=== PATIENT | male | born 1930 | race Caucasian/White ===

== ENCOUNTER 2017-10-06 17:57 | Emergency (ER) | payer MEDICARE, BC ==
[2017-10-06] MEDS ORDERED: SODIUM CHLORIDE 0.9% 1,000 ML IV ONE (18:19)
[2017-10-06] MEDS ORDERED: SODIUM CHLORIDE 0.9% 500 ML IV ONE (18:19)
--- NOTE | 2017-10-06 18:26 | ED ---
General Adult HPI - General Chief complaint: Altered Mental Status Stated complaint: swelling & bruising on left arm/altered Time Seen by Provider: 10/06/17 18:09 Source: patient, family, RN notes reviewed, old records reviewed Mode of arrival: wheelchair Limitations: altered mental status, physical limitation - History of Present Illness Initial comments: 87-year-old male presents for evaluation of altered mental status, confusion, left upper arm swelling and bruising as well as generalized weakness. Patient is alert and oriented the time my evaluation, family states that his confusion has been coming and going over the past 24 hours. Patient is normally ambulates without assistance. He has required assistance with ambulation today. Patient is currently being treated for UTI, he is uncertain what antibiotic he is on. He has had some hematuria over the past several weeks. He states that he has taken 2 doses of this antibiotic, he subsequently lost the bottle and his urologist has refilled this prescription and he is going to pick it up tomorrow. 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 The family has had several falls, he denies any head trauma. Denies neck pain. - Related Data Home Medications Medication Instructions Recorded Confirmed ALPRAZolam [Xanax] 0.25 mg PO TID 11/04/15 10/06/17 Atenolol [Tenormin] 50 mg PO DAILY 11/04/15 10/06/17 Atorvastatin [Lipitor] 20 mg PO HS 11/04/15 10/06/17 Latanoprost Ophth [Xalatan 0.005%] 1 drops BOTH EYES HS 11/04/15 10/06/17 Acetaminophen [Tylenol] 1,000 mg PO Q4-6H PRN 11/30/15 10/06/17 Cholecalciferol [Vitamin D3] 5,000 unit PO DAILY 11/30/15 10/06/17 Conjugated Linoleic Acid 1 tab PO DAILY 11/30/15 10/06/17 L.acidoph,Paracasei, B.lactis 2 cap PO DAILY 11/30/15 10/06/17 [Probiotic] Loratadine [Claritin] 10 mg PO DAILY PRN 11/30/15 10/06/17 Melatonin 10 mg PO HS 11/30/15 10/06/17 Multivitamin [Men's Multi-Vitamin] 1 tab PO DAILY 11/30/15 10/06/17 Whitt-3 Fatty Acids/Fish Oil [Fish 1 cap PO DAILY 11/30/15 10/06/17 Oil 1,000 mg Softgel] Telmisartan [Micardis] 80 mg PO DAILY 11/30/15 10/06/17 Vitamin C 120mg Tab 120 mg PO BID 11/30/15 10/06/17 Vitamin E (Dl,Tocopheryl Acet) 400 unit PO DAILY 11/30/15 10/06/17 [Vitamin E] Budesonide [Pulmicort] 0.5 mg INHALATION BID 10/06/17 10/06/17 Clindamycin [Cleocin] 600 mg PO ONCE 10/06/17 10/06/17 Ibuprofen [Motrin Ib] 600 mg PO Q6H PRN 10/06/17 10/06/17 Ipratropium-Albuterol Nebulize 3 ml INHALATION QID 10/06/17 10/06/17 [Duoneb 0.5 mg-3 mg/3 ml Soln] Prednisone Unknown Dose 1 tab PO DAILY 10/06/17 10/06/17 Warfarin [Coumadin] 3 mg PO DAILY 10/06/17 10/06/17 metFORMIN HCL [Glucophage] 500 mg PO BID 10/06/17 10/06/17 Allergies Allergy/AdvReac Type Severity Reaction Status Date / Time Penicillins AdvReac Unknown Verified 10/06/17 18:42 tamsulosin HCl [From Flomax] AdvReac Unknown Verified 10/06/17 18:42 Review of Systems ROS Statement: Those systems with pertinent positive or pertinent negative responses have been documented in the HPI. ROS Other: All systems not noted in ROS Statement are negative. Past Medical History Past Medical History: Asthma, Diabetes Mellitus, Hearing Disorder / Deafness, Hypertension, Pulmonary Embolus (PE) History of Any Multi-Drug Resistant Organisms: None Reported Past Surgical History: Joint Replacement Additional Past Surgical History / Comment(s): right hip/ left knee, cataract bilateral Past Anesthesia/Blood Transfusion Reactions: No Reported Reaction Past Psychological History: Anxiety Smoking Status: Former smoker Past Alcohol Use History: Daily, Heavy Past Drug Use History: None Reported General Exam Limitations: altered mental status, physical limitation General appearance: alert, in no apparent distress Head exam: Present: atraumatic, normocephalic Eye exam: Present: normal appearance, PERRL, EOMI ENT exam: Present: mucous membranes dry Neck exam: Present: normal inspection, full ROM. Absent: tenderness, meningismus Respiratory exam: Present: normal lung sounds bilaterally. Absent: respiratory distress, wheezes Cardiovascular Exam: Present: regular rate, normal rhythm GI/Abdominal exam: Present: soft. Absent: distended, tenderness Extremities exam: Present: other (Left upper extremity, diffuse ecchymosis in various stages of healing, there is soft tissue swelling from the elbow to the hand. No point tenderness. No pain with range of motion. Pulses intact.) Back exam: Present: normal inspection Neurological exam: Present: alert, oriented X3, CN II-XII intact. Absent: motor sensory deficit Psychiatric exam: Present: normal affect, normal mood Skin exam: Present: warm, dry Course Vital Signs 10/06/17 10/06/17 10/06/17 18:02 19:14 20:19 Temperature 97.9 F Pulse Rate 87 78 74 Respiratory 20 16 17 Rate Blood Pressure 95/51 98/52 94/55 O2 Sat by Pulse 94 L 97 98 Oximetry 10/06/17 21:27 Temperature Pulse Rate 65 Respiratory 16 Rate Blood Pressure 103/53 O2 Sat by Pulse 96 Oximetry EKG Findings - EKG Comments: EKG Findings:: EKG shows normal sinus rhythm, ventricular rate 85, para 166, QRS duration 82 QTC 442, no signs of ischemia Medical Decision Making - Medical Decision Making 87-year-old male presenting with generalized weakness, left arm swelling and bruising, and intermittent confusion. Patient's confusion is completely resolved with time my evaluation. He does have significant bruising and ecchymosis in various stages of healing over the left upper extremity. Pulses are intact, there is no bony tenderness. X-rays obtained, the wrist and elbow these are negative for fracture dislocation. Ultrasound is also obtained, negative for DVT. Given the history of fall CT of the brain is obtained is negative for intracranial hemorrhage or mass effect. CT cervical spine negative for fracture or subluxation. Chest x-ray shows no acute findings. Patient does have mild elevations in white blood cell count 11.2, hemoglobin is 9.5 which is down trending from previous, this may be related to left upper extremity swelling and ecchymosis status post fall. INR therapeutic 2.2. Electrolytes within normal limits. Creatinine is normal. Urinalysis shows large leukocyte esterase with greater than 182 white blood cells, urine culture pending. Patient has received only 2 doses of outpatient antibiotics, he is uncertain what this antibiotic is. No urine culture is available in previous records. I would prefer the patient stay in the hospital given the confusion and significant UTI, patient is alert and oriented 4, he does not want to be admitted. 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 He will return with worsening or changing symptoms. Patient does not live alone. - Lab Data Result diagrams: 10/06/17 18:47 10/06/17 18:47 Lab Results 10/06/17 10/06/17 10/06/17 Range/Units 18:45 18:47 18:47 WBC 11.2 H (3.8-10.6) k/uL RBC 3.01 L (4.30-5.90) m/uL Hgb 9.5 L (13.0-17.5) gm/dL Hct 29.9 L (39.0-53.0) % MCV 99.2 (80.0-100.0) fL MCH 31.4 (25.0-35.0) pg MCHC 31.7 (31.0-37.0) g/dL RDW 12.9 (11.5-15.5) % Plt Count 324 (150-450) k/uL Neutrophils % 80 % Lymphocytes % 8 % Monocytes % 7 % Eosinophils % 2 % Basophils % 0 % Neutrophils # 9.0 H (1.3-7.7) k/uL Lymphocytes # 0.9 L (1.0-4.8) k/uL Monocytes # 0.8 (0-1.0) k/uL Eosinophils # 0.3 (0-0.7) k/uL Basophils # 0.0 (0-0.2) k/uL PT (9.0-12.0) sec INR (<1.2) APTT (22.0-30.0) sec Sodium (137-145) mmol/L Potassium (3.5-5.1) mmol/L Chloride (98-107) mmol/L Carbon Dioxide (22-30) mmol/L Anion Gap mmol/L BUN (9-20) mg/dL Creatinine (0.66-1.25) mg/dL Est GFR (MDRD) Af Amer (>60 ml/min/1.73 sqM) Est GFR (MDRD) Non-Af (>60 ml/min/1.73 sqM) Glucose (74-99) mg/dL POC Glucose (mg/dL) 208 H (75-99) mg/dL POC Glu [employer] ID Dony Mcdonald Plasma Lactic Acid Jay (0.7-2.0) mmol/L Calcium (8.4-10.2) mg/dL Total Bilirubin (0.2-1.3) mg/dL AST (17-59) U/L ALT (21-72) U/L Alkaline Phosphatase (38-126) U/L Total Creatine Kinase 69 (55-170) U/L CK-MB (CK-2) 1.0 (0.0-2.4) ng/mL CK-MB (CK-2) Rel Index 1.4 Troponin I 0.014 (0.000-0.034) ng/mL Total Protein (6.3-8.2) g/dL Albumin (3.5-5.0) g/dL Urine Color Urine Appearance (Clear) Urine pH (5.0-8.0) Ur Specific [place] (1.001-1.035) Urine Protein (Negative) Urine Glucose (UA) (Negative) Urine Ketones (Negative) Urine Blood (Negative) Urine Nitrite (Negative) Urine Bilirubin (Negative) Urine Urobilinogen (<2.0) mg/dL Ur Leukocyte Esterase (Negative) Urine RBC (0-5) /hpf Urine WBC (0-5) /hpf Urine WBC Clumps (None) /hpf Urine Bacteria (None) /hpf Urine Mucus (None) /hpf 10/06/17 10/06/17 10/06/17 Range/Units 18:47 18:47 18:47 WBC (3.8-10.6) k/uL RBC (4.30-5.90) m/uL Hgb (13.0-17.5) gm/dL Hct (39.0-53.0) % MCV (80.0-100.0) fL MCH (25.0-35.0) pg MCHC (31.0-37.0) g/dL RDW (11.5-15.5) % Plt Count (150-450) k/uL Neutrophils % % Lymphocytes % % Monocytes % % Eosinophils % % Basophils % % Neutrophils # (1.3-7.7) k/uL Lymphocytes # (1.0-4.8) k/uL Monocytes # (0-1.0) k/uL Eosinophils # (0-0.7) k/uL Basophils # (0-0.2) k/uL PT 19.8 H (9.0-12.0) sec INR 2.2 H (<1.2) APTT 36.8 H (22.0-30.0) sec Sodium 143 (137-145) mmol/L Potassium 4.3 (3.5-5.1) mmol/L Chloride 112 H (98-107) mmol/L Carbon Dioxide 22 (22-30) mmol/L Anion Gap 9 mmol/L BUN 28 H (9-20) mg/dL Creatinine 0.80 (0.66-1.25) mg/dL Est GFR (MDRD) Af Amer >60 (>60 ml/min/1.73 sqM) Est GFR (MDRD) Non-Af >60 (>60 ml/min/1.73 sqM) Glucose 197 H (74-99) mg/dL POC Glucose (mg/dL) (75-99) mg/dL POC Glu [employer] ID Plasma Lactic Acid Jay 1.6 (0.7-2.0) mmol/L Calcium 8.6 (8.4-10.2) mg/dL Total Bilirubin 0.8 (0.2-1.3) mg/dL AST 48 (17-59) U/L ALT 38 (21-72) U/L Alkaline Phosphatase 68 (38-126) U/L Total Creatine Kinase (55-170) U/L CK-MB (CK-2) (0.0-2.4) ng/mL CK-MB (CK-2) Rel Index Troponin I (0.000-0.034) ng/mL Total Protein 5.0 L (6.3-8.2) g/dL Albumin 2.5 L (3.5-5.0) g/dL Urine Color Urine Appearance (Clear) Urine pH (5.0-8.0) Ur Specific [place] (1.001-1.035) Urine Protein (Negative) Urine Glucose (UA) (Negative) Urine Ketones (Negative) Urine Blood (Negative) Urine Nitrite (Negative) Urine Bilirubin (Negative) Urine Urobilinogen (<2.0) mg/dL Ur Leukocyte Esterase (Negative) Urine RBC (0-5) /hpf Urine WBC (0-5) /hpf Urine WBC Clumps (None) /hpf Urine Bacteria (None) /hpf Urine Mucus (None) /hpf 10/06/17 Range/Units 20:10 WBC (3.8-10.6) k/uL RBC (4.30-5.90) m/uL Hgb (13.0-17.5) gm/dL Hct (39.0-53.0) % MCV (80.0-100.0) fL MCH (25.0-35.0) pg MCHC (31.0-37.0) g/dL RDW (11.5-15.5) % Plt Count (150-450) k/uL Neutrophils % % Lymphocytes % % Monocytes % % Eosinophils % % Basophils % % Neutrophils # (1.3-7.7) k/uL Lymphocytes # (1.0-4.8) k/uL Monocytes # (0-1.0) k/uL Eosinophils # (0-0.7) k/uL Basophils # (0-0.2) k/uL PT (9.0-12.0) sec INR (<1.2) APTT (22.0-30.0) sec Sodium (137-145) mmol/L Potassium (3.5-5.1) mmol/L Chloride (98-107) mmol/L Carbon Dioxide (22-30) mmol/L Anion Gap mmol/L BUN (9-20) mg/dL Creatinine (0.66-1.25) mg/dL Est GFR (MDRD) Af Amer (>60 ml/min/1.73 sqM) Est GFR (MDRD) Non-Af (>60 ml/min/1.73 sqM) Glucose (74-99) mg/dL POC Glucose (mg/dL) (75-99) mg/dL POC Glu [employer] ID Plasma Lactic Acid Jay (0.7-2.0) mmol/L Calcium (8.4-10.2) mg/dL Total Bilirubin (0.2-1.3) mg/dL AST (17-59) U/L ALT (21-72) U/L Alkaline Phosphatase (38-126) U/L Total Creatine Kinase (55-170) U/L CK-MB (CK-2) (0.0-2.4) ng/mL CK-MB (CK-2) Rel Index Troponin I (0.000-0.034) ng/mL Total Protein (6.3-8.2) g/dL Albumin (3.5-5.0) g/dL Urine Color Yellow Urine Appearance Cloudy (Clear) Urine pH 5.5 (5.0-8.0) Ur Specific [place] 1.014 (1.001-1.035) Urine Protein 1+ H (Negative) Urine Glucose (UA) Negative (Negative) Urine Ketones Negative (Negative) Urine Blood Trace H (Negative) Urine Nitrite Negative (Negative) Urine Bilirubin Negative (Negative) Urine Urobilinogen <2.0 (<2.0) mg/dL Ur Leukocyte Esterase Large H (Negative) Urine RBC 6 H (0-5) /hpf Urine WBC >182 H (0-5) /hpf Urine WBC Clumps Many H (None) /hpf Urine Bacteria Rare H (None) /hpf Urine Mucus Rare H (None) /hpf Disposition Clinical Impression: UTI (urinary tract infection), Traumatic ecchymosis of left upper arm Disposition: HOME SELF-CARE Condition: Stable Instructions: Hematoma (ED), Contusion in Adults (ED), Urinary Traction Infection in Older Adults (ED), Urinary Tract Infection in Men (ED) Additional Instructions: Please take antibiotic prescribed by your urologist tomorrow morning. Please return with any worsening or changing symptoms. Referrals: Yue Loya MD [Primary Care Provider] - 1-2 days Time of Disposition: 21:48
[2017-10-06 19:00] LABS: Basophils % (A) 0 %; Eosinophils # (A) 0.3 k/uL (0-0.7); Eosinophils % (A) 2 %; HCT 29.9 % (39.0-53.0); HGB 9.5 gm/dL (13.0-17.5); Lymphocytes # (A) 0.9 k/uL (1.0-4.8); Lymphocytes % (A) 8 %; MCH 31.4 pg (25.0-35.0); MCHC 31.7 g/dL (31.0-37.0); MCV 99.2 fL (80.0-100.0); Mean Platelet Volume 7.9; Monocytes # (A) 0.8 k/uL (0-1.0); Monocytes % (A) 7 %; Neutrophils % (A) 80 %; Platelet Count 324 k/uL (150-450); RBC 3.01 m/uL (4.30-5.90); RDW 12.9 % (11.5-15.5); WBC 11.2 k/uL (3.8-10.6)
[2017-10-06 19:04] LABS: Glucose,Whole Blood 208 mg/dL (75-99)
[2017-10-06 19:15] LABS: ALT 38 U/L (21-72); AST 48 U/L (17-59); Albumin 2.5 g/dL (3.5-5.0); Alkaline Phosphatase 68 U/L (38-126); Anion Gap 9 mmol/L; Blood Urea Nitrogen 28 mg/dL (9-20); Calcium 8.6 mg/dL (8.4-10.2); Carbon Dioxide 22 mmol/L (22-30); Chloride 112 mmol/L (98-107); Glucose 197 mg/dL (74-99); Potassium 4.3 mmol/L (3.5-5.1); Sodium 143 mmol/L (137-145); Total Bilirubin 0.8 mg/dL (0.2-1.3)
[2017-10-06 19:21] LABS: INR 2.2 (<1.2); Partial Thromboplastin Time 36.8 sec (22.0-30.0); Prothrombin Time 19.8 sec (9.0-12.0)
--- NOTE | 2017-10-06 19:43 | CT ---
EXAMINATION TYPE: CT brain fay gustafson DATE OF EXAM: 10/06/2017 COMPARISON: Head CT scan 11/04/2015 HISTORY: Swelling and bruising to left arm. Altered mental status. Neck pain CT DLP: 1331.2 mGycm Automated exposure control for dose reduction was used. TECHNIQUE: CT scan of the head and cervical spine are performed without contrast. FINDINGS: There is some cerebral cortical atrophy. There is mild hypodensity in the periventricular white matter. There is metal artifact from apparent implant at the right mastoid process. There is no midline shift. There is no sign of intracranial hemorrhage. The calvarium is intact. The cervical vertebra have fairly normal alignment. There is a few millimeter anterior subluxation of C4 in relation to C5 and also C6 in relation to C7 and C7 in relation to T1. There is multilevel hyp ertrophic facet arthropathy. I see no compression fracture. There is no evidence of an acute fracture . IMPRESSION: Cerebral atrophy and chronic small vessel ischemia. No acute intracranial abnormality. No change. 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 No fracture seen.
[2017-10-06 19:48] LABS: Troponin I 0.014 ng/mL (0.000-0.034)
--- NOTE | 2017-10-06 20:10 | XR ---
EXAMINATION TYPE: XR wrist complete LT DATE OF EXAM: 10/06/2017 COMPARISON: NONE HISTORY: Pain and swelling TECHNIQUE: 4 views FINDINGS: There is narrowing of the radiocarpal joint space. There is some sclerosis in the lunate. T here is vascular calcification. There is narrowing of the first carpometacarpal joint space with spur ring. IMPRESSION: No fracture. Osteoarthritic changes.
--- NOTE | 2017-10-06 20:11 | XR ---
EXAMINATION TYPE: XR elbow complete LT DATE OF EXAM: 10/06/2017 COMPARISON: NONE HISTORY: Pain and swelling TECHNIQUE: 3 views FINDINGS: I see no fracture nor dislocation. There is minor spurring at the elbow joint. There is no sign of elbow joint effusion. There is vascular calcification. IMPRESSION: No acute abnormality of the left elbow.
--- NOTE | 2017-10-06 20:12 | XR ---
EXAMINATION TYPE: XR chest 2V DATE OF EXAM: 10/06/2017 COMPARISON: 11/30/2015 HISTORY: Chest pain. Altered mental status. TECHNIQUE: Frontal and lateral views of the chest are obtained. FINDINGS: There is mild elevated left diaphragm. There is no heart failure nor confluent pneumonic i nfiltrate. Thoracic aorta is atheromatous. IMPRESSION: Mild chronic elevated left diaphragm. No active cardiopulmonary disease. No change.
[2017-10-06 20:39] LABS: Appearance,Urine Cloudy (Clear); Bacteria,Urine Rare /hpf; Bilirubin,Urine Negative (Negative); Blood,Urine Trace (Negative); Color,Urine Yellow; Glucose,Urine (UA) Negative (Negative); Ketones,Urine Negative (Negative); Leukocyte Esterase,Urine Large (Negative); Mucus,Urine Rare /hpf; PH, Urine 5.5 (5.0-8.0); Protein,Urine 1+ (Negative); RBC,Urine 6 /hpf (0-5); Specific Gravity,Urine 1.014 (1.001-1.035); Urobilinogen,Urine <2.0 mg/dL (<2.0); WBC,Urine >182 /hpf (0-5)
--- NOTE | 2017-10-06 21:02 | US ---
EXAMINATION TYPE: US venous doppler duplex UE LT DATE OF EXAM: 10/06/2017 COMPARISON: NONE CLINICAL HISTORY: Pain. Left arm pain and swelling SIDE PERFORMED: Left Left Arm: Negative for DVT No evidence for DVT left arm. IMPRESSION: No evidence of deep venous thrombosis in the left arm.
[2017-10-06] MEDS ORDERED: LEVOFLOXACIN 500MG-D5W PMX 500 MG in DEXTROSE/WATER 1 100ML.BAG IVPB STA (21:17)
[2017-10-06 21:28] VITALS: RESP 16
[2017-10-06 22:42] VITALS: BP 107/50; PULSE 71; TEMP 98.1
== END 2017-10-06 22:39 | disposition home or self-care (01) ==
LOC: EC 17:57
DX: N39.0 Urinary tract infection, site not specified (principal); S40.022D Contusion of left upper arm, subsequent encounter; D72.829 Elevated white blood cell count, unspecified; R41.82 Altered mental status, unspecified; M79.89 Other specified soft tissue disorders; R53.1 Weakness; R29.6 Repeated falls; Z87.891 Personal history of nicotine dependence; I10 Essential (primary) hypertension; E11.9 Type 2 diabetes mellitus without complications; J45.909 Unspecified asthma, uncomplicated; H91.90 Unspecified hearing loss, unspecified ear; F41.9 Anxiety disorder, unspecified; Z79.01 Long term (current) use of anticoagulants; Z79.51 Long term (current) use of inhaled steroids; Z79.52 Long term (current) use of systemic steroids; Z79.84 Long term (current) use of oral hypoglycemic drugs; Z79.899 Other long term (current) drug therapy; Z88.0 Allergy status to penicillin; Z88.8 Allergy status to other drugs, medicaments and biological substances; Z86.711 Personal history of pulmonary embolism; Z86.718 Personal history of other venous thrombosis and embolism; W19.XXXD Unspecified fall, subsequent encounter
CPT/HCPCS: 36415; 93005; 80053; 82550; 82553; 83605; 84484; 85025; 85610; 85730; 81001; 87086; 87077; 87186; 73080; 73110; 71046; 93971; 72125; 70450; 99285; 96365; 96361 ×2; J1956

== ENCOUNTER 2017-10-08 06:03 | Inpatient (IN) | payer MEDICARE, BC ==
[2017-10-08 07:35] LABS: Basophils # (A) 0.1 k/uL (0-0.2); Basophils % (A) 0 %; Eosinophils # (A) 0.3 k/uL (0-0.7); Eosinophils % (A) 3 %; HGB 8.8 gm/dL (13.0-17.5); Lymphocytes # (A) 1.2 k/uL (1.0-4.8); Lymphocytes % (A) 10 %; MCH 31.3 pg (25.0-35.0); MCHC 31.6 g/dL (31.0-37.0); MCV 98.9 fL (80.0-100.0); Mean Platelet Volume 7.3; Monocytes # (A) 1.1 k/uL (0-1.0); Monocytes % (A) 9 %; Neutrophils # (A) 9.3 k/uL (1.3-7.7); Neutrophils % (A) 77 %; Platelet Count 369 k/uL (150-450); RBC 2.83 m/uL (4.30-5.90); RDW 12.7 % (11.5-15.5); WBC 12.2 k/uL (3.8-10.6)
[2017-10-08] MEDS ORDERED: SODIUM CHLORIDE 0.9% 1,000 ML IV STA (07:40)
[2017-10-08 07:43] LABS: ALT 48 U/L (21-72); AST 56 U/L (17-59); Albumin 2.3 g/dL (3.5-5.0); Alkaline Phosphatase 72 U/L (38-126); Anion Gap 8 mmol/L; Blood Urea Nitrogen 24 mg/dL (9-20); Calcium 8.4 mg/dL (8.4-10.2); Carbon Dioxide 21 mmol/L (22-30); Chloride 111 mmol/L (98-107); Glucose 147 mg/dL (74-99); Magnesium 1.7 mg/dL (1.6-2.3); Potassium 4.1 mmol/L (3.5-5.1); Sodium 140 mmol/L (137-145); Total Protein 4.7 g/dL (6.3-8.2)
--- NOTE | 2017-10-08 07:44 | ED ---
General Adult HPI - General Chief complaint: Fall Stated complaint: Fall-revisit Time Seen by Provider: 10/08/17 07:05 Source: patient, family, RN notes reviewed Mode of arrival: ambulatory Limitations: no limitations - History of Present Illness Initial comments: Patient is a pleasant 87-year-old male presenting to the emergency Department with general weakness. Patient was diagnosed with urinary tract infection however did not get antibiotics filled. Patient was in the urgency Department recently and received a dose of IV antibiotics. Patient did get in touch with his urologist and had a prescription called in for a different antibiotic. Patient was supposed to get this picked up this morning. Patient has generalized weakness and has had falls. No injury. Patient does have ecchymosis of his left arm that he has been seen for and this was attributed to his Coumadin. Patient denies any discomfort of left arm. Patient has been somewhat forgetful and confused. - Related Data Home Medications Medication Instructions Recorded Confirmed ALPRAZolam [Xanax] 0.25 mg PO TID 11/04/15 10/08/17 Atenolol [Tenormin] 50 mg PO DAILY 11/04/15 10/08/17 Atorvastatin [Lipitor] 20 mg PO HS 11/04/15 10/08/17 Latanoprost Ophth [Xalatan 0.005%] 1 drops BOTH EYES HS 11/04/15 10/08/17 Acetaminophen [Tylenol] 1,000 mg PO Q4-6H PRN 11/30/15 10/08/17 Cholecalciferol [Vitamin D3] 5,000 unit PO DAILY 11/30/15 10/08/17 Conjugated Linoleic Acid 1 tab PO DAILY 11/30/15 10/08/17 L.acidoph,Paracasei, B.lactis 2 cap PO DAILY 11/30/15 10/08/17 [Probiotic] Loratadine [Claritin] 10 mg PO DAILY PRN 11/30/15 10/08/17 Melatonin 10 mg PO HS 11/30/15 10/08/17 Multivitamin [Men's Multi-Vitamin] 1 tab PO DAILY 11/30/15 10/08/17 Collins-3 Fatty Acids/Fish Oil [Fish 1 cap PO DAILY 11/30/15 10/08/17 Oil 1,000 mg Softgel] Telmisartan [Micardis] 80 mg PO DAILY 11/30/15 10/08/17 Vitamin C 120mg Tab 120 mg PO BID 11/30/15 10/08/17 Vitamin E (Dl,Tocopheryl Acet) 400 unit PO DAILY 11/30/15 10/08/17 [Vitamin E] Budesonide [Pulmicort] 0.5 mg INHALATION BID 10/06/17 10/08/17 Clindamycin [Cleocin] 600 mg PO ONCE 10/06/17 10/08/17 Ibuprofen [Motrin Ib] 600 mg PO Q6H PRN 10/06/17 10/08/17 Ipratropium-Albuterol Nebulize 3 ml INHALATION QID 10/06/17 10/08/17 [Duoneb 0.5 mg-3 mg/3 ml Soln] Prednisone Unknown Dose 1 tab PO DAILY 10/06/17 10/08/17 Warfarin [Coumadin] 3 mg PO DAILY 10/06/17 10/08/17 metFORMIN HCL [Glucophage] 500 mg PO BID 10/06/17 10/08/17 Allergies Allergy/AdvReac Type Severity Reaction Status Date / Time Penicillins AdvReac Unknown Verified 10/08/17 08:25 tamsulosin HCl [From Flomax] AdvReac Unknown Verified 10/08/17 08:25 Review of Systems ROS Statement: Those systems with pertinent positive or pertinent negative responses have been documented in the HPI. ROS Other: All systems not noted in ROS Statement are negative. Constitutional: Denies: fever Eyes: Denies: eye pain ENT: Denies: ear pain Respiratory: Denies: cough Cardiovascular: Denies: chest pain Endocrine: Denies: fatigue Gastrointestinal: Denies: abdominal pain Genitourinary: Denies: dysuria Musculoskeletal: Denies: back pain Skin: Denies: rash Neurological: Reports: confusion. Denies: headache Past Medical History Past Medical History: Asthma, Diabetes Mellitus, Hearing Disorder / Deafness, Hypertension, Pulmonary Embolus (PE) Additional Past Medical History / Comment(s): jaundice History of Any Multi-Drug Resistant Organisms: None Reported Past Surgical History: Joint Replacement Additional Past Surgical History / Comment(s): right hip/ left knee, cataract bilateral Past Anesthesia/Blood Transfusion Reactions: No Reported Reaction Past Psychological History: Anxiety Smoking Status: Former smoker Past Alcohol Use History: Daily, Heavy Past Drug Use History: None Reported General Exam Limitations: no limitations General appearance: alert Head exam: Present: atraumatic, normocephalic Eye exam: Present: normal appearance, PERRL, EOMI ENT exam: Present: normal oropharynx Neck exam: Present: normal inspection Respiratory exam: Present: normal lung sounds bilaterally Cardiovascular Exam: Present: regular rate, normal rhythm GI/Abdominal exam: Present: soft. Absent: tenderness Rectal exam: Present: normal inspection Extremities exam: Present: other (Left arm ecchymosis) Neurological exam: Present: alert, CN II-XII intact. Absent: motor sensory deficit Expanded Patient oriented to: Present: person, place, time Speech: Present: fluid speech Motor strength exam: RUE: 5, LUE: 5, RLE: 5, LLE: 5 Eye Response: (4) open spontaneously Motor Response: (6) obeys commands Verbal Response: (5) oriented Psychiatric exam: Present: normal affect, normal mood Skin exam: Present: other (Left arm ecchymosis) Course Vital Signs 10/08/17 10/08/17 10/08/17 06:09 07:08 08:01 Temperature 97.5 F L 99.3 F Pulse Rate 91 82 81 Respiratory 20 18 16 Rate Blood Pressure 97/52 106/50 96/52 O2 Sat by Pulse 94 L 94 L 97 Oximetry - Reevaluation(s) Reevaluation #1: 10/08/17 08:53 Patient meet sepsis criteria diagnosed at 8:53 AM. Blood culture and lactic acid have been ordered. IV antibiotics will be ordered. EKG Findings - EKG Comments: EKG Findings:: Normal sinus rhythm 89. KS 174. QRS 82. QT 366. QTc 445. Normal axis. Normal QRS. No acute ST change. Medical Decision Making - Medical Decision Making Patient reevaluated and updated. Case discussed in detail with Dr. Loya, who will admit his patient. - Lab Data Result diagrams: 10/08/17 07:00 10/08/17 07:00 Lab Results 10/08/17 10/08/17 10/08/17 Range/Units 07:00 07:00 07:00 WBC 12.2 H (3.8-10.6) k/uL RBC 2.83 L (4.30-5.90) m/uL Hgb 8.8 L (13.0-17.5) gm/dL Hct 28.0 L (39.0-53.0) % MCV 98.9 (80.0-100.0) fL MCH 31.3 (25.0-35.0) pg MCHC 31.6 (31.0-37.0) g/dL RDW 12.7 (11.5-15.5) % Plt Count 369 (150-450) k/uL Neutrophils % 77 % Lymphocytes % 10 % Monocytes % 9 % Eosinophils % 3 % Basophils % 0 % Neutrophils # 9.3 H (1.3-7.7) k/uL Lymphocytes # 1.2 (1.0-4.8) k/uL Monocytes # 1.1 H (0-1.0) k/uL Eosinophils # 0.3 (0-0.7) k/uL Basophils # 0.1 (0-0.2) k/uL PT (9.0-12.0) sec INR (<1.2) APTT (22.0-30.0) sec Sodium 140 (137-145) mmol/L Potassium 4.1 (3.5-5.1) mmol/L Chloride 111 H (98-107) mmol/L Carbon Dioxide 21 L (22-30) mmol/L Anion Gap 8 mmol/L BUN 24 H (9-20) mg/dL Creatinine 0.78 (0.66-1.25) mg/dL Est GFR (MDRD) Af Amer >60 (>60 ml/min/1.73 sqM) Est GFR (MDRD) Non-Af >60 (>60 ml/min/1.73 sqM) Glucose 147 H (74-99) mg/dL Plasma Lactic Acid Jay (0.7-2.0) mmol/L Calcium 8.4 (8.4-10.2) mg/dL Magnesium 1.7 (1.6-2.3) mg/dL Total Bilirubin 1.0 (0.2-1.3) mg/dL AST 56 (17-59) U/L ALT 48 (21-72) U/L Alkaline Phosphatase 72 (38-126) U/L Total Creatine Kinase 63 (55-170) U/L CK-MB (CK-2) 1.2 (0.0-2.4) ng/mL CK-MB (CK-2) Rel Index 1.9 Troponin I 0.013 (0.000-0.034) ng/mL Total Protein 4.7 L (6.3-8.2) g/dL Albumin 2.3 L (3.5-5.0) g/dL Urine Color Urine Appearance (Clear) Urine pH (5.0-8.0) Ur Specific [place] (1.001-1.035) Urine Protein (Negative) Urine Glucose (UA) (Negative) Urine Ketones (Negative) Urine Blood (Negative) Urine Nitrite (Negative) Urine Bilirubin (Negative) Urine Urobilinogen (<2.0) mg/dL Ur Leukocyte Esterase (Negative) Urine RBC (0-5) /hpf Urine WBC (0-5) /hpf Ur Squamous Epith Cells (0-4) /hpf Urine Mucus (None) /hpf Stool Occult Blood (Negative) 10/08/17 10/08/17 10/08/17 Range/Units 07:00 07:30 07:59 WBC (3.8-10.6) k/uL RBC (4.30-5.90) m/uL Hgb (13.0-17.5) gm/dL Hct (39.0-53.0) % MCV (80.0-100.0) fL MCH (25.0-35.0) pg MCHC (31.0-37.0) g/dL RDW (11.5-15.5) % Plt Count (150-450) k/uL Neutrophils % % Lymphocytes % % Monocytes % % Eosinophils % % Basophils % % Neutrophils # (1.3-7.7) k/uL Lymphocytes # (1.0-4.8) k/uL Monocytes # (0-1.0) k/uL Eosinophils # (0-0.7) k/uL Basophils # (0-0.2) k/uL PT 24.3 H (9.0-12.0) sec INR 2.7 H (<1.2) APTT 39.3 H (22.0-30.0) sec Sodium (137-145) mmol/L Potassium (3.5-5.1) mmol/L Chloride (98-107) mmol/L Carbon Dioxide (22-30) mmol/L Anion Gap mmol/L BUN (9-20) mg/dL Creatinine (0.66-1.25) mg/dL Est GFR (MDRD) Af Amer (>60 ml/min/1.73 sqM) Est GFR (MDRD) Non-Af (>60 ml/min/1.73 sqM) Glucose (74-99) mg/dL Plasma Lactic Acid Jay 0.8 (0.7-2.0) mmol/L Calcium (8.4-10.2) mg/dL Magnesium (1.6-2.3) mg/dL Total Bilirubin (0.2-1.3) mg/dL AST (17-59) U/L ALT (21-72) U/L Alkaline Phosphatase (38-126) U/L Total Creatine Kinase (55-170) U/L CK-MB (CK-2) (0.0-2.4) ng/mL CK-MB (CK-2) Rel Index Troponin I (0.000-0.034) ng/mL Total Protein (6.3-8.2) g/dL Albumin (3.5-5.0) g/dL Urine Color Yellow Urine Appearance Clear (Clear) Urine pH 5.0 (5.0-8.0) Ur Specific [place] 1.013 (1.001-1.035) Urine Protein Trace H (Negative) Urine Glucose (UA) Negative (Negative) Urine Ketones Negative (Negative) Urine Blood Negative (Negative) Urine Nitrite Negative (Negative) Urine Bilirubin Negative (Negative) Urine Urobilinogen <2.0 (<2.0) mg/dL Ur Leukocyte Esterase Moderate H (Negative) Urine RBC 2 (0-5) /hpf Urine WBC 57 H (0-5) /hpf Ur Squamous Epith Cells 1 (0-4) /hpf Urine Mucus Rare H (None) /hpf Stool Occult Blood (Negative) 10/08/17 Range/Units 08:05 WBC (3.8-10.6) k/uL RBC (4.30-5.90) m/uL Hgb (13.0-17.5) gm/dL Hct (39.0-53.0) % MCV (80.0-100.0) fL MCH (25.0-35.0) pg MCHC (31.0-37.0) g/dL RDW (11.5-15.5) % Plt Count (150-450) k/uL Neutrophils % % Lymphocytes % % Monocytes % % Eosinophils % % Basophils % % Neutrophils # (1.3-7.7) k/uL Lymphocytes # (1.0-4.8) k/uL Monocytes # (0-1.0) k/uL Eosinophils # (0-0.7) k/uL Basophils # (0-0.2) k/uL PT (9.0-12.0) sec INR (<1.2) APTT (22.0-30.0) sec Sodium (137-145) mmol/L Potassium (3.5-5.1) mmol/L Chloride (98-107) mmol/L Carbon Dioxide (22-30) mmol/L Anion Gap mmol/L BUN (9-20) mg/dL Creatinine (0.66-1.25) mg/dL Est GFR (MDRD) Af Amer (>60 ml/min/1.73 sqM) Est GFR (MDRD) Non-Af (>60 ml/min/1.73 sqM) Glucose (74-99) mg/dL Plasma Lactic Acid Jay (0.7-2.0) mmol/L Calcium (8.4-10.2) mg/dL Magnesium (1.6-2.3) mg/dL Total Bilirubin (0.2-1.3) mg/dL AST (17-59) U/L ALT (21-72) U/L Alkaline Phosphatase (38-126) U/L Total Creatine Kinase (55-170) U/L CK-MB (CK-2) (0.0-2.4) ng/mL CK-MB (CK-2) Rel Index Troponin I (0.000-0.034) ng/mL Total Protein (6.3-8.2) g/dL Albumin (3.5-5.0) g/dL Urine Color Urine Appearance (Clear) Urine pH (5.0-8.0) Ur Specific [place] (1.001-1.035) Urine Protein (Negative) Urine Glucose (UA) (Negative) Urine Ketones (Negative) Urine Blood (Negative) Urine Nitrite (Negative) Urine Bilirubin (Negative) Urine Urobilinogen (<2.0) mg/dL Ur Leukocyte Esterase (Negative) Urine RBC (0-5) /hpf Urine WBC (0-5) /hpf Ur Squamous Epith Cells (0-4) /hpf Urine Mucus (None) /hpf Stool Occult Blood Negative (Negative) - Radiology Data Radiology results: image reviewed (Chest x-ray shows mild cardiomegaly. No change from previous.) Critical Care Time Critical Care Time: Yes Total Critical Care Time: 33 Disposition Clinical Impression: Urinary tract infection, Sepsis Disposition: ADMITTED IP TO THIS HOSP Referrals: Yue Loya MD [Primary Care Provider] - 1-2 days Decision Time: 08:54
[2017-10-08 07:45] LABS: INR 2.7 (<1.2); Partial Thromboplastin Time 39.3 sec (22.0-30.0); Prothrombin Time 24.3 sec (9.0-12.0)
[2017-10-08 08:16] LABS: Appearance,Urine Clear (Clear); Bilirubin,Urine Negative (Negative); Blood,Urine Negative (Negative); Color,Urine Yellow; Glucose,Urine (UA) Negative (Negative); Ketones,Urine Negative (Negative); Leukocyte Esterase,Urine Moderate (Negative); Mucus,Urine Rare /hpf; Nitrite,Urine Negative (Negative); Protein,Urine Trace (Negative); RBC,Urine 2 /hpf (0-5); Specific Gravity,Urine 1.013 (1.001-1.035); Squamous Epithelial Cell,Urine 1 /hpf (0-4); Urobilinogen,Urine <2.0 mg/dL (<2.0); WBC,Urine 57 /hpf (0-5)
[2017-10-08 08:18] LABS: Creatine Kinase MB 1.2 ng/mL (0.0-2.4); Troponin I 0.013 ng/mL (0.000-0.034)
--- NOTE | 2017-10-08 08:19 | XR ---
EXAMINATION TYPE: XR chest 2V DATE OF EXAM: 10/08/2017 COMPARISON: Chest x-ray October 06, 2017 HISTORY: Weakness with left arm bruising. TECHNIQUE: Frontal and lateral views of the chest are obtained. FINDINGS: The osseous structures remain demineralized. Underlying scoliosis is present. There is mil d cardiomegaly with atherosclerotic thoracic aorta. There is elevated left hemidiaphragm redemonstrat ed. There is no new suspicious focal airspace opacity, pleural effusion, or pneumothorax seen bilater ally. IMPRESSION: Mild cardiomegaly and elevated left hemidiaphragm without acute pulmonary process. No si gnificant change from most recent chest x-ray.
[2017-10-08] MEDS ORDERED: NALOXONE 0.4 MG/ML 1 ML VIAL IV PRN (08:54)
[2017-10-08] MEDS ORDERED: ACETAMINOPHEN TAB 325 MG TAB PO PRN (08:54)
[2017-10-08] MEDS ORDERED: cefTRIAXone IN SWFI 1,000 MG/10 ML SYRINGE IVP STA (08:56)
[2017-10-08] MEDS: SODIUM CHLORIDE 0.9% 1,000 ML IV SCH ×2 (10:16→19:44)
[2017-10-08] MEDS ORDERED: LORATADINE 10 MG TAB PO PRN (10:38)
[2017-10-08] MEDS: IPRATROPIUM-ALBUTEROL 3 ML NEB INHALATION SCH ×5 (11:15→20:00)
[2017-10-08 12:07] LABS: Glucose,Whole Blood 266 mg/dL (75-99)
[2017-10-08] MEDS: INSULIN ASPART 100 UNIT/ML 1 ML 10 ML VIAL SQ SCH ×3 (12:15→21:37)
--- NOTE | 2017-10-08 12:20 | P.HPIM ---
History of Present Illness H&P Date: 10/08/17 Chief Complaint: Generalized weakness This is a 87-year-old male with a known past medical history of PE, DVT, hypertension, hyperlipidemia, anxiety and diabetes mellitus type 2. Patient is slightly confused and hard of hearing. Patient presents to the emergency room with complaints of generalized weakness per ER report. Patient's is a poor historian most information became from the emergency room chart. Apparently patient was diagnosed with a UTI outpatient and did not get antibiotics filled. Patient presented with weakness and evidence of a UTI. Started on IV Rocephin. The patient reports that he has not been following. He has ecchymosis of the left wrist and hand and likely this is related to his Coumadin. Patient reports that his INR was elevated. On admission INR is 2.7. He denies any injury to that left arm. He is able to answer some questions. The been at times he appears confused. He is also very hard of hearing. Patient denies any chest pain or shortness of breath. Denies any fever or chills or sweats. Denies any nausea vomiting. Denies any bowel movement changes. Denies any burning with urination. Does admit to having some hematuria that appears to be improving. She reports that his urine is almost clear. He's also been hypotensive with blood pressure 97/48. Hemoglobin is 8.8. Stool for occult blood is negative. INR 2.7 white count 12.2. He is sedated admitted to the hospital for UTI with sepsis and started on IV Rocephin. Urine culture and blood culture of been ordered. Blood pressure pills are on hold. He is being given IV fluids. Started on antibiotics. Review of Systems Please refer to HPI otherwise unremarkable Past Medical History Past Medical History: Asthma, Diabetes Mellitus, Eye Disorder, Hearing Disorder / Deafness, Hypertension, Memory Impairment, Osteoarthritis (OA), Prostate Disorder, Pulmonary Embolus (PE) Additional Past Medical History / Comment(s): Severe environmental allergies, respiratory failure/intubated, AGUA CALIENTE bilaterally, BPH, bilateral glaucoma. History of Any Multi-Drug Resistant Organisms: None Reported Past Surgical History: Joint Replacement, Tonsillectomy Additional Past Surgical History / Comment(s): L total hip arthroplasty, L total knee arthroplasty, laser surgery bilateral eyes cataracts with lens implants, colonoscopy with benign polypectomy, cyst removed from back, vasectomy. Past Anesthesia/Blood Transfusion Reactions: No Reported Reaction Smoking Status: Former smoker - Past Family History Father Family Medical History: No Reported History Mother Additional Family Medical History / Comment(s): Pt states his mother had mental health issues and trigeminal nerve problem and had chronic pain from this. Medications and Allergies Home Medications Medication Instructions Recorded Confirmed Type ALPRAZolam [Xanax] 0.25 mg PO TID 11/04/15 10/08/17 History Atenolol [Tenormin] 50 mg PO DAILY 11/04/15 10/08/17 History Atorvastatin [Lipitor] 20 mg PO HS 11/04/15 10/08/17 History Latanoprost Ophth [Xalatan 0.005%] 1 drops BOTH EYES HS 11/04/15 10/08/17 History Acetaminophen [Tylenol] 1,000 mg PO Q4-6H PRN 11/30/15 10/08/17 History Cholecalciferol [Vitamin D3] 5,000 unit PO DAILY 11/30/15 10/08/17 History Conjugated Linoleic Acid 1 tab PO DAILY 11/30/15 10/08/17 History L.acidoph,Paracasei, B.lactis 2 cap PO DAILY 11/30/15 10/08/17 History [Probiotic] Loratadine [Claritin] 10 mg PO DAILY PRN 11/30/15 10/08/17 History Melatonin 10 mg PO HS 11/30/15 10/08/17 History Multivitamin [Men's Multi-Vitamin] 1 tab PO DAILY 11/30/15 10/08/17 History Hope-3 Fatty Acids/Fish Oil [Fish 1 cap PO DAILY 11/30/15 10/08/17 History Oil 1,000 mg Softgel] Telmisartan [Micardis] 80 mg PO DAILY 11/30/15 10/08/17 History Vitamin E (Dl,Tocopheryl Acet) 400 unit PO DAILY 11/30/15 10/08/17 History [Vitamin E] Clindamycin [Cleocin] 600 mg PO ONCE 10/06/17 10/08/17 History Ipratropium-Albuterol Nebulize 3 ml INHALATION QID 10/06/17 10/08/17 History [Duoneb 0.5 mg-3 mg/3 ml Soln] Warfarin [Coumadin] 3 mg PO DAILY 10/06/17 10/08/17 History metFORMIN HCL [Glucophage] 500 mg PO BID 10/06/17 10/08/17 History Ascorbic Acid [Vitamin C] 1,500 mg PO DAILY 10/08/17 10/08/17 History Calcium Carbonate/Vitamin D3 1 tab PO DAILY 10/08/17 10/08/17 History [Calcium 600-Vit D3 400 Caplet] Ipratropium/Albuterol Sulfate 2 puff INHALATION RT-Q4H 10/08/17 10/08/17 History [Combivent Respimat Inhaler] Allergies Allergy/AdvReac Type Severity Reaction Status Date / Time Penicillins AdvReac Unknown Verified 10/08/17 08:25 tamsulosin HCl [From Flomax] AdvReac Unknown Verified 10/08/17 08:25 Physical Exam Vitals: Vital Signs Temp Pulse Pulse Resp BP BP Pulse Ox 10/08/17 11:15 80 10/08/17 10:56 96.9 F L 78 16 97/48 100 10/08/17 10:07 83 18 100/57 95 10/08/17 09:05 98.6 F 74 18 97/48 96 10/08/17 08:01 99.3 F 81 16 96/52 97 10/08/17 07:08 82 18 106/50 94 L 10/08/17 06:09 97.5 F L 91 20 97/52 94 L Intake and Output 10/07/17 10/08/17 10/08/17 22:59 06:59 14:59 Other: Voiding Method Urinal Incontinent Weight 63.957 kg Head normocephalic Neck supple Lungs clear to auscultation bilaterally no wheezing or crackles Heart regular rate and rhythm S1-S2, no rub or gallop Abdomen is soft nontender nondistended positive bowel sounds no hepatosplenomegaly Extremities no edema lower extremities. Left wrist bruising in the left hand and wrist down into the left arm. No tenderness with palpation. Full range of motion. No swelling Neuro awake and alert. Confused. But able to answer some questions appropriately Results CBC & Chem 7: 10/08/17 07:00 10/08/17 07:00 Labs: Abnormal Lab Results - Last 24 Hours (Table) 10/08/17 10/08/17 10/08/17 Range/Units 07:00 07:00 07:00 WBC 12.2 H (3.8-10.6) k/uL RBC 2.83 L (4.30-5.90) m/uL Hgb 8.8 L (13.0-17.5) gm/dL Hct 28.0 L (39.0-53.0) % Neutrophils # 9.3 H (1.3-7.7) k/uL Monocytes # 1.1 H (0-1.0) k/uL PT 24.3 H (9.0-12.0) sec INR 2.7 H (<1.2) APTT 39.3 H (22.0-30.0) sec Chloride 111 H (98-107) mmol/L Carbon Dioxide 21 L (22-30) mmol/L BUN 24 H (9-20) mg/dL Glucose 147 H (74-99) mg/dL Total Protein 4.7 L (6.3-8.2) g/dL Albumin 2.3 L (3.5-5.0) g/dL Urine Protein (Negative) Ur Leukocyte Esterase (Negative) Urine WBC (0-5) /hpf Urine Mucus (None) /hpf 10/08/17 Range/Units 07:30 WBC (3.8-10.6) k/uL RBC (4.30-5.90) m/uL Hgb (13.0-17.5) gm/dL Hct (39.0-53.0) % Neutrophils # (1.3-7.7) k/uL Monocytes # (0-1.0) k/uL PT (9.0-12.0) sec INR (<1.2) APTT (22.0-30.0) sec Chloride (98-107) mmol/L Carbon Dioxide (22-30) mmol/L BUN (9-20) mg/dL Glucose (74-99) mg/dL Total Protein (6.3-8.2) g/dL Albumin (3.5-5.0) g/dL Urine Protein Trace H (Negative) Ur Leukocyte Esterase Moderate H (Negative) Urine WBC 57 H (0-5) /hpf Urine Mucus Rare H (None) /hpf Thrombosis Risk Factor Assmnt - Choose All That Apply Any of the Below Risk Factors Present?: Yes Each Factor Represents 1 point: Sepsis (< 1month) Other Risk Factors: Yes Each Risk Factor Represents 3 Points: Age 75 years or older Other congenital or acquired thrombophilia - If yes, enter type in comment: No Thrombosis Risk Factor Assessment Total Risk Factor Score: 4 Thrombosis Risk Factor Assessment Level: Moderate Risk Assessment and Plan Assessment: 1. UTI with sepsis: Patient has elevated white count and is hypotensive. He' ll be given IV fluids IV antibiotics in the form of Rocephin. Check urine culture. Check blood culture 2. Anemia: No evidence of active bleeding. Stool for occult blood is negative. Hemoglobin 8.8. Check iron studies. Also could be related to the significant ecchymosis along patient's left wrist and hand. Patient has been on Coumadin. 3. 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 Hypotension: Give IV fluids normal saline at 100cc/hour. Hold Micardis and atenolol 5. Diabetes mellitus type 2: Resume metformin. Add sliding scale coverage. 6. Hyperlipidemia: Continue statin 7. Generalized anxiety disorder: Continue Xanax 8. Asthma: Stable now evidence of exacerbation GI prophylaxis Protonix Time with Patient: Greater than 30 (Greater than 50% of the total time spent in counseling and coordination of care.I performed an examination of the patient and discussed their management with the physician Quilting Machine Helper. I have reviewed the Physician Quilting Machine Helper's notes and agree with the documented findings and plan of care)
[2017-10-08 14:48] VITALS: BMI 25.7
[2017-10-08] MEDS: WARFARIN 3 MG TAB PO SCH (17:20)
[2017-10-08] MEDS: metFORMIN 500 MG TAB PO SCH (17:20)
[2017-10-08 17:26] LABS: Glucose,Whole Blood 178 mg/dL (75-99)
[2017-10-08 18:02] LABS: Iron Saturation 4.9 (15.00-50.00)
[2017-10-08] MEDS: cefTRIAXone IN SWFI 1,000 MG/10 ML SYRINGE IVP SCH (21:11)
[2017-10-08] MEDS: ATORVASTATIN 20 MG TAB PO SCH (21:16)
[2017-10-08] MEDS: MELATONIN 5 MG TABLET PO SCH (21:16)
[2017-10-08] MEDS: LATANOPROST 0.005% OPHTH DROPS 2.5 ML BTL BOTH EYES SCH (21:16)
[2017-10-08 21:27] LABS: Glucose,Whole Blood 185 mg/dL (75-99)
[2017-10-09] MEDS: SODIUM CHLORIDE 0.9% 1,000 ML IV SCH ×2 (05:47→13:53)
[2017-10-09 07:40] LABS: Glucose,Whole Blood 129 mg/dL (75-99)
[2017-10-09] MEDS: cefTRIAXone IN SWFI 1,000 MG/10 ML SYRINGE IVP SCH ×2 (07:48→21:44)
[2017-10-09] MEDS: MULTIVITAMINS, THERA 1 EACH TAB PO SCH (07:48)
[2017-10-09] MEDS: metFORMIN 500 MG TAB PO SCH ×2 (07:48→17:29)
[2017-10-09] MEDS: ASCORBIC ACID 500 MG TAB PO SCH (07:48)
[2017-10-09] MEDS: VITAMIN E (DL,TOCOPHERYL ACET) 400 UNIT CAP PO SCH (07:48)
[2017-10-09] MEDS: PANTOPRAZOLE 40 MG TABLET PO SCH (07:48)
[2017-10-09] MEDS: CALCIUM CARB-VIT D 500MG-200UN 1 EACH TAB PO SCH (07:48)
[2017-10-09] MEDS: INSULIN ASPART 100 UNIT/ML 1 ML 10 ML VIAL SQ SCH ×4 (07:49→21:03)
[2017-10-09] MEDS: LACTOBACILLUS ACIDOPH & BULGAR 1 EACH PACKET PO SCH (07:49)
[2017-10-09] MEDS: CHOLECALCIFEROL 1,000 UNIT TAB PO SCH (07:49)
[2017-10-09 08:10] LABS: Basophils % (A) 0 %; Eosinophils # (A) 0.5 k/uL (0-0.7); Eosinophils % (A) 4 %; HCT 28.2 % (39.0-53.0); HGB 8.8 gm/dL (13.0-17.5); Hypochromasia Slight; Lymphocytes # (A) 1.3 k/uL (1.0-4.8); Lymphocytes % (A) 10 %; MCH 30.9 pg (25.0-35.0); MCHC 31.3 g/dL (31.0-37.0); MCV 98.7 fL (80.0-100.0); Mean Platelet Volume 8.1; Monocytes # (A) 1.1 k/uL (0-1.0); Monocytes % (A) 9 %; Neutrophils # (A) 9.3 k/uL (1.3-7.7); Neutrophils % (A) 75 %; Platelet Count 375 k/uL (150-450); RBC 2.86 m/uL (4.30-5.90); RDW 12.8 % (11.5-15.5); WBC 12.4 k/uL (3.8-10.6)
[2017-10-09 08:11] LABS: INR 2.4 (<1.2); Prothrombin Time 21.5 sec (9.0-12.0)
[2017-10-09 08:34] LABS: ALT 67 U/L (21-72); AST 81 U/L (17-59); Albumin 2.2 g/dL (3.5-5.0); Alkaline Phosphatase 93 U/L (38-126); Anion Gap 7 mmol/L; Blood Urea Nitrogen 17 mg/dL (9-20); Calcium 8.2 mg/dL (8.4-10.2); Carbon Dioxide 24 mmol/L (22-30); Chloride 113 mmol/L (98-107); Glucose 144 mg/dL (74-99); Potassium 3.6 mmol/L (3.5-5.1); Sodium 144 mmol/L (137-145); Total Bilirubin 0.8 mg/dL (0.2-1.3); Total Protein 4.7 g/dL (6.3-8.2)
[2017-10-09] MEDS: IPRATROPIUM-ALBUTEROL 3 ML NEB INHALATION SCH ×4 (08:35→20:31)
[2017-10-09] MEDS ORDERED: NON-FORMULARY DRUG (Omega-3 Fatty Acids/Fish Oil [Fish Oil 1,000 Mg Softgel] 1 CAP) PO SCH (09:00)
[2017-10-09] MEDS ORDERED: ATENOLOL 50 MG TAB PO SCH (09:00)
[2017-10-09] MEDS ORDERED: LORazepam 2 MG/ML INJ IV PRN ×2 (09:31)
[2017-10-09] MEDS ORDERED: THIAMINE 100 MG/ML 2 ML VIAL IM STA (09:31)
[2017-10-09] MEDS: LORazepam 2 MG/ML INJ IV PRN ×2 (10:11→21:15)
[2017-10-09] MEDS: FOLIC ACID 1 MG TAB PO SCH (10:12)
[2017-10-09 12:04] LABS: Glucose,Whole Blood 126 mg/dL (75-99)
[2017-10-09] MEDS ORDERED: SODIUM FERRIC GLUCONAT-SUCROSE 125 MG in SODIUM CHLORIDE 0.9% 100 ML IVPB ONE (13:11)
--- NOTE | 2017-10-09 13:16 | P.PN ---
Subjective Progress Note Date: 10/09/17 This is a 87-year-old male with a known past medical history of PE, DVT, hypertension, hyperlipidemia, anxiety and diabetes mellitus type 2. Patient is slightly confused and hard of hearing. Patient presents to the emergency room with complaints of generalized weakness per ER report. Patient's is a poor historian most information became from the emergency room chart. Apparently patient was diagnosed with a UTI outpatient and did not get antibiotics filled. Patient presented with weakness and evidence of a UTI. Started on IV Rocephin. The patient reports that he has not been following. He has ecchymosis of the left wrist and hand and likely this is related to his Coumadin. Patient reports that his INR was elevated. On admission INR is 2.7. He denies any injury to that left arm. He is able to answer some questions. The been at times he appears confused. He is also very hard of hearing. Patient denies any chest pain or shortness of breath. Denies any fever or chills or sweats. Denies any nausea vomiting. Denies any bowel movement changes. Denies any burning with urination. Does admit to having some hematuria that appears to be improving. She reports that his urine is almost clear. He's also been hypotensive with blood pressure 97/48. Hemoglobin is 8.8. Stool for occult blood is negative. INR 2.7 white count 12.2. He is sedated admitted to the hospital for UTI with sepsis and started on IV Rocephin. Urine culture and blood culture of been ordered. Blood pressure pills are on hold. He is being given IV fluids. Started on antibiotics. 10/09/2017 patient lying in bed comfortably. Nursing notified me that they patient does have a history of alcohol use. Patient does admit to drinking about 2-3 vodka and lind per day. Per nursing daughter had reported patient drinking about a pint a day. Patient will be started on the CIWA protocol. Thiamine and multivitamin and folic acid added. No evidence of any withdrawal symptoms at this time. Patient also reports that his urine is clearing. Denies any burning with urination. He is remained afebrile. White count still elevated at 12.4. Hemoglobin is at 8.8. Reporting normal stools. Iron is low at 10. Patient will be given a dose of IV iron. Patient's left hand and wrist ecchymosis is now moving down into the forearm. Also increase in swelling. Patient denies any pain. Patient is also had increase in his confusion during afternoon rounds. A computed tomography scan of the brain will be completed. Also could be related to his history of alcohol abuse. Objective - Vital Signs Vital signs: Vital Signs Temp 98.8 F 10/09/17 07:00 Pulse 88 10/09/17 08:49 Resp 20 10/09/17 07:00 BP 123/59 10/09/17 07:00 Pulse Ox 98 10/09/17 07:00 Intake & Output 10/08/17 10/09/17 10/09/17 18:59 06:59 18:59 Intake Total 500 240 Output Total 200 Balance -200 500 240 Weight 63.957 kg 63.957 kg Intake: Oral 500 240 Output: Urine 200 Other: Voiding Method Urinal Urinal Urinal Incontinent Incontinent Incontinent # Voids 3 3 2 - Exam Head normocephalic Neck supple Lungs clear to auscultation bilaterally no wheezing or crackles Heart regular rate and rhythm S1-S2, no rub or gallop Abdomen is soft nontender nondistended positive bowel sounds no hepatosplenomegaly Extremities no edema of the lower extremities. Left arm increase in swelling. Pitting edema. Ecchymosis is now trending down into the arm. Still has bruising along the hand and wrist. No pain with palpation Neuro alert and orientated to 3. However, still having some confusion. - Labs CBC & Chem 7: 10/09/17 07:50 10/09/17 07:50 Labs: Abnormal Lab Results - Last 24 Hours (Table) 10/08/17 10/08/17 10/08/17 Range/Units 07:01 12:06 17:16 WBC (3.8-10.6) k/uL RBC (4.30-5.90) m/uL Hgb (13.0-17.5) gm/dL Hct (39.0-53.0) % Neutrophils # (1.3-7.7) k/uL Monocytes # (0-1.0) k/uL PT (9.0-12.0) sec INR (<1.2) Chloride (98-107) mmol/L Glucose (74-99) mg/dL POC Glucose (mg/dL) 266 H 178 H (75-99) mg/dL Calcium (8.4-10.2) mg/dL Iron 10 L (65-175) ug/dL TIBC 204 L (228-460) ug/dL Iron Saturation 4.90 L (15.00-50.00) Ferritin 574.4 H (22.0-322.0) ng/mL AST (17-59) U/L Total Protein (6.3-8.2) g/dL Albumin (3.5-5.0) g/dL 10/08/17 10/09/17 10/09/17 Range/Units 21:22 07:07 07:50 WBC 12.4 H (3.8-10.6) k/uL RBC 2.86 L (4.30-5.90) m/uL Hgb 8.8 L (13.0-17.5) gm/dL Hct 28.2 L (39.0-53.0) % Neutrophils # 9.3 H (1.3-7.7) k/uL Monocytes # 1.1 H (0-1.0) k/uL PT (9.0-12.0) sec INR (<1.2) Chloride (98-107) mmol/L Glucose (74-99) mg/dL POC Glucose (mg/dL) 185 H 129 H (75-99) mg/dL Calcium (8.4-10.2) mg/dL Iron (65-175) ug/dL TIBC (228-460) ug/dL Iron Saturation (15.00-50.00) Ferritin (22.0-322.0) ng/mL AST (17-59) U/L Total Protein (6.3-8.2) g/dL Albumin (3.5-5.0) g/dL 10/09/17 10/09/17 Range/Units 07:50 07:50 WBC (3.8-10.6) k/uL RBC (4.30-5.90) m/uL Hgb (13.0-17.5) gm/dL Hct (39.0-53.0) % Neutrophils # (1.3-7.7) k/uL Monocytes # (0-1.0) k/uL PT 21.5 H (9.0-12.0) sec INR 2.4 H (<1.2) Chloride 113 H (98-107) mmol/L Glucose 144 H (74-99) mg/dL POC Glucose (mg/dL) (75-99) mg/dL Calcium 8.2 L (8.4-10.2) mg/dL Iron (65-175) ug/dL TIBC (228-460) ug/dL Iron Saturation (15.00-50.00) Ferritin (22.0-322.0) ng/mL AST 81 H (17-59) U/L Total Protein 4.7 L (6.3-8.2) g/dL Albumin 2.2 L (3.5-5.0) g/dL Microbiology - Last 24 Hours (Table) 10/08/17 07:59 Urine Culture - Preliminary Urine,Voided Assessment and Plan Assessment: 1. UTI with sepsis present on admission: Patient has elevated white count and is hypotensive. He'll be given IV fluids IV antibiotics in the form of Rocephin. Check urine culture. Check blood culture 2. Anemia: Likely related to iron deficiency anemia and ecchymosis in the left arm. Keep arm elevated. We will give a dose of IV iron. No evidence of active GI bleeding. Stool for occult blood is negative. Hemoglobin 8.8. 3. 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 Monitoring PT/INR. INR today is 2. 4. Hypotension: Improved with IV fluids. Micardis and atenolol have been on hold. Blood pressures are currently stable. May need to restart BP meds tomorrow 5. Diabetes mellitus type 2: Resume metformin. Add sliding scale coverage. 6. Hyperlipidemia: Continue statin 7. Generalized anxiety disorder: Continue Xanax 8. Asthma: Stable now evidence of exacerbation 9. Alcohol abuse: Start patient on the CIAK protocol with thiamine, multivitamin and folic acid. Ativan as needed 10. Altered mental status changes possibly due to metabolic encephalopathy related to his UTI. However, patient did have an elevated INR in the outpatient setting. Therefore a computed tomography scan of the brain will be completed to rule out a bleed. Also may be related to his alcohol abuse. As stated above. She's been placed on the CIAK protocol GI prophylaxis Protonix and DVT prophylaxis Coumadin I performed an examination of the patient and discussed their management with the physician Fine Unhairer. I have reviewed the Physician Fine Unhairer's notes and agree with the documented findings and plan of care
--- NOTE | 2017-10-09 13:52 | CT ---
EXAMINATION TYPE: CT brain wo con DATE OF EXAM: 10/09/2017 HISTORY: Worsening confusion CT DLP: 1081.1 mGycm. Automated Exposure Control for Dose Reduction was Utilized. TECHNIQUE: CT scan of the head is performed without contrast. COMPARISON: CT scan of brain October 06, 2017. FINDINGS: There is no acute intracranial hemorrhage or midline shift identified. There is diffuse v entricular and sulcal prominence consistent with diffuse age-related cerebral atrophy. There is low- attenuation in the periventricular white matter consistent with chronic small vessel ischemic change. Bilateral basal ganglia calcifications are redemonstrated. Basilar consolidation distal internal car otid and vertebral arteries are again seen. The globes are intact and the visualized sinuses are nargis r. There is partial visualization of streak artifact from surgical change near right posterior infe rior mastoids redemonstrated. IMPRESSION: No acute intracranial hemorrhage or midline shift. There is mild to moderate diffuse ag e-related cerebral atrophy and moderate to severe chronic small vessel ischemic change redemonstrated . No significant change from prior CT.
[2017-10-09 17:25] LABS: Glucose,Whole Blood 130 mg/dL (75-99)
[2017-10-09] MEDS: WARFARIN 3 MG TAB PO SCH (17:29)
[2017-10-09] MEDS: THIAMINE 100 MG TAB PO SCH (17:29)
[2017-10-09 21:03] LABS: Glucose,Whole Blood 122 mg/dL (75-99)
[2017-10-09] MEDS: MELATONIN 5 MG TABLET PO SCH (21:43)
[2017-10-09] MEDS: ATORVASTATIN 20 MG TAB PO SCH (21:43)
[2017-10-09] MEDS: LATANOPROST 0.005% OPHTH DROPS 2.5 ML BTL BOTH EYES SCH (21:44)
[2017-10-09] MEDS ORDERED: METOPROLOL TARTRATE 25 MG TAB PO STA (22:06)
[2017-10-10] MEDS: LORazepam 2 MG/ML INJ IV PRN ×3 (01:19→06:17)
[2017-10-10] MEDS: SODIUM CHLORIDE 0.9% 1,000 ML IV SCH ×2 (06:17→12:46)
[2017-10-10 07:17] LABS: Glucose,Whole Blood 118 mg/dL (75-99)
[2017-10-10 07:33] LABS: Basophils # (A) 0.1 k/uL (0-0.2); Basophils % (A) 0 %; Eosinophils # (A) 0.4 k/uL (0-0.7); Eosinophils % (A) 3 %; HCT 28.7 % (39.0-53.0); HGB 8.7 gm/dL (13.0-17.5); Hypochromasia Slight; Lymphocytes # (A) 1.4 k/uL (1.0-4.8); Lymphocytes % (A) 10 %; MCH 30.8 pg (25.0-35.0); MCHC 30.4 g/dL (31.0-37.0); MCV 101.3 fL (80.0-100.0); Mean Platelet Volume 6.9; Monocytes # (A) 1.2 k/uL (0-1.0); Monocytes % (A) 9 %; Neutrophils # (A) 10.9 k/uL (1.3-7.7); Neutrophils % (A) 77 %; Platelet Count 448 k/uL (150-450); RBC 2.83 m/uL (4.30-5.90); RDW 12.7 % (11.5-15.5); WBC 14.2 k/uL (3.8-10.6)
[2017-10-10 07:35] LABS: INR 2.4 (<1.2); Prothrombin Time 21.2 sec (9.0-12.0)
[2017-10-10] MEDS: IPRATROPIUM-ALBUTEROL 3 ML NEB INHALATION SCH ×4 (07:45→19:16)
[2017-10-10 07:47] LABS: ALT 68 U/L (21-72); AST 66 U/L (17-59); Albumin 2.1 g/dL (3.5-5.0); Alkaline Phosphatase 89 U/L (38-126); Anion Gap 8 mmol/L; Blood Urea Nitrogen 16 mg/dL (9-20); Calcium 8.4 mg/dL (8.4-10.2); Carbon Dioxide 22 mmol/L (22-30); Chloride 113 mmol/L (98-107); Glucose 114 mg/dL (74-99); Sodium 143 mmol/L (137-145); Total Bilirubin 0.7 mg/dL (0.2-1.3); Total Protein 4.5 g/dL (6.3-8.2)
[2017-10-10] MEDS: INSULIN ASPART 100 UNIT/ML 1 ML 10 ML VIAL SQ SCH ×4 (08:28→22:13)
[2017-10-10] MEDS: ASCORBIC ACID 500 MG TAB PO SCH (11:39)
[2017-10-10] MEDS: LACTOBACILLUS ACIDOPH & BULGAR 1 EACH PACKET PO SCH (11:39)
[2017-10-10] MEDS: CALCIUM CARB-VIT D 500MG-200UN 1 EACH TAB PO SCH (11:39)
[2017-10-10] MEDS: metFORMIN 500 MG TAB PO SCH ×2 (11:39→18:20)
[2017-10-10] MEDS: CHOLECALCIFEROL 1,000 UNIT TAB PO SCH (11:39)
[2017-10-10] MEDS: PANTOPRAZOLE 40 MG TABLET PO SCH (11:39)
[2017-10-10] MEDS: VITAMIN E (DL,TOCOPHERYL ACET) 400 UNIT CAP PO SCH (11:40)
[2017-10-10] MEDS: cefTRIAXone IN SWFI 1,000 MG/10 ML SYRINGE IVP SCH ×2 (12:00→22:13)
[2017-10-10 12:42] LABS: Glucose,Whole Blood 115 mg/dL (75-99)
[2017-10-10] MEDS: MULTIVITAMINS, THERA 1 EACH TAB PO SCH (12:46)
[2017-10-10] MEDS: THIAMINE 100 MG TAB PO SCH ×2 (12:46→18:20)
[2017-10-10] MEDS: FOLIC ACID 1 MG TAB PO SCH (12:46)
--- NOTE | 2017-10-10 13:56 | P.PN ---
Subjective Patient is resting comfortably in bed. No events overnight. Objective - Vital Signs Vital signs: Vital Signs Temp 97.7 F 10/10/17 06:52 Pulse 96 10/10/17 07:55 Resp 24 10/10/17 06:52 BP 132/68 10/10/17 06:52 Pulse Ox 97 10/10/17 07:45 Intake & Output 10/09/17 10/10/17 10/10/17 18:59 06:59 18:59 Intake Total 360 Balance 360 Intake: Oral 360 Other: Voiding Method Urinal Urinal Incontinent Incontinent Incontinent # Voids 1 2 # Bowel Movements 0 - Exam General: The patient is awake and alert, in no distress Eye: there is normal conjunctiva bilaterally. Neck: The neck is supple, there is no JVD. Cardiovascular: Normal S1-S2, no S3-S4, no murmurs. Respiratory: Lungs clear to auscultation bilaterally Gastrointestinal: Abdomen is soft, nontender Musculoskeletal: There is no pedal edema. Neurological:. Speech is normal. Skin: Skin is warm and dry - Labs CBC & Chem 7: 10/10/17 07:05 10/10/17 07:05 Labs: Abnormal Lab Results - Last 24 Hours (Table) 10/09/17 10/09/17 10/10/17 Range/Units 17:22 21:02 07:05 WBC 14.2 H (3.8-10.6) k/uL RBC 2.83 L (4.30-5.90) m/uL Hgb 8.7 L (13.0-17.5) gm/dL Hct 28.7 L (39.0-53.0) % MCV 101.3 H (80.0-100.0) fL MCHC 30.4 L (31.0-37.0) g/dL Neutrophils # 10.9 H (1.3-7.7) k/uL Monocytes # 1.2 H (0-1.0) k/uL PT (9.0-12.0) sec INR (<1.2) Chloride (98-107) mmol/L Glucose (74-99) mg/dL POC Glucose (mg/dL) 130 H 122 H (75-99) mg/dL AST (17-59) U/L Total Protein (6.3-8.2) g/dL Albumin (3.5-5.0) g/dL 10/10/17 10/10/17 10/10/17 Range/Units 07:05 07:05 07:09 WBC (3.8-10.6) k/uL RBC (4.30-5.90) m/uL Hgb (13.0-17.5) gm/dL Hct (39.0-53.0) % MCV (80.0-100.0) fL MCHC (31.0-37.0) g/dL Neutrophils # (1.3-7.7) k/uL Monocytes # (0-1.0) k/uL PT 21.2 H (9.0-12.0) sec INR 2.4 H (<1.2) Chloride 113 H (98-107) mmol/L Glucose 114 H (74-99) mg/dL POC Glucose (mg/dL) 118 H (75-99) mg/dL AST 66 H (17-59) U/L Total Protein 4.5 L (6.3-8.2) g/dL Albumin 2.1 L (3.5-5.0) g/dL 10/10/17 Range/Units 12:37 WBC (3.8-10.6) k/uL RBC (4.30-5.90) m/uL Hgb (13.0-17.5) gm/dL Hct (39.0-53.0) % MCV (80.0-100.0) fL MCHC (31.0-37.0) g/dL Neutrophils # (1.3-7.7) k/uL Monocytes # (0-1.0) k/uL PT (9.0-12.0) sec INR (<1.2) Chloride (98-107) mmol/L Glucose (74-99) mg/dL POC Glucose (mg/dL) 115 H (75-99) mg/dL AST (17-59) U/L Total Protein (6.3-8.2) g/dL Albumin (3.5-5.0) g/dL Microbiology - Last 24 Hours (Table) 10/08/17 07:59 Blood Culture - Preliminary Blood No Growth after 48 hours 10/08/17 07:59 Urine Culture - Final Urine,Voided Assessment and Plan Assessment: 1. UTI with sepsis present on admission: Improved with IV fluid and antibiotic. Urine and blood culture negative to date. Would finish 5 days course of antibiotic. 2. Anemia: Likely related to iron deficiency anemia and ecchymosis in the left arm. Given 1 dose of IV iron. No evidence of active GI bleeding. Stool for occult blood is negative. 3. 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 Monitoring PT/INR. 4. Hypotension: Improved with IV fluids. Home blood pressure medication on hold. Blood pressure within acceptable ranges this time. We will continue to monitor. 5. Diabetes mellitus type 2: Resume metformin. Add sliding scale coverage. 6. Hyperlipidemia: Continue statin 7. Generalized anxiety disorder: Continue Xanax 8. Asthma: Stable now evidence of exacerbation 9. Alcohol abuse: Start patient on the CIWA protocol with thiamine, multivitamin and folic acid. Ativan as needed 10. Altered mental status changes possibly due to metabolic encephalopathy related to his UTI. Also may be related to his alcohol abuse. Computed tomography scan of the brain showed no acute finding
[2017-10-10 17:14] LABS: Glucose,Whole Blood 114 mg/dL (75-99)
[2017-10-10] MEDS: WARFARIN 3 MG TAB PO SCH (18:20)
[2017-10-10 20:48] LABS: Glucose,Whole Blood 114 mg/dL (75-99)
[2017-10-10] MEDS: MELATONIN 5 MG TABLET PO SCH (22:13)
[2017-10-10] MEDS: ATORVASTATIN 20 MG TAB PO SCH (22:13)
[2017-10-10] MEDS: LATANOPROST 0.005% OPHTH DROPS 2.5 ML BTL BOTH EYES SCH (22:13)
[2017-10-11] MEDS: SODIUM CHLORIDE 0.9% 1,000 ML IV SCH ×3 (00:53→21:39)
[2017-10-11] MEDS: LORazepam 2 MG/ML INJ IV PRN ×2 (03:10→17:27)
[2017-10-11] MEDS: INSULIN ASPART 100 UNIT/ML 1 ML 10 ML VIAL SQ SCH ×4 (07:32→21:55)
[2017-10-11 07:34] LABS: Glucose,Whole Blood 126 mg/dL (75-99)
[2017-10-11 08:07] LABS: Basophils % (A) 0 %; Eosinophils # (A) 0.2 k/uL (0-0.7); Eosinophils % (A) 2 %; HCT 32.1 % (39.0-53.0); HGB 9.8 gm/dL (13.0-17.5); Hypochromasia Slight; Lymphocytes # (A) 1.3 k/uL (1.0-4.8); Lymphocytes % (A) 9 %; MCH 30.9 pg (25.0-35.0); MCHC 30.5 g/dL (31.0-37.0); MCV 101.3 fL (80.0-100.0); Mean Platelet Volume 6.7; Monocytes # (A) 0.9 k/uL (0-1.0); Monocytes % (A) 6 %; Neutrophils # (A) 11.9 k/uL (1.3-7.7); Neutrophils % (A) 81 %; Platelet Count 500 k/uL (150-450); RBC 3.17 m/uL (4.30-5.90); RDW 12.6 % (11.5-15.5); WBC 14.6 k/uL (3.8-10.6)
[2017-10-11 08:10] LABS: INR 3.5 (<1.2); Prothrombin Time 31.3 sec (9.0-12.0)
[2017-10-11] MEDS: ASCORBIC ACID 500 MG TAB PO SCH (08:16)
[2017-10-11] MEDS: metFORMIN 500 MG TAB PO SCH ×2 (08:16→18:03)
[2017-10-11] MEDS: PANTOPRAZOLE 40 MG TABLET PO SCH (08:16)
[2017-10-11] MEDS: LACTOBACILLUS ACIDOPH & BULGAR 1 EACH PACKET PO SCH (08:16)
[2017-10-11] MEDS: CHOLECALCIFEROL 1,000 UNIT TAB PO SCH (08:16)
[2017-10-11] MEDS: CALCIUM CARB-VIT D 500MG-200UN 1 EACH TAB PO SCH (08:16)
[2017-10-11] MEDS: VITAMIN E (DL,TOCOPHERYL ACET) 400 UNIT CAP PO SCH (08:16)
[2017-10-11 08:30] LABS: ALT 75 U/L (21-72); AST 89 U/L (17-59); Albumin 2.2 g/dL (3.5-5.0); Alkaline Phosphatase 96 U/L (38-126); Anion Gap 9 mmol/L; Blood Urea Nitrogen 16 mg/dL (9-20); Calcium 8.7 mg/dL (8.4-10.2); Carbon Dioxide 21 mmol/L (22-30); Chloride 113 mmol/L (98-107); Glucose 125 mg/dL (74-99); Potassium 3.7 mmol/L (3.5-5.1); Sodium 143 mmol/L (137-145); Total Bilirubin 0.8 mg/dL (0.2-1.3); Total Protein 4.7 g/dL (6.3-8.2)
[2017-10-11] MEDS: IPRATROPIUM-ALBUTEROL 3 ML NEB INHALATION SCH ×4 (09:11→20:36)
[2017-10-11] MEDS: cefTRIAXone IN SWFI 1,000 MG/10 ML SYRINGE IVP SCH ×2 (10:03→21:39)
[2017-10-11 12:12] LABS: Glucose,Whole Blood 118 mg/dL (75-99)
[2017-10-11] MEDS: MULTIVITAMINS, THERA 1 EACH TAB PO SCH (12:30)
[2017-10-11] MEDS: THIAMINE 100 MG TAB PO SCH ×2 (12:30→17:24)
[2017-10-11] MEDS: FOLIC ACID 1 MG TAB PO SCH (12:30)
--- NOTE | 2017-10-11 13:57 | P.PN ---
Subjective Patient is more awake today. He appears confused. He is having poor by mouth intake. Objective - Vital Signs Vital signs: Vital Signs Temp 99.4 F 10/11/17 06:52 Pulse 82 10/11/17 12:22 Resp 20 10/11/17 06:52 BP 150/70 10/11/17 06:52 Pulse Ox 95 10/11/17 09:16 Intake & Output 10/10/17 10/11/17 10/11/17 18:59 06:59 18:59 Other: Voiding Method Incontinent Incontinent # Voids 1 5 2 # Bowel Movements 1 - Exam General: The patient is awake and alert, in no distress Eye: there is normal conjunctiva bilaterally. Neck: The neck is supple, there is no JVD. Cardiovascular: Normal S1-S2, no S3-S4, no murmurs. Respiratory: Lungs clear to auscultation bilaterally Gastrointestinal: Abdomen is soft, nontender Musculoskeletal: There is no pedal edema. Neurological:. Speech is normal. Skin: Skin is warm and dry - Labs CBC & Chem 7: 10/11/17 07:53 10/11/17 07:53 Labs: Abnormal Lab Results - Last 24 Hours (Table) 10/10/17 10/10/17 10/11/17 Range/Units 17:11 20:47 07:32 WBC (3.8-10.6) k/uL RBC (4.30-5.90) m/uL Hgb (13.0-17.5) gm/dL Hct (39.0-53.0) % MCV (80.0-100.0) fL MCHC (31.0-37.0) g/dL Plt Count (150-450) k/uL Neutrophils # (1.3-7.7) k/uL PT (9.0-12.0) sec INR (<1.2) Chloride (98-107) mmol/L Carbon Dioxide (22-30) mmol/L Creatinine (0.66-1.25) mg/dL Glucose (74-99) mg/dL POC Glucose (mg/dL) 114 H 114 H 126 H (75-99) mg/dL AST (17-59) U/L ALT (21-72) U/L Total Protein (6.3-8.2) g/dL Albumin (3.5-5.0) g/dL 10/11/17 10/11/17 10/11/17 Range/Units 07:53 07:53 07:53 WBC 14.6 H (3.8-10.6) k/uL RBC 3.17 L (4.30-5.90) m/uL Hgb 9.8 L (13.0-17.5) gm/dL Hct 32.1 L (39.0-53.0) % MCV 101.3 H (80.0-100.0) fL MCHC 30.5 L (31.0-37.0) g/dL Plt Count 500 H (150-450) k/uL Neutrophils # 11.9 H (1.3-7.7) k/uL PT 31.3 H (9.0-12.0) sec INR 3.5 H (<1.2) Chloride 113 H (98-107) mmol/L Carbon Dioxide 21 L (22-30) mmol/L Creatinine 0.60 L (0.66-1.25) mg/dL Glucose 125 H (74-99) mg/dL POC Glucose (mg/dL) (75-99) mg/dL AST 89 H (17-59) U/L ALT 75 H (21-72) U/L Total Protein 4.7 L (6.3-8.2) g/dL Albumin 2.2 L (3.5-5.0) g/dL 10/11/17 Range/Units 12:04 WBC (3.8-10.6) k/uL RBC (4.30-5.90) m/uL Hgb (13.0-17.5) gm/dL Hct (39.0-53.0) % MCV (80.0-100.0) fL MCHC (31.0-37.0) g/dL Plt Count (150-450) k/uL Neutrophils # (1.3-7.7) k/uL PT (9.0-12.0) sec INR (<1.2) Chloride (98-107) mmol/L Carbon Dioxide (22-30) mmol/L Creatinine (0.66-1.25) mg/dL Glucose (74-99) mg/dL POC Glucose (mg/dL) 118 H (75-99) mg/dL AST (17-59) U/L ALT (21-72) U/L Total Protein (6.3-8.2) g/dL Albumin (3.5-5.0) g/dL Microbiology - Last 24 Hours (Table) 10/08/17 07:59 Blood Culture - Preliminary Blood No Growth after 72 hours Assessment and Plan Assessment: 1. UTI with sepsis present on admission: Improved with IV fluid and antibiotic. Urine and blood culture negative to date. Would finish 5 days course of antibiotic. 2. Anemia: Likely related to iron deficiency anemia and ecchymosis in the left arm. Given 1 dose of IV iron. No evidence of active GI bleeding. Stool for occult blood is negative. 3. 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 Monitoring PT/INR. 4. Hypotension: Improved with IV fluids. Home blood pressure medication on hold. Blood pressure within acceptable ranges this time. We will continue to monitor. 5. Diabetes mellitus type 2: Resume metformin. Add sliding scale coverage. 6. Hyperlipidemia: Continue statin 7. Generalized anxiety disorder: Continue Xanax 8. Asthma: Stable now evidence of exacerbation 9. Alcohol abuse: Start patient on the CIWA protocol with thiamine, multivitamin and folic acid. Ativan as needed 10. Altered mental status changes possibly due to metabolic encephalopathy related to his UTI. Also may be related to his alcohol abuse. Computed tomography scan of the brain showed no acute finding. Baseline mental status and known to me.
[2017-10-11] MEDS: WARFARIN 3 MG TAB PO SCH (17:24)
[2017-10-11 17:47] LABS: Glucose,Whole Blood 116 mg/dL (75-99)
[2017-10-11 17:47] LABS: Glucose,Whole Blood 344 mg/dL (75-99)
[2017-10-11 21:19] LABS: Glucose,Whole Blood 170 mg/dL (75-99)
[2017-10-11] MEDS: ATORVASTATIN 20 MG TAB PO SCH (21:40)
[2017-10-11] MEDS: LATANOPROST 0.005% OPHTH DROPS 2.5 ML BTL BOTH EYES SCH (21:41)
[2017-10-11] MEDS: MELATONIN 5 MG TABLET PO SCH (21:41)
[2017-10-12] MEDS: LORazepam 2 MG/ML INJ IV PRN (00:54)
[2017-10-12] MEDS: SODIUM CHLORIDE 0.9% 1,000 ML IV SCH (05:19)
[2017-10-12] MEDS: INSULIN ASPART 100 UNIT/ML 1 ML 10 ML VIAL SQ SCH ×4 (07:20→22:30)
[2017-10-12 07:55] LABS: Glucose,Whole Blood 111 mg/dL (75-99)
[2017-10-12] MEDS: PANTOPRAZOLE 40 MG TABLET PO SCH (08:28)
[2017-10-12] MEDS: metFORMIN 500 MG TAB PO SCH ×2 (08:28→17:40)
[2017-10-12] MEDS: ASCORBIC ACID 500 MG TAB PO SCH (08:29)
[2017-10-12] MEDS: CALCIUM CARB-VIT D 500MG-200UN 1 EACH TAB PO SCH (08:29)
[2017-10-12] MEDS: CHOLECALCIFEROL 1,000 UNIT TAB PO SCH (08:29)
[2017-10-12] MEDS: VITAMIN E (DL,TOCOPHERYL ACET) 400 UNIT CAP PO SCH (08:30)
[2017-10-12] MEDS: LACTOBACILLUS ACIDOPH & BULGAR 1 EACH PACKET PO SCH (08:30)
[2017-10-12] MEDS: IPRATROPIUM-ALBUTEROL 3 ML NEB INHALATION SCH ×4 (08:37→19:35)
[2017-10-12] MEDS: cefTRIAXone IN SWFI 1,000 MG/10 ML SYRINGE IVP SCH ×2 (08:45→22:34)
[2017-10-12 09:03] LABS: INR 4.5 (<1.2); Prothrombin Time 40.6 sec (9.0-12.0)
[2017-10-12 09:26] LABS: Basophils % (A) 0 %; Eosinophils # (A) 0.2 k/uL (0-0.7); Eosinophils % (A) 1 %; HCT 30.2 % (39.0-53.0); HGB 9.9 gm/dL (13.0-17.5); Hypochromasia Slight; Lymphocytes # (A) 1.4 k/uL (1.0-4.8); Lymphocytes % (A) 11 %; MCH 32.2 pg (25.0-35.0); MCHC 32.9 g/dL (31.0-37.0); MCV 98.1 fL (80.0-100.0); Mean Platelet Volume 7.5; Monocytes # (A) 0.8 k/uL (0-1.0); Monocytes % (A) 6 %; Neutrophils # (A) 10.2 k/uL (1.3-7.7); Neutrophils % (A) 80 %; Platelet Count 481 k/uL (150-450); RBC 3.07 m/uL (4.30-5.90); RDW 12.8 % (11.5-15.5); WBC 12.8 k/uL (3.8-10.6)
[2017-10-12 09:30] LABS: ALT 79 U/L (21-72); AST 92 U/L (17-59); Albumin 2.2 g/dL (3.5-5.0); Alkaline Phosphatase 95 U/L (38-126); Anion Gap 9 mmol/L; Blood Urea Nitrogen 16 mg/dL (9-20); Calcium 8.5 mg/dL (8.4-10.2); Carbon Dioxide 25 mmol/L (22-30); Chloride 114 mmol/L (98-107); Glucose 128 mg/dL (74-99); Potassium 3.3 mmol/L (3.5-5.1); Sodium 148 mmol/L (137-145); Total Bilirubin 0.7 mg/dL (0.2-1.3); Total Protein 4.8 g/dL (6.3-8.2)
[2017-10-12] MEDS ORDERED: POTASSIUM CHLORIDE ER 20 MEQ TAB.ER PO STA (10:21)
--- NOTE | 2017-10-12 10:32 | P.PN ---
Subjective Progress Note Date: 10/12/17 This is a 87-year-old male with a known past medical history of PE, DVT, hypertension, hyperlipidemia, anxiety and diabetes mellitus type 2. Patient is slightly confused and hard of hearing. Patient presents to the emergency room with complaints of generalized weakness per ER report. Patient's is a poor historian most information became from the emergency room chart. Apparently patient was diagnosed with a UTI outpatient and did not get antibiotics filled. Patient presented with weakness and evidence of a UTI. Started on IV Rocephin. The patient reports that he has not been following. He has ecchymosis of the left wrist and hand and likely this is related to his Coumadin. Patient reports that his INR was elevated. On admission INR is 2.7. He denies any injury to that left arm. He is able to answer some questions. The been at times he appears confused. He is also very hard of hearing. Patient denies any chest pain or shortness of breath. Denies any fever or chills or sweats. Denies any nausea vomiting. Denies any bowel movement changes. Denies any burning with urination. Does admit to having some hematuria that appears to be improving. She reports that his urine is almost clear. He's also been hypotensive with blood pressure 97/48. Hemoglobin is 8.8. Stool for occult blood is negative. INR 2.7 white count 12.2. He is sedated admitted to the hospital for UTI with sepsis and started on IV Rocephin. Urine culture and blood culture of been ordered. Blood pressure pills are on hold. He is being given IV fluids. Started on antibiotics. 10/09/2017 patient lying in bed comfortably. Nursing notified me that they patient does have a history of alcohol use. Patient does admit to drinking about 2-3 vodka and lind per day. Per nursing daughter had reported patient drinking about a pint a day. Patient will be started on the CIWA protocol. Thiamine and multivitamin and folic acid added. No evidence of any withdrawal symptoms at this time. Patient also reports that his urine is clearing. Denies any burning with urination. He is remained afebrile. White count still elevated at 12.4. Hemoglobin is at 8.8. Reporting normal stools. Iron is low at 10. Patient will be given a dose of IV iron. Patient's left hand and wrist ecchymosis is now moving down into the forearm. Also increase in swelling. Patient denies any pain. Patient is also had increase in his confusion during afternoon rounds. A computed tomography scan of the brain will be completed. Also could be related to his history of alcohol abuse. 10/12/2017 patient is still very confused. Lying in bed comfortably. Per nursing patient is not eating or drinking very well. Speech therapy has been consulted for swallow evaluation. Also chest x-ray ordered to rule out any aspiration. Patient potassium is 3.3. Sodium level is 148. Normal saline discontinued. Patient will be started on D5 at 50. INR elevated at 4.5 no signs of bleeding. Hold Coumadin. Apparently patient had an episode of atrial fibrillation on October 09. Cardiology consulted. Patient did require Lopressor at that time. Continue with telemetry monitoring. Objective - Vital Signs Vital signs: Vital Signs Temp 97.5 F L 10/12/17 06:29 Pulse 88 10/12/17 08:48 Resp 26 H 10/12/17 06:29 BP 134/71 10/12/17 06:29 Pulse Ox 96 10/12/17 08:37 Intake & Output 10/11/17 10/12/17 10/12/17 18:59 06:59 18:59 Intake Total 100 Balance 100 Intake: Oral 100 Other: Voiding Method Incontinent Incontinent # Voids 3 5 # Bowel Movements 0 - Exam Head normocephalic Neck supple Lungs diminished bilaterally Heart regular rate and rhythm S1-S2, no rub or gallop Abdomen is soft nontender nondistended positive bowel sounds no hepatosplenomegaly Extremities no edema of the lower extremities. Left arm increase in swelling. Pitting edema. Ecchymosis is now trending down into the arm. Still has bruising along the hand and wrist. No pain with palpation Neuro confused. Alert and orientated 1 - Labs CBC & Chem 7: 10/12/17 08:40 10/12/17 08:40 Labs: Abnormal Lab Results - Last 24 Hours (Table) 10/11/17 10/11/17 10/11/17 Range/Units 12:04 17:37 17:38 WBC (3.8-10.6) k/uL RBC (4.30-5.90) m/uL Hgb (13.0-17.5) gm/dL Hct (39.0-53.0) % Plt Count (150-450) k/uL Neutrophils # (1.3-7.7) k/uL PT (9.0-12.0) sec INR (<1.2) Sodium (137-145) mmol/L Potassium (3.5-5.1) mmol/L Chloride (98-107) mmol/L Glucose (74-99) mg/dL POC Glucose (mg/dL) 118 H 344 H 116 H (75-99) mg/dL AST (17-59) U/L ALT (21-72) U/L Total Protein (6.3-8.2) g/dL Albumin (3.5-5.0) g/dL 10/11/17 10/12/17 10/12/17 Range/Units 20:55 07:10 08:40 WBC 12.8 H (3.8-10.6) k/uL RBC 3.07 L (4.30-5.90) m/uL Hgb 9.9 L (13.0-17.5) gm/dL Hct 30.2 L (39.0-53.0) % Plt Count 481 H (150-450) k/uL Neutrophils # 10.2 H (1.3-7.7) k/uL PT (9.0-12.0) sec INR (<1.2) Sodium (137-145) mmol/L Potassium (3.5-5.1) mmol/L Chloride (98-107) mmol/L Glucose (74-99) mg/dL POC Glucose (mg/dL) 170 H 111 H (75-99) mg/dL AST (17-59) U/L ALT (21-72) U/L Total Protein (6.3-8.2) g/dL Albumin (3.5-5.0) g/dL 10/12/17 10/12/17 Range/Units 08:40 08:40 WBC (3.8-10.6) k/uL RBC (4.30-5.90) m/uL Hgb (13.0-17.5) gm/dL Hct (39.0-53.0) % Plt Count (150-450) k/uL Neutrophils # (1.3-7.7) k/uL PT 40.6 H (9.0-12.0) sec INR 4.5 H (<1.2) Sodium 148 H (137-145) mmol/L Potassium 3.3 L (3.5-5.1) mmol/L Chloride 114 H (98-107) mmol/L Glucose 128 H (74-99) mg/dL POC Glucose (mg/dL) (75-99) mg/dL AST 92 H (17-59) U/L ALT 79 H (21-72) U/L Total Protein 4.8 L (6.3-8.2) g/dL Albumin 2.2 L (3.5-5.0) g/dL Microbiology - Last 24 Hours (Table) 10/08/17 07:59 Blood Culture - Preliminary Blood No Growth after 96 hours Assessment and Plan Assessment: 1. UTI with sepsis present on admission: Continue Rocephin. Urine and blood culture negative. 2. Anemia: Likely related to iron deficiency anemia and ecchymosis in the left arm. Keep arm elevated. Patient received 1 dose of IV iron. Start ferrous sulfate 3 and 25 mg twice a day. No evidence of active GI bleeding. Stool for occult blood is negative. 3. 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 Monitoring PT/INR. INR elevated at 4.5. Hold Coumadin. Repeat PT/INR in a.m. 4. Hypotension: Improved with IV fluids. Micardis and atenolol have been on hold since admission. 5. Diabetes mellitus type 2: Resume metformin. Add sliding scale coverage. 6. Hyperlipidemia: Continue statin 7. Generalized anxiety disorder: Continue Xanax 8. Asthma: Stable now evidence of exacerbation 9. Alcohol abuse: Start patient on the CIWA protocol with thiamine, multivitamin and folic acid. Ativan as needed 10. Altered mental status changes possibly due to metabolic encephalopathy related to his UTI. Computed tomography scan of the brain showed no acute changes 11. Episode of paroxysmal atrial fibrillation: Cardiology consulted. Patient had been off of his atenolol due to hypotension on admission. Atenolol 50 mg daily will be restarted today. He did require Lopressor on Thursday 12. Hyponatremia: Sodium of 148. Discontinue normal saline. place patient on D5 at 50 13. Hypokalemia patient receiving potassium supplement. Check magnesium level Consult social work for possible ECF placement at time of discharge GI prophylaxis Protonix and DVT prophylaxis Coumadin I performed an examination of the patient and discussed their management with the physician Work And Family Life Consultant. I have reviewed the Physician Work And Family Life Consultant's notes and agree with the documented findings and plan of care
[2017-10-12] MEDS ORDERED: Potassium Replacement Protocol 1 EACH MISC MISCELLANE PRN (10:51)
[2017-10-12] MEDS: DEXTROSE 5% IN WATER 1,000 ML IV SCH (10:58)
[2017-10-12] MEDS: ATENOLOL 50 MG TAB PO SCH (11:00)
[2017-10-12] MEDS: MULTIVITAMINS, THERA 1 EACH TAB PO SCH (11:03)
[2017-10-12] MEDS: POTASSIUM CHLORIDE 10 MEQ in SODIUM CHLORIDE 0.9% 100 ML IVPB SCH ×2 (11:03→12:54)
[2017-10-12] MEDS: FOLIC ACID 1 MG TAB PO SCH (11:03)
[2017-10-12] MEDS: THIAMINE 100 MG TAB PO SCH (11:37)
[2017-10-12 12:36] LABS: Glucose,Whole Blood 126 mg/dL (75-99)
[2017-10-12] MEDS ORDERED: SODIUM CHLORIDE 0.9% 1,000 ML with MVI, ADULT NO.4 WITH VIT K 10 ML, THIAMINE 100 MG, F... IV ONE ×4 (14:00)
[2017-10-12] MEDS ORDERED: DEXTROSE 5% IN WATER 1,000 ML with MVI, ADULT NO.4 WITH VIT K 10 ML, THIAMINE 100 MG, F... IV ONE ×4 (14:01)
--- NOTE | 2017-10-12 15:46 | P.CRDCN ---
History of Present Illness Consult date: 10/12/17 Consult reason: atrial fibrillation History of present illness: Mr. Robb is a pleasant 87-year-old male past medical history significant for diabetes mellitus, hypertension, dyslipidemia, peripheral vascular disease, known mild non-obstructive coronary artery disease, mild- moderate carotid artery disease, chronic alcohol abuse and former tobacco use. He follows with Dr. Stewart in the office. We have been asked to see him in consultation for what is believed to be new onset atrial fibrillation. He is seen and examined and appears very confused and not answering questions appropriately. Information is obtained from the chart. He apparently presented to the hospital with c/o generalized weakness. He was diagnosed with a urinary tract infection prior to arrival but never got the antibiotics filled. He is currently receiving IV antibiotics and being treated for sepsis. Apparently over the weekend he had an episode of post perceived to be atrial fibrillation. Upon further evaluation this seems to be a multifocal atrial tachycardia. There are P waves of different morphology preceding each QRS complex. Prior to admission he was taking atorvastatin 20 mg, Coumadin 5 mg, Micardis 80 mg, atenolol 50 mg daily. Atenolol Micardis a been on hold since admission secondary to episodes of hypotension. He apparently failed a swallow evaluation earlier this morning has been placed on nothing by mouth status. EKG reveals sinus mechanism with no acute ST or T-wave abnormalities. There are evidence of premature atrial contractions. Chest x-ray is negative for an acute cardiopulmonary process but reveals evidence of cardiomegaly. Laboratory data reviewed, WBC 12.8, hemoglobin 9.9, platelets 481, INR 4.5, potassium 3.3, magnesium 1.9, creatinine 0.67, troponin negative 1. Most recent echocardiogram performed October 2015 revealed preserved left ventricular systolic function with ejection fraction 55%, mild MR, mild TR and mild AR. Most recent carotid duplex performed October 2016 revealed moderate disease and bilateral ICAs bilaterally antegrade flow. Cardiac catheterization performed 2002 revealed mild to moderate triple-vessel disease with no critical stenosis. He's been on maximum medical therapy since. Review of Systems ROS unobtainable: due to mental status Past Medical History Past Medical History: Asthma, Diabetes Mellitus, Eye Disorder, Hearing Disorder / Deafness, Hypertension, Memory Impairment, Osteoarthritis (OA), Prostate Disorder, Pulmonary Embolus (PE) Additional Past Medical History / Comment(s): Severe environmental allergies, respiratory failure/intubated, [place] bilaterally, BPH, bilateral glaucoma. History of Any Multi-Drug Resistant Organisms: None Reported Past Surgical History: Joint Replacement, Tonsillectomy Additional Past Surgical History / Comment(s): L total hip arthroplasty, L total knee arthroplasty, laser surgery bilateral eyes cataracts with lens implants, colonoscopy with benign polypectomy, cyst removed from back, vasectomy. Past Anesthesia/Blood Transfusion Reactions: No Reported Reaction Smoking Status: Former smoker - Past Family History Father Family Medical History: No Reported History Mother Additional Family Medical History / Comment(s): Pt states his mother had mental health issues and trigeminal nerve problem and had chronic pain from this. Medications and Allergies Home Medications Medication Instructions Recorded Confirmed Type ALPRAZolam [Xanax] 0.25 mg PO TID 11/04/15 10/08/17 History Atenolol [Tenormin] 50 mg PO DAILY 11/04/15 10/08/17 History Atorvastatin [Lipitor] 20 mg PO HS 11/04/15 10/08/17 History Latanoprost Ophth [Xalatan 0.005%] 1 drops BOTH EYES HS 11/04/15 10/08/17 History Acetaminophen [Tylenol] 1,000 mg PO Q4-6H PRN 11/30/15 10/08/17 History Cholecalciferol [Vitamin D3] 5,000 unit PO DAILY 11/30/15 10/08/17 History Conjugated Linoleic Acid 1 tab PO DAILY 11/30/15 10/08/17 History L.acidoph,Paracasei, B.lactis 2 cap PO DAILY 11/30/15 10/08/17 History [Probiotic] Loratadine [Claritin] 10 mg PO DAILY PRN 11/30/15 10/08/17 History Melatonin 10 mg PO HS 11/30/15 10/08/17 History Multivitamin [Men's Multi-Vitamin] 1 tab PO DAILY 11/30/15 10/08/17 History [place]-3 Fatty Acids/Fish Oil [Fish 1 cap PO DAILY 11/30/15 10/08/17 History Oil 1,000 mg Softgel] Telmisartan [Micardis] 80 mg PO DAILY 11/30/15 10/08/17 History Vitamin E (Dl,Tocopheryl Acet) 400 unit PO DAILY 11/30/15 10/08/17 History [Vitamin E] Clindamycin [Cleocin] 600 mg PO ONCE 10/06/17 10/08/17 History Ipratropium-Albuterol Nebulize 3 ml INHALATION QID 10/06/17 10/08/17 History [Duoneb 0.5 mg-3 mg/3 ml Soln] Warfarin [Coumadin] 3 mg PO DAILY 10/06/17 10/08/17 History metFORMIN HCL [Glucophage] 500 mg PO BID 10/06/17 10/08/17 History Ascorbic Acid [Vitamin C] 1,500 mg PO DAILY 10/08/17 10/08/17 History Calcium Carbonate/Vitamin D3 1 tab PO DAILY 10/08/17 10/08/17 History [Calcium 600-Vit D3 400 Caplet] Ipratropium/Albuterol Sulfate 2 puff INHALATION RT-Q4H 10/08/17 10/08/17 History [Combivent Respimat Inhaler] Allergies Allergy/AdvReac Type Severity Reaction Status Date / Time Penicillins AdvReac Unknown Verified 10/08/17 08:25 tamsulosin HCl [From Flomax] AdvReac Unknown Verified 10/08/17 08:25 Physical Exam Vitals: Vital Signs Temp Pulse Pulse Resp BP Pulse Ox 10/12/17 11:56 88 10/12/17 11:44 88 10/12/17 08:48 88 10/12/17 08:37 86 96 10/12/17 06:29 97.5 F L 112 H 26 H 134/71 95 10/11/17 23:00 96.9 F L 91 20 117/61 94 L 10/11/17 20:50 86 10/11/17 20:36 84 10/11/17 17:03 88 10/11/17 16:55 87 10/11/17 15:00 97.3 F L 89 18 108/77 91 L Intake and Output 10/11/17 10/12/17 10/12/17 22:59 06:59 14:59 Intake Total 100 200 Balance 100 200 Intake: Intake, IV Titration 200 Amount Potassium Chloride 10 meq 200 In Sodium Chloride 0.9% 100 ml @ 100 mls/hr IVPB Q1H [facility] Rx#:[id number] Oral 100 Other: Voiding Method Incontinent Incontinent # Voids 3 5 2 Blood pressure 134/71 heart rate 80s afebrile 18 and oxygen saturation on room air GENERAL: This is a 87-year-old male in no apparent distress at the time of my examination. HEENT: Head is atraumatic, normocephalic. Pupils are equal, round. Sclerae anicteric. Conjunctivae are clear. Mucous membranes of the mouth are moist. Neck is supple. There is no jugular venous distention. No carotid bruit is heard. LUNGS: Clear to auscultation no wheezes, rales or rhonchi. No chest wall tenderness is noted on palpation or with deep breathing. Diminished. HEART: Irregular rate and rhythm without murmurs, rubs or gallops. S1 and S2 heard. ABDOMEN: Soft, nontender. Bowel sounds are heard. No organomegaly noted. EXTREMITIES: No evidence of peripheral edema and no calf tenderness noted. VASCULAR: Radial and dorsalis pedis pulses palpated, no evidence of clubbing. NEUROLOGIC: Patient awake, nonverbal and disoriented. Results 10/12/17 08:40 10/12/17 08:40 Cardiac Enzymes 10/12/17 Range/Units 08:40 AST 92 H (17-59) U/L Coagulation 10/12/17 Range/Units 08:40 PT 40.6 H (9.0-12.0) sec CBC 10/12/17 Range/Units 08:40 WBC 12.8 H (3.8-10.6) k/uL RBC 3.07 L (4.30-5.90) m/uL Hgb 9.9 L (13.0-17.5) gm/dL Hct 30.2 L (39.0-53.0) % Plt Count 481 H (150-450) k/uL Comprehensive Metabolic Panel 10/12/17 Range/Units 08:40 Sodium 148 H (137-145) mmol/L Potassium 3.3 L (3.5-5.1) mmol/L Chloride 114 H (98-107) mmol/L Carbon Dioxide 25 (22-30) mmol/L BUN 16 (9-20) mg/dL Creatinine 0.67 (0.66-1.25) mg/dL Glucose 128 H (74-99) mg/dL Calcium 8.5 (8.4-10.2) mg/dL AST 92 H (17-59) U/L ALT 79 H (21-72) U/L Alkaline Phosphatase 95 (38-126) U/L Total Protein 4.8 L (6.3-8.2) g/dL Albumin 2.2 L (3.5-5.0) g/dL Current Medications Generic Name Dose Route Start Last Admin Trade Name Freq PRN Reason Stop Dose Admin Acetaminophen 650 mg 10/08/17 08:54 Tylenol Tab PO Q6HR PRN Mild Pain or Fever > 100.5 Albuterol/Ipratropium 3 ml 10/08/17 12:00 10/12/17 11:43 Duoneb 0.5 Mg-3 Mg/3 Ml Soln INHALATION 3 ml RT-QID PERI Administration Alprazolam 0.25 mg 10/08/17 16:00 Xanax PO TID PRN Anxiety Ascorbic Acid 1,500 mg 10/09/17 09:00 10/12/17 08:29 Vitamin C PO Not Given DAILY [facility] Atenolol 50 mg 10/12/17 10:30 10/12/17 11:00 Tenormin PO Not Given DAILY [facility] Atorvastatin Calcium 20 mg 10/08/17 21:00 10/11/17 21:40 Lipitor PO Not Given [facility] Calcium Carbonate 1 each 10/09/17 09:00 10/12/17 08:29 Oscal 500+D PO Not Given DAILY [facility] Ceftriaxone Sodium 1,000 mg 10/08/17 21:00 10/12/17 08:45 Rocephin IVP 1,000 mg Q12HR PERI Administration Cholecalciferol 5,000 unit 10/09/17 09:00 10/12/17 08:29 Vitamin D3 PO Not Given DAILY [facility] Ferrous Sulfate 325 mg 10/12/17 21:00 Feosol PO BID [facility] Folic Acid 1 mg 10/09/17 12:00 10/12/17 11:03 Folic Acid PO Not Given DAILY@1200 PERI Dextrose/Water 1,000 mls @ 50 mls/hr 10/12/17 10:30 10/12/17 10:58 Dextrose 5%-Water Iv Soln IV 50 mls/hr .Q20H PERI Administration Parenteral Vitamin Supplement 1,011.2 mls @ 100 mls/hr 10/12/17 14:01 10 ml/ Thiamine HCl 100 mg/ IV 10/13/17 00:01 Folic Acid 1 mg/ Dextrose/ .Q10H7M ONE Water Insulin Aspart 0 unit 10/08/17 12:30 10/12/17 12:53 Novolog SQ Not Given ACHS [facility] Protocol Lactobacillus Acidoph/Bulgar[place] 1 each 10/09/17 09:00 10/12/17 08:30 Lactinex PO Not Given DAILY PERI Latanoprost 1 drops 10/08/17 21:00 10/11/17 21:41 Xalatan 0.005% BOTH EYES 1 drops HS PERI Administration Loratadine 10 mg 10/08/17 10:38 Claritin PO DAILY PRN Allergy Symptoms Lorazepam 1 mg 10/09/17 09:31 10/12/17 00:54 Ativan IV 1 mg Q2HR PRN Administration CIWA 8 or 9 Lorazepam 1 mg 10/09/17 09:31 Ativan IV Q1HR PRN CIWA 10 to 15 Melatonin 10 mg 10/08/17 21:00 10/11/17 21:41 Melatonin PO Not Given HS PERI Metformin HCl 500 mg 10/08/17 17:30 10/12/17 08:28 Glucophage PO Not Given AC-BID [facility] Miscellaneous Information 1 each 10/12/17 10:51 Potassium Per Protocol MISCELLANE DAILY PRN Per Protocol Protocol Naloxone HCl 0.2 mg 10/08/17 08:54 Narcan IV Q2M PRN Opioid Reversal Pantoprazole Sodium 40 mg 10/13/17 09:00 Protonix IVP DAILY [facility] Vitamin E 400 unit 10/09/17 09:00 10/12/17 08:30 Vitamin E PO Not Given DAILY [facility] Intake and Output 10/11/17 10/12/17 10/12/17 22:59 06:59 14:59 Intake Total 100 200 Balance 100 200 Intake: Intake, IV Titration 200 Amount Potassium Chloride 10 meq 200 In Sodium Chloride 0.9% 100 ml @ 100 mls/hr IVPB Q1H [facility] Rx#:[id number] Oral 100 Other: Voiding Method Incontinent Incontinent # Voids 3 5 2 10/12/17 08:40 10/12/17 08:40 Assessment and Plan Assessment: ASSESSMENT 1. Multifocal atrial tachycardia 2. Chronic stable coronary artery disease with no critical stenosis 3. Dyslipidemia 4. Peripheral vascular disease 5. Hypertension 6. Diabetes mellitus 7. Chronic alcohol abuse 8. UTI with sepsis 9. Anemia 10. History of DDD and PE currently on Coumadin 11. Supratherapeutic INR 12. Hypokalemia, being replaced 13. Hyponatremia PLAN Continue with current medical management of urinary tract infection with sepsis. As soon as is possible the patient should be placed back on his atenolol and Micardis. Continue with ongoing telemetry monitoring. If he should require beta-blocking agent 1 should be given IV until he is tolerating orally. Coumadin management dosing per primary care team. No further cardiac workup at this time. Thank you kindly for this consultation. Nurse Practitioner note has been reviewed, I agree with a documented findings and plan of care. Patient was seen and examined.
[2017-10-12 17:18] LABS: Glucose,Whole Blood 143 mg/dL (75-99)
--- NOTE | 2017-10-12 20:08 | P.CNNES ---
History of Present Illness Consult date: 10/12/17 History of Present Illness: The patient is an 87-year-old man who presented to the hospital with sepsis. He was diagnosed with UTI and apparently did not get his antibiotic filled. He later started on his antibiotic and came to the emergency room department and received a dose of IV antibiotic. He was admitted to the hospital with urinary tract infection and sepsis neurology is requested to see the patient regarding confusion. The patient has multiple medical problems including PE DVT hypertension diabetes. He was slightly confused on admission but this has been progressively worse according to the record. The patient is hard of hearing but he is able to respond to questions and denies any recent falls or confusion. He does consume alcohol daily. The patient denies any headache or weakness. He has a history of DVT and is on Coumadin. Admitted with supratherapeutic ProTime he had a CT of the brain in the emergency room which did not show any acute hemorrhage or stroke. He has mild to moderate age- related atrophy. Review of Systems ROS unobtainable: due to mental status Past Medical History Past Medical History: Asthma, Diabetes Mellitus, Eye Disorder, Hearing Disorder / Deafness, Hypertension, Memory Impairment, Osteoarthritis (OA), Prostate Disorder, Pulmonary Embolus (PE) Additional Past Medical History / Comment(s): Severe environmental allergies, respiratory failure/intubated, [place] bilaterally, BPH, bilateral glaucoma. History of Any Multi-Drug Resistant Organisms: None Reported Past Surgical History: Joint Replacement, Tonsillectomy Additional Past Surgical History / Comment(s): L total hip arthroplasty, L total knee arthroplasty, laser surgery bilateral eyes cataracts with lens implants, colonoscopy with benign polypectomy, cyst removed from back, vasectomy. Past Anesthesia/Blood Transfusion Reactions: No Reported Reaction Smoking Status: Former smoker - Past Family History Father Family Medical History: No Reported History Mother Additional Family Medical History / Comment(s): Pt states his mother had mental health issues and trigeminal nerve problem and had chronic pain from this. Medications and Allergies Home Medications Medication Instructions Recorded Confirmed Type ALPRAZolam [Xanax] 0.25 mg PO TID 11/04/15 10/08/17 History Atenolol [Tenormin] 50 mg PO DAILY 11/04/15 10/08/17 History Atorvastatin [Lipitor] 20 mg PO HS 11/04/15 10/08/17 History Latanoprost Ophth [Xalatan 0.005%] 1 drops BOTH EYES HS 11/04/15 10/08/17 History Acetaminophen [Tylenol] 1,000 mg PO Q4-6H PRN 11/30/15 10/08/17 History Cholecalciferol [Vitamin D3] 5,000 unit PO DAILY 11/30/15 10/08/17 History Conjugated Linoleic Acid 1 tab PO DAILY 11/30/15 10/08/17 History L.acidoph,Paracasei, B.lactis 2 cap PO DAILY 11/30/15 10/08/17 History [Probiotic] Loratadine [Claritin] 10 mg PO DAILY PRN 11/30/15 10/08/17 History Melatonin 10 mg PO HS 11/30/15 10/08/17 History Multivitamin [Men's Multi-Vitamin] 1 tab PO DAILY 11/30/15 10/08/17 History [place]-3 Fatty Acids/Fish Oil [Fish 1 cap PO DAILY 11/30/15 10/08/17 History Oil 1,000 mg Softgel] Telmisartan [Micardis] 80 mg PO DAILY 11/30/15 10/08/17 History Vitamin E (Dl,Tocopheryl Acet) 400 unit PO DAILY 11/30/15 10/08/17 History [Vitamin E] Clindamycin [Cleocin] 600 mg PO ONCE 10/06/17 10/08/17 History Ipratropium-Albuterol Nebulize 3 ml INHALATION QID 10/06/17 10/08/17 History [Duoneb 0.5 mg-3 mg/3 ml Soln] Warfarin [Coumadin] 3 mg PO DAILY 10/06/17 10/08/17 History metFORMIN HCL [Glucophage] 500 mg PO BID 10/06/17 10/08/17 History Ascorbic Acid [Vitamin C] 1,500 mg PO DAILY 10/08/17 10/08/17 History Calcium Carbonate/Vitamin D3 1 tab PO DAILY 10/08/17 10/08/17 History [Calcium 600-Vit D3 400 Caplet] Ipratropium/Albuterol Sulfate 2 puff INHALATION RT-Q4H 10/08/17 10/08/17 History [Combivent Respimat Inhaler] Allergies Allergy/AdvReac Type Severity Reaction Status Date / Time Penicillins AdvReac Unknown Verified 10/08/17 08:25 tamsulosin HCl [From Flomax] AdvReac Unknown Verified 10/08/17 08:25 Physical Examination - Vital Signs Vital Signs: Vital Signs Temp Pulse Pulse Resp BP Pulse Ox 10/12/17 19:43 93 10/12/17 19:36 92 10/12/17 16:36 90 10/12/17 16:26 88 10/12/17 15:00 96.8 F L 83 20 135/69 97 10/12/17 11:56 88 10/12/17 11:44 88 10/12/17 08:48 88 10/12/17 08:37 86 96 10/12/17 06:29 97.5 F L 112 H 26 H 134/71 95 10/11/17 23:00 96.9 F L 91 20 117/61 94 L 10/11/17 20:50 86 10/11/17 20:36 84 Intake and Output 10/12/17 10/12/17 10/12/17 06:59 14:59 22:59 Intake Total 200 Output Total 200 Balance 200 -200 Intake: Intake, IV Titration 200 Amount Potassium Chloride 10 meq 200 In Sodium Chloride 0.9% 100 ml @ 100 mls/hr IVPB Q1H COUNTS INCLUDE 234 BEDS AT [facility] Rx#:[id number] Output: Urine 200 Other: Voiding Method Incontinent Incontinent Incontinent # Voids 5 1 1 # Bowel Movements 0 0 Weight 63.957 kg 63.957 kg Patient Weight 10/13/17 06:59 Weight 63.957 kg - Constitutional General appearance: average body habitus - EENT EENT: PERRL, vision intact - Respiratory Respiratory: lungs clear - Cardiovascular Cardiovascular: regular rate, normal S1, normal S2 - Gastrointestinal Gastrointestinal: tender - Integumentary Integumentary: rash, erythema - Neurologic Mental status he was awake he was alert he was oriented to person date was October 1999 he was able to do simple addition and subtraction he was able to spell world he was disoriented to situation did not know the date he knew it was October he knew it was the hospital but could not name the hospital Cranial nerve examination: EOMI, VFF, V1/V2/V3 grossly intact, face symmetric, tongue midline Speech examination: other (Hypophonia) Detailed motor examination: grossly full strength in all extremities Detailed sensory examination: intact, light touch Reflex and gait examination: intact Reflexes: 2+: knee - Psychiatric Psychiatric: cooperative Results - Laboratory Findings CBC and BMP: 10/12/17 08:40 10/12/17 08:40 Abnormal Lab Findings: Abnormal Labs 10/08/17 10/08/17 10/08/17 07:00 07:00 07:00 WBC 12.2 H RBC 2.83 L Hgb 8.8 L Hct 28.0 L MCV MCHC Plt Count Neutrophils # 9.3 H Monocytes # 1.1 H PT 24.3 H INR 2.7 H APTT 39.3 H Sodium Potassium Chloride 111 H Carbon Dioxide 21 L BUN 24 H Creatinine Glucose 147 H POC Glucose (mg/dL) Calcium Iron TIBC Iron Saturation Ferritin AST ALT Total Protein 4.7 L Albumin 2.3 L Urine Protein Ur Leukocyte Esterase Urine WBC Urine Mucus 10/08/17 10/08/17 10/08/17 07:01 07:30 12:06 WBC RBC Hgb Hct MCV MCHC Plt Count Neutrophils # Monocytes # PT INR APTT Sodium Potassium Chloride Carbon Dioxide BUN Creatinine Glucose POC Glucose (mg/dL) 266 H Calcium Iron 10 L TIBC 204 L Iron Saturation 4.90 L Ferritin 574.4 H AST ALT Total Protein Albumin Urine Protein Trace H Ur Leukocyte Esterase Moderate H Urine WBC 57 H Urine Mucus Rare H 10/08/17 10/08/17 10/09/17 17:16 21:22 07:07 WBC RBC Hgb Hct MCV MCHC Plt Count Neutrophils # Monocytes # PT INR APTT Sodium Potassium Chloride Carbon Dioxide BUN Creatinine Glucose POC Glucose (mg/dL) 178 H 185 H 129 H Calcium Iron TIBC Iron Saturation Ferritin AST ALT Total Protein Albumin Urine Protein Ur Leukocyte Esterase Urine WBC Urine Mucus 10/09/17 10/09/17 10/09/17 07:50 07:50 07:50 WBC 12.4 H RBC 2.86 L Hgb 8.8 L Hct 28.2 L MCV MCHC Plt Count Neutrophils # 9.3 H Monocytes # 1.1 H PT 21.5 H INR 2.4 H APTT Sodium Potassium Chloride 113 H Carbon Dioxide BUN Creatinine Glucose 144 H POC Glucose (mg/dL) Calcium 8.2 L Iron TIBC Iron Saturation Ferritin AST 81 H ALT Total Protein 4.7 L Albumin 2.2 L Urine Protein Ur Leukocyte Esterase Urine WBC Urine Mucus 10/09/17 10/09/17 10/09/17 11:43 17:22 21:02 WBC RBC Hgb Hct MCV MCHC Plt Count Neutrophils # Monocytes # PT INR APTT Sodium Potassium Chloride Carbon Dioxide BUN Creatinine Glucose POC Glucose (mg/dL) 126 H 130 H 122 H Calcium Iron TIBC Iron Saturation Ferritin AST ALT Total Protein Albumin Urine Protein Ur Leukocyte Esterase Urine WBC Urine Mucus 10/10/17 10/10/17 10/10/17 07:05 07:05 07:05 WBC 14.2 H RBC 2.83 L Hgb 8.7 L Hct 28.7 L MCV 101.3 H MCHC 30.4 L Plt Count Neutrophils # 10.9 H Monocytes # 1.2 H PT 21.2 H INR 2.4 H APTT Sodium Potassium Chloride 113 H Carbon Dioxide BUN Creatinine Glucose 114 H POC Glucose (mg/dL) Calcium Iron TIBC Iron Saturation Ferritin AST 66 H ALT Total Protein 4.5 L Albumin 2.1 L Urine Protein Ur Leukocyte Esterase Urine WBC Urine Mucus 10/10/17 10/10/17 10/10/17 07:09 12:37 17:11 WBC RBC Hgb Hct MCV MCHC Plt Count Neutrophils # Monocytes # PT INR APTT Sodium Potassium Chloride Carbon Dioxide BUN Creatinine Glucose POC Glucose (mg/dL) 118 H 115 H 114 H Calcium Iron TIBC Iron Saturation Ferritin AST ALT Total Protein Albumin Urine Protein Ur Leukocyte Esterase Urine WBC Urine Mucus 10/10/17 10/11/17 10/11/17 20:47 07:32 07:53 WBC 14.6 H RBC 3.17 L Hgb 9.8 L Hct 32.1 L MCV 101.3 H MCHC 30.5 L Plt Count 500 H Neutrophils # 11.9 H Monocytes # PT INR APTT Sodium Potassium Chloride Carbon Dioxide BUN Creatinine Glucose POC Glucose (mg/dL) 114 H 126 H Calcium Iron TIBC Iron Saturation Ferritin AST ALT Total Protein Albumin Urine Protein Ur Leukocyte Esterase Urine WBC Urine Mucus 10/11/17 10/11/17 10/11/17 07:53 07:53 12:04 WBC RBC Hgb Hct MCV MCHC Plt Count Neutrophils # Monocytes # PT 31.3 H INR 3.5 H APTT Sodium Potassium Chloride 113 H Carbon Dioxide 21 L BUN Creatinine 0.60 L Glucose 125 H POC Glucose (mg/dL) 118 H Calcium Iron TIBC Iron Saturation Ferritin AST 89 H ALT 75 H Total Protein 4.7 L Albumin 2.2 L Urine Protein Ur Leukocyte Esterase Urine WBC Urine Mucus 10/11/17 10/11/17 10/11/17 17:37 17:38 20:55 WBC RBC Hgb Hct MCV MCHC Plt Count Neutrophils # Monocytes # PT INR APTT Sodium Potassium Chloride Carbon Dioxide BUN Creatinine Glucose POC Glucose (mg/dL) 344 H 116 H 170 H Calcium Iron TIBC Iron Saturation Ferritin AST ALT Total Protein Albumin Urine Protein Ur Leukocyte Esterase Urine WBC Urine Mucus 10/12/17 10/12/17 10/12/17 07:10 08:40 08:40 WBC 12.8 H RBC 3.07 L Hgb 9.9 L Hct 30.2 L MCV MCHC Plt Count 481 H Neutrophils # 10.2 H Monocytes # PT 40.6 H INR 4.5 H APTT Sodium Potassium Chloride Carbon Dioxide BUN Creatinine Glucose POC Glucose (mg/dL) 111 H Calcium Iron TIBC Iron Saturation Ferritin AST ALT Total Protein Albumin Urine Protein Ur Leukocyte Esterase Urine WBC Urine Mucus 10/12/17 10/12/17 10/12/17 08:40 12:08 17:10 WBC RBC Hgb Hct MCV MCHC Plt Count Neutrophils # Monocytes # PT INR APTT Sodium 148 H Potassium 3.3 L Chloride 114 H Carbon Dioxide BUN Creatinine Glucose 128 H POC Glucose (mg/dL) 126 H 143 H Calcium Iron TIBC Iron Saturation Ferritin AST 92 H ALT 79 H Total Protein 4.8 L Albumin 2.2 L Urine Protein Ur Leukocyte Esterase Urine WBC Urine Mucus Assessment and Plan (1) Sepsis Current Visit: Yes Status: Acute SNOMED Code(s): 43090063 (2) UTI (urinary tract infection) Current Visit: Yes Status: Acute SNOMED Code(s): 47102517 (3) Acute exacerbation of chronic obstructive pulmonary disease (COPD) Current Visit: No Status: Acute SNOMED Code(s): 668764005 (4) Metabolic encephalopathy Current Visit: Yes Status: Acute SNOMED Code(s): 16434333 Plan: The patient is a 87-year-old man admitted with sepsis and having some intermittent confusion. The patient was apparently more confused earlier in the day. His encephalopathy is likely secondary to sepsis. He is also having some dysphagia and atrial tachycardia. He had a CAT scan of the brain on October 09 which showed no acute hemorrhage or stroke. There was moderate age-related atrophy and small vessel ischemic changes. Would continue close neuro checks and speech therapy to reassess
--- NOTE | 2017-10-12 20:23 | XR ---
EXAMINATION TYPE: XR chest 2V DATE OF EXAM: 10/12/2017 COMPARISON: 10/08/2017 INDICATION: Cough short of breath TECHNIQUE: Frontal and lateral views of the chest are obtained. FINDINGS: The heart size is normal. The pulmonary vasculature is upper limits normal. Small left pleural effusion is present.. IMPRESSION: 1. Small left pleural effusion slightly increased from prior exam.
[2017-10-12 21:41] LABS: Glucose,Whole Blood 143 mg/dL (75-99)
[2017-10-12] MEDS: ATORVASTATIN 20 MG TAB PO SCH (22:29)
[2017-10-12] MEDS: FERROUS SULFATE 325 MG TAB PO SCH (22:29)
[2017-10-12] MEDS: MELATONIN 5 MG TABLET PO SCH (22:29)
[2017-10-12] MEDS: LATANOPROST 0.005% OPHTH DROPS 2.5 ML BTL BOTH EYES SCH (22:34)
[2017-10-13] MEDS: DEXTROSE 5% IN WATER 1,000 ML IV SCH ×2 (06:20→20:25)
[2017-10-13 07:27] LABS: Glucose,Whole Blood 149 mg/dL (75-99)
[2017-10-13] MEDS: metFORMIN 500 MG TAB PO SCH ×2 (07:36→18:04)
[2017-10-13 08:05] LABS: Basophils # (A) 0.1 k/uL (0-0.2); Basophils % (A) 0 %; Eosinophils # (A) 0.4 k/uL (0-0.7); Eosinophils % (A) 3 %; HCT 28.2 % (39.0-53.0); HGB 8.9 gm/dL (13.0-17.5); Hypochromasia Slight; Lymphocytes # (A) 1.3 k/uL (1.0-4.8); Lymphocytes % (A) 10 %; MCH 30.9 pg (25.0-35.0); MCHC 31.6 g/dL (31.0-37.0); MCV 97.8 fL (80.0-100.0); Mean Platelet Volume 7.3; Monocytes # (A) 0.8 k/uL (0-1.0); Monocytes % (A) 6 %; Neutrophils # (A) 10.2 k/uL (1.3-7.7); Neutrophils % (A) 80 %; Platelet Count 474 k/uL (150-450); RBC 2.88 m/uL (4.30-5.90); RDW 12.8 % (11.5-15.5); WBC 12.9 k/uL (3.8-10.6)
[2017-10-13 08:07] LABS: INR 1.9 (<1.2); Prothrombin Time 17.7 sec (9.0-12.0)
[2017-10-13] MEDS: IPRATROPIUM-ALBUTEROL 3 ML NEB INHALATION SCH ×4 (08:09→19:08)
[2017-10-13 08:29] LABS: ALT 79 U/L (21-72); AST 90 U/L (17-59); Alkaline Phosphatase 87 U/L (38-126); Anion Gap 8 mmol/L; Blood Urea Nitrogen 13 mg/dL (9-20); Calcium 8.1 mg/dL (8.4-10.2); Carbon Dioxide 26 mmol/L (22-30); Chloride 109 mmol/L (98-107); Glucose 152 mg/dL (74-99); Potassium 3.4 mmol/L (3.5-5.1); Sodium 143 mmol/L (137-145); Total Bilirubin 0.6 mg/dL (0.2-1.3); Total Protein 4.5 g/dL (6.3-8.2)
[2017-10-13] MEDS: INSULIN ASPART 100 UNIT/ML 1 ML 10 ML VIAL SQ SCH ×4 (08:43→22:32)
[2017-10-13] MEDS: cefTRIAXone IN SWFI 1,000 MG/10 ML SYRINGE IVP SCH ×2 (08:44→20:24)
[2017-10-13] MEDS ORDERED: POTASSIUM CHLORIDE 20 MEQ in WATER FOR INJECTION 1 100ML.BAG IVPB STA (10:06)
[2017-10-13] MEDS: ATENOLOL 50 MG TAB PO SCH ×2 (10:49→12:08)
[2017-10-13] MEDS: ASCORBIC ACID 500 MG TAB PO SCH (10:49)
[2017-10-13] MEDS: CHOLECALCIFEROL 1,000 UNIT TAB PO SCH (10:49)
[2017-10-13] MEDS: FERROUS SULFATE 325 MG TAB PO SCH ×2 (10:49→20:24)
[2017-10-13] MEDS: CALCIUM CARB-VIT D 500MG-200UN 1 EACH TAB PO SCH (10:49)
[2017-10-13] MEDS: LACTOBACILLUS ACIDOPH & BULGAR 1 EACH PACKET PO SCH (10:50)
[2017-10-13] MEDS: VITAMIN E (DL,TOCOPHERYL ACET) 400 UNIT CAP PO SCH (10:50)
[2017-10-13] MEDS: PANTOPRAZOLE 40 MG/10 ML VIAL IVP SCH (11:04)
[2017-10-13] MEDS: FOLIC ACID 1 MG TAB PO SCH (12:07)
[2017-10-13 12:30] LABS: Glucose,Whole Blood 135 mg/dL (75-99)
--- NOTE | 2017-10-13 13:25 | FL ---
Modified barium swallow HISTORY: Abnormal bedside swallowing exam 1 minute 52 seconds fluoroscopy time, no images obtained. Patient was given various liquids mixed with barium. Evaluation performed in lateral projection under real-time fluoroscopy. There is delay in initiation of the swallowing mechanism. Some decrease in excursion of the epiglotti s was noted. Transient laryngeal penetration identified, there is no kirsty aspiration. No obstruction to flow. See dictated report speech pathology for full evaluation.
--- NOTE | 2017-10-13 13:49 | P.PN ---
Subjective Progress Note Date: 10/13/17 This is a 87-year-old male with a known past medical history of PE, DVT, hypertension, hyperlipidemia, anxiety and diabetes mellitus type 2. Patient is slightly confused and hard of hearing. Patient presents to the emergency room with complaints of generalized weakness per ER report. Patient's is a poor historian most information became from the emergency room chart. Apparently patient was diagnosed with a UTI outpatient and did not get antibiotics filled. Patient presented with weakness and evidence of a UTI. Started on IV Rocephin. The patient reports that he has not been following. He has ecchymosis of the left wrist and hand and likely this is related to his Coumadin. Patient reports that his INR was elevated. On admission INR is 2.7. He denies any injury to that left arm. He is able to answer some questions. The been at times he appears confused. He is also very hard of hearing. Patient denies any chest pain or shortness of breath. Denies any fever or chills or sweats. Denies any nausea vomiting. Denies any bowel movement changes. Denies any burning with urination. Does admit to having some hematuria that appears to be improving. She reports that his urine is almost clear. He's also been hypotensive with blood pressure 97/48. Hemoglobin is 8.8. Stool for occult blood is negative. INR 2.7 white count 12.2. He is sedated admitted to the hospital for UTI with sepsis and started on IV Rocephin. Urine culture and blood culture of been ordered. Blood pressure pills are on hold. He is being given IV fluids. Started on antibiotics. 10/09/2017 patient lying in bed comfortably. Nursing notified me that they patient does have a history of alcohol use. Patient does admit to drinking about 2-3 vodka and lind per day. Per nursing daughter had reported patient drinking about a pint a day. Patient will be started on the CIWA protocol. Thiamine and multivitamin and folic acid added. No evidence of any withdrawal symptoms at this time. Patient also reports that his urine is clearing. Denies any burning with urination. He is remained afebrile. White count still elevated at 12.4. Hemoglobin is at 8.8. Reporting normal stools. Iron is low at 10. Patient will be given a dose of IV iron. Patient's left hand and wrist ecchymosis is now moving down into the forearm. Also increase in swelling. Patient denies any pain. Patient is also had increase in his confusion during afternoon rounds. A computed tomography scan of the brain will be completed. Also could be related to his history of alcohol abuse. 10/12/2017 patient is still very confused. Lying in bed comfortably. Per nursing patient is not eating or drinking very well. Speech therapy has been consulted for swallow evaluation. Also chest x-ray ordered to rule out any aspiration. Patient potassium is 3.3. Sodium level is 148. Normal saline discontinued. Patient will be started on D5 at 50. INR elevated at 4.5 no signs of bleeding. Hold Coumadin. Apparently patient had an episode of atrial fibrillation on October 09. Cardiology consulted. Patient did require Lopressor at that time. Continue with telemetry monitoring. 10/13/2017 patient is still confused but able to answer questions and follow some simple commands better than yesterday. Patient's in by neurology. Vernalis his confusion was related to his UTI and metabolic encephalopathy. Patient underwent a modified barium swallow. No evidence of aspiration but speech therapy recommending a pured diet due to his delay in swallow. Objective - Vital Signs Vital signs: Vital Signs Temp 97.6 F 10/13/17 06:08 Pulse 96 10/13/17 08:25 Resp 17 10/13/17 06:08 BP 135/74 10/13/17 06:08 Pulse Ox 97 10/13/17 08:13 Intake & Output 10/12/17 10/13/17 10/13/17 18:59 06:59 18:59 Intake Total 200 100 Output Total 200 Balance 0 100 Weight 63.957 kg Intake: Intake, IV Titration 200 100 Amount Potassium Chloride 10 meq 200 In Sodium Chloride 0.9% 100 ml @ 100 mls/hr IVPB Q1H [facility] Rx#:[id number] Potassium Chloride 20 meq 100 In Water For Injection 1 100ml.bag @ 50 mls/hr IVPB ONCE STA Rx#: [id number] Output: Urine 200 Other: Voiding Method Incontinent Incontinent # Voids 1 2 2 # Bowel Movements 0 1 - Exam Head normocephalic Neck supple Lungs diminished bilaterally Heart regular rate and rhythm S1-S2, no rub or gallop Abdomen is soft nontender nondistended positive bowel sounds no hepatosplenomegaly Extremities no edema of the lower extremities. Left arm increase in swelling. Pitting edema. Ecchymosis is now trending down into the arm. Still has bruising along the hand and wrist. No pain with palpation Neuro confused. Alert and orientated 1 - Labs CBC & Chem 7: 10/13/17 07:14 10/13/17 07:14 Labs: Abnormal Lab Results - Last 24 Hours (Table) 10/12/17 10/12/17 10/13/17 Range/Units 17:10 21:00 06:53 WBC (3.8-10.6) k/uL RBC (4.30-5.90) m/uL Hgb (13.0-17.5) gm/dL Hct (39.0-53.0) % Plt Count (150-450) k/uL Neutrophils # (1.3-7.7) k/uL PT (9.0-12.0) sec INR (<1.2) Potassium (3.5-5.1) mmol/L Chloride (98-107) mmol/L Creatinine (0.66-1.25) mg/dL Glucose (74-99) mg/dL POC Glucose (mg/dL) 143 H 143 H 149 H (75-99) mg/dL Calcium (8.4-10.2) mg/dL AST (17-59) U/L ALT (21-72) U/L Total Protein (6.3-8.2) g/dL Albumin (3.5-5.0) g/dL 10/13/17 10/13/17 10/13/17 Range/Units 07:14 07:14 07:14 WBC 12.9 H (3.8-10.6) k/uL RBC 2.88 L (4.30-5.90) m/uL Hgb 8.9 L (13.0-17.5) gm/dL Hct 28.2 L (39.0-53.0) % Plt Count 474 H (150-450) k/uL Neutrophils # 10.2 H (1.3-7.7) k/uL PT 17.7 H (9.0-12.0) sec INR 1.9 H (<1.2) Potassium 3.4 L (3.5-5.1) mmol/L Chloride 109 H (98-107) mmol/L Creatinine 0.56 L (0.66-1.25) mg/dL Glucose 152 H (74-99) mg/dL POC Glucose (mg/dL) (75-99) mg/dL Calcium 8.1 L (8.4-10.2) mg/dL AST 90 H (17-59) U/L ALT 79 H (21-72) U/L Total Protein 4.5 L (6.3-8.2) g/dL Albumin 2.0 L (3.5-5.0) g/dL 10/13/17 Range/Units 12:06 WBC (3.8-10.6) k/uL RBC (4.30-5.90) m/uL Hgb (13.0-17.5) gm/dL Hct (39.0-53.0) % Plt Count (150-450) k/uL Neutrophils # (1.3-7.7) k/uL PT (9.0-12.0) sec INR (<1.2) Potassium (3.5-5.1) mmol/L Chloride (98-107) mmol/L Creatinine (0.66-1.25) mg/dL Glucose (74-99) mg/dL POC Glucose (mg/dL) 135 H (75-99) mg/dL Calcium (8.4-10.2) mg/dL AST (17-59) U/L ALT (21-72) U/L Total Protein (6.3-8.2) g/dL Albumin (3.5-5.0) g/dL Microbiology - Last 24 Hours (Table) 10/08/17 07:59 Blood Culture - Preliminary Blood No Growth after 120 hours Assessment and Plan Assessment: 1. UTI with sepsis present on admission: Continue Rocephin. Urine and blood culture negative. 2. Anemia: Likely related to iron deficiency anemia and ecchymosis in the left arm. Keep arm elevated. Patient received 1 dose of IV iron. Start ferrous sulfate 325 mg twice a day. No evidence of active GI bleeding. Stool for occult blood is negative. 3. 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 Monitoring PT/INR. INR is down to 1.9. Give Coumadin 2.5 mg tonight 4. Hypotension: Improved with IV fluids. Micardis and atenolol have been on hold since admission. 5. Diabetes mellitus type 2: Resume metformin. Add sliding scale coverage. 6. Hyperlipidemia: Continue statin 7. Generalized anxiety disorder: Continue Xanax 8. Asthma: Stable now evidence of exacerbation 9. Alcohol abuse: Start patient on the CIWA protocol with thiamine, multivitamin and folic acid. Ativan as needed 10. Altered mental status changes possibly due to metabolic encephalopathy related to his UTI. Computed tomography scan of the brain showed no acute changes 11. Multifocal atrial tachycardia: Seen by cardiology. Atrial fibrillation ruled out. We'll resume patient's atenolol 12. Hyponatremia: Resolved with the D5 W 13. Hypokalemia patient receiving potassium supplement. Magnesium 1.9 14. Dysphagia: Seen by speech therapy modified barium swallow ulcer no evidence of aspiration did show some delay in his swallow. The recommending a pured diet. Consult social work for possible ECF placement at time of discharge GI prophylaxis Protonix and DVT prophylaxis Coumadin I performed an examination of the patient and discussed their management with the physician Elementary Substitute Teacher. I have reviewed the Physician Elementary Substitute Teacher's notes and agree with the documented findings and plan of care
[2017-10-13 17:36] LABS: Glucose,Whole Blood 165 mg/dL (75-99)
[2017-10-13] MEDS ORDERED: WARFARIN 2.5 MG TAB PO ONE (18:00)
[2017-10-13] MEDS: ATORVASTATIN 20 MG TAB PO SCH (20:24)
[2017-10-13] MEDS: MELATONIN 5 MG TABLET PO SCH (20:25)
[2017-10-13] MEDS: LATANOPROST 0.005% OPHTH DROPS 2.5 ML BTL BOTH EYES SCH (20:25)
[2017-10-13 20:39] LABS: Glucose,Whole Blood 148 mg/dL (75-99)
[2017-10-14] MEDS: IPRATROPIUM-ALBUTEROL 3 ML NEB INHALATION SCH ×4 (07:02→20:02)
[2017-10-14 07:11] LABS: Glucose,Whole Blood 136 mg/dL (75-99)
[2017-10-14 09:42] LABS: INR 2.5 (<1.2); Prothrombin Time 22.6 sec (9.0-12.0)
[2017-10-14] MEDS: PANTOPRAZOLE 40 MG/10 ML VIAL IVP SCH (09:55)
[2017-10-14] MEDS: FERROUS SULFATE 325 MG TAB PO SCH ×2 (09:55→21:55)
[2017-10-14] MEDS: CHOLECALCIFEROL 1,000 UNIT TAB PO SCH (09:55)
[2017-10-14] MEDS: cefTRIAXone IN SWFI 1,000 MG/10 ML SYRINGE IVP SCH ×2 (09:55→21:54)
[2017-10-14] MEDS: ASCORBIC ACID 500 MG TAB PO SCH (09:55)
[2017-10-14] MEDS: VITAMIN E (DL,TOCOPHERYL ACET) 400 UNIT CAP PO SCH (09:55)
[2017-10-14] MEDS: CALCIUM CARB-VIT D 500MG-200UN 1 EACH TAB PO SCH (09:56)
[2017-10-14] MEDS: ATENOLOL 50 MG TAB PO SCH (09:56)
[2017-10-14] MEDS: FOLIC ACID 1 MG TAB PO SCH (09:56)
[2017-10-14] MEDS: MULTIVITAMINS, THERA 1 EACH TAB PO SCH (09:56)
[2017-10-14] MEDS: THIAMINE 100 MG TAB PO SCH (09:56)
[2017-10-14] MEDS: LACTOBACILLUS ACIDOPH & BULGAR 1 EACH PACKET PO SCH (09:56)
[2017-10-14] MEDS: metFORMIN 500 MG TAB PO SCH ×2 (09:56→18:02)
[2017-10-14 10:03] LABS: Basophils # (A) 0.1 k/uL (0-0.2); Basophils % (A) 1 %; Eosinophils # (A) 0.6 k/uL (0-0.7); Eosinophils % (A) 5 %; HCT 27.8 % (39.0-53.0); HGB 9.2 gm/dL (13.0-17.5); Hypochromasia Slight; Lymphocytes # (A) 1.6 k/uL (1.0-4.8); Lymphocytes % (A) 13 %; MCH 31.5 pg (25.0-35.0); MCHC 33.1 g/dL (31.0-37.0); MCV 95.3 fL (80.0-100.0); Mean Platelet Volume 7.2; Monocytes # (A) 0.7 k/uL (0-1.0); Monocytes % (A) 5 %; Neutrophils # (A) 9.5 k/uL (1.3-7.7); Neutrophils % (A) 75 %; Platelet Count 533 k/uL (150-450); RBC 2.92 m/uL (4.30-5.90); RDW 12.6 % (11.5-15.5); WBC 12.7 k/uL (3.8-10.6)
[2017-10-14 10:13] LABS: ALT 75 U/L (21-72); AST 71 U/L (17-59); Alkaline Phosphatase 92 U/L (38-126); Anion Gap 8 mmol/L; Blood Urea Nitrogen 17 mg/dL (9-20); Calcium 8.1 mg/dL (8.4-10.2); Carbon Dioxide 25 mmol/L (22-30); Chloride 107 mmol/L (98-107); Glucose 167 mg/dL (74-99); Potassium 3.6 mmol/L (3.5-5.1); Sodium 140 mmol/L (137-145); Total Bilirubin 0.6 mg/dL (0.2-1.3); Total Protein 4.4 g/dL (6.3-8.2)
[2017-10-14] MEDS: INSULIN ASPART 100 UNIT/ML 1 ML 10 ML VIAL SQ SCH ×4 (10:40→22:00)
[2017-10-14 11:42] LABS: Glucose,Whole Blood 191 mg/dL (75-99)
[2017-10-14 17:10] LABS: Glucose,Whole Blood 134 mg/dL (75-99)
--- NOTE | 2017-10-14 18:08 | P.PN ---
Subjective Progress Note Date: 10/14/17 This is a 87-year-old male with a known past medical history of PE, DVT, hypertension, hyperlipidemia, anxiety and diabetes mellitus type 2. Patient is slightly confused and hard of hearing. Patient presents to the emergency room with complaints of generalized weakness per ER report. Patient's is a poor historian most information became from the emergency room chart. Apparently patient was diagnosed with a UTI outpatient and did not get antibiotics filled. Patient presented with weakness and evidence of a UTI. Started on IV Rocephin. The patient reports that he has not been following. He has ecchymosis of the left wrist and hand and likely this is related to his Coumadin. Patient reports that his INR was elevated. On admission INR is 2.7. He denies any injury to that left arm. He is able to answer some questions. The been at times he appears confused. He is also very hard of hearing. Patient denies any chest pain or shortness of breath. Denies any fever or chills or sweats. Denies any nausea vomiting. Denies any bowel movement changes. Denies any burning with urination. Does admit to having some hematuria that appears to be improving. She reports that his urine is almost clear. He's also been hypotensive with blood pressure 97/48. Hemoglobin is 8.8. Stool for occult blood is negative. INR 2.7 white count 12.2. He is sedated admitted to the hospital for UTI with sepsis and started on IV Rocephin. Urine culture and blood culture of been ordered. Blood pressure pills are on hold. He is being given IV fluids. Started on antibiotics. On 10/14/2017 patient is still confused. Per nursing patient is not eating or drinking very well. Speech therapy has been consulted for swallow evaluation. Also chest x-ray ordered to rule out any aspiration. Patient potassium is 3.6. Sodium level is 140. Normal saline discontinued. Patient will be started on D5 at 50. INR elevated at 2.5 no signs of bleeding. continue to hold Coumadin. Apparently patient had an episode of atrial fibrillation on October 09. Cardiology consulted. Patient did require Lopressor at that time. Continue with telemetry monitoring. Objective - Vital Signs Vital signs: Vital Signs Temp 97.7 F 10/14/17 15:00 Pulse 96 10/14/17 15:26 Resp 18 10/14/17 15:56 BP 116/60 10/14/17 15:00 Pulse Ox 100 10/14/17 15:00 Intake & Output 10/13/17 10/14/17 10/14/17 18:59 06:59 18:59 Intake Total 100 780 Output Total 200 275 Balance -100 505 Weight 63.957 kg 63.957 kg Intake: Intake, IV Titration 100 Amount Potassium Chloride 20 meq 100 In Water For Injection 1 100ml.bag @ 50 mls/hr IVPB ONCE STA Rx#: [id number] Oral 780 Output: Urine 200 275 Other: Voiding Method Incontinent Toilet Toilet Urinal Urinal # Voids 1 3 3 # Bowel Movements 0 - Exam Head normocephalic and atraumatic Neck supple no JVD Lungs diminished bilaterally Heart regular rate and rhythm S1-S2, no rub or gallop Abdomen is soft nontender nondistended positive bowel sounds no hepatosplenomegaly Extremities no edema of the lower extremities. Left arm increase in swelling. Pitting edema. Ecchymosis is now trending down into the arm. Still has bruising along the hand and wrist. No pain with palpation Neuro confused. Alert and orientated 1 - Labs CBC & Chem 7: 10/14/17 08:47 10/14/17 08:47 Labs: Abnormal Lab Results - Last 24 Hours (Table) 10/13/17 10/14/17 10/14/17 Range/Units 20:37 07:01 08:47 WBC 12.7 H (3.8-10.6) k/uL RBC 2.92 L (4.30-5.90) m/uL Hgb 9.2 L (13.0-17.5) gm/dL Hct 27.8 L (39.0-53.0) % Plt Count 533 H (150-450) k/uL Neutrophils # 9.5 H (1.3-7.7) k/uL PT (9.0-12.0) sec INR (<1.2) Creatinine (0.66-1.25) mg/dL Glucose (74-99) mg/dL POC Glucose (mg/dL) 148 H 136 H (75-99) mg/dL Calcium (8.4-10.2) mg/dL AST (17-59) U/L ALT (21-72) U/L Total Protein (6.3-8.2) g/dL Albumin (3.5-5.0) g/dL 10/14/17 10/14/17 10/14/17 Range/Units 08:47 08:47 11:39 WBC (3.8-10.6) k/uL RBC (4.30-5.90) m/uL Hgb (13.0-17.5) gm/dL Hct (39.0-53.0) % Plt Count (150-450) k/uL Neutrophils # (1.3-7.7) k/uL PT 22.6 H (9.0-12.0) sec INR 2.5 H (<1.2) Creatinine 0.65 L (0.66-1.25) mg/dL Glucose 167 H (74-99) mg/dL POC Glucose (mg/dL) 191 H (75-99) mg/dL Calcium 8.1 L (8.4-10.2) mg/dL AST 71 H (17-59) U/L ALT 75 H (21-72) U/L Total Protein 4.4 L (6.3-8.2) g/dL Albumin 2.0 L (3.5-5.0) g/dL 10/14/17 Range/Units 17:08 WBC (3.8-10.6) k/uL RBC (4.30-5.90) m/uL Hgb (13.0-17.5) gm/dL Hct (39.0-53.0) % Plt Count (150-450) k/uL Neutrophils # (1.3-7.7) k/uL PT (9.0-12.0) sec INR (<1.2) Creatinine (0.66-1.25) mg/dL Glucose (74-99) mg/dL POC Glucose (mg/dL) 134 H (75-99) mg/dL Calcium (8.4-10.2) mg/dL AST (17-59) U/L ALT (21-72) U/L Total Protein (6.3-8.2) g/dL Albumin (3.5-5.0) g/dL Microbiology - Last 24 Hours (Table) 10/08/17 07:59 Blood Culture - Final Blood No Growth after 144 hours Assessment and Plan Plan: 1. UTI with sepsis present on admission: Continue Rocephin. Urine and blood culture negative. 2. Anemia: Likely related to iron deficiency anemia and ecchymosis in the left arm. Keep arm elevated. Patient received 1 dose of IV iron. Start ferrous sulfate 3 and 25 mg twice a day. No evidence of active GI bleeding. Stool for occult blood is negative. 3. 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 Monitoring PT/INR. INR elevated at 4.5. Hold Coumadin. Repeat PT/INR in a.m. 4. Hypotension: Improved with IV fluids. Micardis and atenolol have been on hold since admission. 5. Diabetes mellitus type 2: Resume metformin. Add sliding scale coverage. 6. Hyperlipidemia: Hold lipitor due to elevated liver enzymes 7. Generalized anxiety disorder: Continue Xanax 8. Asthma: Stable now evidence of exacerbation 9. Alcohol abuse: Start patient on the CIWA protocol with thiamine, multivitamin and folic acid. Ativan as needed 10. Altered mental status changes possibly due to metabolic encephalopathy related to his UTI. Computed tomography scan of the brain showed no acute changes 11. Episode of paroxysmal atrial fibrillation: Cardiology consulted. Patient had been off of his atenolol due to hypotension on admission. Atenolol 50 mg daily will be restarted today. He did require Lopressor on Thursday 12. Hyponatremia: Sodium of 148. Discontinue normal saline. place patient on D5 at 50 13. Hypokalemia patient receiving potassium supplement. Check magnesium level Consult social work for possible ECF placement at time of discharge GI prophylaxis Protonix and DVT prophylaxis Coumadin
[2017-10-14] MEDS: MELATONIN 5 MG TABLET PO SCH (21:55)
[2017-10-14] MEDS: LATANOPROST 0.005% OPHTH DROPS 2.5 ML BTL BOTH EYES SCH (21:55)
[2017-10-14 22:00] LABS: Glucose,Whole Blood 143 mg/dL (75-99)
[2017-10-14] MEDS: DEXTROSE 5% IN WATER 1,000 ML IV SCH (22:01)
--- NOTE | 2017-10-14 22:07 | P.PN ---
Subjective Progress Note Date: 10/14/17 The patient is an 87-year-old man admitted to the hospital with sepsis. Neurology is requested see the patient regarding confusion. The patient appears much more attentive today. He states he is feeling better and his breathing has become better. He has CT of the brain has shown some small vessel disease and atrophy. He does have some baseline memory impairment. He states he has been eating okay without difficulty swallowing. modified barium swallow showed no evidence of aspiration Objective - Vital Signs Vital signs: Vital Signs Temp 97.7 F 10/14/17 15:00 Pulse 72 10/14/17 20:17 Resp 18 10/14/17 15:56 BP 116/60 10/14/17 15:00 Pulse Ox 100 10/14/17 15:00 Intake & Output 10/14/17 10/14/17 10/15/17 06:59 18:59 06:59 Intake Total 780 Output Total 275 Balance 505 Weight 63.957 kg Intake: Oral 780 Output: Urine 275 Other: Voiding Method Toilet Toilet Urinal Urinal # Voids 3 3 - Constitutional General appearance: Present: average body habitus - EENT Eyes: Present: EOMI ENT: Present: hard of hearing - Respiratory Respiratory: bilateral: CTA - Cardiovascular Rhythm: regular - Neurologic Neurologic Comment(s): Neurologic exam mental status: He was awake he was alert he was oriented to person place and spine didn't appropriately to simple questions area there was no a aphasia or dysarthria. Neurologic: Present: CNII-XII intact - Musculoskeletal Musculoskeletal: Present: strength equal bilaterally - Labs CBC & Chem 7: 10/14/17 08:47 10/14/17 08:47 Labs: Abnormal Lab Results - Last 24 Hours (Table) 10/14/17 10/14/17 10/14/17 Range/Units 07:01 08:47 08:47 WBC 12.7 H (3.8-10.6) k/uL RBC 2.92 L (4.30-5.90) m/uL Hgb 9.2 L (13.0-17.5) gm/dL Hct 27.8 L (39.0-53.0) % Plt Count 533 H (150-450) k/uL Neutrophils # 9.5 H (1.3-7.7) k/uL PT 22.6 H (9.0-12.0) sec INR 2.5 H (<1.2) Creatinine (0.66-1.25) mg/dL Glucose (74-99) mg/dL POC Glucose (mg/dL) 136 H (75-99) mg/dL Calcium (8.4-10.2) mg/dL AST (17-59) U/L ALT (21-72) U/L Total Protein (6.3-8.2) g/dL Albumin (3.5-5.0) g/dL 10/14/17 10/14/17 10/14/17 Range/Units 08:47 11:39 17:08 WBC (3.8-10.6) k/uL RBC (4.30-5.90) m/uL Hgb (13.0-17.5) gm/dL Hct (39.0-53.0) % Plt Count (150-450) k/uL Neutrophils # (1.3-7.7) k/uL PT (9.0-12.0) sec INR (<1.2) Creatinine 0.65 L (0.66-1.25) mg/dL Glucose 167 H (74-99) mg/dL POC Glucose (mg/dL) 191 H 134 H (75-99) mg/dL Calcium 8.1 L (8.4-10.2) mg/dL AST 71 H (17-59) U/L ALT 75 H (21-72) U/L Total Protein 4.4 L (6.3-8.2) g/dL Albumin 2.0 L (3.5-5.0) g/dL 10/14/17 Range/Units 21:39 WBC (3.8-10.6) k/uL RBC (4.30-5.90) m/uL Hgb (13.0-17.5) gm/dL Hct (39.0-53.0) % Plt Count (150-450) k/uL Neutrophils # (1.3-7.7) k/uL PT (9.0-12.0) sec INR (<1.2) Creatinine (0.66-1.25) mg/dL Glucose (74-99) mg/dL POC Glucose (mg/dL) 143 H (75-99) mg/dL Calcium (8.4-10.2) mg/dL AST (17-59) U/L ALT (21-72) U/L Total Protein (6.3-8.2) g/dL Albumin (3.5-5.0) g/dL Microbiology - Last 24 Hours (Table) 10/08/17 07:59 Blood Culture - Final Blood No Growth after 144 hours Assessment and Plan (1) Sepsis Current Visit: Yes Status: Acute SNOMED Code(s): 39455296 (2) UTI (urinary tract infection) Current Visit: Yes Status: Acute SNOMED Code(s): 92678847 (3) Acute exacerbation of chronic obstructive pulmonary disease (COPD) Current Visit: No Status: Acute SNOMED Code(s): 475002925 (4) Metabolic encephalopathy Current Visit: Yes Status: Acute SNOMED Code(s): 11447217 Plan: Patient appears to be doing slightly better. He has not had as much respiratory distress. He is still slightly confused which appears to be chronic. He has no evidence of delirium. Plan : recommend PT/rehab
[2017-10-15] MEDS: ALPRAZolam 0.25 MG TAB PO PRN (00:06)
[2017-10-15 07:31] LABS: Glucose,Whole Blood 121 mg/dL (75-99)
[2017-10-15] MEDS: INSULIN ASPART 100 UNIT/ML 1 ML 10 ML VIAL SQ SCH ×4 (07:37→21:23)
[2017-10-15] MEDS: IPRATROPIUM-ALBUTEROL 3 ML NEB INHALATION SCH ×4 (08:01→20:09)
[2017-10-15] MEDS: cefTRIAXone IN SWFI 1,000 MG/10 ML SYRINGE IVP SCH ×2 (08:33→21:24)
[2017-10-15] MEDS: metFORMIN 500 MG TAB PO SCH ×2 (08:34→16:34)
[2017-10-15] MEDS: ATENOLOL 50 MG TAB PO SCH (08:35)
[2017-10-15] MEDS: CHOLECALCIFEROL 1,000 UNIT TAB PO SCH (08:37)
[2017-10-15] MEDS: CALCIUM CARB-VIT D 500MG-200UN 1 EACH TAB PO SCH (08:37)
[2017-10-15] MEDS: VITAMIN E (DL,TOCOPHERYL ACET) 400 UNIT CAP PO SCH (08:38)
[2017-10-15] MEDS: FERROUS SULFATE 325 MG TAB PO SCH ×2 (08:39→21:24)
[2017-10-15] MEDS: MULTIVITAMINS, THERA 1 EACH TAB PO SCH (08:40)
[2017-10-15] MEDS: ASCORBIC ACID 500 MG TAB PO SCH (08:40)
[2017-10-15] MEDS: FOLIC ACID 1 MG TAB PO SCH (08:40)
[2017-10-15] MEDS: THIAMINE 100 MG TAB PO SCH (08:40)
[2017-10-15] MEDS: LACTOBACILLUS ACIDOPH & BULGAR 1 EACH PACKET PO SCH (08:42)
[2017-10-15] MEDS: PANTOPRAZOLE SODIUM 40 MG GRANULE PKT PO SCH (09:17)
[2017-10-15 09:48] LABS: Basophils # (A) 0.1 k/uL (0-0.2); Basophils % (A) 1 %; Eosinophils # (A) 0.6 k/uL (0-0.7); Eosinophils % (A) 5 %; HCT 31.3 % (39.0-53.0); HGB 9.9 gm/dL (13.0-17.5); Hypochromasia Slight; Lymphocytes # (A) 1.6 k/uL (1.0-4.8); Lymphocytes % (A) 12 %; MCH 30.7 pg (25.0-35.0); MCHC 31.6 g/dL (31.0-37.0); Mean Platelet Volume 6.9; Monocytes # (A) 0.7 k/uL (0-1.0); Monocytes % (A) 5 %; Neutrophils # (A) 10.2 k/uL (1.3-7.7); Neutrophils % (A) 76 %; Platelet Count 592 k/uL (150-450); RBC 3.23 m/uL (4.30-5.90); RDW 12.6 % (11.5-15.5); WBC 13.5 k/uL (3.8-10.6)
[2017-10-15 09:49] LABS: INR 2.5 (<1.2); Prothrombin Time 22.3 sec (9.0-12.0)
[2017-10-15 10:06] LABS: ALT 85 U/L (21-72); AST 73 U/L (17-59); Albumin 2.3 g/dL (3.5-5.0); Alkaline Phosphatase 106 U/L (38-126); Anion Gap 11 mmol/L; Blood Urea Nitrogen 15 mg/dL (9-20); Calcium 8.6 mg/dL (8.4-10.2); Carbon Dioxide 24 mmol/L (22-30); Chloride 105 mmol/L (98-107); Glucose 142 mg/dL (74-99); Potassium 3.6 mmol/L (3.5-5.1); Sodium 140 mmol/L (137-145); Total Bilirubin 0.8 mg/dL (0.2-1.3)
[2017-10-15 12:43] LABS: Glucose,Whole Blood 116 mg/dL (75-99)
--- NOTE | 2017-10-15 14:59 | P.PN ---
Subjective Progress Note Date: 10/15/17 This is a 87-year-old male with a known past medical history of PE, DVT, hypertension, hyperlipidemia, anxiety and diabetes mellitus type 2. Patient is slightly confused and hard of hearing. Patient presents to the emergency room with complaints of generalized weakness per ER report. Patient's is a poor historian most information became from the emergency room chart. Apparently patient was diagnosed with a UTI outpatient and did not get antibiotics filled. Patient presented with weakness and evidence of a UTI. Started on IV Rocephin. The patient reports that he has not been following. He has ecchymosis of the left wrist and hand and likely this is related to his Coumadin. Patient reports that his INR was elevated. On admission INR is 2.7. He denies any injury to that left arm. He is able to answer some questions. The been at times he appears confused. He is also very hard of hearing. Patient denies any chest pain or shortness of breath. Denies any fever or chills or sweats. Denies any nausea vomiting. Denies any bowel movement changes. Denies any burning with urination. Does admit to having some hematuria that appears to be improving. She reports that his urine is almost clear. He's also been hypotensive with blood pressure 97/48. Hemoglobin is 8.8. Stool for occult blood is negative. INR 2.7 white count 12.2. He is sedated admitted to the hospital for UTI with sepsis and started on IV Rocephin. Urine culture and blood culture of been ordered. Blood pressure pills are on hold. He is being given IV fluids. Started on antibiotics. 10/09/2017 patient lying in bed comfortably. Nursing notified me that they patient does have a history of alcohol use. Patient does admit to drinking about 2-3 vodka and lind per day. Per nursing daughter had reported patient drinking about a pint a day. Patient will be started on the CIWA protocol. Thiamine and multivitamin and folic acid added. No evidence of any withdrawal symptoms at this time. Patient also reports that his urine is clearing. Denies any burning with urination. He is remained afebrile. White count still elevated at 12.4. Hemoglobin is at 8.8. Reporting normal stools. Iron is low at 10. Patient will be given a dose of IV iron. Patient's left hand and wrist ecchymosis is now moving down into the forearm. Also increase in swelling. Patient denies any pain. Patient is also had increase in his confusion during afternoon rounds. A computed tomography scan of the brain will be completed. Also could be related to his history of alcohol abuse. 10/12/2017 patient is still very confused. Lying in bed comfortably. Per nursing patient is not eating or drinking very well. Speech therapy has been consulted for swallow evaluation. Also chest x-ray ordered to rule out any aspiration. Patient potassium is 3.3. Sodium level is 148. Normal saline discontinued. Patient will be started on D5 at 50. INR elevated at 4.5 no signs of bleeding. Hold Coumadin. Apparently patient had an episode of atrial fibrillation on October 09. Cardiology consulted. Patient did require Lopressor at that time. Continue with telemetry monitoring. 10/13/2017 patient is still confused but able to answer questions and follow some simple commands better than yesterday. Patient's in by neurology. [place] his confusion was related to his UTI and metabolic encephalopathy. Patient underwent a modified barium swallow. No evidence of aspiration but speech therapy recommending a pured diet due to his delay in swallow. 10/15/2017 patient lying in bed comfortably. He is less confused today alert and orientated 3. Appetite is showing improvement no difficulty in swallowing. Speech therapy is advancing to a regular diet. No diarrhea reported. Did go up to 13.5 Objective - Vital Signs Vital signs: Vital Signs Temp 99.1 F 10/15/17 07:00 Pulse 64 10/15/17 12:17 Resp 16 10/15/17 12:17 BP 120/68 10/15/17 07:00 Pulse Ox 96 10/15/17 12:14 Intake & Output 10/14/17 10/15/17 10/15/17 18:59 06:59 18:59 Intake Total 780 120 240 Output Total 275 100 Balance 505 120 140 Weight 63.957 kg 63.957 kg Intake: Oral 780 120 240 Output: Urine 275 100 Other: Voiding Method Toilet Toilet Toilet Urinal Urinal Urinal # Voids 3 2 6 # Bowel Movements 1 - Exam Head normocephalic Neck supple Lungs diminished bilaterally Heart regular rate and rhythm S1-S2, no rub or gallop Abdomen is soft nontender nondistended positive bowel sounds no hepatosplenomegaly Extremities no edema of the lower extremities. Left arm increase in swelling. Pitting edema. Ecchymosis is now trending down into the arm. Still has bruising along the hand and wrist. No pain with palpation Neuro confused. Alert and orientated 3 - Labs CBC & Chem 7: 18 09:30 10/15/17 09:30 Labs: Abnormal Lab Results - Last 24 Hours (Table) 10/14/17 10/14/17 10/15/17 Range/Units 17:08 21:39 07:28 WBC (3.8-10.6) k/uL RBC (4.30-5.90) m/uL Hgb (13.0-17.5) gm/dL Hct (39.0-53.0) % Plt Count (150-450) k/uL Neutrophils # (1.3-7.7) k/uL PT (9.0-12.0) sec INR (<1.2) Glucose (74-99) mg/dL POC Glucose (mg/dL) 134 H 143 H 121 H (75-99) mg/dL AST (17-59) U/L ALT (21-72) U/L Total Protein (6.3-8.2) g/dL Albumin (3.5-5.0) g/dL 10/15/17 10/15/17 10/15/17 Range/Units 09:30 09:30 09:30 WBC 13.5 H (3.8-10.6) k/uL RBC 3.23 L (4.30-5.90) m/uL Hgb 9.9 L (13.0-17.5) gm/dL Hct 31.3 L (39.0-53.0) % Plt Count 592 H (150-450) k/uL Neutrophils # 10.2 H (1.3-7.7) k/uL PT 22.3 H (9.0-12.0) sec INR 2.5 H (<1.2) Glucose 142 H (74-99) mg/dL POC Glucose (mg/dL) (75-99) mg/dL AST 73 H (17-59) U/L ALT 85 H (21-72) U/L Total Protein 5.0 L (6.3-8.2) g/dL Albumin 2.3 L (3.5-5.0) g/dL 10/15/17 Range/Units 12:31 WBC (3.8-10.6) k/uL RBC (4.30-5.90) m/uL Hgb (13.0-17.5) gm/dL Hct (39.0-53.0) % Plt Count (150-450) k/uL Neutrophils # (1.3-7.7) k/uL PT (9.0-12.0) sec INR (<1.2) Glucose (74-99) mg/dL POC Glucose (mg/dL) 116 H (75-99) mg/dL AST (17-59) U/L ALT (21-72) U/L Total Protein (6.3-8.2) g/dL Albumin (3.5-5.0) g/dL Microbiology - Last 24 Hours (Table) 10/08/17 07:59 Blood Culture - Final Blood No Growth after 144 hours Assessment and Plan Assessment: 1. UTI with sepsis present on admission: Continue Rocephin. Urine and blood culture negative. 2. Anemia: Likely related to iron deficiency anemia and ecchymosis in the left arm. Keep arm elevated. Patient received 1 dose of IV iron. Start ferrous sulfate 325 mg twice a day. No evidence of active GI bleeding. Stool for occult blood is negative. 3. 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 Monitoring PT/INR. INR 2.5. Give Coumadin 1 mg tonight 4. Hypotension: Due to sepsis and septic shock. Improved with IV fluids. Micardis and atenolol have been on hold since admission. 5. Diabetes mellitus type 2: Resume metformin. Add sliding scale coverage. 6. Hyperlipidemia: Continue statin 7. Generalized anxiety disorder: Continue Xanax 8. Asthma: Stable now evidence of exacerbation 9. Alcohol abuse: Start patient on the CIWA protocol with thiamine, multivitamin and folic acid. Ativan as needed 10. Altered mental status changes possibly due to metabolic encephalopathy related to his UTI. Computed tomography scan of the brain showed no acute changes 11. Multifocal atrial tachycardia: Seen by cardiology. Atrial fibrillation ruled out. We'll resume patient's atenolol 12. Hyponatremia: Resolved with the D5 W 13. Hypokalemia patient receiving potassium supplement. Magnesium 1.9 14. Dysphagia: Seen by speech therapy modified barium swallow ulcer no evidence of aspiration did show some delay in his swallow. Patient is showing improvement. Reevaluated by speech therapy they've advanced him to a regular diabetic diet 15. Leukocytosis: No new evidence of infection. Repeat labs in a.m. Anticipate discharge to ECF tomorrow GI prophylaxis Protonix and DVT prophylaxis Coumadin I performed an examination of the patient and discussed their management with the physician Radiology Special Procedure Tech. I have reviewed the Physician Radiology Special Procedure Tech's notes and agree with the documented findings and plan of care
[2017-10-15] MEDS: DEXTROSE 5% IN WATER 1,000 ML IV SCH (16:34)
[2017-10-15 17:23] LABS: Glucose,Whole Blood 143 mg/dL (75-99)
[2017-10-15] MEDS ORDERED: WARFARIN 1 MG TAB PO ONE (18:00)
[2017-10-15] MEDS: LATANOPROST 0.005% OPHTH DROPS 2.5 ML BTL BOTH EYES SCH (21:24)
[2017-10-15] MEDS: MELATONIN 5 MG TABLET PO SCH (21:24)
[2017-10-15 21:25] LABS: Glucose,Whole Blood 141 mg/dL (75-99)
[2017-10-16] MEDS: ALPRAZolam 0.25 MG TAB PO PRN ×2 (00:45→02:23)
[2017-10-16 07:19] LABS: Glucose,Whole Blood 109 mg/dL (75-99)
[2017-10-16] MEDS: INSULIN ASPART 100 UNIT/ML 1 ML 10 ML VIAL SQ SCH ×4 (08:05→21:51)
[2017-10-16 08:30] LABS: Basophils # (A) 0.1 k/uL (0-0.2); Basophils % (A) 1 %; Eosinophils # (A) 0.6 k/uL (0-0.7); Eosinophils % (A) 5 %; HCT 30.5 % (39.0-53.0); HGB 9.7 gm/dL (13.0-17.5); Hypochromasia Slight; Lymphocytes # (A) 1.9 k/uL (1.0-4.8); Lymphocytes % (A) 15 %; MCH 30.7 pg (25.0-35.0); MCHC 31.9 g/dL (31.0-37.0); MCV 96.3 fL (80.0-100.0); Mean Platelet Volume 7.9; Monocytes # (A) 0.8 k/uL (0-1.0); Monocytes % (A) 7 %; Neutrophils # (A) 8.7 k/uL (1.3-7.7); Neutrophils % (A) 70 %; Platelet Count 541 k/uL (150-450); RBC 3.17 m/uL (4.30-5.90); RDW 12.7 % (11.5-15.5); WBC 12.3 k/uL (3.8-10.6)
[2017-10-16 09:12] LABS: ALT 71 U/L (21-72); AST 53 U/L (17-59); Albumin 2.2 g/dL (3.5-5.0); Alkaline Phosphatase 100 U/L (38-126); Anion Gap 8 mmol/L; Blood Urea Nitrogen 14 mg/dL (9-20); Calcium 8.6 mg/dL (8.4-10.2); Carbon Dioxide 29 mmol/L (22-30); Chloride 106 mmol/L (98-107); Glucose 115 mg/dL (74-99); Potassium 3.4 mmol/L (3.5-5.1); Sodium 143 mmol/L (137-145); Total Bilirubin 0.6 mg/dL (0.2-1.3); Total Protein 4.9 g/dL (6.3-8.2)
[2017-10-16] MEDS: IPRATROPIUM-ALBUTEROL 3 ML NEB INHALATION SCH ×5 (09:37→21:21)
[2017-10-16] MEDS: metFORMIN 500 MG TAB PO SCH ×2 (09:48→18:22)
[2017-10-16] MEDS: PANTOPRAZOLE SODIUM 40 MG GRANULE PKT PO SCH (09:49)
[2017-10-16] MEDS: ATENOLOL 50 MG TAB PO SCH (09:49)
[2017-10-16] MEDS: LACTOBACILLUS ACIDOPH & BULGAR 1 EACH PACKET PO SCH (09:49)
[2017-10-16] MEDS: ASCORBIC ACID 500 MG TAB PO SCH (09:49)
[2017-10-16] MEDS: CHOLECALCIFEROL 1,000 UNIT TAB PO SCH (09:50)
[2017-10-16] MEDS: cefTRIAXone IN SWFI 1,000 MG/10 ML SYRINGE IVP SCH ×2 (09:50→21:53)
[2017-10-16] MEDS: VITAMIN E (DL,TOCOPHERYL ACET) 400 UNIT CAP PO SCH (09:50)
[2017-10-16] MEDS: FERROUS SULFATE 325 MG TAB PO SCH ×2 (09:50→21:53)
[2017-10-16] MEDS: CALCIUM CARB-VIT D 500MG-200UN 1 EACH TAB PO SCH (09:50)
[2017-10-16 10:16] LABS: INR 2.1 (<1.2); Prothrombin Time 19.1 sec (9.0-12.0)
[2017-10-16 12:02] LABS: Glucose,Whole Blood 160 mg/dL (75-99)
[2017-10-16] MEDS: THIAMINE 100 MG TAB PO SCH (13:06)
[2017-10-16] MEDS: MULTIVITAMINS, THERA 1 EACH TAB PO SCH (13:06)
[2017-10-16] MEDS: FOLIC ACID 1 MG TAB PO SCH (13:07)
[2017-10-16] MEDS ORDERED: POTASSIUM CHLORIDE ER 20 MEQ TAB.ER PO STA (13:33)
--- NOTE | 2017-10-16 13:37 | P.PN ---
Subjective Progress Note Date: 10/16/17 This is a 87-year-old male with a known past medical history of PE, DVT, hypertension, hyperlipidemia, anxiety and diabetes mellitus type 2. Patient is slightly confused and hard of hearing. Patient presents to the emergency room with complaints of generalized weakness per ER report. Patient's is a poor historian most information became from the emergency room chart. Apparently patient was diagnosed with a UTI outpatient and did not get antibiotics filled. Patient presented with weakness and evidence of a UTI. Started on IV Rocephin. The patient reports that he has not been following. He has ecchymosis of the left wrist and hand and likely this is related to his Coumadin. Patient reports that his INR was elevated. On admission INR is 2.7. He denies any injury to that left arm. He is able to answer some questions. The been at times he appears confused. He is also very hard of hearing. Patient denies any chest pain or shortness of breath. Denies any fever or chills or sweats. Denies any nausea vomiting. Denies any bowel movement changes. Denies any burning with urination. Does admit to having some hematuria that appears to be improving. She reports that his urine is almost clear. He's also been hypotensive with blood pressure 97/48. Hemoglobin is 8.8. Stool for occult blood is negative. INR 2.7 white count 12.2. He is sedated admitted to the hospital for UTI with sepsis and started on IV Rocephin. Urine culture and blood culture of been ordered. Blood pressure pills are on hold. He is being given IV fluids. Started on antibiotics. 10/09/2017 patient lying in bed comfortably. Nursing notified me that they patient does have a history of alcohol use. Patient does admit to drinking about 2-3 vodka and lind per day. Per nursing daughter had reported patient drinking about a pint a day. Patient will be started on the CIWA protocol. Thiamine and multivitamin and folic acid added. No evidence of any withdrawal symptoms at this time. Patient also reports that his urine is clearing. Denies any burning with urination. He is remained afebrile. White count still elevated at 12.4. Hemoglobin is at 8.8. Reporting normal stools. Iron is low at 10. Patient will be given a dose of IV iron. Patient's left hand and wrist ecchymosis is now moving down into the forearm. Also increase in swelling. Patient denies any pain. Patient is also had increase in his confusion during afternoon rounds. A computed tomography scan of the brain will be completed. Also could be related to his history of alcohol abuse. 10/12/2017 patient is still very confused. Lying in bed comfortably. Per nursing patient is not eating or drinking very well. Speech therapy has been consulted for swallow evaluation. Also chest x-ray ordered to rule out any aspiration. Patient potassium is 3.3. Sodium level is 148. Normal saline discontinued. Patient will be started on D5 at 50. INR elevated at 4.5 no signs of bleeding. Hold Coumadin. Apparently patient had an episode of atrial fibrillation on October 09. Cardiology consulted. Patient did require Lopressor at that time. Continue with telemetry monitoring. 10/13/2017 patient is still confused but able to answer questions and follow some simple commands better than yesterday. Patient's in by neurology. [place] his confusion was related to his UTI and metabolic encephalopathy. Patient underwent a modified barium swallow. No evidence of aspiration but speech therapy recommending a pured diet due to his delay in swallow. 10/15/2017 patient lying in bed comfortably. He is less confused today alert and orientated 3. Appetite is showing improvement no difficulty in swallowing. Speech therapy is advancing to a regular diet. No diarrhea reported. Did go up to 13.5 10/16/2017 patient sitting at bedside chair. He is alert and orientated to 3. Still having some confusion. But showing improvement. However, white count is remaining elevated at 12.3. And having low-grade temps. Consult infectious disease. Check blood culture urine culture and chest x-ray. Patient has been on Rocephin since admission Objective - Vital Signs Vital signs: Vital Signs Temp 99.5 F 10/16/17 07:00 Pulse 60 10/16/17 11:33 Resp 16 10/16/17 07:00 BP 138/64 10/16/17 07:00 Pulse Ox 94 L 10/16/17 07:00 Intake & Output 10/15/17 10/16/17 10/16/17 18:59 06:59 18:59 Intake Total 240 930 Output Total 100 600 Balance 140 330 Weight 63.957 kg Intake: Intake, IV Titration 750 Amount Dextrose 5% in Water 1, 750 000 ml @ 50 mls/hr IV . Q20H [facility] Rx#:[id number] Oral 240 180 Output: Urine 100 600 Other: Voiding Method Toilet Urinal Urinal Diaper # Voids 6 1 1 # Bowel Movements 1 1 - Exam Head normocephalic Neck supple Lungs diminished bilaterally Heart regular rate and rhythm S1-S2, no rub or gallop Abdomen is soft nontender nondistended positive bowel sounds no hepatosplenomegaly Extremities no edema of the lower extremities. Left arm improving ecchymosis Neuro confused. Alert and orientated 3 - Labs CBC & Chem 7: 10/16/17 08:14 10/16/17 08:14 Labs: Abnormal Lab Results - Last 24 Hours (Table) 10/15/17 10/15/17 10/16/17 Range/Units 17:18 21:15 07:02 WBC (3.8-10.6) k/uL RBC (4.30-5.90) m/uL Hgb (13.0-17.5) gm/dL Hct (39.0-53.0) % Plt Count (150-450) k/uL Neutrophils # (1.3-7.7) k/uL PT (9.0-12.0) sec INR (<1.2) Potassium (3.5-5.1) mmol/L Creatinine (0.66-1.25) mg/dL Glucose (74-99) mg/dL POC Glucose (mg/dL) 143 H 141 H 109 H (75-99) mg/dL Total Protein (6.3-8.2) g/dL Albumin (3.5-5.0) g/dL 10/16/17 10/16/17 10/16/17 Range/Units 08:14 08:14 08:14 WBC 12.3 H (3.8-10.6) k/uL RBC 3.17 L (4.30-5.90) m/uL Hgb 9.7 L (13.0-17.5) gm/dL Hct 30.5 L (39.0-53.0) % Plt Count 541 H (150-450) k/uL Neutrophils # 8.7 H (1.3-7.7) k/uL PT 19.1 H (9.0-12.0) sec INR 2.1 H (<1.2) Potassium 3.4 L (3.5-5.1) mmol/L Creatinine 0.64 L (0.66-1.25) mg/dL Glucose 115 H (74-99) mg/dL POC Glucose (mg/dL) (75-99) mg/dL Total Protein 4.9 L (6.3-8.2) g/dL Albumin 2.2 L (3.5-5.0) g/dL 10/16/17 Range/Units 11:54 WBC (3.8-10.6) k/uL RBC (4.30-5.90) m/uL Hgb (13.0-17.5) gm/dL Hct (39.0-53.0) % Plt Count (150-450) k/uL Neutrophils # (1.3-7.7) k/uL PT (9.0-12.0) sec INR (<1.2) Potassium (3.5-5.1) mmol/L Creatinine (0.66-1.25) mg/dL Glucose (74-99) mg/dL POC Glucose (mg/dL) 160 H (75-99) mg/dL Total Protein (6.3-8.2) g/dL Albumin (3.5-5.0) g/dL Assessment and Plan Assessment: 1. UTI with sepsis present on admission: Continue Rocephin. Urine and blood culture negative. 2. Anemia: Likely related to iron deficiency anemia and ecchymosis in the left arm. Keep arm elevated. Patient received 1 dose of IV iron. Start ferrous sulfate 325 mg twice a day. No evidence of active GI bleeding. Stool for occult blood is negative. 3. 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 Monitoring PT/INR. INR 2.1. Will start patient on Coumadin 2 mg daily. Continue to monitor daily PT/INR 4. Hypotension: Due to sepsis and septic shock. Improved with IV fluids. Micardis and atenolol have been on hold since admission. 5. Diabetes mellitus type 2: Resume metformin. Add sliding scale coverage. 6. Hyperlipidemia: Continue statin 7. Generalized anxiety disorder: Continue Xanax 8. Mild intermittent Asthma: Stable now evidence of exacerbation 9. Alcohol abuse: Start patient on the CIWA protocol with thiamine, multivitamin and folic acid. Ativan as needed 10. Altered mental status changes possibly due to metabolic encephalopathy related to his UTI. Computed tomography scan of the brain showed no acute changes 11. Multifocal atrial tachycardia: Seen by cardiology. Atrial fibrillation ruled out. We'll resume patient's atenolol 12. Hyponatremia: Resolved with the D5 W 13. Hypokalemia patient receiving potassium supplement. Magnesium 1.9 14. Dysphagia: Seen by speech therapy modified barium swallow ulcer no evidence of aspiration did show some delay in his swallow. Patient is showing improvement. Reevaluated by speech therapy they've advanced him to a regular diabetic diet 15. Leukocytosis: With low-grade fever. Patient's white count have not improved with the IV Rocephin. We'll reculture patient checking urine culture blood culture check a chest x-ray. No evidence of diarrhea. Consult infectious disease for further recommendations 16. Hypokalemia patient received potassium supplement Patient is not ready for discharge yet. Anticipate discharge possibly Thursday to ECF GI prophylaxis Protonix and DVT prophylaxis Coumadin I performed an examination of the patient and discussed their management with the physician Aquatic Life Laborer. I have reviewed the Physician Aquatic Life Laborer's notes and agree with the documented findings and plan of care
--- NOTE | 2017-10-16 15:08 | XR ---
EXAMINATION TYPE: XR chest 2V DATE OF EXAM: 10/16/2017 COMPARISON: 10/12/2017 HISTORY: Leukocytosis and low-grade fever TECHNIQUE: Frontal and lateral views of the chest are obtained. FINDINGS: There is no new focal consolidation or pneumothorax. Small left pleural effusion and assoc iated left basilar atelectasis are redemonstrated. Cardiac silhouette is partially obscured but stabl e. There is generalized osseous demineralization, exaggerated thoracic kyphosis, moderate degenerativ e changes of the thoracic spine, and moderate degenerative changes of the glenohumeral joints as well as the right acromio clavicular joint. Chronic mild wedge compression deformity seen of the inferior thoracic vertebral body. Increased anterior posterior diameter chest on the lateral image relates un derlying COPD. Right apical granuloma and right lateral granuloma are unchanged from the prior. IMPRESSION: 1. No new focal consolidation to suggest pneumonia. 2. Persistent small left pleural effusion and left basilar subsegmental atelectasis. 3. Radiographic sequela of COPD.
[2017-10-16] MEDS: DEXTROSE 5% IN WATER 1,000 ML IV SCH (15:46)
[2017-10-16 17:18] LABS: Glucose,Whole Blood 125 mg/dL (75-99)
[2017-10-16 17:21] LABS: Appearance,Urine Clear (Clear); Bilirubin,Urine Negative (Negative); Blood,Urine Small (Negative); Color,Urine Yellow; Glucose,Urine (UA) Negative (Negative); Ketones,Urine Negative (Negative); Leukocyte Esterase,Urine Small (Negative); Mucus,Urine Rare /hpf; Nitrite,Urine Negative (Negative); Protein,Urine Negative (Negative); RBC,Urine 14 /hpf (0-5); Specific Gravity,Urine 1.012 (1.001-1.035); Urobilinogen,Urine <2.0 mg/dL (<2.0); WBC,Urine 37 /hpf (0-5)
[2017-10-16] MEDS: WARFARIN 2 MG TAB PO SCH (18:22)
[2017-10-16 21:44] LABS: Glucose,Whole Blood 142 mg/dL (75-99)
[2017-10-16] MEDS: LATANOPROST 0.005% OPHTH DROPS 2.5 ML BTL BOTH EYES SCH (21:53)
[2017-10-16] MEDS: MELATONIN 5 MG TABLET PO SCH (21:53)
--- NOTE | 2017-10-16 23:45 | P.CONS ---
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 His son-in-law is present in relates that there are some difficulties in the home situation in that the patient's daughter who does live with the patient does have difficulty with alcohol use. And there is concern about his returning to the home environment until he is more functional. The patient himself is comfortable at this time. Is feeling better. He is denying interim other new acute troubles. He is eating well. He is denying headache or visual change. Denies abdominal pain. Did have hematuria. No flank pain. At admission he had confusion and was not feeling well at all. Review of Systems Pleasant 87-year-old male who is in no distress at this time. HEENT:Denies headache or acute visual change. Denies sinus or mouth discomforts. Denies neck stiffness or pain. Denies significant oral cavity pain. Denies difficulty on swallowing. Lungs: Denies significant shortness of breath, cough, sputum production, or hemoptysis. Cardiovascular: Denies significant shortness of breath, chest pain, chest wall pain, orthopnea, dyspnea on exertion, syncope Gastrointestinal:Denies nausea, vomiting, diarrhea, constipation, hematemesis, melena, hematochezia. No no significant change of bowel habit noticed. Musculoskeletal: denies significant myalgias or arthralgias. No new joint swelling. Denies new back pain. Skin: Denies new rash or lesions. No new ulcers or wounds are related.. Neuro: Patient has no complaints but has generalized weakness. This is been progressive over the last several months. Psychiatric:Denies anxiety or depression. Endocrine: Does have fatigue, family present liters been some weight loss. Past Medical History Past Medical History: Asthma, Diabetes Mellitus, Eye Disorder, Hearing Disorder / Deafness, Hypertension, Memory Impairment, Osteoarthritis (OA), Prostate Disorder, Pulmonary Embolus (PE) Additional Past Medical History / Comment(s): Severe environmental allergies, respiratory failure/intubated, [place] bilaterally, BPH, bilateral glaucoma. History of Any Multi-Drug Resistant Organisms: None Reported Past Surgical History: Joint Replacement, Tonsillectomy Additional Past Surgical History / Comment(s): L total hip arthroplasty, L total knee arthroplasty, laser surgery bilateral eyes cataracts with lens implants, colonoscopy with benign polypectomy, cyst removed from back, vasectomy. Past Anesthesia/Blood Transfusion Reactions: No Reported Reaction Smoking Status: Former smoker - Past Family History Father Family Medical History: No Reported History Mother Additional Family Medical History / Comment(s): Pt states his mother had mental health issues and trigeminal nerve problem and had chronic pain from this. Medications and Allergies Home Medications and Allergies Comment(s): Current Medications Acetaminophen (Tylenol Tab) 650 mg PO Q6HR PRN PRN Reason: Mild Pain or Fever > 100.5 Albuterol/Ipratropium (Duoneb 0.5 Mg-3 Mg/3 Ml Soln) 3 ml INHALATION RT-QID [facility] Last Admin: 10/16/17 21:21 Dose: 3 ml Alprazolam (Xanax) 0.25 mg PO TID PRN PRN Reason: Anxiety Last Admin: 10/16/17 02:23 Dose: 0.25 mg Ascorbic Acid (Vitamin C) 1,500 mg PO DAILY [facility] Last Admin: 10/16/17 09:49 Dose: 1,500 mg Atenolol (Tenormin) 50 mg PO DAILY [facility] Last Admin: 10/16/17 09:49 Dose: 50 mg Calcium Carbonate (Oscal 500+D) 1 each PO DAILY [facility] Last Admin: 10/16/17 09:50 Dose: 1 each Ceftriaxone Sodium (Rocephin) 1,000 mg IVP Q12HR [facility] Last Admin: 10/16/17 21:53 Dose: 1,000 mg Cholecalciferol (Vitamin D3) 5,000 unit PO DAILY [facility] Last Admin: 10/16/17 09:50 Dose: 5,000 unit Ferrous Sulfate (Feosol) 325 mg PO BID [facility] Last Admin: 10/16/17 21:53 Dose: 325 mg Folic Acid (Folic Acid) 1 mg PO DAILY@1200 [facility] Last Admin: 10/16/17 13:07 Dose: 1 mg Dextrose/Water (Dextrose 5%-Water Iv Soln) 1,000 mls @ 50 mls/hr IV .Q20H [facility] Last Admin: 10/16/17 15:46 Dose: 50 mls/hr Insulin Aspart (Novolog) 0 unit SQ ACHS PERI PRN Reason: Protocol Last Admin: 10/16/17 21:51 Dose: 1 unit Lactobacillus Acidoph/Bulgaricus (Lactinex) 1 each PO DAILY [facility] Last Admin: 10/16/17 09:49 Dose: 1 each Latanoprost (Xalatan 0.005%) 1 drops BOTH EYES [facility] Last Admin: 10/16/17 21:53 Dose: 1 drops Loratadine (Claritin) 10 mg PO DAILY PRN PRN Reason: Allergy Symptoms Lorazepam (Ativan) 1 mg IV Q2HR PRN PRN Reason: CIWA 8 or 9 Last Admin: 10/12/17 00:54 Dose: 1 mg Lorazepam (Ativan) 1 mg IV Q1HR PRN PRN Reason: CIWA 10 to 15 Last Admin: 10/13/17 02:25 Dose: 1 mg Melatonin (Melatonin) 10 mg PO [facility] Last Admin: 10/16/17 21:53 Dose: 10 mg Metformin HCl (Glucophage) 500 mg PO AC-BID [facility] Last Admin: 10/16/17 18:22 Dose: 500 mg Miscellaneous Information (Potassium Per Protocol) 1 each MISCELLANE DAILY PRN ; Protocol PRN Reason: Per Protocol Multivitamins (Theragran) 1 each PO DAILY@1200 [facility] Last Admin: 10/16/17 13:06 Dose: 1 each Naloxone HCl (Narcan) 0.2 mg IV Q2M PRN PRN Reason: Opioid Reversal Pantoprazole Sodium (Protonix) 40 mg PO AC-BRKFST [facility] Last Admin: 10/16/17 09:49 Dose: 40 mg Thiamine HCl (Vitamin B-1) 100 mg PO DAILY@1200 [facility] Last Admin: 10/16/17 13:06 Dose: 100 mg Vitamin E (Vitamin E) 400 unit PO DAILY [facility] Last Admin: 10/16/17 09:50 Dose: 400 unit Warfarin Sodium (Coumadin) 2 mg PO DAILY@1800 [facility] Last Admin: 10/16/17 18:22 Dose: 2 mg Home Medications Medication Instructions Recorded Confirmed Type ALPRAZolam [Xanax] 0.25 mg PO TID 11/04/15 10/08/17 History Atenolol [Tenormin] 50 mg PO DAILY 11/04/15 10/08/17 History Atorvastatin [Lipitor] 20 mg PO 11/04/15 10/08/17 History Latanoprost Ophth [Xalatan 0.005%] 1 drops BOTH EYES 11/04/15 10/08/17 History Acetaminophen [Tylenol] 1,000 mg PO Q4-6H PRN 11/30/15 10/08/17 History Cholecalciferol [Vitamin D3] 5,000 unit PO DAILY 11/30/15 10/08/17 History Conjugated Linoleic Acid 1 tab PO DAILY 11/30/15 10/08/17 History L.acidoph,Paracasei, B.lactis 2 cap PO DAILY 11/30/15 10/08/17 History [Probiotic] Loratadine [Claritin] 10 mg PO DAILY PRN 11/30/15 10/08/17 History Melatonin 10 mg PO HS 11/30/15 10/08/17 History Multivitamin [Men's Multi-Vitamin] 1 tab PO DAILY 11/30/15 10/08/17 History Mccammon-3 Fatty Acids/Fish Oil [Fish 1 cap PO DAILY 11/30/15 10/08/17 History Oil 1,000 mg Softgel] Telmisartan [Micardis] 80 mg PO DAILY 11/30/15 10/08/17 History Vitamin E (Dl,Tocopheryl Acet) 400 unit PO DAILY 11/30/15 10/08/17 History [Vitamin E] Clindamycin [Cleocin] 600 mg PO ONCE 10/06/17 10/08/17 History Ipratropium-Albuterol Nebulize 3 ml INHALATION QID 10/06/17 10/08/17 History [Duoneb 0.5 mg-3 mg/3 ml Soln] Warfarin [Coumadin] 3 mg PO DAILY 10/06/17 10/08/17 History metFORMIN HCL [Glucophage] 500 mg PO BID 10/06/17 10/08/17 History Ascorbic Acid [Vitamin C] 1,500 mg PO DAILY 10/08/17 10/08/17 History Calcium Carbonate/Vitamin D3 1 tab PO DAILY 10/08/17 10/08/17 History [Calcium 600-Vit D3 400 Caplet] Ipratropium/Albuterol Sulfate 2 puff INHALATION RT-Q4H 10/08/17 10/08/17 History [Combivent Respimat Inhaler] Allergies Allergy/AdvReac Type Severity Reaction Status Date / Time Penicillins AdvReac Unknown Verified 10/08/17 08:25 tamsulosin HCl [From Flomax] AdvReac Unknown Verified 10/08/17 08:25 Physical Exam Vitals: Vital Signs Temp Pulse Pulse Resp BP Pulse Ox 10/16/17 21:34 64 10/16/17 21:24 60 10/16/17 15:00 98.7 F 71 16 108/51 96 10/16/17 11:33 60 10/16/17 11:23 60 10/16/17 09:47 63 10/16/17 09:37 62 10/16/17 07:00 99.5 F 77 16 138/64 94 L Intake and Output 10/16/17 10/16/17 10/17/17 14:59 22:59 06:59 Output Total 100 Balance -100 Output: Urine 100 Other: # Voids 1 # Bowel Movements 1 Weight 63.957 kg Patient Weight 10/17/17 06:59 Weight 63.957 kg Pleasant 87-year-old male who is cooperative and pleasant HEENT: Anicteric conjunctiva are pink and moist nasal mucosa grossly intact without significant lesions, there is no thrush. Neck: The neck is supple without significant lymphadenopathy or thyromegaly. Lungs: Good bilateral air entry without significant crackles or wheezing. There is no significant bronchial sounds. There is no egophony or dullness. Heart: Regular rate and rhythm with an audible S1-S2, no S3 no S4. There is no significant murmur click or rub, PMI was nondisplaced. Abdomen: Positive bowel sounds soft and nontender without palpable masses or organomegaly. There was no guarding or rebound. Extremities: The upper extremities have excellent pulses they are symmetric, no significant petechiae or telangiectasia. No splinter hemorrhages were noted. The lower extremities are free from significant edema. The peripheral pulses were 2+ and symmetric. Neuro: Awake alert oriented to person . There are no acute new gross focal sensory motor deficits. Results CBC & Chem 7: 10/16/17 08:14 10/16/17 08:14 Labs: Abnormal Lab Results - Last 24 Hours (Table) 10/16/17 10/16/17 10/16/17 Range/Units 07:02 08:14 08:14 WBC 12.3 H (3.8-10.6) k/uL RBC 3.17 L (4.30-5.90) m/uL Hgb 9.7 L (13.0-17.5) gm/dL Hct 30.5 L (39.0-53.0) % Plt Count 541 H (150-450) k/uL Neutrophils # 8.7 H (1.3-7.7) k/uL PT (9.0-12.0) sec INR (<1.2) Potassium 3.4 L (3.5-5.1) mmol/L Creatinine 0.64 L (0.66-1.25) mg/dL Glucose 115 H (74-99) mg/dL POC Glucose (mg/dL) 109 H (75-99) mg/dL Total Protein 4.9 L (6.3-8.2) g/dL Albumin 2.2 L (3.5-5.0) g/dL Urine Blood (Negative) Ur Leukocyte Esterase (Negative) Urine RBC (0-5) /hpf Urine WBC (0-5) /hpf Urine Mucus (None) /hpf 10/16/17 10/16/17 10/16/17 Range/Units 08:14 11:54 16:58 WBC (3.8-10.6) k/uL RBC (4.30-5.90) m/uL Hgb (13.0-17.5) gm/dL Hct (39.0-53.0) % Plt Count (150-450) k/uL Neutrophils # (1.3-7.7) k/uL PT 19.1 H (9.0-12.0) sec INR 2.1 H (<1.2) Potassium (3.5-5.1) mmol/L Creatinine (0.66-1.25) mg/dL Glucose (74-99) mg/dL POC Glucose (mg/dL) 160 H (75-99) mg/dL Total Protein (6.3-8.2) g/dL Albumin (3.5-5.0) g/dL Urine Blood Small H (Negative) Ur Leukocyte Esterase Small H (Negative) Urine RBC 14 H (0-5) /hpf Urine WBC 37 H (0-5) /hpf Urine Mucus Rare H (None) /hpf 10/16/17 10/16/17 Range/Units 17:05 21:04 WBC (3.8-10.6) k/uL RBC (4.30-5.90) m/uL Hgb (13.0-17.5) gm/dL Hct (39.0-53.0) % Plt Count (150-450) k/uL Neutrophils # (1.3-7.7) k/uL PT (9.0-12.0) sec INR (<1.2) Potassium (3.5-5.1) mmol/L Creatinine (0.66-1.25) mg/dL Glucose (74-99) mg/dL POC Glucose (mg/dL) 125 H 142 H (75-99) mg/dL Total Protein (6.3-8.2) g/dL Albumin (3.5-5.0) g/dL Urine Blood (Negative) Ur Leukocyte Esterase (Negative) Urine RBC (0-5) /hpf Urine WBC (0-5) /hpf Urine Mucus (None) /hpf Laboratory Results WBC 12.3 k/uL (3.8-10.6) H 10/16/17 08:14 RBC 3.17 m/uL (4.30-5.90) L 10/16/17 08:14 Hgb 9.7 gm/dL (13.0-17.5) L 10/16/17 08:14 Hct 30.5 % (39.0-53.0) L 10/16/17 08:14 MCV 96.3 fL (80.0-100.0) 10/16/17 08:14 MCH 30.7 pg (25.0-35.0) 10/16/17 08:14 MCHC 31.9 g/dL (31.0-37.0) 10/16/17 08:14 RDW 12.7 % (11.5-15.5) 10/16/17 08:14 Plt Count 541 k/uL (150-450) H 10/16/17 08:14 Neutrophils % 70 % 10/16/17 08:14 Lymphocytes % 15 % 10/16/17 08:14 Monocytes % 7 % 10/16/17 08:14 Eosinophils % 5 % 10/16/17 08:14 Basophils % 1 % 10/16/17 08:14 Neutrophils # 8.7 k/uL (1.3-7.7) H 10/16/17 08:14 Lymphocytes # 1.9 k/uL (1.0-4.8) 10/16/17 08:14 Monocytes # 0.8 k/uL (0-1.0) 10/16/17 08:14 Eosinophils # 0.6 k/uL (0-0.7) 10/16/17 08:14 Basophils # 0.1 k/uL (0-0.2) 10/16/17 08:14 Hypochromasia Slight 10/16/17 08:14 PT 19.1 sec (9.0-12.0) H 10/16/17 08:14 INR 2.1 (<1.2) H 10/16/17 08:14 APTT 39.3 sec (22.0-30.0) H 10/08/17 07:00 Sodium 143 mmol/L (137-145) 10/16/17 08:14 Potassium 3.4 mmol/L (3.5-5.1) L 10/16/17 08:14 Chloride 106 mmol/L (98-107) 10/16/17 08:14 Carbon Dioxide 29 mmol/L (22-30) 10/16/17 08:14 Anion Gap 8 mmol/L 10/16/17 08:14 BUN 14 mg/dL (9-20) 10/16/17 08:14 Creatinine 0.64 mg/dL (0.66-1.25) L 10/16/17 08:14 Est GFR (MDRD) Af Amer >60 (>60 ml/min/1.73 sqM) 10/13/17 07:14 Est GFR (MDRD) Non-Af >60 (>60 ml/min/1.73 sqM) 10/13/17 07:14 Est GFR (CKD-EPI)AfAm >90 (>60 ml/min/1.73 sqM) 10/16/17 08:14 Est GFR (CKD-EPI)NonAf 88 (>60 ml/min/1.73 sqM) 10/16/17 08:14 Glucose 115 mg/dL (74-99) H 10/16/17 08:14 POC Glucose (mg/dL) 142 mg/dL (75-99) H 10/16/17 21:04 POC Glu Basket Machine Operator ID Christine Guerrero 10/16/17 21:[address] Glu mg/dL 126 10/08/17 07:00 Hemoglobin A1c 6.0 % (4.0-6.0) 10/08/17 07:00 Plasma Lactic Acid Jay 0.8 mmol/L (0.7-2.0) 10/08/17 07:59 Calcium 8.6 mg/dL (8.4-10.2) 10/16/17 08:14 Magnesium 1.9 mg/dL (1.6-2.3) 10/12/17 08:40 Iron 10 ug/dL (65-175) L 10/08/17 07:01 TIBC 204 ug/dL (228-460) L 10/08/17 07:01 Iron Saturation 4.90 (15.00-50.00) L 10/08/17 07:01 Ferritin 574.4 ng/mL (22.0-322.0) H 10/08/17 07:01 Total Bilirubin 0.6 mg/dL (0.2-1.3) 10/16/17 08:14 AST 53 U/L (17-59) 10/16/17 08:14 ALT 71 U/L (21-72) 10/16/17 08:14 Alkaline Phosphatase 100 U/L (38-126) 10/16/17 08:14 Ammonia 22 umol/L (<30) 10/14/17 09:35 Total Creatine Kinase 63 U/L (55-170) 10/08/17 07:00 CK-MB (CK-2) 1.2 ng/mL (0.0-2.4) 10/08/17 07:00 CK-MB (CK-2) Rel Index 1.9 10/08/17 07:00 Troponin I 0.013 ng/mL (0.000-0.034) 10/08/17 07:00 Total Protein 4.9 g/dL (6.3-8.2) L 10/16/17 08:14 Albumin 2.2 g/dL (3.5-5.0) L 10/16/17 08:14 TSH 1.540 mIU/L (0.465-4.680) 10/12/17 08:40 Urine Color Yellow 10/16/17 16:58 Urine Appearance Clear (Clear) 10/16/17 16:58 Urine pH 6.0 (5.0-8.0) 10/16/17 16:58 Ur Specific [place] 1.012 (1.001-1.035) 10/16/17 16:58 Urine Protein Negative (Negative) 10/16/17 16:58 Urine Glucose (UA) Negative (Negative) 10/16/17 16:58 Urine Ketones Negative (Negative) 10/16/17 16:58 Urine Blood Small (Negative) H 10/16/17 16:58 Urine Nitrite Negative (Negative) 10/16/17 16:58 Urine Bilirubin Negative (Negative) 10/16/17 16:58 Urine Urobilinogen <2.0 mg/dL (<2.0) 10/16/17 16:58 Ur Leukocyte Esterase Small (Negative) H 10/16/17 16:58 Urine RBC 14 /hpf (0-5) H 10/16/17 16:58 Urine WBC 37 /hpf (0-5) H 10/16/17 16:58 Ur Squamous Epith Cells 1 /hpf (0-4) 10/08/17 07:30 Urine Mucus Rare /hpf (None) H 10/16/17 16:58 Stool Occult Blood Negative (Negative) 10/08/17 08:05 Microbiology 10/08/17 07:59 Blood Blood Culture - Final No Growth after 144 hours 10/08/17 07:59 Urine,Voided Urine Culture - Final US - abdomen: pending Assessment and Plan (1) Metabolic encephalopathy Current Visit: Yes Status: Acute Code(s): G93.41 - METABOLIC ENCEPHALOPATHY SNOMED Code(s): 95278940 (2) Sepsis Current Visit: Yes Status: Acute Code(s): A41.9 - SEPSIS, UNSPECIFIED ORGANISM SNOMED Code(s): 33893989 (3) UTI (urinary tract infection) Narrative/Plan: 87-year-old male presents to Hospital with altered mental status and concerns to underlying sepsis. Workup did reveal evidence of urinary tract infection. Despite antibiotic therapy is still having some leukocytosis. Although it is related to his mentation is improving he is still not yet at baseline. Family members that are present are concerned and very hopeful that he'll go to rehab to complete his course of antibiotic therapy and receive physical therapy to regain his strength so he can be mostly independent in the home setting. At this time antibiotic therapy based on prior culture seems to be adequate however ultrasound of kidneys or bladder have been requested to ensure that there is no obstructive uropathy either from the prostate or from hydronephrosis. This will further help direct next course of therapy. Current Visit: Yes Status: Acute Code(s): N39.0 - URINARY TRACT INFECTION, SITE NOT SPECIFIED SNOMED Code(s): 55155230
[2017-10-17] MEDS: ALPRAZolam 0.25 MG TAB PO PRN ×2 (01:52→20:18)
[2017-10-17 07:12] LABS: Glucose,Whole Blood 116 mg/dL (75-99)
[2017-10-17] MEDS: INSULIN ASPART 100 UNIT/ML 1 ML 10 ML VIAL SQ SCH ×4 (07:39→22:16)
[2017-10-17 08:10] LABS: Basophils # (A) 0.1 k/uL (0-0.2); Basophils % (A) 1 %; Eosinophils # (A) 0.6 k/uL (0-0.7); Eosinophils % (A) 5 %; HCT 29.3 % (39.0-53.0); HGB 9.4 gm/dL (13.0-17.5); Hypochromasia Slight; Lymphocytes % (A) 17 %; MCH 31.2 pg (25.0-35.0); MCHC 32.1 g/dL (31.0-37.0); MCV 97.2 fL (80.0-100.0); Monocytes # (A) 1.1 k/uL (0-1.0); Monocytes % (A) 9 %; Neutrophils # (A) 7.7 k/uL (1.3-7.7); Neutrophils % (A) 65 %; Platelet Count 531 k/uL (150-450); RBC 3.02 m/uL (4.30-5.90); RDW 12.7 % (11.5-15.5); WBC 11.9 k/uL (3.8-10.6)
[2017-10-17 08:15] LABS: INR 2.2 (<1.2)
[2017-10-17 08:30] LABS: ALT 67 U/L (21-72); AST 50 U/L (17-59); Albumin 2.2 g/dL (3.5-5.0); Alkaline Phosphatase 91 U/L (38-126); Anion Gap 8 mmol/L; Blood Urea Nitrogen 13 mg/dL (9-20); Calcium 8.6 mg/dL (8.4-10.2); Carbon Dioxide 25 mmol/L (22-30); Chloride 108 mmol/L (98-107); Glucose 106 mg/dL (74-99); Potassium 3.7 mmol/L (3.5-5.1); Sodium 141 mmol/L (137-145); Total Bilirubin 0.5 mg/dL (0.2-1.3); Total Protein 4.9 g/dL (6.3-8.2)
[2017-10-17] MEDS: IPRATROPIUM-ALBUTEROL 3 ML NEB INHALATION SCH ×4 (08:30→21:55)
--- NOTE | 2017-10-17 08:30 | US ---
EXAMINATION TYPE: US abd limited kidneys/bladder DATE OF EXAM: 10/16/2017 COMPARISON: NONE CLINICAL HISTORY: hydronephrosis. Patient states no pain. Difficult exam due to overlying bowel gas EXAM MEASUREMENTS: Liver Length: 14.1 cm Gallbladder Wall: 0.2 cm CBD: 0.3 cm Right Kidney: 10.6 x 4.1 x 4.6 cm Left Kidney: 10.7 x 4.9 x 4.7 cm Pancreas: Obscured by bowel gas Liver: Increased attenuation . Gallbladder: wnl CBD: wnl as visualized, distal portion obscured by bowel gas Right Kidney: No hydronephrosis. Cystic area visualized mid pole measuring 1.3 x 1.3 x 1.4 cm Left Kidney: No hydronephrosis or masses seen. Limited visualization due to overlying bowel gas Bladder: Possible bladder diverticulum visualized measuring 2.1 x 1.5 x 0.8 cm to the left of the bl adder Bilateral Jets Seen Yes Pancreas is suboptimally evaluated on images saved due to shadowing from overlying bowel gas per tech nologist. Visualized liver is heterogeneously hyperechoic without intrahepatic ductal dilatation. Jeanie luation for focal masses is suboptimal due to the heterogeneity. There are simple appearing 1.[address] mid to lower pole level right kidney marked by technologist. Bladder has lobulated contour. No jennifer picious intraluminal mass is present. IMPRESSION: No hydronephrosis is evident bilaterally.
[2017-10-17] MEDS: LACTOBACILLUS ACIDOPH & BULGAR 1 EACH PACKET PO SCH (09:14)
[2017-10-17] MEDS: metFORMIN 500 MG TAB PO SCH ×2 (09:14→17:57)
[2017-10-17] MEDS: FERROUS SULFATE 325 MG TAB PO SCH ×2 (09:14→20:15)
[2017-10-17] MEDS: ASCORBIC ACID 500 MG TAB PO SCH (09:15)
[2017-10-17] MEDS: VITAMIN E (DL,TOCOPHERYL ACET) 400 UNIT CAP PO SCH (09:15)
[2017-10-17] MEDS: ATENOLOL 50 MG TAB PO SCH (09:15)
[2017-10-17] MEDS: cefTRIAXone IN SWFI 1,000 MG/10 ML SYRINGE IVP SCH ×2 (09:40→20:18)
[2017-10-17] MEDS: CHOLECALCIFEROL 1,000 UNIT TAB PO SCH (09:40)
[2017-10-17] MEDS: CALCIUM CARB-VIT D 500MG-200UN 1 EACH TAB PO SCH (09:41)
[2017-10-17] MEDS: PANTOPRAZOLE SODIUM 40 MG GRANULE PKT PO SCH (09:41)
[2017-10-17] MEDS: DEXTROSE 5% IN WATER 1,000 ML IV SCH (10:33)
[2017-10-17 11:34] LABS: Glucose,Whole Blood 137 mg/dL (75-99)
[2017-10-17] MEDS: FOLIC ACID 1 MG TAB PO SCH (12:51)
[2017-10-17] MEDS: THIAMINE 100 MG TAB PO SCH (12:52)
[2017-10-17] MEDS: MULTIVITAMINS, THERA 1 EACH TAB PO SCH (12:52)
--- NOTE | 2017-10-17 14:21 | P.PN ---
Subjective Progress Note Date: 10/17/17 This is a 87-year-old male with a known past medical history of PE, DVT, hypertension, hyperlipidemia, anxiety and diabetes mellitus type 2. Patient is slightly confused and hard of hearing. Patient presents to the emergency room with complaints of generalized weakness per ER report. Patient's is a poor historian most information became from the emergency room chart. Apparently patient was diagnosed with a UTI outpatient and did not get antibiotics filled. Patient presented with weakness and evidence of a UTI. Started on IV Rocephin. The patient reports that he has not been following. He has ecchymosis of the left wrist and hand and likely this is related to his Coumadin. Patient reports that his INR was elevated. On admission INR is 2.7. He denies any injury to that left arm. He is able to answer some questions. The been at times he appears confused. He is also very hard of hearing. Patient denies any chest pain or shortness of breath. Denies any fever or chills or sweats. Denies any nausea vomiting. Denies any bowel movement changes. Denies any burning with urination. Does admit to having some hematuria that appears to be improving. She reports that his urine is almost clear. He's also been hypotensive with blood pressure 97/48. Hemoglobin is 8.8. Stool for occult blood is negative. INR 2.7 white count 12.2. He is sedated admitted to the hospital for UTI with sepsis and started on IV Rocephin. Urine culture and blood culture of been ordered. Blood pressure pills are on hold. He is being given IV fluids. Started on antibiotics. On 10/14/2017 patient is still confused. Per nursing patient is not eating or drinking very well. Speech therapy has been consulted for swallow evaluation. Also chest x-ray ordered to rule out any aspiration. Patient potassium is 3.6. Sodium level is 140. Normal saline discontinued. Patient will be started on D5 at 50. INR elevated at 2.5 no signs of bleeding. continue to hold Coumadin. Apparently patient had an episode of atrial fibrillation on October 09. Cardiology consulted. Patient did require Lopressor at that time. Continue with telemetry monitoring. 10/15/2017 patient lying in bed comfortably. He is less confused today alert and orientated 3. Appetite is showing improvement no difficulty in swallowing. Speech therapy is advancing to a regular diet. No diarrhea reported. Did go up to 13.5 10/16/2017 patient sitting at bedside chair. He is alert and orientated to 3. Still having some confusion. But showing improvement. However, white count is remaining elevated at 12.3. And having low-grade temps. Consult infectious disease. Check blood culture urine culture and chest x-ray. Patient has been on Rocephin since admission. On 10/17/2017 patient is alert and oriented 3 he is feeling better he denies any pain or discomfort white blood count is down to 11.9 Objective - Vital Signs Vital signs: Vital Signs Temp 98.2 F 10/17/17 07:00 Pulse 64 10/17/17 12:09 Resp 20 10/17/17 07:00 BP 122/64 10/17/17 07:00 Pulse Ox 92 L 10/17/17 07:00 Intake & Output 10/16/17 10/17/17 10/17/17 18:59 06:59 18:59 Intake Total 900 Output Total 100 150 Balance -100 900 -150 Weight 63.957 kg Intake: Oral 900 Output: Urine 100 150 Other: # Voids 1 5 # Bowel Movements 1 2 - Exam Head normocephalic and atraumatic Neck supple no JVD Lungs diminished bilaterally Heart regular rate and rhythm S1-S2, no rub or gallop Abdomen is soft nontender nondistended positive bowel sounds no hepatosplenomegaly Extremities no edema of the lower extremities. Left arm increase in swelling. Pitting edema. Ecchymosis is now trending down into the arm. Still has bruising along the hand and wrist. No pain with palpation Neuro confused. Alert and orientated 1 - Labs CBC & Chem 7: 10/17/17 07:50 10/17/17 07:50 Labs: Abnormal Lab Results - Last 24 Hours (Table) 10/16/17 10/16/17 10/16/17 Range/Units 16:58 17:05 21:04 WBC (3.8-10.6) k/uL RBC (4.30-5.90) m/uL Hgb (13.0-17.5) gm/dL Hct (39.0-53.0) % Plt Count (150-450) k/uL Monocytes # (0-1.0) k/uL PT (9.0-12.0) sec INR (<1.2) Chloride (98-107) mmol/L Creatinine (0.66-1.25) mg/dL Glucose (74-99) mg/dL POC Glucose (mg/dL) 125 H 142 H (75-99) mg/dL Total Protein (6.3-8.2) g/dL Albumin (3.5-5.0) g/dL Urine Blood Small H (Negative) Ur Leukocyte Esterase Small H (Negative) Urine RBC 14 H (0-5) /hpf Urine WBC 37 H (0-5) /hpf Urine Mucus Rare H (None) /hpf 10/17/17 10/17/17 10/17/17 Range/Units 07:07 07:50 07:50 WBC 11.9 H (3.8-10.6) k/uL RBC 3.02 L (4.30-5.90) m/uL Hgb 9.4 L (13.0-17.5) gm/dL Hct 29.3 L (39.0-53.0) % Plt Count 531 H (150-450) k/uL Monocytes # 1.1 H (0-1.0) k/uL PT 20.0 H (9.0-12.0) sec INR 2.2 H (<1.2) Chloride (98-107) mmol/L Creatinine (0.66-1.25) mg/dL Glucose (74-99) mg/dL POC Glucose (mg/dL) 116 H (75-99) mg/dL Total Protein (6.3-8.2) g/dL Albumin (3.5-5.0) g/dL Urine Blood (Negative) Ur Leukocyte Esterase (Negative) Urine RBC (0-5) /hpf Urine WBC (0-5) /hpf Urine Mucus (None) /hpf 10/17/17 10/17/17 Range/Units 07:50 11:32 WBC (3.8-10.6) k/uL RBC (4.30-5.90) m/uL Hgb (13.0-17.5) gm/dL Hct (39.0-53.0) % Plt Count (150-450) k/uL Monocytes # (0-1.0) k/uL PT (9.0-12.0) sec INR (<1.2) Chloride 108 H (98-107) mmol/L Creatinine 0.60 L (0.66-1.25) mg/dL Glucose 106 H (74-99) mg/dL POC Glucose (mg/dL) 137 H (75-99) mg/dL Total Protein 4.9 L (6.3-8.2) g/dL Albumin 2.2 L (3.5-5.0) g/dL Urine Blood (Negative) Ur Leukocyte Esterase (Negative) Urine RBC (0-5) /hpf Urine WBC (0-5) /hpf Urine Mucus (None) /hpf Microbiology - Last 24 Hours (Table) 10/16/17 16:58 Urine Culture - Preliminary Urine,Voided Assessment and Plan Plan: 1. UTI with sepsis present on admission: Continue Rocephin. Urine and blood culture negative. 2. Anemia: Likely related to iron deficiency anemia and ecchymosis in the left arm. Keep arm elevated. Patient received 1 dose of IV iron. Start ferrous sulfate 325 mg twice a day. No evidence of active GI bleeding. Stool for occult blood is negative. 3. 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 Monitoring PT/INR. INR 2.1. Will start patient on Coumadin 2 mg daily. Continue to monitor daily PT/INR 4. Hypotension: Due to sepsis and septic shock. Improved with IV fluids. Micardis and atenolol have been on hold since admission. 5. Diabetes mellitus type 2: Resume metformin. Add sliding scale coverage. 6. Hyperlipidemia: Continue statin 7. Generalized anxiety disorder: Continue Xanax 8. Mild intermittent Asthma: Stable now evidence of exacerbation 9. Alcohol abuse: Start patient on the CIWA protocol with thiamine, multivitamin and folic acid. Ativan as needed 10. Altered mental status changes possibly due to metabolic encephalopathy related to his UTI. Computed tomography scan of the brain showed no acute changes 11. Multifocal atrial tachycardia: Seen by cardiology. Atrial fibrillation ruled out. We'll resume patient's atenolol 12. Hyponatremia: Resolved with the D5 W 13. Hypokalemia patient receiving potassium supplement. Magnesium 1.9 14. Dysphagia: Seen by speech therapy modified barium swallow ulcer no evidence of aspiration did show some delay in his swallow. Patient is showing improvement. Reevaluated by speech therapy they've advanced him to a regular diabetic diet 15. Leukocytosis: With low-grade fever. Patient's white count have not improved with the IV Rocephin. We'll reculture patient checking urine culture blood culture check a chest x-ray. No evidence of diarrhea. Consult infectious disease for further recommendations 16. Hypokalemia patient received potassium supplement Patient is not ready for discharge yet. Anticipate discharge possibly Thursday to [facility] GI prophylaxis Protonix and DVT prophylaxis Coumadin
[2017-10-17 17:31] LABS: Glucose,Whole Blood 123 mg/dL (75-99)
[2017-10-17] MEDS: WARFARIN 2 MG TAB PO SCH (17:56)
[2017-10-17] MEDS: MELATONIN 5 MG TABLET PO SCH (20:15)
[2017-10-17] MEDS: LATANOPROST 0.005% OPHTH DROPS 2.5 ML BTL BOTH EYES SCH (20:15)
[2017-10-17 21:54] LABS: Glucose,Whole Blood 140 mg/dL (75-99)
--- NOTE | 2017-10-17 22:41 | P.PN ---
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 His son-in-law is present in relates that there are some difficulties in the home situation in that the patient's daughter who does live with the patient does have difficulty with alcohol use. And there is concern about his returning to the home environment until he is more functional. The patient himself is comfortable at this time. Is feeling better. He is denying interim other new acute troubles. He is eating well. He is denying headache or visual change. Denies abdominal pain. Did have hematuria. No flank pain. At admission he had confusion and was not feeling well at all. On 10/17/2017 the patient is comfortable voices no new complaints. His pain is better controlled. A warm towels were placed around his neck and he finds it very comfortable. He is denying fevers or chills looks forward to going home soon Objective - Vital Signs Vital signs: Vital Signs Temp 98.6 F 10/17/17 15:00 Pulse 68 10/17/17 22:05 Resp 20 10/17/17 15:00 BP 116/58 10/17/17 15:00 Pulse Ox 94 L 10/17/17 21:55 Intake & Output 10/17/17 10/17/17 10/18/17 06:59 18:59 07:59 Intake Total 900 Output Total 150 Balance 900 -150 Intake: Oral 900 Output: Urine 150 Other: Voiding Method Urinal Diaper # Voids 5 3 # Bowel Movements 2 - Exam Pleasant 87-year-old male who is cooperative and pleasant HEENT: Anicteric conjunctiva are pink and moist nasal mucosa grossly intact without significant lesions, there is no thrush. Neck: The neck is supple without significant lymphadenopathy or thyromegaly. Lungs: Good bilateral air entry without significant crackles or wheezing. There is no significant bronchial sounds. There is no egophony or dullness. Heart: Regular rate and rhythm with an audible S1-S2, no S3 no S4. There is no significant murmur click or rub, PMI was nondisplaced. Abdomen: Positive bowel sounds soft and nontender without palpable masses or organomegaly. There was no guarding or rebound. Extremities: The upper extremities have excellent pulses they are symmetric, no significant petechiae or telangiectasia. No splinter hemorrhages were noted. The lower extremities are free from significant edema. The peripheral pulses were 2+ and symmetric. Neuro: Awake alert oriented to person . There are no acute new gross focal sensory motor deficits. - Labs CBC & Chem 7: 10/17/17 07:50 10/17/17 07:50 Labs: Abnormal Lab Results - Last 24 Hours (Table) 10/17/17 10/17/17 10/17/17 Range/Units 07:07 07:50 07:50 WBC 11.9 H (3.8-10.6) k/uL RBC 3.02 L (4.30-5.90) m/uL Hgb 9.4 L (13.0-17.5) gm/dL Hct 29.3 L (39.0-53.0) % Plt Count 531 H (150-450) k/uL Monocytes # 1.1 H (0-1.0) k/uL PT 20.0 H (9.0-12.0) sec INR 2.2 H (<1.2) Chloride (98-107) mmol/L Creatinine (0.66-1.25) mg/dL Glucose (74-99) mg/dL POC Glucose (mg/dL) 116 H (75-99) mg/dL Total Protein (6.3-8.2) g/dL Albumin (3.5-5.0) g/dL 10/17/17 10/17/17 10/17/17 Range/Units 07:50 11:32 17:29 WBC (3.8-10.6) k/uL RBC (4.30-5.90) m/uL Hgb (13.0-17.5) gm/dL Hct (39.0-53.0) % Plt Count (150-450) k/uL Monocytes # (0-1.0) k/uL PT (9.0-12.0) sec INR (<1.2) Chloride 108 H (98-107) mmol/L Creatinine 0.60 L (0.66-1.25) mg/dL Glucose 106 H (74-99) mg/dL POC Glucose (mg/dL) 137 H 123 H (75-99) mg/dL Total Protein 4.9 L (6.3-8.2) g/dL Albumin 2.2 L (3.5-5.0) g/dL 10/17/17 Range/Units 21:53 WBC (3.8-10.6) k/uL RBC (4.30-5.90) m/uL Hgb (13.0-17.5) gm/dL Hct (39.0-53.0) % Plt Count (150-450) k/uL Monocytes # (0-1.0) k/uL PT (9.0-12.0) sec INR (<1.2) Chloride (98-107) mmol/L Creatinine (0.66-1.25) mg/dL Glucose (74-99) mg/dL POC Glucose (mg/dL) 140 H (75-99) mg/dL Total Protein (6.3-8.2) g/dL Albumin (3.5-5.0) g/dL Microbiology - Last 24 Hours (Table) 10/16/17 16:58 Urine Culture - Final Urine,Voided 10/16/17 14:48 Blood Culture - Preliminary Blood No Growth after 24 hours Laboratory Results WBC 11.9 k/uL (3.8-10.6) H 10/17/17 07:50 RBC 3.02 m/uL (4.30-5.90) L 10/17/17 07:50 Hgb 9.4 gm/dL (13.0-17.5) L 10/17/17 07:50 Hct 29.3 % (39.0-53.0) L 10/17/17 07:50 MCV 97.2 fL (80.0-100.0) 10/17/17 07:50 MCH 31.2 pg (25.0-35.0) 10/17/17 07:50 MCHC 32.1 g/dL (31.0-37.0) 10/17/17 07:50 RDW 12.7 % (11.5-15.5) 10/17/17 07:50 Plt Count 531 k/uL (150-450) H 10/17/17 07:50 Neutrophils % 65 % 10/17/17 07:50 Lymphocytes % 17 % 10/17/17 07:50 Monocytes % 9 % 10/17/17 07:50 Eosinophils % 5 % 10/17/17 07:50 Basophils % 1 % 10/17/17 07:50 Neutrophils # 7.7 k/uL (1.3-7.7) 10/17/17 07:50 Lymphocytes # 2.0 k/uL (1.0-4.8) 10/17/17 07:50 Monocytes # 1.1 k/uL (0-1.0) H 10/17/17 07:50 Eosinophils # 0.6 k/uL (0-0.7) 10/17/17 07:50 Basophils # 0.1 k/uL (0-0.2) 10/17/17 07:50 Hypochromasia Slight 10/17/17 07:50 PT 20.0 sec (9.0-12.0) H 10/17/17 07:50 INR 2.2 (<1.2) H 10/17/17 07:50 APTT 39.3 sec (22.0-30.0) H 10/08/17 07:00 Sodium 141 mmol/L (137-145) 10/17/17 07:50 Potassium 3.7 mmol/L (3.5-5.1) 10/17/17 07:50 Chloride 108 mmol/L (98-107) H 10/17/17 07:50 Carbon Dioxide 25 mmol/L (22-30) 10/17/17 07:50 Anion Gap 8 mmol/L 10/17/17 07:50 BUN 13 mg/dL (9-20) 10/17/17 07:50 Creatinine 0.60 mg/dL (0.66-1.25) L 10/17/17 07:50 Est GFR (MDRD) Af Amer >60 (>60 ml/min/1.73 sqM) 10/13/17 07:14 Est GFR (MDRD) Non-Af >60 (>60 ml/min/1.73 sqM) 10/13/17 07:14 Est GFR (CKD-EPI)AfAm >90 (>60 ml/min/1.73 sqM) 10/17/17 07:50 Est GFR (CKD-EPI)NonAf >90 (>60 ml/min/1.73 sqM) 10/17/17 07:50 Glucose 106 mg/dL (74-99) H 10/17/17 07:50 POC Glucose (mg/dL) 140 mg/dL (75-99) H 10/17/17 21:53 POC Glu Siebel Consultant ID Nicolle Jaimes 10/17/17 21:[address] Glu mg/dL 126 10/08/17 07:00 Hemoglobin A1c 6.0 % (4.0-6.0) 10/08/17 07:00 Plasma Lactic Acid Jay 0.8 mmol/L (0.7-2.0) 10/08/17 07:59 Calcium 8.6 mg/dL (8.4-10.2) 10/17/17 07:50 Magnesium 1.9 mg/dL (1.6-2.3) 10/12/17 08:40 Iron 10 ug/dL (65-175) L 10/08/17 07:01 TIBC 204 ug/dL (228-460) L 10/08/17 07:01 Iron Saturation 4.90 (15.00-50.00) L 10/08/17 07:01 Ferritin 574.4 ng/mL (22.0-322.0) H 10/08/17 07:01 Total Bilirubin 0.5 mg/dL (0.2-1.3) 10/17/17 07:50 AST 50 U/L (17-59) 10/17/17 07:50 ALT 67 U/L (21-72) 10/17/17 07:50 Alkaline Phosphatase 91 U/L (38-126) 10/17/17 07:50 Ammonia 22 umol/L (<30) 10/14/17 09:35 Total Creatine Kinase 63 U/L (55-170) 10/08/17 07:00 CK-MB (CK-2) 1.2 ng/mL (0.0-2.4) 10/08/17 07:00 CK-MB (CK-2) Rel Index 1.9 10/08/17 07:00 Troponin I 0.013 ng/mL (0.000-0.034) 10/08/17 07:00 Total Protein 4.9 g/dL (6.3-8.2) L 10/17/17 07:50 Albumin 2.2 g/dL (3.5-5.0) L 10/17/17 07:50 TSH 1.540 mIU/L (0.465-4.680) 10/12/17 08:40 Urine Color Yellow 10/16/17 16:58 Urine Appearance Clear (Clear) 10/16/17 16:58 Urine pH 6.0 (5.0-8.0) 10/16/17 16:58 Ur Specific [place] 1.012 (1.001-1.035) 10/16/17 16:58 Urine Protein Negative (Negative) 10/16/17 16:58 Urine Glucose (UA) Negative (Negative) 10/16/17 16:58 Urine Ketones Negative (Negative) 10/16/17 16:58 Urine Blood Small (Negative) H 10/16/17 16:58 Urine Nitrite Negative (Negative) 10/16/17 16:58 Urine Bilirubin Negative (Negative) 10/16/17 16:58 Urine Urobilinogen <2.0 mg/dL (<2.0) 10/16/17 16:58 Ur Leukocyte Esterase Small (Negative) H 10/16/17 16:58 Urine RBC 14 /hpf (0-5) H 10/16/17 16:58 Urine WBC 37 /hpf (0-5) H 10/16/17 16:58 Ur Squamous Epith Cells 1 /hpf (0-4) 10/08/17 07:30 Urine Mucus Rare /hpf (None) H 10/16/17 16:58 Stool Occult Blood Negative (Negative) 10/08/17 08:05 Microbiology 10/16/17 16:58 Urine,Voided Urine Culture - Final 10/16/17 14:48 Blood Blood Culture - Preliminary No Growth after 24 hours 10/08/17 07:59 Blood Blood Culture - Final No Growth after 144 hours 10/08/17 07:59 Urine,Voided Urine Culture - Final - Imaging and Cardiology US - abdomen: report reviewed (No evidence of hydronephrosis or obstructive uropathy) Assessment and Plan (1) Metabolic encephalopathy Current Visit: Yes Status: Acute Code(s): G93.41 - METABOLIC ENCEPHALOPATHY SNOMED Code(s): 95677026 (2) Sepsis Current Visit: Yes Status: Acute Code(s): A41.9 - SEPSIS, UNSPECIFIED ORGANISM SNOMED Code(s): 38124172 (3) UTI (urinary tract infection) Narrative/Plan: 87-year-old male presents to Hospital with altered mental status and concerns to underlying sepsis. Workup did reveal evidence of urinary tract infection. Despite antibiotic therapy is still having some leukocytosis. Although it is related to his mentation is improving he is still not yet at baseline. Family members that are present are concerned and very hopeful that he'll go to rehab to complete his course of antibiotic therapy and receive physical therapy to regain his strength so he can be mostly independent in the home setting. At this time antibiotic therapy based on prior culture seems to be adequate however ultrasound of kidneys or bladder have been requested to ensure that there is no obstructive uropathy either from the prostate or from hydronephrosis. This will further help direct next course of therapy. 10/17/2017 reveals the patient to be somewhat improved. He is feeling stronger , eating well and having no new complaints. Responding well to antibiotic therapy. He does have evidence of a ultrasound that revealed no specific obstruction to his urinary system. Fortunately he is improving but is not clear if he is doing well enough to return to his independent living situation. Hopefully her primary care physician can help direct best course of action based on the home situation. Current Visit: Yes Status: Acute Code(s): N39.0 - URINARY TRACT INFECTION, SITE NOT SPECIFIED SNOMED Code(s): 18055434
[2017-10-18] MEDS: DEXTROSE 5% IN WATER 1,000 ML IV SCH (05:42)
[2017-10-18 08:06] LABS: Glucose,Whole Blood 133 mg/dL (75-99)
[2017-10-18] MEDS: LACTOBACILLUS ACIDOPH & BULGAR 1 EACH PACKET PO SCH (08:21)
[2017-10-18] MEDS: cefTRIAXone IN SWFI 1,000 MG/10 ML SYRINGE IVP SCH ×2 (08:21→21:00)
[2017-10-18] MEDS: PANTOPRAZOLE SODIUM 40 MG GRANULE PKT PO SCH (08:22)
[2017-10-18] MEDS: ASCORBIC ACID 500 MG TAB PO SCH (08:22)
[2017-10-18] MEDS: CHOLECALCIFEROL 1,000 UNIT TAB PO SCH (08:22)
[2017-10-18] MEDS: metFORMIN 500 MG TAB PO SCH ×2 (08:22→18:24)
[2017-10-18] MEDS: ATENOLOL 50 MG TAB PO SCH (08:22)
[2017-10-18] MEDS: INSULIN ASPART 100 UNIT/ML 1 ML 10 ML VIAL SQ SCH ×4 (08:22→20:56)
[2017-10-18] MEDS: FERROUS SULFATE 325 MG TAB PO SCH ×2 (08:23→20:59)
[2017-10-18] MEDS: VITAMIN E (DL,TOCOPHERYL ACET) 400 UNIT CAP PO SCH (08:23)
[2017-10-18] MEDS: CALCIUM CARB-VIT D 500MG-200UN 1 EACH TAB PO SCH (08:23)
[2017-10-18] MEDS: IPRATROPIUM-ALBUTEROL 3 ML NEB INHALATION SCH ×4 (08:42→20:07)
[2017-10-18 10:08] LABS: Basophils # (A) 0.1 k/uL (0-0.2); Basophils % (A) 1 %; Eosinophils # (A) 0.6 k/uL (0-0.7); Eosinophils % (A) 5 %; HCT 28.4 % (39.0-53.0); HGB 8.8 gm/dL (13.0-17.5); Hypochromasia Moderate; Lymphocytes % (A) 18 %; MCH 29.9 pg (25.0-35.0); MCHC 31.1 g/dL (31.0-37.0); MCV 96.2 fL (80.0-100.0); Mean Platelet Volume 7.3; Monocytes % (A) 9 %; Neutrophils # (A) 7.3 k/uL (1.3-7.7); Neutrophils % (A) 65 %; Platelet Count 532 k/uL (150-450); RBC 2.95 m/uL (4.30-5.90); RDW 12.9 % (11.5-15.5); WBC 11.2 k/uL (3.8-10.6)
[2017-10-18 10:10] LABS: INR 1.9 (<1.2); Prothrombin Time 17.3 sec (9.0-12.0)
[2017-10-18 10:23] LABS: ALT 66 U/L (21-72); AST 47 U/L (17-59); Albumin 2.2 g/dL (3.5-5.0); Alkaline Phosphatase 85 U/L (38-126); Anion Gap 8 mmol/L; Blood Urea Nitrogen 11 mg/dL (9-20); Calcium 8.7 mg/dL (8.4-10.2); Carbon Dioxide 27 mmol/L (22-30); Chloride 106 mmol/L (98-107); Glucose 102 mg/dL (74-99); Potassium 3.9 mmol/L (3.5-5.1); Sodium 141 mmol/L (137-145); Total Bilirubin 0.3 mg/dL (0.2-1.3); Total Protein 4.9 g/dL (6.3-8.2)
[2017-10-18 11:28] LABS: Glucose,Whole Blood 98 mg/dL (75-99)
[2017-10-18 11:32] LABS: Folate, Serum 18.2 ng/mL
[2017-10-18 13:54] LABS: Iron Saturation 8.6 (15.00-50.00)
[2017-10-18] MEDS: FOLIC ACID 1 MG TAB PO SCH (14:08)
[2017-10-18] MEDS: THIAMINE 100 MG TAB PO SCH (14:08)
[2017-10-18] MEDS: MULTIVITAMINS, THERA 1 EACH TAB PO SCH (14:08)
--- NOTE | 2017-10-18 15:29 | P.PN ---
Subjective Progress Note Date: 10/18/17 This is a 87-year-old male with a known past medical history of PE, DVT, hypertension, hyperlipidemia, anxiety and diabetes mellitus type 2. Patient is slightly confused and hard of hearing. Patient presents to the emergency room with complaints of generalized weakness per ER report. Patient's is a poor historian most information became from the emergency room chart. Apparently patient was diagnosed with a UTI outpatient and did not get antibiotics filled. Patient presented with weakness and evidence of a UTI. Started on IV Rocephin. The patient reports that he has not been following. He has ecchymosis of the left wrist and hand and likely this is related to his Coumadin. Patient reports that his INR was elevated. On admission INR is 2.7. He denies any injury to that left arm. He is able to answer some questions. The been at times he appears confused. He is also very hard of hearing. Patient denies any chest pain or shortness of breath. Denies any fever or chills or sweats. Denies any nausea vomiting. Denies any bowel movement changes. Denies any burning with urination. Does admit to having some hematuria that appears to be improving. She reports that his urine is almost clear. He's also been hypotensive with blood pressure 97/48. Hemoglobin is 8.8. Stool for occult blood is negative. INR 2.7 white count 12.2. He is sedated admitted to the hospital for UTI with sepsis and started on IV Rocephin. Urine culture and blood culture of been ordered. Blood pressure pills are on hold. He is being given IV fluids. Started on antibiotics. On 10/14/2017 patient is still confused. Per nursing patient is not eating or drinking very well. Speech therapy has been consulted for swallow evaluation. Also chest x-ray ordered to rule out any aspiration. Patient potassium is 3.6. Sodium level is 140. Normal saline discontinued. Patient will be started on D5 at 50. INR elevated at 2.5 no signs of bleeding. continue to hold Coumadin. Apparently patient had an episode of atrial fibrillation on October 09. Cardiology consulted. Patient did require Lopressor at that time. Continue with telemetry monitoring. 10/15/2017 patient lying in bed comfortably. He is less confused today alert and orientated 3. Appetite is showing improvement no difficulty in swallowing. Speech therapy is advancing to a regular diet. No diarrhea reported. Did go up to 13.5 10/16/2017 patient sitting at bedside chair. He is alert and orientated to 3. Still having some confusion. But showing improvement. However, white count is remaining elevated at 12.3. And having low-grade temps. Consult infectious disease. Check blood culture urine culture and chest x-ray. Patient has been on Rocephin since admission. On 10/17/2017 patient is alert and oriented 3 he is feeling better he denies any pain or discomfort white blood count is down to 11.9 On 10/18/2017 patient is more alert and oriented today he is feeling better he is denying any pain he has generalized weakness otherwise no significant complaints, white blood count is down to 11.2 hemoglobin is down to 8.8 Objective - Vital Signs Vital signs: Vital Signs Temp 98.9 F 10/18/17 15:00 Pulse 76 10/18/17 15:00 Resp 16 10/18/17 15:00 BP 110/62 10/18/17 15:00 Pulse Ox 94 L 10/18/17 15:00 Intake & Output 10/17/17 10/18/17 10/18/17 17:59 06:59 18:59 Intake Total Output Total Balance Intake: Oral Output: Urine Other: Voiding Method # Voids # Bowel Movements - Exam Head normocephalic and atraumatic Neck supple no JVD Lungs diminished bilaterally Heart regular rate and rhythm S1-S2, no rub or gallop Abdomen is soft nontender nondistended positive bowel sounds no hepatosplenomegaly Extremities no edema of the lower extremities. Left arm increase in swelling. Pitting edema. Ecchymosis is now trending down into the arm. Still has bruising along the hand and wrist. No pain with palpation Neuro confused. Alert and orientated 1 - Labs CBC & Chem 7: 10/18/17 09:25 10/18/17 09:25 Labs: Abnormal Lab Results - Last 24 Hours (Table) 10/17/17 10/17/17 10/17/17 Range/Units 07:50 17:29 21:53 WBC (3.8-10.6) k/uL RBC (4.30-5.90) m/uL Hgb (13.0-17.5) gm/dL Hct (39.0-53.0) % Plt Count (150-450) k/uL PT (9.0-12.0) sec INR (<1.2) Creatinine (0.66-1.25) mg/dL Glucose (74-99) mg/dL POC Glucose (mg/dL) 123 H 140 H (75-99) mg/dL Total Protein (6.3-8.2) g/dL Albumin (3.5-5.0) g/dL Vitamin B12 945.0 H (200.0-944.0) pg/mL 10/18/17 10/18/17 10/18/17 Range/Units 08:03 09:25 09:25 WBC 11.2 H (3.8-10.6) k/uL RBC 2.95 L (4.30-5.90) m/uL Hgb 8.8 L (13.0-17.5) gm/dL Hct 28.4 L (39.0-53.0) % Plt Count 532 H (150-450) k/uL PT 17.3 H (9.0-12.0) sec INR 1.9 H (<1.2) Creatinine (0.66-1.25) mg/dL Glucose (74-99) mg/dL POC Glucose (mg/dL) 133 H (75-99) mg/dL Total Protein (6.3-8.2) g/dL Albumin (3.5-5.0) g/dL Vitamin B12 (200.0-944.0) pg/mL 10/18/17 Range/Units 09:25 WBC (3.8-10.6) k/uL RBC (4.30-5.90) m/uL Hgb (13.0-17.5) gm/dL Hct (39.0-53.0) % Plt Count (150-450) k/uL PT (9.0-12.0) sec INR (<1.2) Creatinine 0.61 L (0.66-1.25) mg/dL Glucose 102 H (74-99) mg/dL POC Glucose (mg/dL) (75-99) mg/dL Total Protein 4.9 L (6.3-8.2) g/dL Albumin 2.2 L (3.5-5.0) g/dL Vitamin B12 (200.0-944.0) pg/mL Microbiology - Last 24 Hours (Table) 10/16/17 16:58 Urine Culture - Final Urine,Voided 10/16/17 14:48 Blood Culture - Preliminary Blood No Growth after 24 hours Assessment and Plan Plan: 1. UTI with sepsis present on admission: Continue Rocephin. Urine and blood culture negative. 2. Anemia: Likely related to iron deficiency anemia and ecchymosis in the left arm. Keep arm elevated. Patient received 1 dose of IV iron. Start ferrous sulfate 325 mg twice a day. No evidence of active GI bleeding. Stool for occult blood is negative. 3. 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 Monitoring PT/INR. INR 2.1. Will start patient on Coumadin 2 mg daily. Continue to monitor daily PT/INR 4. Hypotension: Due to sepsis and septic shock. Improved with IV fluids. Micardis and atenolol have been on hold since admission. 5. Diabetes mellitus type 2: Resume metformin. Add sliding scale coverage. 6. Hyperlipidemia: Continue statin 7. Generalized anxiety disorder: Continue Xanax 8. Mild intermittent Asthma: Stable now evidence of exacerbation 9. Alcohol abuse: Start patient on the CIWA protocol with thiamine, multivitamin and folic acid. Ativan as needed 10. Altered mental status changes possibly due to metabolic encephalopathy related to his UTI. Computed tomography scan of the brain showed no acute changes 11. Multifocal atrial tachycardia: Seen by cardiology. Atrial fibrillation ruled out. We'll resume patient's atenolol 12. Hyponatremia: Resolved with the D5 W 13. Hypokalemia patient receiving potassium supplement. Magnesium 1.9 14. Dysphagia: Seen by speech therapy modified barium swallow ulcer no evidence of aspiration did show some delay in his swallow. Patient is showing improvement. Reevaluated by speech therapy they've advanced him to a regular diabetic diet 15. Leukocytosis: With low-grade fever. Patient's white count have not improved with the IV Rocephin. We'll reculture patient checking urine culture blood culture check a chest x-ray. No evidence of diarrhea. Consult infectious disease for further recommendations 16. Hypokalemia patient received potassium supplement Patient is not ready for discharge yet. Anticipate discharge possibly Thursday to [facility] GI prophylaxis Protonix and DVT prophylaxis Coumadin
[2017-10-18 17:33] LABS: Glucose,Whole Blood 164 mg/dL (75-99)
[2017-10-18] MEDS ORDERED: WARFARIN 2.5 MG TAB PO SCH (18:00)
[2017-10-18 20:45] LABS: Glucose,Whole Blood 126 mg/dL (75-99)
[2017-10-18] MEDS: MELATONIN 5 MG TABLET PO SCH (20:59)
[2017-10-18] MEDS: ALPRAZolam 0.25 MG TAB PO PRN (20:59)
[2017-10-18] MEDS: LATANOPROST 0.005% OPHTH DROPS 2.5 ML BTL BOTH EYES SCH (21:00)
[2017-10-19] MEDS: DEXTROSE 5% IN WATER 1,000 ML IV SCH (06:04)
--- NOTE | 2017-10-19 06:58 | P.CONS ---
History of Present Illness - Chief Complaint Medical debility - History of Present Illness I had the op to see patient for inpatient rehab consultation with regard to medical debility. He was admitted to [facility] October 08 with generalized weakness and found to have UTI with sepsis. Seen in consultation by Dr. Ellis factor fibrillation, Dr. Marybel Oakes for encephalopathy and Dr. Barboza for infectious disease. PT reports minimal assistance for transfers and gait 75 feet with roller walker, fatigues. OT reports supervision for upper dressing and moderate assistance for lower dressing and bathing. Mental moderate assistance for functional mobility. Speech therapy prescribed. Abdominal ultrasound negative for hydronephrosis bilateral. Chest x-ray followed for small left effusions and atelectasis as well as noted COPD. Head CT demonstrated mild to moderate age related change and atrophy. Previous functional history as elicited from patient: 87-year-old right-handed white male who is lives in a first-floor of a 2 floor home, with daughter. Daughter does cooking and laundry. Patient describes independent and can drive, standing shower, gait without device but does have walker. He is Dr. andrei blackman. Review of Systems Review of systems: ENT: Denies sneezes or discharge. Definite hard of hearing. Eyes: Denies discharge or photophobia. Cardiac: Denies chest pain or palpitation. Pulmonary: Denies cough or shortness of breath. Gastrointestinal: Denies nausea, emesis, constipation, diarrhea. Genitourinary: Denies discharge or frequency. Musculoskeletal: Denies muscle or bone aches. Neurologic: Perhaps mild generalized weakness. Endocrine: Denies shakes or sweats. Oncology: Denies cancers. Dermatologic: Denies rash, itching, pruritus. ALLERGY/immunology: Denies sneezes, rashes. Past Medical History Past Medical History: Asthma, Diabetes Mellitus, Eye Disorder, Hearing Disorder / Deafness, Hypertension, Memory Impairment, Osteoarthritis (OA), Prostate Disorder, Pulmonary Embolus (PE) Additional Past Medical History / Comment(s): Severe environmental allergies, respiratory failure/intubated, [place] bilaterally, BPH, bilateral glaucoma. History of Any Multi-Drug Resistant Organisms: None Reported Past Surgical History: Joint Replacement, Tonsillectomy Additional Past Surgical History / Comment(s): L total hip arthroplasty, L total knee arthroplasty, laser surgery bilateral eyes cataracts with lens implants, colonoscopy with benign polypectomy, cyst removed from back, vasectomy. Past Anesthesia/Blood Transfusion Reactions: No Reported Reaction Smoking Status: Former smoker - Past Family History Father Family Medical History: No Reported History Mother Additional Family Medical History / Comment(s): Pt states his mother had mental health issues and trigeminal nerve problem and had chronic pain from this. Medications and Allergies Home Medications Medication Instructions Recorded Confirmed Type ALPRAZolam [Xanax] 0.25 mg PO TID 11/04/15 10/08/17 History Atenolol [Tenormin] 50 mg PO DAILY 11/04/15 10/08/17 History Atorvastatin [Lipitor] 20 mg PO HS 11/04/15 10/08/17 History Latanoprost Ophth [Xalatan 0.005%] 1 drops BOTH EYES HS 11/04/15 10/08/17 History Acetaminophen [Tylenol] 1,000 mg PO Q4-6H PRN 11/30/15 10/08/17 History Cholecalciferol [Vitamin D3] 5,000 unit PO DAILY 11/30/15 10/08/17 History Conjugated Linoleic Acid 1 tab PO DAILY 11/30/15 10/08/17 History L.acidoph,Paracasei, B.lactis 2 cap PO DAILY 11/30/15 10/08/17 History [Probiotic] Loratadine [Claritin] 10 mg PO DAILY PRN 11/30/15 10/08/17 History Melatonin 10 mg PO HS 11/30/15 10/08/17 History Multivitamin [Men's Multi-Vitamin] 1 tab PO DAILY 11/30/15 10/08/17 History [place]-3 Fatty Acids/Fish Oil [Fish 1 cap PO DAILY 11/30/15 10/08/17 History Oil 1,000 mg Softgel] Telmisartan [Micardis] 80 mg PO DAILY 11/30/15 10/08/17 History Vitamin E (Dl,Tocopheryl Acet) 400 unit PO DAILY 11/30/15 10/08/17 History [Vitamin E] Clindamycin [Cleocin] 600 mg PO ONCE 10/06/17 10/08/17 History Ipratropium-Albuterol Nebulize 3 ml INHALATION QID 10/06/17 10/08/17 History [Duoneb 0.5 mg-3 mg/3 ml Soln] Warfarin [Coumadin] 3 mg PO DAILY 10/06/17 10/08/17 History metFORMIN HCL [Glucophage] 500 mg PO BID 10/06/17 10/08/17 History Ascorbic Acid [Vitamin C] 1,500 mg PO DAILY 10/08/17 10/08/17 History Calcium Carbonate/Vitamin D3 1 tab PO DAILY 10/08/17 10/08/17 History [Calcium 600-Vit D3 400 Caplet] Ipratropium/Albuterol Sulfate 2 puff INHALATION RT-Q4H 10/08/17 10/08/17 History [Combivent Respimat Inhaler] Allergies Allergy/AdvReac Type Severity Reaction Status Date / Time Penicillins AdvReac Unknown Verified 10/08/17 08:25 tamsulosin HCl [From Flomax] AdvReac Unknown Verified 10/08/17 08:25 Physical Exam Vitals: Vital Signs Temp Pulse Pulse Pulse Resp BP BP 10/19/17 06:41 98.5 F 68 12 129/64 10/18/17 23:00 99.4 F 77 12 104/62 10/18/17 20:27 65 10/18/17 20:08 65 10/18/17 16:25 68 10/18/17 16:13 68 10/18/17 16:00 76 71 16 10/18/17 15:00 98.9 F 76 16 110/62 10/18/17 12:45 64 10/18/17 12:36 64 10/18/17 08:55 68 10/18/17 08:43 68 10/18/17 07:00 97.8 F 74 22 127/61 Pulse Ox 10/19/17 06:41 92 L 10/18/17 23:00 92 L 10/18/17 20:27 10/18/17 20:08 98 10/18/17 16:25 10/18/17 16:13 10/18/17 16:00 10/18/17 15:00 94 L 10/18/17 12:45 10/18/17 12:36 10/18/17 08:55 10/18/17 08:43 10/18/17 07:00 92 L Intake and Output 10/18/17 10/18/17 10/19/17 14:59 22:59 06:59 Output Total 400 200 Balance -400 -200 Output: Urine 400 200 Other: Voiding Method Urinal Urinal Urinal Diaper Diaper Diaper Incontinent Incontinent Incontinent # Voids 4 Skin: Atrophic, intact. General: Medium build and comfortable appearance. Head: Normocephalic, atraumatic. Eyes: Symmetric. Pupils equal round. Ears: Symmetric. Hearing within normal limits. Mouth: Clear. Neck: Supple. Carotid without bruit. Cardiac: Regular rate and rhythm. Lungs: Clear anteriorly and posteriorly. Abdomen: Soft active nontender. Extremities: Normal tone. Neurological: Mental status: Alert, cooperative, pleasant. Cranial nerves: Symmetric facial tone and trapezius. Motor: Can elevate all limbs off of bed all the legs appear to be at best antigravity. Sensation: Intact throughout. DTRs: Symmetric and equal throughout. Mobility: Sits with minimal to moderate assistance. Results CBC & Chem 7: 10/18/17 09:25 10/18/17 09:25 Labs: Abnormal Lab Results - Last 24 Hours (Table) 10/17/17 10/17/17 10/18/17 Range/Units 07:50 07:50 08:03 WBC (3.8-10.6) k/uL RBC (4.30-5.90) m/uL Hgb (13.0-17.5) gm/dL Hct (39.0-53.0) % Plt Count (150-450) k/uL PT (9.0-12.0) sec INR (<1.2) Creatinine (0.66-1.25) mg/dL Glucose (74-99) mg/dL POC Glucose (mg/dL) 133 H (75-99) mg/dL Iron 16 L (65-175) ug/dL TIBC 186 L (228-460) ug/dL Iron Saturation 8.60 L (15.00-50.00) Total Protein (6.3-8.2) g/dL Albumin (3.5-5.0) g/dL Vitamin B12 945.0 H (200.0-944.0) pg/mL 10/18/17 10/18/17 10/18/17 Range/Units 09:25 09:25 09:25 WBC 11.2 H (3.8-10.6) k/uL RBC 2.95 L (4.30-5.90) m/uL Hgb 8.8 L (13.0-17.5) gm/dL Hct 28.4 L (39.0-53.0) % Plt Count 532 H (150-450) k/uL PT 17.3 H (9.0-12.0) sec INR 1.9 H (<1.2) Creatinine 0.61 L (0.66-1.25) mg/dL Glucose 102 H (74-99) mg/dL POC Glucose (mg/dL) (75-99) mg/dL Iron (65-175) ug/dL TIBC (228-460) ug/dL Iron Saturation (15.00-50.00) Total Protein 4.9 L (6.3-8.2) g/dL Albumin 2.2 L (3.5-5.0) g/dL Vitamin B12 (200.0-944.0) pg/mL 10/18/17 10/18/17 Range/Units 17:26 20:43 WBC (3.8-10.6) k/uL RBC (4.30-5.90) m/uL Hgb (13.0-17.5) gm/dL Hct (39.0-53.0) % Plt Count (150-450) k/uL PT (9.0-12.0) sec INR (<1.2) Creatinine (0.66-1.25) mg/dL Glucose (74-99) mg/dL POC Glucose (mg/dL) 164 H 126 H (75-99) mg/dL Iron (65-175) ug/dL TIBC (228-460) ug/dL Iron Saturation (15.00-50.00) Total Protein (6.3-8.2) g/dL Albumin (3.5-5.0) g/dL Vitamin B12 (200.0-944.0) pg/mL Microbiology - Last 24 Hours (Table) 10/16/17 14:48 Blood Culture - Preliminary Blood No Growth after [address] scan - chest: report reviewed (Small left atelectasis and effusion as well as COPD change.) CT Scan - head: report reviewed (Mild to moderate age related change and atrophy.) Assessment and Plan (1) Metabolic encephalopathy Current Visit: Yes Status: Acute Code(s): G93.41 - METABOLIC ENCEPHALOPATHY SNOMED Code(s): 59547730 Plan: Impression: 1. Medical debility. 2. UTI with sepsis. 3. Metabolic encephalopathy. 4. Diabetes. 5. Asthma. 6. Cardiac hearing. 7. Memory impairment. 8. Jackie arthritis. 9. History of PE. Comments and plan: At this time PT and OT are ongoing and safety concerns noted. Speech therapy added as well and anticipate communication/cognition changes due to encephalopathy. We'll follow closely with yourself for possible need and benefit of inpatient rehab.
[2017-10-19] MEDS: IPRATROPIUM-ALBUTEROL 3 ML NEB INHALATION SCH ×2 (07:45→11:29)
[2017-10-19 07:57] LABS: Glucose,Whole Blood 107 mg/dL (75-99)
[2017-10-19] MEDS: INSULIN ASPART 100 UNIT/ML 1 ML 10 ML VIAL SQ SCH ×2 (07:59→12:23)
[2017-10-19] MEDS: CHOLECALCIFEROL 1,000 UNIT TAB PO SCH (08:05)
[2017-10-19] MEDS: CALCIUM CARB-VIT D 500MG-200UN 1 EACH TAB PO SCH (08:05)
[2017-10-19] MEDS: ASCORBIC ACID 500 MG TAB PO SCH (08:06)
[2017-10-19] MEDS: VITAMIN E (DL,TOCOPHERYL ACET) 400 UNIT CAP PO SCH (08:06)
[2017-10-19] MEDS: LACTOBACILLUS ACIDOPH & BULGAR 1 EACH PACKET PO SCH (08:06)
[2017-10-19] MEDS: metFORMIN 500 MG TAB PO SCH (08:06)
[2017-10-19] MEDS: FERROUS SULFATE 325 MG TAB PO SCH (08:06)
[2017-10-19] MEDS: cefTRIAXone IN SWFI 1,000 MG/10 ML SYRINGE IVP SCH (08:06)
[2017-10-19] MEDS: ATENOLOL 50 MG TAB PO SCH (08:06)
[2017-10-19] MEDS: ALPRAZolam 0.25 MG TAB PO PRN (08:06)
[2017-10-19] MEDS: PANTOPRAZOLE SODIUM 40 MG GRANULE PKT PO SCH (08:38)
[2017-10-19 09:47] LABS: ALT 62 U/L (21-72); AST 50 U/L (17-59); Albumin 2.2 g/dL (3.5-5.0); Alkaline Phosphatase 83 U/L (38-126); Anion Gap 11 mmol/L; Blood Urea Nitrogen 11 mg/dL (9-20); Calcium 8.7 mg/dL (8.4-10.2); Carbon Dioxide 25 mmol/L (22-30); Chloride 105 mmol/L (98-107); Glucose 112 mg/dL (74-99); Potassium 3.9 mmol/L (3.5-5.1); Sodium 141 mmol/L (137-145); Total Bilirubin 0.4 mg/dL (0.2-1.3); Total Protein 5.1 g/dL (6.3-8.2)
[2017-10-19 09:48] LABS: Prothrombin Time 18.4 sec (9.0-12.0)
[2017-10-19 10:25] LABS: Basophils # (A) 0.1 k/uL (0-0.2); Basophils % (A) 1 %; Eosinophils # (A) 0.7 k/uL (0-0.7); Eosinophils % (A) 7 %; HCT 29.5 % (39.0-53.0); HGB 9.5 gm/dL (13.0-17.5); Hypochromasia Moderate; Lymphocytes # (A) 1.8 k/uL (1.0-4.8); Lymphocytes % (A) 17 %; MCH 31.1 pg (25.0-35.0); MCHC 32.2 g/dL (31.0-37.0); MCV 96.7 fL (80.0-100.0); Mean Platelet Volume 6.9; Monocytes # (A) 1.1 k/uL (0-1.0); Monocytes % (A) 10 %; Neutrophils # (A) 6.5 k/uL (1.3-7.7); Neutrophils % (A) 61 %; Platelet Count 540 k/uL (150-450); RBC 3.05 m/uL (4.30-5.90); RDW 12.8 % (11.5-15.5); WBC 10.7 k/uL (3.8-10.6)
[2017-10-19 11:50] LABS: Glucose,Whole Blood 101 mg/dL (75-99)
[2017-10-19] MEDS: FOLIC ACID 1 MG TAB PO SCH (12:39)
[2017-10-19] MEDS: MULTIVITAMINS, THERA 1 EACH TAB PO SCH (12:39)
[2017-10-19] MEDS: THIAMINE 100 MG TAB PO SCH (12:39)
[2017-10-19 14:48] VITALS: BP 112/55; PULSE 73; RESP 18; TEMP 99.5
--- NOTE | 2017-10-19 15:28 | P.DS ---
Providers Date of admission: 10/08/17 08:55 Expected date of discharge: 10/19/17 Attending physician: Yue Loya Consults: 10/09/17 22:05 Consult Physician Routine Consulting Provider: Luana Ellis Consult Reason/Comments: new onset a-fib Do you want consulting provider notified?: Yes, Notify in am 10/12/17 13:54 Consult Physician Routine Consulting Provider: Kena Mantilla Consult Reason/Comments: worsening confusion Do you want consulting provider notified?: Yes 10/16/17 13:01 Consult Physician Routine Consulting Provider: Mickey Barboza Consult Reason/Comments: fever, leukocytosis Do you want consulting provider notified?: Yes 10/17/17 14:23 Consult Physician Routine Consulting Provider: Angel Christiansen Consult Reason/Comments: rehab admission Do you want consulting provider notified?: Yes Primary care physician: [facility] Course: Discharge diagnosis 1. UTI with sepsis present on admission: Continue Rocephin. Urine and blood culture negative. Patient seen by infectious disease. The recommending 7 more days of Ceftin. 2. Anemia: Likely related to iron deficiency anemia and ecchymosis in the left arm. Keep arm elevated. Patient received 1 dose of IV iron. Start ferrous sulfate 325 mg twice a day. No evidence of active GI bleeding. Stool for occult blood is negative. Hemoglobin at discharge is 9.5 3. 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 Continue Coumadin 2.5 mg daily. INR at discharge is 2.0 4. Hypotension: Due to sepsis and septic shock. Improved with IV fluids. Micardis decreased to 40 mg daily and atenolol resumed 5. Diabetes mellitus type 2: Resume metformin. Add sliding scale coverage. 6. Hyperlipidemia: Continue statin 7. Generalized anxiety disorder: Continue Xanax 8. Mild intermittent Asthma: Stable now evidence of exacerbation 9. Alcohol abuse: Start patient on the CIWA protocol with thiamine, multivitamin and folic acid. Ativan as needed 10. Altered mental status changes possibly due to metabolic encephalopathy related to his UTI. Computed tomography scan of the brain showed no acute changes 11. Multifocal atrial tachycardia: Seen by cardiology. Atrial fibrillation ruled out. We'll resume patient's atenolol 12. Hyponatremia: Resolved with the D5 W 13. Hypokalemia patient receiving potassium supplement. Resolved 14. Dysphagia: Seen by speech therapy modified barium swallow ulcer no evidence of aspiration did show some delay in his swallow. Patient is showing improvement. Reevaluated by speech therapy they've advanced him to a regular diabetic diet Hospital course This is a 87-year-old male with a known past medical history of PE, DVT, hypertension, hyperlipidemia, anxiety and diabetes mellitus type 2. Patient is slightly confused and hard of hearing. Patient presents to the emergency room with complaints of generalized weakness per ER report. Patient's is a poor historian most information became from the emergency room chart. Apparently patient was diagnosed with a UTI outpatient and did not get antibiotics filled. Patient presented with weakness and evidence of a UTI. Started on IV Rocephin. The patient reports that he has not been following. He has ecchymosis of the left wrist and hand and likely this is related to his Coumadin. Patient reports that his INR was elevated. On admission INR is 2.7. He denies any injury to that left arm. He is able to answer some questions. The been at times he appears confused. He is also very hard of hearing. Patient denies any chest pain or shortness of breath. Denies any fever or chills or sweats. Denies any nausea vomiting. Denies any bowel movement changes. Denies any burning with urination. Does admit to having some hematuria that appears to be improving. She reports that his urine is almost clear. He's also been hypotensive with blood pressure 97/48. Hemoglobin is 8.8. Stool for occult blood is negative. INR 2.7 white count 12.2. He is sedated admitted to the hospital for UTI with sepsis and started on IV Rocephin. Urine culture and blood culture of been ordered. Blood pressure pills are on hold. He is being given IV fluids. Started on antibiotics. Patient was treated with IV antibiotics in the form of Rocephin. Culture was negative. Patient also was treated with the CIWA protocol with Ativan and thiamine and folic acid and multivitamin. Patient continue to have a low-grade temp confusion and an elevated white count. Patient was seen by both neurology and infectious disease. He had a computed tomography scan of the brain that was negative. His likely his mental status changes related to his UTI is also may have some and chronic underlying confusion. Neurology is clear for discharge. Patient is very close to his baseline. Patient seen by infectious diseases due to no improvement in the white count and low-grade temps. This felt likely this is still related to his UTI. Blood cultures are negative chest x-ray showed no acute changes. Patient also had a bladder ultrasound showed no evidence of hydronephrosis. Patient has been cleared for discharge by infectious disease. The recommending Ceftin for one more week. Patient also seen by cardiology due to his episode of tachycardia in which they felt that it was a multifocal atrial tachycardia and not atrial fibrillation. This improved with resuming his atenolol. Patient will be discharged to [facility] for further rehabilitation. Patient is medically stable for discharge. Dr. Tobin to follow at [facility] Check CBC and INR on Thursday I performed an examination of the patient and discussed their management with the physician Telemetry Technician. I have reviewed the Physician Telemetry Technician's notes and agree with the documented findings and plan of care Patient Condition at Discharge: Stable Plan - Discharge Summary Discharge Rx Participant: Yes New Discharge Prescriptions: New Cefuroxime Axetil [Ceftin] 500 mg PO BID #14 tab Ferrous Sulfate [Iron (65 MG Elemental)] 325 mg PO BID tab Folic Acid 1 mg PO DAILY@1200 tab Thiamine [Vitamin B-1] 100 mg PO DAILY@1200 tab Warfarin [Coumadin] 2.5 mg PO DAILY@1800 tab Telmisartan [Micardis] 40 mg PO DAILY #30 tab Continue Latanoprost Ophth [Xalatan 0.005%] 1 drops BOTH EYES HS Atorvastatin [Lipitor] 20 mg PO HS Atenolol [Tenormin] 50 mg PO DAILY Vitamin E (Dl,Tocopheryl Acet) [Vitamin E] 400 unit PO DAILY L.acidoph,Paracasei, B.lactis [Probiotic] 2 cap PO DAILY Melatonin 10 mg PO HS Loratadine [Claritin] 10 mg PO DAILY PRN PRN Reason: Allergy Symptoms Acetaminophen [Tylenol] 1,000 mg PO Q4-6H PRN PRN Reason: Pain Multivitamin [Men's Multi-Vitamin] 1 tab PO DAILY [place]ttrick-3 Fatty Acids/Fish Oil [Fish Oil 1,000 mg Softgel] 1 cap PO DAILY Cholecalciferol [Vitamin D3] 5,000 unit PO DAILY Conjugated Linoleic Acid 1 tab PO DAILY metFORMIN HCL [Glucophage] 500 mg PO BID Ipratropium-Albuterol Nebulize [Duoneb 0.5 mg-3 mg/3 ml Soln] 3 ml INHALATION QID Ipratropium/Albuterol Sulfate [Combivent Respimat Inhaler] 2 puff INHALATION RT-Q4H Calcium Carbonate/Vitamin D3 [Calcium 600-Vit D3 400 Caplet] 1 tab PO DAILY Ascorbic Acid [Vitamin C] 1,500 mg PO DAILY Changed ALPRAZolam [Xanax] 0.25 mg PO TID PRN #40 tab PRN Reason: Anxiety Discontinued Telmisartan [Micardis] 80 mg PO DAILY Warfarin [Coumadin] 3 mg PO DAILY Clindamycin [Cleocin] 600 mg PO ONCE Discharge Medication List Atenolol [Tenormin] 50 mg PO DAILY 11/04/15 [History] Atorvastatin [Lipitor] 20 mg PO HS 11/04/15 [History] Latanoprost Ophth [Xalatan 0.005%] 1 drops BOTH EYES HS 11/04/15 [History] Acetaminophen [Tylenol] 1,000 mg PO Q4-6H PRN 11/30/15 [History] Cholecalciferol [Vitamin D3] 5,000 unit PO DAILY 11/30/15 [History] Conjugated Linoleic Acid 1 tab PO DAILY 11/30/15 [History] L.acidoph,Paracasei, B.lactis [Probiotic] 2 cap PO DAILY 11/30/15 [History] Loratadine [Claritin] 10 mg PO DAILY PRN 11/30/15 [History] Melatonin 10 mg PO HS 11/30/15 [History] Multivitamin [Men's Multi-Vitamin] 1 tab PO DAILY 11/30/15 [History] Ettrick-3 Fatty Acids/Fish Oil [Fish Oil 1,000 mg Softgel] 1 cap PO DAILY [History] Vitamin E (Dl,Tocopheryl Acet) [Vitamin E] 400 unit PO DAILY 11/30/15 [History] Ipratropium-Albuterol Nebulize [Duoneb 0.5 mg-3 mg/3 ml Soln] 3 ml INHALATION QID 10/06/17 [History] metFORMIN HCL [Glucophage] 500 mg PO BID 10/06/17 [History] Ascorbic Acid [Vitamin C] 1,500 mg PO DAILY 10/08/17 [History] Calcium Carbonate/Vitamin D3 [Calcium 600-Vit D3 400 Caplet] 1 tab PO DAILY 08/27 [History] Ipratropium/Albuterol Sulfate [Combivent Respimat Inhaler] 2 puff INHALATION RT- Q4H 10/08/17 [History] ALPRAZolam [Xanax] 0.25 mg PO TID PRN #40 tab 10/19/17 [Rx] Cefuroxime Axetil [Ceftin] 500 mg PO BID #14 tab 10/19/17 [Rx] Ferrous Sulfate [Iron (65 MG Elemental)] 325 mg PO BID tab 10/19/17 [Rx] Folic Acid 1 mg PO DAILY@1200 tab 10/19/17 [Rx] Telmisartan [Micardis] 40 mg PO DAILY #30 tab 10/19/17 [Rx] Thiamine [Vitamin B-1] 100 mg PO DAILY@1200 tab 10/19/17 [Rx] Warfarin [Coumadin] 2.5 mg PO DAILY@1800 tab 10/19/17 [Rx] Follow up Appointment(s)/Referral(s): Rosa Stewart MD [STAFF PHYSICIAN] - 2 Weeks Yue Loya MD [Primary Care Provider] - 1 Week Patient Instructions/Handouts: Urinary Tract Infection in Men (DC), Type 2 Diabetes in Adults (DC) Activity/Diet/Wound Care/Special Instructions: Diet: Diabetic, cardiac Activity: as tolerated Glucerna shakes 1 can TID with meals Discharge to [facility] Tobin to follow at [facility] Discharge Disposition: TRANSFER TO SNF/ECF
--- NOTE | 2017-10-19 20:26 | P.PN ---
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 His son-in-law is present in relates that there are some difficulties in the home situation in that the patient's daughter who does live with the patient does have difficulty with alcohol use. And there is concern about his returning to the home environment until he is more functional. The patient himself is comfortable at this time. Is feeling better. He is denying interim other new acute troubles. He is eating well. He is denying headache or visual change. Denies abdominal pain. Did have hematuria. No flank pain. At admission he had confusion and was not feeling well at all. On 10/17/2017 the patient is comfortable voices no new complaints. His pain is better controlled. A warm towels were placed around his neck and he finds it very comfortable. He is denying fevers or chills looks forward to going home soon 10/19/2017 reveals the patient to be relatively comfortable. Pain control is adequate. Denies fevers or chills. Is comfortable. No new musculoskeletal complaints. Eating and drinking well. Plans are being made for his transfer to extended care today. It was thought he did not have enough stamina for inpatient rehab Objective - Vital Signs Vital signs: Vital Signs Temp 99.5 F 10/19/17 14:47 Pulse 73 10/19/17 14:47 Resp 18 10/19/17 15:41 BP 112/55 10/19/17 14:47 Pulse Ox 94 L 10/19/17 14:47 Intake & Output 10/19/17 10/19/17 10/20/17 06:59 18:59 06:59 Output Total 600 450 Balance -600 -450 Output: Urine 600 450 Other: Voiding Method Urinal Urinal Diaper Incontinent # Voids 1 # Bowel Movements 1 - Exam Pleasant 87-year-old male who is cooperative and pleasant HEENT: Anicteric conjunctiva are pink and moist nasal mucosa grossly intact without significant lesions, there is no thrush. Neck: The neck is supple without significant lymphadenopathy or thyromegaly. Lungs: Good bilateral air entry without significant crackles or wheezing. There is no significant bronchial sounds. There is no egophony or dullness. Heart: Regular rate and rhythm with an audible S1-S2, no S3 no S4. There is no significant murmur click or rub, PMI was nondisplaced. Abdomen: Positive bowel sounds soft and nontender without palpable masses or organomegaly. There was no guarding or rebound. Extremities: The upper extremities have excellent pulses they are symmetric, no significant petechiae or telangiectasia. No splinter hemorrhages were noted. The lower extremities are free from significant edema. The peripheral pulses were 2+ and symmetric. Neuro: Awake alert oriented to person . There are no acute new gross focal sensory motor deficits. - Labs CBC & Chem 7: 10/19/17 09:11 10/19/17 09:11 Labs: Abnormal Lab Results - Last 24 Hours (Table) 10/17/17 10/18/17 10/19/17 Range/Units 07:50 20:43 07:16 WBC (3.8-10.6) k/uL RBC (4.30-5.90) m/uL Hgb (13.0-17.5) gm/dL Hct (39.0-53.0) % Plt Count (150-450) k/uL Monocytes # (0-1.0) k/uL PT (9.0-12.0) sec INR (<1.2) Glucose (74-99) mg/dL POC Glucose (mg/dL) 126 H 107 H (75-99) mg/dL Iron 16 L (65-175) ug/dL TIBC 186 L (228-460) ug/dL Iron Saturation 8.60 L (15.00-50.00) Total Protein (6.3-8.2) g/dL Albumin (3.5-5.0) g/dL 10/19/17 10/19/17 10/19/17 Range/Units 09:11 09:11 09:11 WBC 10.7 H (3.8-10.6) k/uL RBC 3.05 L (4.30-5.90) m/uL Hgb 9.5 L (13.0-17.5) gm/dL Hct 29.5 L (39.0-53.0) % Plt Count 540 H (150-450) k/uL Monocytes # 1.1 H (0-1.0) k/uL PT 18.4 H (9.0-12.0) sec INR 2.0 H (<1.2) Glucose 112 H (74-99) mg/dL POC Glucose (mg/dL) (75-99) mg/dL Iron (65-175) ug/dL TIBC (228-460) ug/dL Iron Saturation (15.00-50.00) Total Protein 5.1 L (6.3-8.2) g/dL Albumin 2.2 L (3.5-5.0) g/dL 10/19/17 Range/Units 11:44 WBC (3.8-10.6) k/uL RBC (4.30-5.90) m/uL Hgb (13.0-17.5) gm/dL Hct (39.0-53.0) % Plt Count (150-450) k/uL Monocytes # (0-1.0) k/uL PT (9.0-12.0) sec INR (<1.2) Glucose (74-99) mg/dL POC Glucose (mg/dL) 101 H (75-99) mg/dL Iron (65-175) ug/dL TIBC (228-460) ug/dL Iron Saturation (15.00-50.00) Total Protein (6.3-8.2) g/dL Albumin (3.5-5.0) g/dL Microbiology - Last 24 Hours (Table) 10/16/17 14:48 Blood Culture - Preliminary Blood No Growth after 72 hours Laboratory Results WBC 10.7 k/uL (3.8-10.6) H 10/19/17 09:11 RBC 3.05 m/uL (4.30-5.90) L 10/19/17 09:11 Hgb 9.5 gm/dL (13.0-17.5) L 10/19/17 09:11 Hct 29.5 % (39.0-53.0) L 10/19/17 09:11 MCV 96.7 fL (80.0-100.0) 10/19/17 09:11 MCH 31.1 pg (25.0-35.0) 10/19/17 09:11 MCHC 32.2 g/dL (31.0-37.0) 10/19/17 09:11 RDW 12.8 % (11.5-15.5) 10/19/17 09:11 Plt Count 540 k/uL (150-450) H 10/19/17 09:11 Neutrophils % 61 % 10/19/17 09:11 Lymphocytes % 17 % 10/19/17 09:11 Monocytes % 10 % 10/19/17 09:11 Eosinophils % 7 % 10/19/17 09:11 Basophils % 1 % 10/19/17 09:11 Neutrophils # 6.5 k/uL (1.3-7.7) 10/19/17 09:11 Lymphocytes # 1.8 k/uL (1.0-4.8) 10/19/17 09:11 Monocytes # 1.1 k/uL (0-1.0) H 10/19/17 09:11 Eosinophils # 0.7 k/uL (0-0.7) 10/19/17 09:11 Basophils # 0.1 k/uL (0-0.2) 10/19/17 09:11 Hypochromasia Moderate 10/19/17 09:11 PT 18.4 sec (9.0-12.0) H 10/19/17 09:11 INR 2.0 (<1.2) H 10/19/17 09:11 APTT 39.3 sec (22.0-30.0) H 10/08/17 07:00 Sodium 141 mmol/L (137-145) 10/19/17 09:11 Potassium 3.9 mmol/L (3.5-5.1) 10/19/17 09:11 Chloride 105 mmol/L (98-107) 10/19/17 09:11 Carbon Dioxide 25 mmol/L (22-30) 10/19/17 09:11 Anion Gap 11 mmol/L 10/19/17 09:11 BUN 11 mg/dL (9-20) 10/19/17 09:11 Creatinine 0.72 mg/dL (0.66-1.25) 10/19/17 09:11 Est GFR (MDRD) Af Amer >60 (>60 ml/min/1.73 sqM) 10/13/17 07:14 Est GFR (MDRD) Non-Af >60 (>60 ml/min/1.73 sqM) 10/13/17 07:14 Est GFR (CKD-EPI)AfAm >90 (>60 ml/min/1.73 sqM) 10/19/17 09:11 Est GFR (CKD-EPI)NonAf 84 (>60 ml/min/1.73 sqM) 10/19/17 09:11 Glucose 112 mg/dL (74-99) H 10/19/17 09:11 POC Glucose (mg/dL) 101 mg/dL (75-99) H 10/19/17 11:44 POC Glu Juice Mixer Jenny Mei 10/19/17 11:[address] Glu mg/dL 126 10/08/17 07:00 Hemoglobin A1c 6.0 % (4.0-6.0) 10/08/17 07:00 Plasma Lactic Acid Jay 0.8 mmol/L (0.7-2.0) 10/08/17 07:59 Calcium 8.7 mg/dL (8.4-10.2) 10/19/17 09:11 Magnesium 1.9 mg/dL (1.6-2.3) 10/12/17 08:40 Iron 16 ug/dL (65-175) L 10/17/17 07:50 TIBC 186 ug/dL (228-460) L 10/17/17 07:50 Iron Saturation 8.60 (15.00-50.00) L 10/17/17 07:50 Ferritin 574.4 ng/mL (22.0-322.0) H 10/08/17 07:01 Total Bilirubin 0.4 mg/dL (0.2-1.3) 10/19/17 09:11 AST 50 U/L (17-59) 10/19/17 09:11 ALT 62 U/L (21-72) 10/19/17 09:11 Alkaline Phosphatase 83 U/L (38-126) 10/19/17 09:11 Ammonia 22 umol/L (<30) 10/14/17 09:35 Total Creatine Kinase 63 U/L (55-170) 10/08/17 07:00 CK-MB (CK-2) 1.2 ng/mL (0.0-2.4) 10/08/17 07:00 CK-MB (CK-2) Rel Index 1.9 10/08/17 07:00 Troponin I 0.013 ng/mL (0.000-0.034) 10/08/17 07:00 Total Protein 5.1 g/dL (6.3-8.2) L 10/19/17 09:11 Albumin 2.2 g/dL (3.5-5.0) L 10/19/17 09:11 Vitamin B12 945.0 pg/mL (200.0-944.0) H 10/17/17 07:50 Folate 18.2 ng/mL 10/17/17 07:50 TSH 1.540 mIU/L (0.465-4.680) 10/12/17 08:40 Urine Color Yellow 10/16/17 16:58 Urine Appearance Clear (Clear) 10/16/17 16:58 Urine pH 6.0 (5.0-8.0) 10/16/17 16:58 Ur Specific [place] 1.012 (1.001-1.035) 10/16/17 16:58 Urine Protein Negative (Negative) 10/16/17 16:58 Urine Glucose (UA) Negative (Negative) 10/16/17 16:58 Urine Ketones Negative (Negative) 10/16/17 16:58 Urine Blood Small (Negative) H 10/16/17 16:58 Urine Nitrite Negative (Negative) 10/16/17 16:58 Urine Bilirubin Negative (Negative) 10/16/17 16:58 Urine Urobilinogen <2.0 mg/dL (<2.0) 10/16/17 16:58 Ur Leukocyte Esterase Small (Negative) H 10/16/17 16:58 Urine RBC 14 /hpf (0-5) H 10/16/17 16:58 Urine WBC 37 /hpf (0-5) H 10/16/17 16:58 Ur Squamous Epith Cells 1 /hpf (0-4) 10/08/17 07:30 Urine Mucus Rare /hpf (None) H 10/16/17 16:58 Stool Occult Blood Negative (Negative) 10/08/17 08:05 Microbiology 10/16/17 14:48 Blood Blood Culture - Preliminary No Growth after 72 hours 10/16/17 16:58 Urine,Voided Urine Culture - Final 10/08/17 07:59 Blood Blood Culture - Final No Growth after 144 hours 10/08/17 07:59 Urine,Voided Urine Culture - Final Assessment and Plan (1) Metabolic encephalopathy Status: Acute Code(s): G93.41 - METABOLIC ENCEPHALOPATHY SNOMED Code(s): 17756375 (2) Sepsis Status: Acute Code(s): A41.9 - SEPSIS, UNSPECIFIED ORGANISM SNOMED Code(s): 38898399 (3) UTI (urinary tract infection) Narrative/Plan: 87-year-old male presents to Hospital with altered mental status and concerns to underlying sepsis. Workup did reveal evidence of urinary tract infection. Despite antibiotic therapy is still having some leukocytosis. Although it is related to his mentation is improving he is still not yet at baseline. Family members that are present are concerned and very hopeful that he'll go to rehab to complete his course of antibiotic therapy and receive physical therapy to regain his strength so he can be mostly independent in the home setting. At this time antibiotic therapy based on prior culture seems to be adequate however ultrasound of kidneys or bladder have been requested to ensure that there is no obstructive uropathy either from the prostate or from hydronephrosis. This will further help direct next course of therapy. 10/17/2017 reveals the patient to be somewhat improved. He is feeling stronger , eating well and having no new complaints. Responding well to antibiotic therapy. He does have evidence of a ultrasound that revealed no specific obstruction to his urinary system. Fortunately he is improving but is not clear if he is doing well enough to return to his independent living situation. Hopefully her primary care physician can help direct best course of action based on the home situation. 10/19/2017 the patient has had some improvement. Still having difficulties with his daily activities and strength and walking. He'll be going to rehab at [facility] to complete his course of therapy. For antibiotic therapy cefuroxime 500 mg orally every 12 hours for 7 days is given for his urinary tract infection with sepsis. Fortunately he is improving and hopefully with rehab will be able to get back to the home environment. Status: Acute Code(s): N39.0 - URINARY TRACT INFECTION, SITE NOT SPECIFIED SNOMED Code(s): 31934067
== END 2017-10-19 16:09 | DRG 871 ==
LOC: EC 06:03 → 4MS4W 08:55
PROVIDERS: ADMIT Internal Medicine; ATTEND Internal Medicine
DX: A41.9 Sepsis, unspecified organism (principal); R65.21 Severe sepsis with septic shock; G93.41 Metabolic encephalopathy; E87.0 Hyperosmolality and hypernatremia; I48.0 Paroxysmal atrial fibrillation; I47.1 Supraventricular tachycardia; E11.51 Type 2 diabetes mellitus with diabetic peripheral angiopathy without gangrene; R13.10 Dysphagia, unspecified; J44.0 Chronic obstructive pulmonary disease with (acute) lower respiratory infection; J44.1 Chronic obstructive pulmonary disease with (acute) exacerbation; N39.0 Urinary tract infection, site not specified; J98.11 Atelectasis; R31.9 Hematuria, unspecified; I11.9 Hypertensive heart disease without heart failure; E78.5 Hyperlipidemia, unspecified; F41.1 Generalized anxiety disorder; H91.90 Unspecified hearing loss, unspecified ear; J45.20 Mild intermittent asthma, uncomplicated; M19.91 Primary osteoarthritis, unspecified site; N40.0 Benign prostatic hyperplasia without lower urinary tract symptoms; D50.9 Iron deficiency anemia, unspecified; I25.10 Atherosclerotic heart disease of native coronary artery without angina pectoris; F10.10 Alcohol abuse, uncomplicated; E87.6 Hypokalemia; I49.1 Atrial premature depolarization; R79.1 Abnormal coagulation profile; F41.9 Anxiety disorder, unspecified; T45.515A Adverse effect of anticoagulants, initial encounter; R32 Unspecified urinary incontinence; H40.9 Unspecified glaucoma; Z79.2 Long term (current) use of antibiotics; Z79.01 Long term (current) use of anticoagulants; Z79.84 Long term (current) use of oral hypoglycemic drugs; Z79.899 Other long term (current) drug therapy; Z87.891 Personal history of nicotine dependence; Z86.718 Personal history of other venous thrombosis and embolism; Z86.711 Personal history of pulmonary embolism; Z96.642 Presence of left artificial hip joint; Z96.652 Presence of left artificial knee joint; Z98.42 Cataract extraction status, left eye; Z98.41 Cataract extraction status, right eye; Z96.1 Presence of intraocular lens; Z88.0 Allergy status to penicillin; Z88.8 Allergy status to other drugs, medicaments and biological substances
CPT/HCPCS: 36415; 70450; 71046; 72125; 74230; 76705; 76770; 80053; 81001; 82140; 82272; 82550; 82553; 82607; 82728; 82746; 83036; 83540; 83550; 83605; 83735; 84443; 84484; 85025; 85610; 85730; 87040; 87077; 87086; 87186; 93005; 94640; 94760; 96361; 96365; 96374; 99285

== ENCOUNTER 2018-08-26 15:57 | Emergency (ER) | payer MEDICARE, BC, OTHER ==
[2018-08-26 16:24] LABS: Basophils # (A) 0.1 k/uL (0-0.2); Basophils % (A) 1 %; Eosinophils # (A) 0.6 k/uL (0-0.7); Eosinophils % (A) 6 %; HCT 39.6 % (39.0-53.0); HGB 12.9 gm/dL (13.0-17.5); Lymphocytes # (A) 2.1 k/uL (1.0-4.8); Lymphocytes % (A) 21 %; MCH 33.1 pg (25.0-35.0); MCHC 32.5 g/dL (31.0-37.0); MCV 101.8 fL (80.0-100.0); Macrocytosis Slight; Monocytes # (A) 0.8 k/uL (0-1.0); Monocytes % (A) 8 %; Neutrophils # (A) 6.2 k/uL (1.3-7.7); Neutrophils % (A) 62 %; Platelet Count 174 k/uL (150-450); RBC 3.89 m/uL (4.30-5.90); RDW 12.9 % (11.5-15.5); WBC 10.1 k/uL (3.8-10.6)
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
[2018-08-26 16:32] LABS: Glucose,Whole Blood 104 mg/dL (75-99)
[2018-08-26 16:34] LABS: ALT 28 U/L (21-72); AST 43 U/L (17-59); Albumin 3.9 g/dL (3.5-5.0); Alcohol <10 mg/dL; Alkaline Phosphatase 64 U/L (38-126); Amylase 40 U/L (30-110); Anion Gap 7 mmol/L; Blood Urea Nitrogen 22 mg/dL (9-20); Calcium 9.9 mg/dL (8.4-10.2); Carbon Dioxide 23 mmol/L (22-30); Chloride 111 mmol/L (98-107); Glucose 110 mg/dL (74-99); Lipase 52 U/L (23-300); Potassium 4.3 mmol/L (3.5-5.1); Sodium 141 mmol/L (137-145); Total Bilirubin 0.9 mg/dL (0.2-1.3); Total Protein 6.6 g/dL (6.3-8.2)
[2018-08-26 16:43] VITALS: BP 160/76; PULSE 76; RESP 16; TEMP 97.3
[2018-08-26 16:44] LABS: INR 1.8 (<1.2); Partial Thromboplastin Time 25.9 sec (22.0-30.0); Prothrombin Time 17.8 sec (9.0-12.0)
[2018-08-26 16:51] LABS: Creatine Kinase MB 5.3 ng/mL (0.0-2.4); Troponin I 0.015 ng/mL (0.000-0.034)
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
[2018-08-26 17:29] LABS: Appearance,Urine Cloudy (Clear); Bacteria,Urine Moderate /hpf; Bilirubin,Urine Negative (Negative); Blood,Urine Negative (Negative); Color,Urine Yellow; Glucose,Urine (UA) Negative (Negative); Hyaline Casts,Urine 1 /lpf (0-2); Ketones,Urine Negative (Negative); Leukocyte Esterase,Urine Large (Negative); Mucus,Urine Rare /hpf; Nitrite,Urine Positive (Negative); PH, Urine 5.5 (5.0-8.0); Protein,Urine Negative (Negative); RBC,Urine 4 /hpf (0-5); Specific Gravity,Urine 1.018 (1.001-1.035); Urobilinogen,Urine <2.0 mg/dL (<2.0); WBC,Urine 133 /hpf (0-5)
[2018-08-27 05:56] LABS: Hemoglobin A1C 5.9 % (4.0-6.0)
[2018-08-27 14:50] LABS: Amphetamine Screen,Urine Not Detected (NotDetected); Barbiturate Screen,Urine Not Detected (NotDetected); Benzodiazepines Screen,Urine Detected (NotDetected); Cocaine Screen,Urine Not Detected (NotDetected); Methadone Screen, Urine Not Detected (NotDetected); Opiate Screen,Urine Not Detected (NotDetected); Oxycodone Screen, Urine Not Detected (NotDetected); Phencyclidine Screen,Urine Not Detected (NotDetected); Tricyclic Antidepressant,Urine Not Detected (NotDetected); Urn Cannabinoid Scrn Not Detected (NotDetected)
== END 2018-08-26 18:34 | disposition home or self-care (01) ==
LOC: EC 15:57 → SUPCPDRO 15:57 → EC 18:34
DX: S20.211A Contusion of right front wall of thorax, initial encounter (principal); S30.1XXA Contusion of abdominal wall, initial encounter; N39.0 Urinary tract infection, site not specified; J45.909 Unspecified asthma, uncomplicated; N40.0 Benign prostatic hyperplasia without lower urinary tract symptoms; M19.90 Unspecified osteoarthritis, unspecified site; Z79.01 Long term (current) use of anticoagulants; Z79.51 Long term (current) use of inhaled steroids; Z79.899 Other long term (current) drug therapy; Z88.0 Allergy status to penicillin; Z88.8 Allergy status to other drugs, medicaments and biological substances; Z96.642 Presence of left artificial hip joint; Z96.652 Presence of left artificial knee joint; Z87.891 Personal history of nicotine dependence; Z86.711 Personal history of pulmonary embolism; V43.52XA Car driver injured in collision with other type car in traffic accident, initial encounter; W22.11XA Striking against or struck by driver side automobile airbag, initial encounter; Y92.410 Unspecified street and highway as the place of occurrence of the external cause
CPT/HCPCS: 36415; 93005; 86900; 86901; 80053; 82150; 82550; 82553; 83605; 83690; 84484; 85025; 85610; 85730; 86850; 81001; 83036; 72170; 71045; 72125; 70450; 71260; 74177; 99285; G0480; Q9967; 80306; 80320

== ENCOUNTER → 2018-10-07 | Outpatient (CLI) | payer MEDICARE, BC ==
--- NOTE | 2018-10-07 15:26 | US ---
EXAMINATION TYPE: US kidneys/renal and bladder DATE OF EXAM: 10/07/2018 COMPARISON: CT from August 26, 2018 CLINICAL HISTORY: Z87.440 Personal history of urinary (tract) infect. EXAM MEASUREMENTS: Right Kidney: 10.0 x 3.7 x 4.3 cm Left Kidney: 10.6 x 4.2 x 4.2 cm Right Kidney: cyst measuring 1.2 x 1.0 x 0.9 Left Kidney: No hydronephrosis or masses seen Bladder: not fully distended, somewhat limited visualization There is no evidence for hydronephrosis at this point in time. No nephrolithiasis is seen. Technolog ist marked small simple appearing roughly 1.0 cm cyst in right kidney. The urinary bladder is not gr eatly distended. Bilateral ureteral jets are not seen. IMPRESSION: No hydronephrosis identified bilaterally.
== END ==
LOC: RADUSWWP 12:42
PROVIDERS: ATTEND Internal Medicine
DX: N39.0 Urinary tract infection, site not specified (principal)
CPT/HCPCS: 76770

== ENCOUNTER 2019-04-27 13:59 | Observation (INO) | payer MEDICARE, BC ==
[2019-04-27 15:39] LABS: Basophils # (A) 0.1 k/uL (0-0.2); Basophils % (A) 1 %; Eosinophils # (A) 0.6 k/uL (0-0.7); Eosinophils % (A) 10 %; HCT 41.1 % (39.0-53.0); HGB 13.8 gm/dL (13.0-17.5); Lymphocytes # (A) 1.7 k/uL (1.0-4.8); Lymphocytes % (A) 26 %; MCH 33.2 pg (25.0-35.0); MCHC 33.6 g/dL (31.0-37.0); MCV 98.8 fL (80.0-100.0); Mean Platelet Volume 6.7; Monocytes # (A) 0.7 k/uL (0-1.0); Monocytes % (A) 10 %; Neutrophils # (A) 3.4 k/uL (1.3-7.7); Neutrophils % (A) 51 %; Platelet Count 222 k/uL (150-450); RBC 4.16 m/uL (4.30-5.90); RDW 12.5 % (11.5-15.5); WBC 6.7 k/uL (3.8-10.6)
[2019-04-27 15:40] LABS: African American GFR (CKD) >90 (>60 ml/min/1.73 sqM); Anion Gap 8 mmol/L; Blood Urea Nitrogen 19 mg/dL (9-20); Calcium 9.8 mg/dL (8.4-10.2); Carbon Dioxide 26 mmol/L (22-30); Chloride 109 mmol/L (98-107); Glucose 116 mg/dL (74-99); Magnesium 1.7 mg/dL (1.6-2.3); Potassium 3.9 mmol/L (3.5-5.1); Sodium 143 mmol/L (137-145)
[2019-04-27] MEDS ORDERED: SODIUM CHLORIDE 0.9% 1,000 ML IV STA (15:48)
--- NOTE | 2019-04-27 16:12 | ED ---
General Adult HPI - General Chief complaint: Urogenital Stated complaint: Poss UTI, Confusion Time Seen by Provider: 04/27/19 14:58 Source: patient, family Mode of arrival: wheelchair Limitations: no limitations - History of Present Illness Initial comments: Dictation was produced using [employer] dictation software. please excuse any gram matical, word or spelling errors. Chief Complaint: 88-year-old male with past mental history asthma, diabetes, prostate disease presents with hematuria concern for UTI and altered mental s tatus. History of Present Illness: An 88-year-old male he was dropped off to the emergency department by his daughter. Patient self catheterizes. According to nurse who received report from daughter he has been having bleeding from the penis. Daughter also told the nurse that patient is kind of delusional. Patient feels weak. Denies any urinary symptoms. She is a poor historian. Daughter did mention that patient usually becomes mildly delusional when he has urinary tract infection. The ROS documented in this emergency department record has been reviewed and confirmed by me. Those systems with pertinent positive or negative responses have been documented in the HPI. All other systems are other negative and/or noncontributory. PHYSICAL EXAM: General Impression: Alert and oriented x4/4, not in acute distress HEENT: Normocephalic atraumatic, extra-ocular movements intact, pupils equal and reactive to light bilaterally, dry mucous membranes Cardiovascular: Heart regular rate and rhythm, S1&S2 audible, no murmurs, rubs or gallops Chest: Lungs clear to auscultation bilaterally, no rhonchi, no wheeze, no rales Abdomen: Bowel sounds present, abdomen soft, non-tender, non-distended, no organomegaly Musculoskeletal: Pulses present and equal in all extremities, no peripheral ed rob Motor: no focal deficits noted Neurological: CN II-XII grossly intact, no focal motor or sensory deficits noted Skin: Intact with no visualized rashes Psych: Normal affect and mood ED course: 88-year-old male presents with concern for urinary infection, hematuria and altered mental status per daughter. Patient is alert and oriented 4 out of 4. He does not appear to be delusional at this time. She has no specific complaints except for generalized weakness. Patient does appear dehydrated on physical examination. Blood pressure is 90/60 hours vital signs within acceptable limits.Patient is a poor historian. More history was obtained from patient. He states that he isn't having some episodes of syncope that has been occurring often over the last 6 months. Given these EKG changes and history of syncope concerned that patient should be evaluated by cardiology. This patient is Dr. Arevalo is willing to accept patients care. Cardiology consult. Patient's potassium and magnesium were slightly low in the normal range. Patient was given by mouth potassium. Magnesium for optimization. EKG interpretation: Ventricular rate 61, normal sinus rhythm, OR interval 16, QRS 140, QTc 465. No OR prolongation, no QTC prolongation, no ST or T-wave changes noted. QRS is widened compared to EKG 08/26/2018. - Related Data Home Medications Medication Instructions Recorded Confirmed Atorvastatin [Lipitor] 20 mg PO HS 11/04/15 08/26/18 Latanoprost Ophth [Xalatan 0.005%] 1 drops BOTH EYES HS 11/04/15 08/26/18 Acetaminophen [Tylenol] 1,000 mg PO Q6H PRN 11/30/15 08/26/18 Cholecalciferol [Vitamin D3 (25 5,000 unit PO DAILY 11/30/15 08/26/18 Mcg = 1000 Iu)] Conjugated Linoleic Acid 1 tab PO DAILY 11/30/15 08/26/18 L.acidoph,Paracasei, B.lactis 2 cap PO DAILY 11/30/15 08/26/18 [Probiotic] Loratadine [Claritin] 10 mg PO DAILY 11/30/15 08/26/18 Melatonin 10 mg PO HS 11/30/15 08/26/18 Multivitamin [Men's Multi-Vitamin] 1 tab PO DAILY 11/30/15 08/26/18 [place]-3 Fatty Acids/Fish Oil [Fish 1 cap PO DAILY 11/30/15 08/26/18 Oil 1,000 mg Softgel] Vitamin E (Dl,Tocopheryl Acet) 400 unit PO DAILY 11/30/15 08/26/18 [Vitamin E] Ipratropium-Albuterol Nebulize 3 ml INHALATION RT-QID 10/06/17 08/26/18 [Duoneb 0.5 mg-3 mg/3 ml Soln] Ascorbic Acid [Vitamin C] 1,500 mg PO DAILY 10/08/17 08/26/18 Calcium Carbonate/Vitamin D3 1 tab PO DAILY 10/08/17 08/26/18 [Calcium 600-Vit D3 400 Caplet] Ipratropium/Albuterol Sulfate 1 puff INHALATION RT-QID 10/08/17 08/26/18 [Combivent Respimat Inhaler] ALPRAZolam [Xanax] 0.25 mg PO QAM 08/26/18 08/26/18 ALPRAZolam [Xanax] 0.5 mg PO HS 08/26/18 08/26/18 Budesonide [Pulmicort] 0.5 mg INHALATION RT-BID 08/26/18 08/26/18 Ferrous Sulfate [Iron (65 MG 325 mg PO DAILY 08/26/18 08/26/18 Elemental)] Finasteride [Proscar] 5 mg PO DAILY 08/26/18 08/26/18 Folic Acid 1 mg PO DAILY 08/26/18 08/26/18 Gabapentin [Neurontin] 100 mg PO HS 08/26/18 08/26/18 Thiamine [Vitamin B-1] 100 mg PO DAILY 08/26/18 08/26/18 Warfarin [Coumadin] 2.5 mg PO SUMOTUTHFRSA 08/26/18 08/26/18 Warfarin [Coumadin] 5 mg PO WE 08/26/18 08/26/18 Previous Rx's Medication Instructions Recorded Sulfamethox-Tmp 800-160Mg [Bactrim 1 each PO Q12HR #14 tab 08/26/18 DS 800-160 mg] Allergies Allergy/AdvReac Type Severity Reaction Status Date / Time Penicillins AdvReac Unknown Verified 04/27/19 14:22 tamsulosin HCl [From Flomax] AdvReac Unknown Verified 04/27/19 14:22 Review of Systems ROS Statement: Those systems with pertinent positive or pertinent negative responses have been documented in the HPI. ROS Other: All systems not noted in ROS Statement are negative. Past Medical History Past Medical History: Asthma, Diabetes Mellitus, Eye Disorder, Hearing Disorder / Deafness, Hypertension, Memory Impairment, Osteoarthritis (OA), Prostate Disorder, Pulmonary Embolus (PE) Additional Past Medical History / Comment(s): Severe environmental allergies, respiratory failure/intubated, [place] bilaterally, BPH, bilateral glaucoma. History of Any Multi-Drug Resistant Organisms: None Reported Past Surgical History: Joint Replacement, Tonsillectomy Additional Past Surgical History / Comment(s): L total hip arthroplasty, L total knee arthroplasty, laser surgery bilateral eyes cataracts with lens implants, colonoscopy with benign polypectomy, cyst removed from back, vasectomy. Past Anesthesia/Blood Transfusion Reactions: No Reported Reaction Past Psychological History: Anxiety Smoking Status: Current every day smoker Past Alcohol Use History: Daily, Heavy Past Drug Use History: None Reported - Past Family History Father Family Medical History: No Reported History Mother Additional Family Medical History / Comment(s): Pt states his mother had mental health issues and trigeminal nerve problem and had chronic pain from this. General Exam Limitations: no limitations Course Vital Signs 04/27/19 14:23 Temperature 97.9 F Pulse Rate 64 Respiratory 18 Rate Blood Pressure 98/68 O2 Sat by Pulse 93 L Oximetry Medical Decision Making - Lab Data Result diagrams: 04/27/19 15:18 04/27/19 15:18 Lab Results 04/27/19 04/27/19 04/27/19 Range/Units 14:53 15:18 15:18 WBC 6.7 (3.8-10.6) k/uL RBC 4.16 L (4.30-5.90) m/uL Hgb 13.8 (13.0-17.5) gm/dL Hct 41.1 (39.0-53.0) % MCV 98.8 (80.0-100.0) fL MCH 33.2 (25.0-35.0) pg MCHC 33.6 (31.0-37.0) g/dL RDW 12.5 (11.5-15.5) % Plt Count 222 (150-450) k/uL Neutrophils % 51 % Lymphocytes % 26 % Monocytes % 10 % Eosinophils % 10 % Basophils % 1 % Neutrophils # 3.4 (1.3-7.7) k/uL Lymphocytes # 1.7 (1.0-4.8) k/uL Monocytes # 0.7 (0-1.0) k/uL Eosinophils # 0.6 (0-0.7) k/uL Basophils # 0.1 (0-0.2) k/uL Sodium 143 (137-145) mmol/L Potassium 3.9 (3.5-5.1) mmol/L Chloride 109 H (98-107) mmol/L Carbon Dioxide 26 (22-30) mmol/L Anion Gap 8 mmol/L BUN 19 (9-20) mg/dL Creatinine 0.78 (0.66-1.25) mg/dL Est GFR (CKD-EPI)AfAm >90 (>60 ml/min/1.73 sqM) Est GFR (CKD-EPI)NonAf 81 (>60 ml/min/1.73 sqM) Glucose 116 H (74-99) mg/dL Calcium 9.8 (8.4-10.2) mg/dL Magnesium 1.7 (1.6-2.3) mg/dL Urine Color Yellow Urine Appearance Clear (Clear) Urine pH 5.0 (5.0-8.0) Ur Specific [place] 1.014 (1.001-1.035) Urine Protein Negative (Negative) Urine Glucose (UA) Negative (Negative) Urine Ketones Negative (Negative) Urine Blood Negative (Negative) Urine Nitrite Negative (Negative) Urine Bilirubin Negative (Negative) Urine Urobilinogen <2.0 (<2.0) mg/dL Ur Leukocyte Esterase Negative (Negative) Disposition Clinical Impression: Weakness Disposition: ADMITTED IP TO THIS [facility] Condition: Fair Referrals: Yue Loya MD [Primary Care Provider] - 1-2 days Decision Time: 17:11
[2019-04-27] MEDS ORDERED: ALBUTEROL NEBULIZED 2.5 MG/3 ML INHALATION STA (16:55)
[2019-04-27] MEDS ORDERED: POTASSIUM CHLORIDE ER 20 MEQ TAB.ER PO STA (16:58)
[2019-04-27] MEDS ORDERED: MAGNESIUM OXIDE 400 MG TAB PO STA (16:58)
[2019-04-27 17:03] LABS: Appearance,Urine Clear (Clear); Bilirubin,Urine Negative (Negative); Blood,Urine Negative (Negative); Color,Urine Yellow; Glucose,Urine (UA) Negative (Negative); Ketones,Urine Negative (Negative); Leukocyte Esterase,Urine Negative (Negative); Nitrite,Urine Negative (Negative); Protein,Urine Negative (Negative); Specific Gravity,Urine 1.014 (1.001-1.035); Urobilinogen,Urine <2.0 mg/dL (<2.0)
[2019-04-27] MEDS ORDERED: NALOXONE 0.4 MG/ML 1 ML VIAL IV PRN (17:12)
[2019-04-27] MEDS: SODIUM CHLORIDE 0.9% 1,000 ML IV SCH (18:12)
[2019-04-27 19:58] LABS: INR 1.1 (<1.2); Partial Thromboplastin Time 25.2 sec (22.0-30.0); Prothrombin Time 11.1 sec (9.0-12.0)
[2019-04-27 20:08] LABS: Glucose,Whole Blood 106 mg/dL (75-99)
[2019-04-27] MEDS ORDERED: ACETAMINOPHEN TAB 500 MG TAB PO PRN (21:29)
[2019-04-27] MEDS ORDERED: IBUPROFEN 600 MG TAB PO PRN (21:29)
[2019-04-27] MEDS: MELATONIN 5 MG TABLET PO SCH (21:45)
[2019-04-27] MEDS: APIXABAN 2.5 MG TABLET PO SCH (21:45)
[2019-04-27] MEDS: ALPRAZolam 0.25 MG TAB PO SCH (21:45)
[2019-04-27] MEDS: FINASTERIDE 5 MG TAB PO SCH (21:45)
[2019-04-27] MEDS: LATANOPROST 0.005% OPHTH DROPS 2.5 ML BTL BOTH EYES SCH (21:48)
[2019-04-28] MEDS: BUDESONIDE 0.5 MG/2 ML NEBU INHALATION SCH ×2 (05:13→19:57)
[2019-04-28 06:39] LABS: Glucose,Whole Blood 116 mg/dL (75-99)
[2019-04-28] MEDS: INSULIN ASPART (NovoLOG) 100 UNIT/ML VIAL SQ SCH ×4 (06:43→19:58)
[2019-04-28] MEDS ORDERED: IPRATROPIUM-ALBUTEROL 3 ML NEB INHALATION SCH (08:00)
[2019-04-28 09:47] LABS: Basophils # (A) 0.1 k/uL (0-0.2); Basophils % (A) 1 %; Eosinophils # (A) 0.6 k/uL (0-0.7); Eosinophils % (A) 7 %; HCT 41.1 % (39.0-53.0); HGB 13.3 gm/dL (13.0-17.5); Lymphocytes # (A) 2.3 k/uL (1.0-4.8); Lymphocytes % (A) 27 %; MCH 32.5 pg (25.0-35.0); MCHC 32.4 g/dL (31.0-37.0); MCV 100.1 fL (80.0-100.0); Monocytes # (A) 0.8 k/uL (0-1.0); Monocytes % (A) 9 %; Neutrophils # (A) 4.6 k/uL (1.3-7.7); Neutrophils % (A) 54 %; Platelet Count 201 k/uL (150-450); RBC 4.11 m/uL (4.30-5.90); RDW 13.3 % (11.5-15.5); WBC 8.5 k/uL (3.8-10.6)
[2019-04-28 09:58] LABS: ALT 14 U/L (21-72); AST 25 U/L (17-59); African American GFR (CKD) >90 (>60 ml/min/1.73 sqM); Albumin 3.5 g/dL (3.5-5.0); Alkaline Phosphatase 57 U/L (38-126); Anion Gap 8 mmol/L; Blood Urea Nitrogen 16 mg/dL (9-20); Calcium 9.6 mg/dL (8.4-10.2); Carbon Dioxide 22 mmol/L (22-30); Chloride 113 mmol/L (98-107); Glucose 101 mg/dL (74-99); Potassium 4.1 mmol/L (3.5-5.1); Sodium 143 mmol/L (137-145); Total Bilirubin 0.7 mg/dL (0.2-1.3); Total Protein 6.3 g/dL (6.3-8.2)
[2019-04-28] MEDS: ATENOLOL 50 MG TAB PO SCH (10:37)
[2019-04-28] MEDS: APIXABAN 2.5 MG TABLET PO SCH ×2 (10:37→20:00)
[2019-04-28] MEDS: ASCORBIC ACID 500 MG TAB PO SCH (10:37)
[2019-04-28] MEDS: ALPRAZolam 0.25 MG TAB PO SCH ×3 (10:37→20:01)
[2019-04-28] MEDS: FINASTERIDE 5 MG TAB PO SCH (10:38)
[2019-04-28] MEDS: LORATADINE 10 MG TAB PO SCH (10:38)
[2019-04-28] MEDS: CALCIUM CARB-VIT D 500MG-200UN 1 EACH TAB PO SCH (10:38)
[2019-04-28] MEDS: CHOLECALCIFEROL 1,000 UNIT TAB PO SCH (10:38)
[2019-04-28] MEDS: MULTIVITAMINS, THERA 1 EACH TAB PO SCH (10:39)
[2019-04-28] MEDS: LOSARTAN 50 MG TAB PO SCH (10:39)
[2019-04-28] MEDS: SILODOSIN 8 MG PO SCH (10:40)
--- NOTE | 2019-04-28 10:56 | P.CRDCN ---
History of Present Illness Consult date: 04/28/19 Requesting physician: Yue Loya Reason for Consult (text): Syncope, weakness, EKG changes Chief complaint: Mental status changes, possible UTI History of present illness: Is is an 88-year-old gentleman who states he used to see Dr. Stewart in the office in the past but was told he did not have any cardiac issues, so he no longer follows with him he sees only doctor as sharp. He has a known history of diabetes, hypertension, hyperlipidemia, peripheral vascular disease, mild nono bstructive coronary artery disease, moderate carotid artery disease, chronic alcohol use and former tobacco use. Patient also had a history of paroxysmal atrial fibrillation. On this occasion, the patient was dropped off to the emergency room by her daughter, he was noted to have some mental status changes, and she was suspicious that he may have a UTI because when he gets UTIs he seems to have these mental status changes. Patient states he does get recurrent UTIs and also has had recurrent syncopal episodes which were attributed to UTIs in the past. His EKG on presentation here showed a normal sinus rhythm with a new left bundle branch block pattern which the patient had not had in the past. Blood pressure on admission here 98/60, heart rate in the 60s, temperature 90.7 0.90 was 93% on room air. Orthostatics were performed at 4 AM this morning 163/80 lying 143/80 sitting and 140/70 standing, heart rate in the 70s, 94% on room air. White blood cell count 8.5, hemoglobin 13.3, platelet count 201. Sodium 143, potassium 4.1, BUN 16 and creatinine 0.6. Magnesium 1.7, troponin negative. UA is negative, patient states he has been on antibiotics as an outpatient for recurrent UTIs. Past Medical History Past Medical History: Asthma, Diabetes Mellitus, Eye Disorder, Hearing Disorder / Deafness, Hypertension, Memory Impairment, Osteoarthritis (OA), Prostate Disorder, Pulmonary Embolus (PE) Additional Past Medical History / Comment(s): Severe environmental allergies, respiratory failure/intubated, [place] bilaterally, BPH, bilateral glaucoma. History of Any Multi-Drug Resistant Organisms: None Reported Past Surgical History: Joint Replacement, Tonsillectomy Additional Past Surgical History / Comment(s): L total hip arthroplasty, L total knee arthroplasty, laser surgery bilateral eyes cataracts with lens implants, colonoscopy with benign polypectomy, cyst removed from back, vasectomy. Past Anesthesia/Blood Transfusion Reactions: No Reported Reaction Past Psychological History: Anxiety Additional Psychological History / Comment(s): Pt's daughter resides with him. He was driving up until recently. Daughter drives. He has recently been weak and falling so is now using a walker. He manages his own medication. Smoking Status: Former smoker Past Alcohol Use History: Daily, Heavy Additional Past Alcohol Use History / Comment(s): Pt started smoking in 1950 and quit in 1980. Drinks pint or more of vodka daily Past Drug Use History: None Reported - Past Family History Father Family Medical History: No Reported History Mother Additional Family Medical History / Comment(s): Pt states his mother had mental health issues and trigeminal nerve problem and had chronic pain from this. Medications and Allergies Home Medications Medication Instructions Recorded Confirmed Type Atorvastatin [Lipitor] 20 mg PO HS 11/04/15 04/27/19 History Latanoprost Ophth [Xalatan 0.005%] 1 drops BOTH EYES HS 11/04/15 04/27/19 His tory Acetaminophen [Tylenol] 1,000 mg PO Q6H PRN 11/30/15 04/27/19 History Cholecalciferol [Vitamin D3 (25 1,000 unit PO DAILY 11/30/15 04/27/19 History Mcg = 1000 Iu)] L.acidoph,Paracasei, B.lactis 1 cap PO DAILY 11/30/15 04/27/19 History [Probiotic] Loratadine [Claritin] 10 mg PO DAILY 11/30/15 04/27/19 History Melatonin 10 mg PO HS 11/30/15 04/27/19 History Multivitamin [Men's Multi-Vitamin] 1 tab PO DAILY 11/30/15 04/27/19 History Vitamin E (Dl,Tocopheryl Acet) 400 unit PO DAILY 11/30/15 04/27/19 History [Vitamin E] Ipratropium-Albuterol Nebulize 3 ml INHALATION RT-TID 10/06/17 04/27/19 History [Duoneb 0.5 mg-3 mg/3 ml Soln] Ascorbic Acid [Vitamin C] 500 mg PO DAILY 10/08/17 04/27/19 History Calcium Carbonate/Vitamin D3 1 tab PO DAILY 10/08/17 04/27/19 History [Calcium 600-Vit D3 400 Caplet] ALPRAZolam [Xanax] 0.25 mg PO TID 08/26/18 04/27/19 History Budesonide [Pulmicort] 0.5 mg INHALATION RT-BID 08/26/18 04/27/19 History Finasteride [Proscar] 5 mg PO DAILY 08/26/18 04/27/19 History Apixaban [Eliquis] 2.5 mg PO BID 04/27/19 04/27/19 History Atenolol [Tenormin] 50 mg PO DAILY 04/27/19 04/27/19 History Ibuprofen [Motrin] 600 mg PO Q8HR PRN 04/27/19 04/27/19 History Silodosin [Rapaflo] 8 mg PO DAILY 04/27/19 04/27/19 History Telmisartan [Micardis] 80 mg PO DAILY 04/27/19 04/27/19 History Allergies Allergy/AdvReac Type Severity Reaction Status Date / Time Penicillins AdvReac Unknown Verified 04/27/19 17:17 tamsulosin HCl [From Flomax] AdvReac Unknown Verified 04/27/19 17:17 Physical Exam Vitals: Vital Signs Temp Pulse Pulse Resp BP BP BP 04/28/19 05:36 72 04/28/19 05:13 76 04/28/19 04:00 98.7 F 76 18 141/80 143/82 04/28/19 00:00 97.4 F L 70 18 116/62 04/27/19 20:25 97.7 F 69 18 155/78 04/27/19 20:00 69 18 04/27/19 19:03 98.7 F 70 18 132/69 04/27/19 17:42 72 04/27/19 17:33 76 04/27/19 17:11 73 22 123/80 04/27/19 14:23 97.9 F 64 18 98/68 BP BP Pulse Ox 04/28/19 05:36 04/28/19 05:13 04/28/19 04:00 140/73 163/80 94 L 04/28/19 00:00 96 04/27/19 20:25 04/27/19 20:00 04/27/19 19:03 95 04/27/19 17:42 09/18/19 17:33 04/27/19 17:11 95 04/27/19 14:23 93 L Intake and Output 04/27/19 04/28/19 04/28/19 22:59 06:59 14:59 Intake Total 100 120 Output Total 550 Balance 100 -550 120 Intake: Oral 100 120 Output: Urine 550 Other: Voiding Method Urinal Urinal Self-Catheterization Indwelling Catheter # Voids 1 # Bowel Movements 1 Weight 60 kg GENERAL: This is a 88-year-old male in no apparent distress at the time of my examination. HEENT: Head is atraumatic, normocephalic. Pupils are equal, round. Sclerae anicteric. Conjunctivae are clear. Mucous membranes of the mouth are moist. Neck is supple. There is no jugular venous distention.John carotid bruit is heard. LUNGS: Clear to auscultation no wheezes, rales or rhonchi. No chest wall t enderness is noted on palpation or with deep breathing. Diminished. HEART: S1 and S2 no murmurs or gallops. ABDOMEN: Soft, nontender. Bowel sounds are heard. No organomegaly noted. EXTREMITIES: No evidence of peripheral edema and no calf tenderness noted. VASCULAR: Radial and dorsalis pedis pulses palpated, no evidence of clubbing. NEUROLOGIC: Patient awake, alert and oriented 3 Results 04/28/19 09:31 04/28/19 09:31 Cardiac Enzymes 04/27/19 04/28/19 Range/Units 15:18 09:31 AST 25 (17-59) U/L Troponin I <0.012 (0.000-0.034) ng/mL Coagulation 04/27/19 Range/Units 15:18 PT 11.1 (9.0-12.0) sec APTT 25.2 (22.0-30.0) sec CBC 04/27/19 04/28/19 Range/Units 15:18 09:31 WBC 6.7 8.5 (3.8-10.6) k/uL RBC 4.16 L 4.11 L (4.30-5.90) m/uL Hgb 13.8 13.3 (13.0-17.5) gm/dL Hct 41.1 41.1 (39.0-53.0) % Plt Count 222 201 (150-450) k/uL Comprehensive Metabolic Panel 04/27/19 04/28/19 Range/Units 15:18 09:31 Sodium 143 143 (137-145) mmol/L Potassium 3.9 4.1 (3.5-5.1) mmol/L Chloride 109 H 113 H (98-107) mmol/L Carbon Dioxide 26 22 (22-30) mmol/L BUN 19 16 (9-20) mg/dL Creatinine 0.78 0.65 L (0.66-1.25) mg/dL Glucose 116 H 101 H (74-99) mg/dL Calcium 9.8 9.6 (8.4-10.2) mg/dL AST 25 (17-59) U/L ALT 14 L (21-72) U/L Alkaline Phosphatase 57 (38-126) U/L Total Protein 6.3 (6.3-8.2) g/dL Albumin 3.5 (3.5-5.0) g/dL Current Medications Generic Name Dose Route Start Last Admin Trade Name Freq PRN Reason Stop Dose Admin Acetaminophen 1,000 mg 04/27/19 21:29 Tylenol Tab PO Q6H PRN Pain Albuterol/Ipratropium 3 ml 04/28/19 08:00 04/28/19 05:13 Duoneb 0.5 Mg-3 Mg/3 Ml Soln INHALATION 3 ml RT-TID PERI Administration Alprazolam 0.25 mg 04/27/19 22:00 04/28/19 10:37 Xanax PO 0.25 mg TID PERI Administration Lipase/Protease/Amylase 1 each 04/28/19 09:[address] 5,000 Unit Capsule PO DAILY PERI Apixaban 2.5 mg 04/27/19 21:45 04/28/19 10:37 Eliquis PO 2.5 mg BID PERI Administration Ascorbic Acid 500 mg 04/28/19 09:00 04/28/19 10:37 Vitamin C PO 500 mg DAILY PERI Administration Atenolol 50 mg 04/28/19 09:00 04/28/19 10:37 Tenormin PO 50 mg DAILY PERI Administration Atorvastatin Calcium 20 mg 04/28/19 21:00 Lipitor PO HS [facility] Budesonide 0.5 mg 04/28/19 08:00 04/28/19 05:13 Pulmicort INHALATION 0.5 mg RT-BID PERI Administration Calcium Carbonate 1 each 04/28/19 09:00 04/28/19 10:38 Oscal 500+D PO 1 each DAILY PERI Administration Cholecalciferol 1,000 unit 04/28/19 09:00 04/28/19 10:38 Vitamin D3 (25 Mcg = 1000 Iu) PO 1,000 unit DAILY PERI Administration Finasteride 5 mg 04/27/19 21:30 04/28/19 10:38 Proscar PO 5 mg DAILY PERI Administration Sodium Chloride 1,000 mls @ 20 mls/hr 04/27/19 17:15 04/27/19 18:12 Saline 0.9% IV 20 mls/hr .Q24H PERI Administration Ibuprofen 600 mg 04/27/19 21:29 Motrin PO Q8HR PRN Pain Insulin Aspart 0 unit 04/28/19 07:30 04/28/19 06:43 Novolog SQ Not Given ACHS [facility] Protocol Latanoprost 1 drops 04/27/19 22:00 04/27/19 21:48 Xalatan 0.005% BOTH EYES Not Given HS PERI Loratadine 10 mg 04/28/19 09:00 04/28/19 10:38 Claritin PO 10 mg DAILY PERI Administration Losartan Potassium 150 mg 04/28/19 09:00 04/28/19 10:39 Cozaar PO 150 mg DAILY PERI Administration Melatonin 10 mg 04/27/19 22:00 04/27/19 21:45 Melatonin PO 10 mg HS PERI Administration Multivitamins 1 each 04/28/19 09:00 04/28/19 10:39 Theragran PO 1 each DAILY PERI Administration Naloxone HCl 0.2 mg 04/27/19 17:12 Narcan IV Q2M PRN Opioid Reversal Non-Formulary Medication 8 mg 04/28/19 09:00 04/28/19 10:40 Silodosin [Rapaflo] PO Not Given DAILY PERI Vitamin E 400 unit 04/28/19 09:00 Vitamin E PO DAILY PERI Intake and Output 04/27/19 04/28/19 04/28/19 22:59 06:59 14:59 Intake Total 100 120 Output Total 550 Balance 100 -550 120 Intake: Oral 100 120 Output: Urine 550 Other: Voiding Method Urinal Urinal Self-Catheterization Indwelling Catheter # Voids 1 # Bowel Movements 1 Weight 60 kg 04/28/19 09:31 04/28/19 09:31 EKG Interpretations (text) EKG shows a normal sinus rhythm with left bundle branch block pattern Assessment and Plan Plan: Assessment and plan #1 mental status changes with suspicion of possible UTI. UA was negative however patient has been on antibiotics as an outpatient. #2 patient has history of recurrent UTIs #3 left bundle-branch block pattern #4 history of recurrent syncope #5 diabetes #6 hypertension #7 hyperlipidemia #8 chronic alcohol use #9 paroxysmal atrial fibrillation #10 cardiac catheterization performed in 2002 revealed mild to moderate triple- vessel coronary artery disease with no critical stenosis. Plan We will obtain an echocardiogram with Doppler study, check orthostatic heart rate and blood pressure every shift. Possible 30 day event monitor on discharge. DNP note has been reviewed, I agree with a documented findings and plan of care. Patient was seen and examined.
--- NOTE | 2019-04-28 11:14 | P.HPIM ---
History of Present Illness H&P Date: 04/28/19 Chief Complaint: Weakness with syncopal episode This is an 88-year-old gentleman who presented to the ER with complaints of ongoing weakness and syncopal episodes. Patient reports that these have been intermittently occurring where he "blacks out". Patient also reports that he has frequent urinary tract infections and recently completed treatment. Additional medical history includes atrial fibrillation which she is maintained on eliquis, asthma, diabetes mellitus, hearing disorder, memory impairment, his urethritis, prostate disorder, ALLERGIES, frequent UTIs, pulmonary embolism, hypertension and anxiety. UA negative for urinary tract infection. EKG completed showing normal sinus rhythm with sinus arrhythmia left bundle branch block. At this time orthostatic blood pressures ordered. 2-D echo and carotid Doppler ordered. Cardiology consult placed. Patient is currently resting comfortably in chair. Patient denies chest pain or shortness of breath. Janette ent denies any nausea vomiting or diarrhea. Patient denies any urinary burning or frequency. PT OT consulted for increased weakness social work consulted for discharge planning Review of Systems Please refer to HPI otherwise unremarkable Past Medical History Past Medical History: Asthma, Diabetes Mellitus, Eye Disorder, Hearing Disorder / Deafness, Hypertension, Memory Impairment, Osteoarthritis (OA), Prostate Disorder, Pulmonary Embolus (PE) Additional Past Medical History / Comment(s): Severe environmental allergies, respiratory failure/intubated, [place] bilaterally, BPH, bilateral glaucoma. History of Any Multi-Drug Resistant Organisms: None Reported Past Surgical History: Joint Replacement, Tonsillectomy Additional Past Surgical History / Comment(s): L total hip arthroplasty, L total knee arthroplasty, laser surgery bilateral eyes cataracts with lens implants, colonoscopy with benign polypectomy, cyst removed from back, vasectomy. Past Anesthesia/Blood Transfusion Reactions: No Reported Reaction Past Psychological History: Anxiety Additional Psychological History / Comment(s): Pt's daughter resides with him. He was driving up until recently. Daughter drives. He has recently been weak and falling so is now using a walker. He manages his own medication. Smoking Status: Former smoker Past Alcohol Use History: Daily, Heavy Additional Past Alcohol Use History / Comment(s): Pt started smoking in 1950 and quit in 1980. Drinks pint or more of vodka daily Past Drug Use History: None Reported - Past Family History Father Family Medical History: No Reported History Mother Additional Family Medical History / Comment(s): Pt states his mother had mental health issues and trigeminal nerve problem and had chronic pain from this. Medications and Allergies Home Medications Medication Instructions Recorded Confirmed Type Atorvastatin [Lipitor] 20 mg PO HS 11/04/15 04/27/19 History Latanoprost Ophth [Xalatan 0.005%] 1 drops BOTH EYES HS 11/04/15 04/27/19 History Acetaminophen [Tylenol] 1,000 mg PO Q6H PRN 11/30/15 04/27/19 History Cholecalciferol [Vitamin D3 (25 1,000 unit PO DAILY 11/30/15 04/27/19 History Mcg = 1000 Iu)] L.acidoph,Paracasei, B.lactis 1 cap PO DAILY 11/30/15 04/27/19 History [Probiotic] Loratadine [Claritin] 10 mg PO DAILY 11/30/15 04/27/19 History Melatonin 10 mg PO HS 11/30/15 04/27/19 History Multivitamin [Men's Multi-Vitamin] 1 tab PO DAILY 11/30/15 04/27/19 History Vitamin E (Dl,Tocopheryl Acet) 400 unit PO DAILY 11/30/15 04/27/19 History [Vitamin E] Ipratropium-Albuterol Nebulize 3 ml INHALATION RT-TID 10/06/17 04/27/19 History [Duoneb 0.5 mg-3 mg/3 ml Soln] Ascorbic Acid [Vitamin C] 500 mg PO DAILY 10/08/17 04/27/19 History Calcium Carbonate/Vitamin D3 1 tab PO DAILY 10/08/17 04/27/19 History [Calcium 600-Vit D3 400 Caplet] ALPRAZolam [Xanax] 0.25 mg PO TID 08/26/18 04/27/19 History Budesonide [Pulmicort] 0.5 mg INHALATION RT-BID 08/26/18 04/27/19 History Finasteride [Proscar] 5 mg PO DAILY 08/26/18 04/27/19 History Apixaban [Eliquis] 2.5 mg PO BID 04/27/19 04/27/19 History Atenolol [Tenormin] 50 mg PO DAILY 04/27/19 04/27/19 History Ibuprofen [Motrin] 600 mg PO Q8HR PRN 04/27/19 04/27/19 History Silodosin [Rapaflo] 8 mg PO DAILY 04/27/19 04/27/19 History Telmisartan [Micardis] 80 mg PO DAILY 04/27/19 04/27/19 History Allergies Allergy/AdvReac Type Severity Reaction Status Date / Time Penicillins AdvReac Unknown Verified 04/27/19 17:17 tamsulosin HCl [From Flomax] AdvReac Unknown Verified 04/27/19 17:17 Physical Exam Vitals: Vital Signs Temp Pulse Pulse Resp BP BP BP 04/28/19 05:36 72 04/28/19 05:13 76 04/28/19 04:00 98.7 F 76 18 141/80 143/82 04/28/19 00:00 97.4 F L 70 18 116/62 04/27/19 20:25 97.7 F 69 18 155/78 04/27/19 20:00 69 18 04/27/19 19:03 98.7 F 70 18 132/69 04/27/19 17:42 72 04/27/19 17:33 76 04/27/19 17:11 73 22 123/80 04/27/19 14:23 97.9 F 64 18 98/68 BP BP Pulse Ox 04/28/19 05:36 04/28/19 05:13 04/28/19 04:00 140/73 163/80 94 L 04/28/19 00:00 96 04/27/19 20:25 04/27/19 20:00 04/27/19 19:03 95 04/27/19 17:42 04/27/19 17:33 04/27/19 17:11 95 04/27/19 14:23 93 L Intake and Output 04/27/19 04/28/19 04/28/19 22:59 06:59 14:59 Intake Total 100 120 Output Total 550 Balance 100 -550 120 Intake: Oral 100 120 Output: Urine 550 Other: Voiding Method Urinal Urinal Self-Catheterization Indwelling Catheter # Voids 1 # Bowel Movements 1 Weight 60 kg Head normocephalic Neck supple Lungs clear to auscultation bilaterally no wheezing or crackles Heart regular rate and rhythm S1-S2, no rub or gallop Abdomen is soft nontender nondistended positive bowel sounds no hepatosplenomegaly Extremities no edema Neuro alert and orientated to 3 Results CBC & Chem 7: 04/28/19 09:31 04/28/19 09:31 Labs: Abnormal Lab Results - Last 24 Hours (Table) 04/27/19 04/27/19 04/27/19 Range/Units 15:18 15:18 20:07 RBC 4.16 L (4.30-5.90) m/uL MCV (80.0-100.0) fL Chloride 109 H (98-107) mmol/L Creatinine (0.66-1.25) mg/dL Glucose 116 H (74-99) mg/dL POC Glucose (mg/dL) 106 H (75-99) mg/dL ALT (21-72) U/L 04/28/19 04/28/19 04/28/19 Range/Units 06:38 09:31 09:31 RBC 4.11 L (4.30-5.90) m/uL MCV 100.1 H (80.0-100.0) fL Chloride 113 H (98-107) mmol/L Creatinine 0.65 L (0.66-1.25) mg/dL Glucose 101 H (74-99) mg/dL POC Glucose (mg/dL) 116 H (75-99) mg/dL ALT 14 L (21-72) U/L Thrombosis Risk Factor Assmnt - Choose All That Apply Any of the Below Risk Factors Present?: No Other Risk Factors: Yes Each Risk Factor Represents 3 Points: Age 75 years or older Other congenital or acquired thrombophilia - If yes, enter type in comment: No Thrombosis Risk Factor Assessment Total Risk Factor Score: 3 Thrombosis Risk Factor Assessment Level: Moderate Risk Assessment and Plan Assessment: 1. Increased weakness with syncopal episode. EKG completed showing normal sinus rhythm with sinus arrhythmia left bundle branch block. Cardiology services have been consulted. Orthostatic blood pressures ordered. 2-D echo and carotid Doppler ordered 2. History of urinary tract infections. UA negative upon admission 3. History of DVT and PE diagnosed in 2016. Patient is maintained on eliquis 4. Diabetes mellitus type 2. Sliding scale coverage added. Hemoglobin A1c ordered 5. Essential hypertension home meds resumed 6. History of EtOH 7. paroxysmal atrial fibrillation. Patient is maintained on eliquis 8. History of hearing disorder/deafness 9. History of bilateral gluacoma DT prophylaxis eliquis. GI prophylaxis Protonix Time with Patient: Greater than 30 (Greater than 60% of the total time spent in counseling and coordination of care. I performed an examination of the patient and discussed their management with the Nurse Practitioner. I have reviewed the Nurse Practitioner's notes and agree with the documented findings and plan of care)
[2019-04-28] MEDS: LIPASE 5,000/PROTEASE 17,000/AMYLASE 24,000 PO SCH (12:12)
[2019-04-28] MEDS: VITAMIN E (DL,TOCOPHERYL ACET) 400 UNIT CAP PO SCH (12:12)
[2019-04-28] MEDS: IPRATROPIUM-ALBUTEROL 3 ML NEB INHALATION PRN (12:29)
[2019-04-28 12:37] LABS: Glucose,Whole Blood 95 mg/dL (75-99)
[2019-04-28 12:55] LABS: Hemoglobin A1C 5.9 % (4.0-6.0)
--- NOTE | 2019-04-28 13:01 | XR ---
EXAMINATION TYPE: XR chest 2V DATE OF EXAM: 04/28/2019 COMPARISON: 08/26/2018 HISTORY: Shortness of breath TECHNIQUE: Frontal and lateral views of the chest are obtained. FINDINGS: Scattered senescent parenchymal changes noted. Hyperinflation compatible with COPD. No evidence for infiltrate. No evidence for atelectasis. Heart size is stable. Mediastinal structures are stable and grossly unremarkable. No evidence for hilar prominence. Degenerative changes dorsal spine. IMPRESSION: 1. No evidence for acute pulmonary disease.
--- NOTE | 2019-04-28 13:45 | US ---
EXAMINATION TYPE: US carotid duplex BILAT DATE OF EXAM: 04/28/2019 COMPARISON: NONE CLINICAL HISTORY: syncopal episode. EXAM MEASUREMENTS: RIGHT: Peak Systolic Velocity (PSV) cm/sec ----- Right CCA: 117.6 ----- Right ICA: 123.5 ----- Right ECA: 197.3 ICA/CCA ratio: 1.0 RIGHT: End Diastole cm/sec ----- Right CCA: 12.9 ----- Right ICA: 11.5 ----- Right ECA: 9.1 LEFT: Peak Systolic Velocity (PSV) cm/sec ----- Left CCA: 97.7 ----- Left ICA: 109.7 ----- Left ECA: 118.1 ICA/CCA ratio: 1.1 LEFT: End Diastole cm/sec ----- Left CCA: 9.1 ----- Left ICA: 17.6 ----- Left ECA: 0.0 VERTEBRALS (direction of flow): Right Vertebral: Antegrade Left Vertebral: Antegrade Rhythm: Normal Technically difficult study performed portably. Extensive shadowing plaque making imaging difficult. No significant stenosis seen. Extensive shadowing plaque, left greater than right. Elevated right EC A. IMPRESSION: Technically difficult study performed portably. Extensive shadowing plaque making imaging difficult. No significant stenosis seen. Criteria for Assigning % of Stenosis / Diameter reduction (Estimation based on the indirect measurements of the internal carotid artery velocities (ICA PSV). 1. Normal (no stenosis)=ICA PSV < 125 cm/s: ratio < 2.0: ICA EDV<40 cm/s. 2. Less than 50% stenosis=ICA PSV < 125 cm/s: ratio < 2.0: ICA EDV<40 cm/s. 3. 50 to 69% stenosis=ICA PSV of 125 to 230 cm/s: ration 2.0 ? 4.0: ICA EDV 40-100 cm/s. 4. Greater than 70% stenosis to near occlusion= ICA PSV > 230 cm/s: ratio > 4.0: ICA EDV > 100 cm/s. 5. Near occlusion= ICA PSV velocities may be low or undetectable: variable ratio and ICA EDV. 6. Total occlusion=unable to detect flow.
--- NOTE | 2019-04-28 15:12 | P.CNPUL ---
History of Present Illness Consult date: 04/28/19 Reason for consult: dyspnea, cough, COPD, hypoxemia Chief complaint: End-stage COPD, bronchodilator therapy History of present illness: This is a 88-year-old male who was seen evaluated examined as per request of respiratory therapist patient has a severe COPD and has been on bronchodilator patient has been using 4-6 times a day, we'll change the therapy frequency to 4 times a day and when necessary to accommodate his needs review of the record revealed that patient has been presented to the ER with complaints of ongoing weakness and syncopal episodes. Patient reports that these have been intermittently occurring where he "blacks out". Patient also reports that he has frequent urinary tract infections and recently completed treatment. Additional medical history includes atrial fibrillation which she is maintained on eliquis, asthma, diabetes mellitus, hearing disorder, memory impairment, his urethritis, prostate disorder, frequent UTIs, pulmonary embolism, hypertension and anxiety. UA negative for urinary tract infection. EKG completed showing normal sinus rhythm with sinus arrhythmia left bundle branch block. At this time orthostatic blood pressures ordered. 2-D echo and carotid Doppler ordered. Cardiology consult placed. Patient is currently resting comfortably in bed. Patient denies chest pain or shortness of breath. Patient denies any nausea vomiting or diarrhea. Patient denies any urinary burning or frequency. PT OT consulted for increased weakness social work consulted for discharge planning Review of Systems All systems: negative Past Medical History Past Medical History: Asthma, Diabetes Mellitus, Eye Disorder, Hearing Disorder / Deafness, Hypertension, Memory Impairment, Osteoarthritis (OA), Prostate Disorder, Pulmonary Embolus (PE) Additional Past Medical History / Comment(s): Severe environmental allergies, respiratory failure/intubated, [place] bilaterally, BPH, bilateral glaucoma. History of Any Multi-Drug Resistant Organisms: None Reported Past Surgical History: Joint Replacement, Tonsillectomy Additional Past Surgical History / Comment(s): L total hip arthroplasty, L total knee arthroplasty, laser surgery bilateral eyes cataracts with lens implants, colonoscopy with benign polypectomy, cyst removed from back, vasectomy. Past Anesthesia/Blood Transfusion Reactions: No Reported Reaction Past Psychological History: Anxiety Additional Psychological History / Comment(s): Pt's daughter resides with him. He was driving up until recently. Daughter drives. He has recently been weak and falling so is now using a walker. He manages his own medication. Smoking Status: Former smoker Past Alcohol Use History: Daily, Heavy Additional Past Alcohol Use History / Comment(s): Pt started smoking in 1951 and quit in 1980. Drinks pint or more of vodka daily Past Drug Use History: None Reported - Past Family History Father Family Medical History: No Reported History Mother Additional Family Medical History / Comment(s): Pt states his mother had mental health issues and trigeminal nerve problem and had chronic pain from this. Medications and Allergies Home Medications Medication Instructions Recorded Confirmed Type Atorvastatin [Lipitor] 20 mg PO HS 11/04/15 04/27/19 History Latanoprost Ophth [Xalatan 0.005%] 1 drops BOTH EYES HS 11/04/15 04/27/19 History Acetaminophen [Tylenol] 1,000 mg PO Q6H PRN 11/30/15 04/27/19 History Cholecalciferol [Vitamin D3 (25 1,000 unit PO DAILY 11/30/15 04/27/19 History Mcg = 1000 Iu)] L.acidoph,Paracasei, B.lactis 1 cap PO DAILY 11/30/15 04/27/19 History [Probiotic] Loratadine [Claritin] 10 mg PO DAILY 11/30/15 04/27/19 History Melatonin 10 mg PO HS 11/30/15 04/27/19 History Multivitamin [Men's Multi-Vitamin] 1 tab PO DAILY 11/30/15 04/27/19 History Vitamin E (Dl,Tocopheryl Acet) 400 unit PO DAILY 11/30/15 04/27/19 History [Vitamin E] Ipratropium-Albuterol Nebulize 3 ml INHALATION RT-TID 10/06/17 04/27/19 History [Duoneb 0.5 mg-3 mg/3 ml Soln] Ascorbic Acid [Vitamin C] 500 mg PO DAILY 10/08/17 04/27/19 History Calcium Carbonate/Vitamin D3 1 tab PO DAILY 10/08/17 04/27/19 History [Calcium 600-Vit D3 400 Caplet] ALPRAZolam [Xanax] 0.25 mg PO TID 08/26/18 04/27/19 History Budesonide [Pulmicort] 0.5 mg INHALATION RT-BID 08/26/18 04/27/19 History Finasteride [Proscar] 5 mg PO DAILY 08/26/18 04/27/19 History Apixaban [Eliquis] 2.5 mg PO BID 04/27/19 04/27/19 History Atenolol [Tenormin] 50 mg PO DAILY 04/27/19 04/27/19 History Ibuprofen [Motrin] 600 mg PO Q8HR PRN 04/27/19 04/27/19 History Silodosin [Rapaflo] 8 mg PO DAILY 04/27/19 04/27/19 History Telmisartan [Micardis] 80 mg PO DAILY 04/27/19 04/27/19 History Allergies Allergy/AdvReac Type Severity Reaction Status Date / Time Penicillins AdvReac Unknown Verified 04/27/19 17:17 tamsulosin HCl [From Flomax] AdvReac Unknown Verified 04/27/19 17:17 Physical Exam Vitals: Vital Signs Temp Pulse Pulse Resp BP BP BP 04/28/19 12:40 79 04/28/19 12:29 78 04/28/19 12:00 97.7 F 71 18 133/84 04/28/19 07:55 97.8 F 75 18 113/55 04/28/19 05:36 72 04/28/19 05:13 76 04/28/19 04:00 98.7 F 76 18 141/80 143/82 04/28/19 00:00 97.4 F L 70 18 116/62 04/27/19 20:25 97.7 F 69 18 155/78 04/27/19 20:00 69 18 04/27/19 19:03 98.7 F 70 18 132/69 04/27/19 17:42 72 04/27/19 17:33 76 04/27/19 17:11 73 22 123/80 BP BP Pulse Ox 04/28/19 12:40 04/28/19 12:29 04/28/19 12:00 97 04/28/19 07:55 94 L 04/28/19 05:36 04/28/19 05:13 04/28/19 04:00 140/73 163/80 94 L 04/28/19 00:00 96 04/27/19 20:25 04/27/19 20:00 04/27/19 19:03 95 04/27/19 17:42 04/27/19 17:33 04/27/19 17:11 95 Intake and Output 04/28/19 04/28/19 04/28/19 06:59 14:59 22:59 Intake Total 120 Output Total 550 Balance -550 120 Intake: Oral 120 Output: Urine 550 Other: Voiding Method Urinal Urinal Indwelling Catheter Self-Catheterization # Voids 1 1 Weight 60 kg GENERAL: This is a 88-year-old male in no apparent distress at the time of my examination. HEENT: Head is atraumatic, normocephalic. Pupils are equal, round. Sclerae a nicteric. Conjunctivae are clear. Mucous membranes of the mouth are moist. Neck is supple. There is no jugular venous distention.John carotid bruit is heard. LUNGS: Clear to auscultation no wheezes, rales or rhonchi. No chest wall tenderness is noted on palpation or with deep breathing. Diminished. HEART: S1 and S2 no murmurs or gallops. ABDOMEN: Soft, nontender. Bowel sounds are heard. No organomegaly noted. EXTREMITIES: No evidence of peripheral edema and no calf tenderness noted. VASCULAR: Radial and dorsalis pedis pulses palpated, no evidence of clubbing. NEUROLOGIC: Patient awake, alert and oriented 3 Results - Laboratory Findings CBC and BMP: 04/28/19 09:31 04/28/19 09:31 PT/INR, D-dimer PT 11.1 sec (9.0-12.0) 04/27/19 15:18 INR 1.1 (<1.2) 04/27/19 15:18 Abnormal lab findings: Abnormal Labs 04/27/19 04/27/19 04/27/19 15:18 15:18 20:07 RBC 4.16 L MCV Chloride 109 H Creatinine Glucose 116 H POC Glucose (mg/dL) 106 H ALT 04/28/19 04/28/19 04/28/19 06:38 09:31 09:31 RBC 4.11 L MCV 100.1 H Chloride 113 H Creatinine 0.65 L Glucose 101 H POC Glucose (mg/dL) 116 H ALT 14 L - Diagnostic Findings Chest x-ray: report reviewed, image reviewed (So COPD-like changes without any evidence of active pulmonary disease) Assessment and Plan Assessment: COPD overall stable no evidence of acute exacerbation continue nebulizer treatment change it to 4 times a day and when necessary and supplemental oxygen as needed Near syncope Loss of equilibrium History of DVT PE on oral anticoagulants Type 2 diabetes mellitus Hypertension hypertensive cardiovascular disease Proximal atrial fibrillation Plan: As noted above we'll continue breathing treatments and oxygen supplementation further evaluation and management as per primary service, we will follow if needed Time with Patient: Greater than 30
[2019-04-28] MEDS: IPRATROPIUM-ALBUTEROL 3 ML NEB INHALATION SCH ×2 (15:45→19:53)
[2019-04-28 16:38] LABS: Glucose,Whole Blood 98 mg/dL (75-99)
[2019-04-28] MEDS: SODIUM CHLORIDE 0.9% 1,000 ML IV SCH (19:03)
[2019-04-28 19:58] LABS: Glucose,Whole Blood 144 mg/dL (75-99)
[2019-04-28] MEDS: LATANOPROST 0.005% OPHTH DROPS 2.5 ML BTL BOTH EYES SCH (20:00)
[2019-04-28] MEDS: MELATONIN 5 MG TABLET PO SCH (20:00)
[2019-04-28] MEDS ORDERED: ATORVASTATIN 20 MG TAB PO SCH (21:00)
[2019-04-29] MEDS: IPRATROPIUM-ALBUTEROL 3 ML NEB INHALATION PRN (04:30)
[2019-04-29 06:06] LABS: Glucose,Whole Blood 117 mg/dL (75-99)
[2019-04-29] MEDS: INSULIN ASPART (NovoLOG) 100 UNIT/ML VIAL SQ SCH ×2 (06:06→15:02)
[2019-04-29 06:33] LABS: Basophils # (A) 0.1 k/uL (0-0.2); Basophils % (A) 1 %; Eosinophils # (A) 0.6 k/uL (0-0.7); Eosinophils % (A) 6 %; HCT 35.4 % (39.0-53.0); HGB 11.5 gm/dL (13.0-17.5); Lymphocytes # (A) 2.5 k/uL (1.0-4.8); Lymphocytes % (A) 27 %; MCH 32.2 pg (25.0-35.0); MCHC 32.4 g/dL (31.0-37.0); MCV 99.2 fL (80.0-100.0); Mean Platelet Volume 6.9; Monocytes # (A) 0.9 k/uL (0-1.0); Monocytes % (A) 10 %; Neutrophils # (A) 4.9 k/uL (1.3-7.7); Neutrophils % (A) 53 %; Platelet Count 171 k/uL (150-450); RBC 3.57 m/uL (4.30-5.90); RDW 12.3 % (11.5-15.5); WBC 9.1 k/uL (3.8-10.6)
[2019-04-29 06:43] LABS: ALT 18 U/L (21-72); AST 26 U/L (17-59); African American GFR (CKD) >90 (>60 ml/min/1.73 sqM); Albumin 2.8 g/dL (3.5-5.0); Alkaline Phosphatase 57 U/L (38-126); Anion Gap 8 mmol/L; Blood Urea Nitrogen 16 mg/dL (9-20); Calcium 9.2 mg/dL (8.4-10.2); Carbon Dioxide 22 mmol/L (22-30); Chloride 111 mmol/L (98-107); Glucose 106 mg/dL (74-99); Magnesium 1.5 mg/dL (1.6-2.3); Potassium 3.7 mmol/L (3.5-5.1); Sodium 141 mmol/L (137-145); Total Bilirubin 0.4 mg/dL (0.2-1.3); Total Protein 5.3 g/dL (6.3-8.2)
[2019-04-29] MEDS ORDERED: PANTOPRAZOLE 40 MG TABLET PO SCH (07:30)
[2019-04-29] MEDS ORDERED: Magnesium Replacement Protocol 1 EACH MISC MISCELLANE PRN (08:15)
[2019-04-29] MEDS: BUDESONIDE 0.5 MG/2 ML NEBU INHALATION SCH (08:38)
[2019-04-29] MEDS: IPRATROPIUM-ALBUTEROL 3 ML NEB INHALATION SCH ×2 (08:38→12:16)
[2019-04-29 09:12] VITALS: RESP 16
--- NOTE | 2019-04-29 09:49 | ECHOF ---
Referral Reason:syncope MEASUREMENTS -------- HEIGHT: 160.0 cm WEIGHT: 59.9 kg BP: IVSd: 0.8 cm (0.6 - 1.1) LVIDd: 3.7 cm (3.9 - 5.3) LVPWd: 0.9 cm (0.6 - 1.1) IVSs: 1.1 cm LVIDs: 1.5 cm LVPWs: 1.5 cm LAESV Index (A-L): 31.94 ml/m Ao Diam: 3.5 cm (2.0 - 3.7) AV Cusp: 1.2 cm (1.5 - 2.6) LA Diam: 4.7 cm (2.7 - 3.8) MV EXCURSION: 16.074 mm (> 18.000) MV EF SLOPE: 62 mm/s (70 - 150) EPSS: 0.7 cm MV E Emmett: 0.82 m/s MV DecT: 153 ms MV A Emmett: 0.68 m/s MV E/A Ratio: 1.21 AV maxP.84 mmHg AV meanP.10 mmHg AR PHT: 772 ms RAP: 5.00 mmHg RVSP: 39.83 mmHg TAPSE: 21.39 mm FINDINGS -------- Sinus rhythm. This was a technically difficult study with suboptimal views. The left ventricular size is normal. Left ventricular wall thickness is normal. Overall left vent ricular systolic function is low-normal with, an EF between 50 - 55 %. Indeterminate The right ventricle is normal in size. The right ventricular systolic function is normal. LA is midly dilated 29-33ml/m2. The right atrial size is normal. Lumason used There is mild aortic valve sclerosis. There is mild aortic regurgitation. There is mild aortic st enosis present. Peak/mean gradient across the Aortic Valve is 16.84mmHg / 10.10mmHg. Moderate mitral annular calcification present. Mild mitral regurgitation is present. The tricuspid valve appears structurally normal. Mild tricuspid regurgitation present. There is m ild pulmonary hypertension. The right ventricular systolic pressure, as measured by Doppler, is 39. 83mmHg. The pulmonic valve was not well visualized. There is no pulmonic regurgitation present. The aortic root size is normal. IVC Not well visulized. All pulmonary veins appear normal. The flow patterns, measured by Doppler, appear normal. There is no pericardial effusion. CONCLUSIONS -------- 1. Sinus rhythm. 2. This was a technically difficult study with suboptimal views. 3. The left ventricular size is normal. 4. Left ventricular wall thickness is normal. 5. Overall left ventricular systolic function is low-normal with, an EF between 50 - 55 %. 6. Indeterminate 7. LA is midly dilated 29-33ml/m2. 8. Lumason used 9. There is mild aortic valve sclerosis. 10. There is mild aortic regurgitation. 11. There is mild aortic stenosis present. 12. Peak/mean gradient across the Aortic Valve is 16.84mmHg / 10.10mmHg. 13. Moderate mitral annular calcification present. 14. Mild mitral regurgitation is present. 15. The tricuspid valve appears structurally normal. 16. Mild tricuspid regurgitation present. 17. There is mild pulmonary hypertension. 18. The pulmonic valve was not well visualized. 19. The aortic root size is normal. 20. IVC Not well visulized. 21. All pulmonary veins appear normal. 22. The flow patterns, measured by Doppler, appear normal. 23. There is no pericardial effusion. SPRAY MACHINE TENDER: Kristin Mcmahon [facility]
[2019-04-29] MEDS: ASCORBIC ACID 500 MG TAB PO SCH (10:19)
[2019-04-29] MEDS: APIXABAN 2.5 MG TABLET PO SCH (10:19)
[2019-04-29] MEDS: ATENOLOL 50 MG TAB PO SCH (10:20)
[2019-04-29] MEDS: CALCIUM CARB-VIT D 500MG-200UN 1 EACH TAB PO SCH (10:20)
[2019-04-29] MEDS: FINASTERIDE 5 MG TAB PO SCH (10:22)
[2019-04-29] MEDS: LIPASE 5,000/PROTEASE 17,000/AMYLASE 24,000 PO SCH (10:23)
[2019-04-29] MEDS: LOSARTAN 50 MG TAB PO SCH (10:24)
[2019-04-29] MEDS: VITAMIN E (DL,TOCOPHERYL ACET) 400 UNIT CAP PO SCH (10:25)
[2019-04-29] MEDS: MULTIVITAMINS, THERA 1 EACH TAB PO SCH (10:25)
[2019-04-29] MEDS: LORATADINE 10 MG TAB PO SCH (10:26)
[2019-04-29] MEDS: ALPRAZolam 0.25 MG TAB PO SCH (10:31)
[2019-04-29] MEDS: SILODOSIN 8 MG PO SCH (10:50)
[2019-04-29] MEDS: MAGNESIUM SULFATE-D5W PMX 1 GM in DEXTROSE/WATER 1 100ML.BAG IVPB SCH ×2 (10:51→15:01)
[2019-04-29 11:32] VITALS: BP 110/63; TEMP 98
[2019-04-29 11:58] LABS: Glucose,Whole Blood 131 mg/dL (75-99)
--- NOTE | 2019-04-29 12:52 | P.PN ---
Subjective Progress Note Date: 04/29/19 This is an 88-year-old gentleman who states he used to see Dr. Stewart in the office in the past but was told he did not have any cardiac issues, so he no longer follows with him he sees only doctor as edu. He has a known history of diabetes, hypertension, hyperlipidemia, peripheral vascular disease, mild nonobstructive coronary artery disease, moderate carotid artery disease, chronic alcohol use and former tobacco use. Patient also had a history of paroxysmal atrial fibrillation. On this occasion, the patient was dropped off to the emergency room by her daughter, he was noted to have some mental status changes, and she was suspicious that he may have a UTI because when he gets UTIs he seems to have these mental status changes. Patient states he does get recurrent UTIs and also has had recurrent syncopal episodes which were attributed to UTIs in the past. His EKG on presentation here showed a normal sinus rhythm with a new left bundle branch block pattern which the patient had not had in the past. Blood pressure on admission here 98/60, heart rate in the 60s, temperature 90.7 0.90 was 93% on room air. Orthostatics were performed at 4 AM this morning 163/80 lying 143/80 sitting and 140/70 standing, heart rate in the 70s, 94% on room air. White blood cell count 8.5, hemoglobin 13.3, platelet count 201. Sodium 143, potassium 4.1, BUN 16 and creatinine 0.6. Magnesium 1.7, troponin negative. UA is negative, patient states he has been on antibiotics as an outpatient for recurrent UTIs. 04/29/2019 Patient seen and examined this morning, sitting up in the chair at bedside, feels well, no complaints. Blood pressure 110/60 with a heart rate in the 90s. White blood cell count 9.1, hemoglobin 11.5, platelet count 171. Sodium 141, potassium 3.7, BUN 16 and creatinine 0.6. Magnesium 1.5 this morning. Objective - Vital Signs Vital signs: Vital Signs Temp 98 F 04/29/19 11:31 Pulse 80 04/29/19 12:29 Resp 16 04/29/19 11:31 BP 110/63 04/29/19 11:31 Pulse Ox 93 L 04/29/19 04:00 Intake & Output 04/28/19 04/29/19 04/29/19 18:59 06:59 18:59 Intake Total 480 320 240 Balance 480 320 240 Weight 61 kg Intake: Intake, IV Titration 320 Amount Sodium Chloride 0.9% 1, 320 000 ml @ 20 mls/hr IV . Q24H [facility] Rx#:[id number] Oral 480 240 Other: Voiding Method Urinal Urinal Urinal Self-Catheterization Self-Catheterization Self-Catheterization # Voids 1 - Exam GENERAL: This is a 88-year-old male in no apparent distress at the time of my examination. HEENT: Head is atraumatic, normocephalic. Pupils are equal, round. Sclerae anicteric. Conjunctivae are clear. Mucous membranes of the mouth are moist. Neck is supple. There is no jugular venous distention.John carotid bruit is heard. LUNGS: Clear to auscultation no wheezes, rales or rhonchi. No chest wall tende rness is noted on palpation or with deep breathing. Diminished. HEART: S1 and S2 no murmurs or gallops. ABDOMEN: Soft, nontender. Bowel sounds are heard. No organomegaly noted. EXTREMITIES: No evidence of peripheral edema and no calf tenderness noted. VASCULAR: Radial and dorsalis pedis pulses palpated, no evidence of clubbing. NEUROLOGIC: Patient awake, alert and oriented 3 - Labs CBC & Chem 7: 04/29/19 06:07 04/29/19 06:07 Labs: Abnormal Lab Results - Last 24 Hours (Table) 04/28/19 04/28/19 04/29/19 Range/Units 15:30 19:57 06:05 RBC (4.30-5.90) m/uL Hgb (13.0-17.5) gm/dL Hct (39.0-53.0) % D-Dimer 0.66 H (<0.60) mg/L FEU Chloride (98-107) mmol/L Glucose (74-99) mg/dL POC Glucose (mg/dL) 144 H 117 H (75-99) mg/dL Magnesium (1.6-2.3) mg/dL ALT (21-72) U/L Total Protein (6.3-8.2) g/dL Albumin (3.5-5.0) g/dL 04/29/19 04/29/19 04/29/19 Range/Units 06:07 06:07 11:32 RBC 3.57 L (4.30-5.90) m/uL Hgb 11.5 L (13.0-17.5) gm/dL Hct 35.4 L (39.0-53.0) % D-Dimer (<0.60) mg/L FEU Chloride 111 H (98-107) mmol/L Glucose 106 H (74-99) mg/dL POC Glucose (mg/dL) 131 H (75-99) mg/dL Magnesium 1.5 L (1.6-2.3) mg/dL ALT 18 L (21-72) U/L Total Protein 5.3 L (6.3-8.2) g/dL Albumin 2.8 L (3.5-5.0) g/dL Assessment and Plan Plan: Assessment and plan #1 mental status changes with suspicion of possible UTI. UA was negative however patient has been on antibiotics as an outpatient. #2 patient has history of recurrent UTIs #3 left bundle-branch block pattern #4 history of recurrent syncope #5 diabetes #6 hypertension #7 hyperlipidemia #8 chronic alcohol use #9 paroxysmal atrial fibrillation #10 cardiac catheterization performed in 2002 revealed mild to moderate triple- vessel coronary artery disease with no critical stenosis. Plan Echocardiogram with Doppler study revealed an ejection fraction of 50-55%. No significant orthostatics. From cardiology's perspective patient may be discharged once cleared by primary. DNP note has been reviewed, I agree with a documented findings and plan of care. Patient was seen and examined.
--- NOTE | 2019-04-29 14:29 | P.DS ---
Providers Date of admission: 04/27/19 17:12 Expected date of discharge: 04/29/19 Attending physician: Yue Loya Consults: 04/27/19 17:12 Consult Physician Routine Consulting Provider: Rosa Stewart Consult Reason/Comments: syncope, weakness, ekg changes Do you want consulting provider notified?: Yes Primary care physician: Yue Loya [facility] Course: Discharge diagnosis 1. Increased weakness with syncopal episode. EKG completed showing normal sinus rhythm with sinus arrhythmia left bundle branch block. Cardiology services have been consulted. Orthostatic blood pressures ordered. Doppler completed showing no significant stenosis seen. 2-D echo completed showing EF of 50-55%. Per cardiology 2-D echo Doppler study no significant orthostatic. Per cardiology patient may be discharged. A 30 day event monitor to be ordered per cardiology discharge 2. History of urinary tract infections. UA negative upon admission 3. History of DVT and PE diagnosed in 2016. Patient is maintained on eliquis. She was evaluated by pulmonary services continue breathing treatment and follow- up outpatient as needed 4. Diabetes mellitus type 2. Sliding scale coverage added. Hemoglobin A1c ordered 5. Essential hypertension home meds resumed 6. History of EtOH 7. paroxysmal atrial fibrillation. Patient is maintained on eliquis 8. History of hearing disorder/deafness 9. History of bilateral gluacoma 10. Shingles. Patient will be discharged on Valtrex 1 g 3 times a day for 7 days Hospital course This is an 88-year-old gentleman who presented to the ER with complaints of ongoing weakness and syncopal episodes. Patient reports that these have been intermittently occurring where he "blacks out". Patient also reports that he has frequent urinary tract infections and recently completed treatment. Additional medical history includes atrial fibrillation which she is maintained on eliquis, asthma, diabetes mellitus, hearing disorder, memory impairment, his urethritis, prostate disorder, ALLERGIES, frequent UTIs, pulmonary embolism, hypertension and anxiety. UA negative for urinary tract infection. EKG completed showing normal sinus rhythm with sinus arrhythmia left bundle branch block. At this time orthostatic blood pressures ordered. 2-D echo and carotid Doppler ordered. Cardiology consult placed. Patient is currently resting comfortably in chair. Patient denies chest pain or shortness of breath. Patient denies any nausea vomiting or diarrhea. Patient denies any urinary bu rning or frequency. PT OT consulted for increased weakness social work consulted for discharge planning On 04/29/2019 patient is alert and oriented 3. Patient has been cleared for discharge from cardiology standpoint. Patient also eval by pulmonary service. Per case management OT recommending home with home health care. Patient is eager to go home. Patient also has rash to left lower extremity is moved related to shingles. Patient will be DC'd on Valtrex 3 times a day for 1 week. Patient advised to follow-up closely with PCP home healthcare arranged per case management. At this time patient denies chest pain or shortness breath. Patient denies nausea vomiting or diarrhea. Patient denies any urinary burning or frequency I performed an examination of the patient and discussed their management with the Nurse Practitioner. I have reviewed the Nurse Practitioner's notes and agree with the documented findings and plan of care Patient Condition at Discharge: Stable Plan - Discharge Summary Discharge Rx Participant: No New Discharge Prescriptions: No Action Latanoprost Ophth [Xalatan 0.005%] 1 drops BOTH EYES HS Atorvastatin [Lipitor] 20 mg PO HS Vitamin E (Dl,Tocopheryl Acet) [Vitamin E] 400 unit PO DAILY L.acidoph,Paracasei, B.lactis [Probiotic] 1 cap PO DAILY Melatonin 10 mg PO HS Loratadine [Claritin] 10 mg PO DAILY Acetaminophen [Tylenol] 1,000 mg PO Q6H PRN PRN Reason: Pain Multivitamin [Men's Multi-Vitamin] 1 tab PO DAILY Cholecalciferol [Vitamin D3 (25 Mcg = 1000 Iu)] 1,000 unit PO DAILY Ipratropium-Albuterol Nebulize [Duoneb 0.5 mg-3 mg/3 ml Soln] 3 ml INHALATION RT-TID Calcium Carbonate/Vitamin D3 [Calcium 600-Vit D3 400 Caplet] 1 tab PO DAILY Ascorbic Acid [Vitamin C] 500 mg PO DAILY Finasteride [Proscar] 5 mg PO DAILY Budesonide [Pulmicort] 0.5 mg INHALATION RT-BID ALPRAZolam [Xanax] 0.25 mg PO TID Ibuprofen [Motrin] 600 mg PO Q8HR PRN PRN Reason: Pain Silodosin [Rapaflo] 8 mg PO DAILY Atenolol [Tenormin] 50 mg PO DAILY Apixaban [Eliquis] 2.5 mg PO BID Telmisartan [Micardis] 80 mg PO DAILY Discharge Medication List Atorvastatin [Lipitor] 20 mg PO HS 11/04/15 [History] Latanoprost Ophth [Xalatan 0.005%] 1 drops BOTH EYES HS 11/04/15 [History] Acetaminophen [Tylenol] 1,000 mg PO Q6H PRN 11/30/15 [History] Cholecalciferol [Vitamin D3 (25 Mcg = 1000 Iu)] 1,000 unit PO DAILY 11/30/15 [History] L.acidoph,Paracasei, B.lactis [Probiotic] 1 cap PO DAILY 11/30/15 [History] Loratadine [Claritin] 10 mg PO DAILY 11/30/15 [History] Melatonin 10 mg PO HS 11/30/15 [History] Multivitamin [Men's Multi-Vitamin] 1 tab PO DAILY 11/30/15 [History] Vitamin E (Dl,Tocopheryl Acet) [Vitamin E] 400 unit PO DAILY 11/30/15 [History] Ipratropium-Albuterol Nebulize [Duoneb 0.5 mg-3 mg/3 ml Soln] 3 ml INHALATION RT-TID 10/06/17 [History] Ascorbic Acid [Vitamin C] 500 mg PO DAILY 10/08/17 [History] Calcium Carbonate/Vitamin D3 [Calcium 600-Vit D3 400 Caplet] 1 tab PO DAILY 10/08/17 [History] ALPRAZolam [Xanax] 0.25 mg PO TID 08/26/18 [History] Budesonide [Pulmicort] 0.5 mg INHALATION RT-BID 08/26/18 [History] Finasteride [Proscar] 5 mg PO DAILY 08/26/18 [History] Apixaban [Eliquis] 2.5 mg PO BID 04/27/19 [History] Atenolol [Tenormin] 50 mg PO DAILY 04/27/19 [History] Ibuprofen [Motrin] 600 mg PO Q8HR PRN 04/27/19 [History] Silodosin [Rapaflo] 8 mg PO DAILY 04/27/19 [History] Telmisartan [Micardis] 80 mg PO DAILY 04/27/19 [History] Follow up Appointment(s)/Referral(s): Yue Loya MD [Primary Care Provider] - 1-2 days [facility] Visiting Nurse, [NON-STAFF] -
[2019-04-29] MEDS: CHOLECALCIFEROL 1,000 UNIT TAB PO SCH (15:01)
[2019-04-29 15:08] VITALS: PULSE 93
[2019-04-29] MEDS ORDERED: valACYclovir HCL 1,000 MG TABLET PO SCH ×2 (16:00→21:00)
== END 2019-04-29 15:38 | disposition home health service (06) ==
LOC: EC 13:59 → 3SCARD 17:12
PROVIDERS: ADMIT Internal Medicine; ATTEND Internal Medicine
DX: R53.1 Weakness (principal); R55 Syncope and collapse; R41.82 Altered mental status, unspecified; R31.9 Hematuria, unspecified; I44.7 Left bundle-branch block, unspecified; J44.9 Chronic obstructive pulmonary disease, unspecified; I48.0 Paroxysmal atrial fibrillation; I11.9 Hypertensive heart disease without heart failure; E11.51 Type 2 diabetes mellitus with diabetic peripheral angiopathy without gangrene; B02.9 Zoster without complications; E78.5 Hyperlipidemia, unspecified; I25.10 Atherosclerotic heart disease of native coronary artery without angina pectoris; N40.0 Benign prostatic hyperplasia without lower urinary tract symptoms; F41.9 Anxiety disorder, unspecified; Z72.89 Other problems related to lifestyle; M19.90 Unspecified osteoarthritis, unspecified site; H91.90 Unspecified hearing loss, unspecified ear; H40.9 Unspecified glaucoma; R41.3 Other amnesia; J30.2 Other seasonal allergic rhinitis; Z79.01 Long term (current) use of anticoagulants; Z79.51 Long term (current) use of inhaled steroids; Z79.899 Other long term (current) drug therapy; Z88.0 Allergy status to penicillin; Z88.8 Allergy status to other drugs, medicaments and biological substances; Z91.81 History of falling; Z87.440 Personal history of urinary (tract) infections; Z86.711 Personal history of pulmonary embolism; Z86.718 Personal history of other venous thrombosis and embolism; Z96.652 Presence of left artificial knee joint; Z96.642 Presence of left artificial hip joint; Z98.42 Cataract extraction status, left eye; Z98.41 Cataract extraction status, right eye; Z96.1 Presence of intraocular lens; Z86.010 Personal history of colon polyps; Z98.52 Vasectomy status; Z81.8 Family history of other mental and behavioral disorders; Z82.0 Family history of epilepsy and other diseases of the nervous system
CPT/HCPCS: 96365; 96361; 99285; 36415; 94640 ×5; 93005; 97116; 97530 ×2; 97162; 97535; 97166; 85379; 80053 ×2; 80048; 83735 ×2; 84484; 85025 ×3; 85610; 85730; 81003; 83036; 71046; 93880; G0378 ×3; C8929; S0138 ×3; J3475; Q9950; 93306

== ENCOUNTER → 2019-07-11 | Outpatient (CLI) | payer MEDICARE, BC ==
[2019-07-11 16:29] LABS: HGB 14.3 gm/dL (13.0-17.5); MCH 33.1 pg (25.0-35.0); MCHC 31.8 g/dL (31.0-37.0); MCV 103.9 fL (80.0-100.0); Macrocytosis Slight; Mean Platelet Volume 6.8; Platelet Count 229 k/uL (150-450); RBC 4.33 m/uL (4.30-5.90); WBC 7.3 k/uL (3.8-10.6)
[2019-07-11 16:37] LABS: INR 1.1 (<1.2); Partial Thromboplastin Time 26.1 sec (22.0-30.0); Prothrombin Time 11.2 sec (9.0-12.0)
[2019-07-11 16:46] LABS: ALT 17 U/L (21-72); AST 26 U/L (17-59); African American GFR (CKD) >90 (>60 ml/min/1.73 sqM); Alkaline Phosphatase 59 U/L (38-126); Anion Gap 8 mmol/L; Blood Urea Nitrogen 24 mg/dL (9-20); Carbon Dioxide 27 mmol/L (22-30); Chloride 107 mmol/L (98-107); Glucose 106 mg/dL (74-99); Non-African American GFR(CKD) 79 (>60 ml/min/1.73 sqM); Potassium 4.6 mmol/L (3.5-5.1); Sodium 142 mmol/L (137-145); Total Bilirubin 0.7 mg/dL (0.2-1.3); Total Protein 6.8 g/dL (6.3-8.2)
== END | disposition home or self-care (01) ==
LOC: LABPAT 13:54
PROVIDERS: ATTEND Orthopaedic Surgery
DX: Z01.812 Encounter for preprocedural laboratory examination (principal); Z79.01 Long term (current) use of anticoagulants
CPT/HCPCS: 36415; 80053; 85027; 85610; 85730; 86850; 86900; 86901; 87070

== ENCOUNTER 2019-07-19 12:21 | Inpatient (IN) | payer MEDICARE, BC ==
[2019-07-15 15:34] VITALS: BMI 23.8
[~2019-07-19 12:21] MED LIST: ACETAMINOPHEN TAB 500 MG TAB PO ONE; DEXAMETHASONE SOD PHOSPHATE 10 MG/ML 1 ML VIAL IV ONE; GABAPENTIN 300 MG CAP PO ONE; HYDROmorphone 0.5 MG/0.5 ML SYRINGE IVP PRN; LIDOCAINE 1% 20 ML VIAL (10MG/ML) FOR IV START INTRADERMA PRN; MELOXICAM 7.5 MG TAB PO ONE; TRANEXAMIC ACID 1,000 MG in SODIUM CHLORIDE 0.9% 100 ML IVPB ONE
[2019-07-19] MEDS: LACTATED RINGERS 1,000 ML IV SCH (13:28)
[2019-07-19] MEDS ORDERED: ONDANSETRON 4 MG/2 ML VIAL IVP ONE (13:34)
[2019-07-19 13:44] LABS: Glucose,Whole Blood 111 mg/dL (75-99)
[2019-07-19] MEDS ORDERED: ONDANSETRON 4 MG/2 ML VIAL IVP PRN (14:17)
[2019-07-19] MEDS ORDERED: HYDROcodone/APAP 5-325MG 1 EACH TAB PO PRN ×2 (14:17)
[2019-07-19] MEDS ORDERED: NALOXONE 0.4 MG/ML 1 ML VIAL IV PRN (14:17)
[2019-07-19] MEDS ORDERED: MAGNESIUM HYDROXIDE 2,400 MG/10 ML CUP PO PRN (14:17)
[2019-07-19] MEDS ORDERED: HYDROmorphone 0.5 MG/0.5 ML SYRINGE IVP PRN ×3 (14:17)
[2019-07-19] MEDS ORDERED: TRANEXAMIC ACID 1,000 MG/10 ML VIAL ONE (14:24)
[2019-07-19] MEDS ORDERED: LACTATED RINGERS 1,000 ML BAG IV ONE (14:24)
[2019-07-19] MEDS ORDERED: SODIUM CHLORIDE 0.9% 100 ML BAG ONE (14:24)
[2019-07-19] MEDS ORDERED: MIDAZOLAM 2 MG/2 ML VIAL ONE (14:24)
[2019-07-19] MEDS ORDERED: fentaNYL (PF) 50 MCG/ML 2 ML AMP ONE (14:24)
[2019-07-19] MEDS ORDERED: ceFAZolin 3,000 MG in SODIUM CHLORIDE 0.9% IRRIGATIO 3,000 ML IRRIGATION ONE (14:28)
[2019-07-19] MEDS: ROPIVACAINE 246.25 MG, EPINEPHrine 0.5 MG, KETOROLAC 30 MG, cloNIDine HCL/PF 80 MCG, WA... MISCELLANE ONE ×10 (14:34→15:34)
--- NOTE | 2019-07-19 15:41 | P.OP ---
Date of Procedure: 07/19/19 Preoperative Diagnosis: Severe osteoarthritis right hip Postoperative Diagnosis: Severe osteoarthritis right hip Procedure(s) Performed: Right total hip arthroplasty with a direct anterior approach Implants: Puentes [employer] nephew Polarstem size 2 standard [employer]entes [employer]hew R3, 3 hole acetabular shell, 52 mm [employer]hew reflection 6.5 mm cancellus screw, 20 mm 2 [employer] R3, XLPE 20 acetabular liner [employer]hew Oxinium femoral head 36 m, +0 All components were press-fit. The articulation is Oxinium on polyethylene. Anesthesia: spinal Surgeon: Chad Ralph Loading Unit Operator Powder Charging #1: Jenny Mitchell Estimated Blood Loss (ml): 75 Pathology: other (Femoral head) Condition: stable Disposition: PACU Indications for Procedure: After failure of conservative treatment we discussed the surgical and nonsurgical treatment options at length. Patient wishes to proceed with a total hip arthroplasty with a direct anterior approach. Complications specific to this procedure were discussed at length, including but not limited to infection, leg length discrepancy, dislocation, and nerve injury. Patient is aware of all these complications and informed consent was obtained Operative Findings: The operative findings are consistent with severe osteoarthritis of the right hip Description of Procedure: Patient was seen and evaluated in the preoperative area, consent was reviewed, and the surgical site was marked with a skin marker. Patient was then brought to the operating room and given prophylactic antibiotics intravenously. 1 g of Tranexamic acid was also given. A spinal anesthetic was administered by the anesthesia department. The patient was then placed on the Shaniko table with the bony prominences well-padded. The hip area was then prepped and draped in usual sterile fashion. A universal timeout was then performed, which confirmed the patient's name, surgical site, ALLERGIES, and procedure being performed. Next the incision site was located at 1 cm distal and 1 cm lateral to the anterior superior iliac spine. The skin and subcutaneous tissues were sharply incised. Incision was carefully dissected down to the fascia overlying the tensor fascia maciel muscle. This fascia was then incised in line with the incision. Next, using blunt finger dissection, the tensor fascia maciel muscle was dissected off its investing fascia. The muscle was then carefully retracted laterally with a cobra retractor over the lateral neck of the femur. Next, the circumflex vessels were identified and cauterized using the AquaMantis device. The anterior hip capsule was then exposed. The capsule was then opened and an inverted T fashion. Cobra retractors were then placed intracapsularly. The proximal femur was then visualized. The femoral neck was then osteotomized appropriate level above the lesser trochanter. Small amount of traction was placed with the Shaniko table. A small wedge of bone was then removed from the remaining femoral head. Next, using a corkscrew femoral head was easily removed from the acetabulum. On gross visual inspection, the femoral head had complete loss of articular cartilage in multiple periarticular osteophytes. Attention was then turned to the acetabulum. the acetabulum was exposed and any remaining labrum was excised. Sequential reaming of the acetabulum was performed using fluoroscopic guidance. When the appropriate size was reached, a trial was then placed. The position and fit of the trial was checked with fluoroscopy. The trial was then removed. Then, using fluoroscopic guidance, the final implant was impacted at 20 of anteversion and 40 of abduction, and fully seated in the acetabulum. 2 screws were then placed in the acetabulum. Again fluoroscopy was used to check position of the screws. Next, the liner was then impacted, with a 20 elevated liner located in the anterior superior quadrant. Component locking was confirmed. Attention was then directed to the femur. With the aid of the Shaniko table, the femur was externally rotated to approximately 130, extended, and abducted under the opposite leg. A side hook was then placed under the proximal femur, and the side hook elevator was used to elevate the proximal femur. Retractors were then placed. A capsular release was performed, as well as a release of the conjoined tendon, which afforded excellent visualization of the proximal femur. Next, a box osteotome was used to lateralize the proximal femur. A folder hand was then used to locate the femoral canal. Sequential broaching was then performed with appropriate size which afforded excellent fixation in the proximal femur. A trial was then placed with appropriate head and neck, and the hip was gently reduced with the aid of the Shaniko table. Fluoroscopy was then used to check position of the components, as well as to ensure equal leg lengths. The hip was then gently dislocated and the trials were then removed. Final implants were then impacted and the hip was again reduced. Final fluoroscopic x-rays confirmed that the components were in anatomic position, as well as equal leg lengths. The hip was also taken through range of motion, and found to be stable. The hip was then copiously irrigated with antibiotic solution with pulsatile lavage. The hip was then irrigated with Irrisept solution. The soft tissues were then injected with a ropivacaine solution, which consisted of 246.25 mg of ropivacaine, 0.5 mg of epinephrine, 30 mg of Toradol, 80 g of clonidine, and 48.45 mL of sterile water, for a total of 100 mL of fluid injected. A second dose of 1 g of Tranexamic acid was also given. the fascia was then closed with 2-0 strata fix suture. The subcutaneous tissue was closed with 3-0 Vicryl. The subcuticular tissue was closed with 3-0 strata fix suture. The skin was then closed with Dermabond glue and a sterile silver dressing. The patient was then transferred to the recovery room in stable condition. The health education assistant GARRICK Fernandez was required due to the complexity of surgery, and the need for skilled instructor adjunct surgical technician for positioning, draping, exposure, retraction, and closure of the wound.
[2019-07-19] MEDS ORDERED: LACTATED RINGERS 1,000 ML IV ONE (15:49)
--- NOTE | 2019-07-19 16:01 | XR ---
EXAMINATION TYPE: XR Hip Limited RT DATE OF EXAM: 07/19/2019 COMPARISON: NONE HISTORY: Postop TECHNIQUE: One view submitted. FINDINGS: There is postsurgical change in near anatomic alignment. There is soft tissue edema and emphysema. IMPRESSION: 1. Postoperative change. Appears in near-anatomic alignment.
--- NOTE | 2019-07-19 16:02 | FL ---
EXAMINATION TYPE: FL guidance operating room DATE OF EXAM: 07/19/2019 HISTORY: Flouroscopy time 33 seconds of fluoroscopy provided. IMPRESSION: 1. Fluoroscopy time.
--- NOTE | 2019-07-19 16:34 | XR ---
EXAMINATION TYPE: XR Hip Limited RT DATE OF EXAM: 07/19/2019 CLINICAL HISTORY: Right hip pain and osteoarthritis. TECHNIQUE: Single AP portable view of right hip is obtained immediately postoperatively. COMPARISON: None. FINDINGS: Metallic hardware from right hip arthroplasty is seen and appears satisfactory in alignment and position. There is evidence of recent surgery with subcutaneous gas noted laterally. IMPRESSION: Metallic hardware from right hip arthroplasty is satisfactory in position.
[2019-07-19] MEDS ORDERED: LORATADINE 10 MG TAB PO PRN (19:13)
[2019-07-19] MEDS: SODIUM CHLORIDE 0.9% 1,000 ML IV SCH (20:05)
[2019-07-19 20:20] LABS: Glucose,Whole Blood 217 mg/dL (75-99)
[2019-07-19] MEDS: SENNOSIDES-DOCUSATE SODIUM 1 EACH TAB PO SCH (20:37)
[2019-07-19] MEDS: MELATONIN 5 MG TABLET PO SCH (20:37)
[2019-07-19] MEDS: ALPRAZolam 0.25 MG TAB PO SCH (20:37)
[2019-07-19] MEDS: LATANOPROST 0.005% OPHTH DROPS 2.5 ML BTL BOTH EYES SCH (20:38)
[2019-07-19] MEDS: ALBUTEROL NEBULIZED 2.5 MG/3 ML INHALATION SCH (21:45)
[2019-07-19] MEDS: BUDESONIDE 0.5 MG/2 ML NEBU INHALATION SCH (21:45)
[2019-07-20 02:05] LABS: Appearance,Urine Clear (Clear); Bilirubin,Urine Negative (Negative); Blood,Urine Negative (Negative); Color,Urine Yellow; Glucose,Urine (UA) Negative (Negative); Ketones,Urine Trace (Negative); Leukocyte Esterase,Urine Negative (Negative); Nitrite,Urine Negative (Negative); Protein,Urine Trace (Negative); Specific Gravity,Urine 1.023 (1.001-1.035); Urobilinogen,Urine <2.0 mg/dL (<2.0)
[2019-07-20] MEDS: SODIUM CHLORIDE 0.9% 1,000 ML IV SCH ×2 (05:06→21:20)
[2019-07-20 07:21] LABS: Calcium 9.3 mg/dL (8.4-10.2); Potassium 4.9 mmol/L (3.5-5.1); Total Bilirubin 0.5 mg/dL (0.2-1.3); Total Protein 5.6 g/dL (6.3-8.2)
[2019-07-20 07:25] LABS: Basophils % (A) 0 %; Eosinophils % (A) 0 %; HCT 33.6 % (39.0-53.0); Lymphocytes # (A) 1.2 k/uL (1.0-4.8); Lymphocytes % (A) 11 %; MCH 34.1 pg (25.0-35.0); MCHC 33.3 g/dL (31.0-37.0); MCV 102.2 fL (80.0-100.0); Mean Platelet Volume 8.1; Monocytes # (A) 1.1 k/uL (0-1.0); Monocytes % (A) 10 %; Neutrophils # (A) 8.5 k/uL (1.3-7.7); Neutrophils % (A) 77 %; Platelet Count 156 k/uL (150-450); RBC 3.29 m/uL (4.30-5.90); RDW 11.7 % (11.5-15.5); WBC 11.1 k/uL (3.8-10.6)
[2019-07-20 07:30] LABS: HGB 11.2 gm/dL (13.0-17.5)
[2019-07-20] MEDS: LACTATED RINGERS 1,000 ML IV SCH (07:32)
[2019-07-20 07:36] LABS: Glucose,Whole Blood 119 mg/dL (75-99)
--- NOTE | 2019-07-20 08:01 | P.CONS ---
History of Present Illness - Reason for Consult Consult date: 07/20/19 Medical management while hospitalized Requesting physician: Chad Ralph - History of Present Illness Jaxson Robb is an 88-year-old male well-known to my practice who was admitted by Dr. Chad Ralph to [facility] due to advanced osteoarthritis of the right hip, patient underwent right total hip arthroplasty yesterday, he was admitted to medical floor postoperatively, consultation was requested for medical management while hospitalized. Patient has a known history of hypertension, history of diabetes mellitus type 2 [id number] , history of COPD , history of paroxysmal atrial fibrillation, history of urinary retention patient uses self cath 5 times daily, history of DVT and pulmonary embolism in 2016, maintained on Eliquis, and previous history of alcohol use. On review of systems: Patient is alert and oriented 3 he denies any symptoms at this time, there is no fever or chills no headache or dizziness no chest pain no shortness of breath no cough no nausea or vomiting no abdominal pain no burning with urination no frequency or urgency and no hematuria, patient uses self-catheterization 5 times daily. Past Medical History Past Medical History: Asthma, Cancer, Diabetes Mellitus, Deep Vein Thrombosis (DVT), Eye Disorder, Hearing Disorder / Deafness, Hypertension, Memory Impairment, Osteoarthritis (OA), Prostate Disorder, Pulmonary Embolus (PE) Additional Past Medical History / Comment(s): Allergic Asthma, on injections for years, Severe environmental allergies, hx respiratory failure/intubated, hearing aids, Hx Prostate CA/BPH, bilateral glaucoma. Recent recurrent UTI, on po AB Rx. Sl edema BLE. History of Any Multi-Drug Resistant Organisms: None Reported Past Surgical History: Joint Replacement, Prostate Surgery, Tonsillectomy Additional Past Surgical History / Comment(s): L total hip arthroplasty, L total knee arthroplasty, laser surgery bilateral eyes cataracts w/ lens implants, colonoscopy w/ benign polypectomy, cyst removed from back, vasectomy. Past Anesthesia/Blood Transfusion Reactions: No Reported Reaction Past Psychological History: Anxiety Additional Psychological History / Comment(s): Pt's daughter resides with him. He was driving up until recently. Daughter drives. He has recently been weak and falling so is now using a walker. He manages his own medication. Smoking Status: Former smoker Past Alcohol Use History: Daily Additional Past Alcohol Use History / Comment(s): Pt started smoking in 1950, quit in 1980. States he Drinks 8-12 per week est. Past Drug Use History: None Reported - Past Family History Father Family Medical History: No Reported History Mother Additional Family Medical History / Comment(s): Pt states his mother had mental health issues and trigeminal nerve problem and had chronic pain from this. Medications and Allergies Home Medications Medication Instructions Recorded Confirmed Type Latanoprost Ophth [Xalatan 0.005%] 1 drops BOTH EYES HS 11/04/15 07/19/19 History Acetaminophen [Tylenol] 1,000 mg PO Q6H PRN 11/30/15 07/19/19 History Cholecalciferol [Vitamin D3 (25 1,000 unit PO DAILY 11/30/15 07/19/19 History Mcg = 1000 Iu)] L.acidoph,Paracmaria ai, B.lactis 1 cap PO DAILY 11/30/15 07/19/19 History [Probiotic] Loratadine [Claritin] 10 mg PO DAILY PRN 11/30/15 07/19/19 History Melatonin 10 mg PO HS 11/30/15 07/19/19 History Multivitamin [Men's Multi-Vitamin] 1 tab PO DAILY 11/30/15 07/19/19 History Vitamin E (Dl,Tocopheryl Acet) 800 unit PO DAILY 11/30/15 07/19/19 History [Vitamin E] Ascorbic Acid [Vitamin C] 500 mg PO DAILY 10/08/17 07/19/19 History ALPRAZolam [Xanax] 0.25 mg PO TID 08/26/18 07/19/19 History Budesonide [Pulmicort] 0.5 mg INHALATION RT-BID 08/26/18 07/19/19 History Finasteride [Proscar] 5 mg PO DAILY 08/26/18 07/19/19 History Apixaban [Eliquis] 2.5 mg PO BID 04/27/19 07/19/19 History Ibuprofen [Motrin] 600 mg PO Q8HR PRN 04/27/19 07/19/19 History Telmisartan [Micardis] 80 mg PO DAILY 04/27/19 07/19/19 History Albuterol Nebulized [Ventolin 2.5 mg INHALATION TID 07/15/19 07/19/19 History Nebulized] Allergy Injections 1 injection INJ Q30D 07/15/19 07/19/19 History Ciprofloxacin HCl [Cipro] 250 mg PO Q12HR 07/15/19 07/19/19 History Clindamycin [Cleocin] 600 mg PO DIRECTED PRN 07/15/19 07/19/19 History Furosemide [Lasix] 20 mg PO DAILY 07/15/19 07/19/19 History Potassium Chloride [Klor-Con 10] 10 meq PO DAILY 07/15/19 07/19/19 History Valsartan [Diovan] 160 mg PO DAILY 07/15/19 07/19/19 History Allergies Allergy/AdvReac Type Severity Reaction Status Date / Time Penicillins AdvReac Unknown Verified 07/19/19 13:02 tamsulosin HCl [From Flomax] AdvReac Unknown Verified 07/19/19 13:02 Physical Exam Vitals: Vital Signs Temp Pulse Pulse Resp BP Pulse Ox 07/20/19 07:00 98.2 F 75 16 94/52 96 07/20/19 00:00 97.4 F L 91 15 111/64 96 07/19/19 22:00 72 07/19/19 21:49 76 07/19/19 18:26 98.0 F 86 16 118/64 91 L 07/19/19 17:30 66 99/55 07/19/19 16:45 78 16 100/72 96 07/19/19 16:30 87 16 92/55 94 L 07/19/19 16:17 86 16 99/65 97 07/19/19 16:15 100 16 127/58 96 07/19/19 16:02 89 16 127/58 91 L 07/19/19 15:57 97.0 F L 90 16 116/56 95 07/19/19 13:15 98.6 F 95 16 144/83 95 Intake and Output 07/19/19 07/20/19 07/20/19 22:59 06:59 14:59 Intake Total 277.5 570 Output Total 75 275 Balance 202.5 295 Intake: IV 0 Intake, IV Titration 277.5 570 Amount Sodium Chloride 0.9% 1, 227.5 520 000 ml @ 65 mls/hr IV . [id number] [facility] Rx#:[id number] ceFAZolin 2 gm In Sodium 50 50 Chloride 0.9% 50 ml @ 100 mls/hr IVPB Q8H [facility] Rx#: [id number] Output: Urine 275 Straight 275 Estimated Blood Loss 75 Other: Weight 58 kg In general patient is alert and oriented 3 in no apparent distress answering questions appropriately HEENT head normocephalic and atraumatic Neck is supple no JVD no goiter no lymphadenopathy Chest exam reveals a few scattered rhonchi bilaterally no wheezing Cardiac exam reveals regular heart sounds S1 and S2 no gallops no murmurs Abdomen is soft nontender no organomegaly with normal bowel sounds Extremity exam reveals no edema no cyanosis or clubbing Neurological examination reveals no gross focal deficit Results CBC & Chem 7: 07/20/19 06:41 07/20/19 06:41 Labs: Abnormal Lab Results - Last 24 Hours (Table) 07/19/19 07/19/19 07/20/19 Range/Units 13:23 20:17 01:45 WBC (3.8-10.6) k/uL RBC (4.30-5.90) m/uL Hgb (13.0-17.5) gm/dL Hct (39.0-53.0) % MCV (80.0-100.0) fL Neutrophils # (1.3-7.7) k/uL Monocytes # (0-1.0) k/uL Chloride (98-107) mmol/L BUN (9-20) mg/dL Glucose (74-99) mg/dL POC Glucose (mg/dL) 111 H 217 H (75-99) mg/dL Total Protein (6.3-8.2) g/dL Albumin (3.5-5.0) g/dL Urine Protein Trace H (Negative) Urine Ketones Trace H (Negative) 07/20/19 07/20/19 07/20/19 Range/Units 06:41 06:41 07:24 WBC 11.1 H (3.8-10.6) k/uL RBC 3.29 L (4.30-5.90) m/uL Hgb 11.2 L D (13.0-17.5) gm/dL Hct 33.6 L (39.0-53.0) % MCV 102.2 H (80.0-100.0) fL Neutrophils # 8.5 H (1.3-7.7) k/uL Monocytes # 1.1 H (0-1.0) k/uL Chloride 110 H (98-107) mmol/L BUN 27 H (9-20) mg/dL Glucose 126 H (74-99) mg/dL POC Glucose (mg/dL) 119 H (75-99) mg/dL Total Protein 5.6 L (6.3-8.2) g/dL Albumin 3.0 L (3.5-5.0) g/dL Urine Protein (Negative) Urine Ketones (Negative) Assessment and Plan Plan: #1 advanced osteoarthritis status post right total hip arthroplasty yesterday. #2 hypertension well-controlled on current medications continue #3 history of BPH with urinary retention patient uses self-catheterization 5 times daily. #4 underlying history of paroxysmal atrial fibrillation #5 history of pulmonary embolism in 2015, at this time Eliquis was resumed #6 underlying history of COPD, stable at this time continue nebulizer treatments as at home. #7 underlying history of diabetes mellitus type 2 Will cover with insulin to sliding scale Patient is stable at this time Medication reordered Will follow closely during this hospitalization, will assess his mobility with physical therapy He may need rehab after this admission
[2019-07-20] MEDS: LACTOBACILLUS ACIDOPH & BULGAR 1 EACH PACKET PO SCH (08:23)
[2019-07-20] MEDS: FINASTERIDE 5 MG TAB PO SCH (08:23)
[2019-07-20] MEDS: CHOLECALCIFEROL 1,000 UNIT TAB PO SCH (08:23)
[2019-07-20] MEDS: POTASSIUM CHLORIDE ER 10 MEQ TAB.ER.PRT PO SCH (08:23)
[2019-07-20] MEDS: ASCORBIC ACID 500 MG TAB PO SCH (08:23)
[2019-07-20] MEDS: ALPRAZolam 0.25 MG TAB PO SCH ×3 (08:23→21:19)
[2019-07-20] MEDS: FUROSEMIDE 20 MG TAB PO SCH (08:23)
[2019-07-20] MEDS: MULTIVITAMINS, THERA 1 EACH TAB PO SCH (08:23)
[2019-07-20] MEDS: APIXABAN 2.5 MG TABLET PO SCH ×2 (08:23→21:19)
[2019-07-20] MEDS: VITAMIN E (DL,TOCOPHERYL ACET) 400 UNIT CAP PO SCH (08:23)
[2019-07-20] MEDS: VALSARTAN 160 MG TAB PO SCH (08:23)
[2019-07-20] MEDS: BUDESONIDE 0.5 MG/2 ML NEBU INHALATION SCH ×2 (08:34→20:20)
[2019-07-20] MEDS: ALBUTEROL NEBULIZED 2.5 MG/3 ML INHALATION SCH ×3 (08:34→20:20)
--- NOTE | 2019-07-20 08:35 | P.PN ---
Subjective Progress Note Date: 07/20/19 This is an 88-year-old male who is status post right total hip arthroplasty. This is postoperative day #1 and patient is seen and evaluated at bedside with Dr. Chad Ralph. Patient states that his pain is well controlled and he denies any new complaints today. Patient denies any fever/chills, numbness, weakness, tingling, abdominal pain, shortness of breath or chest pain. Objective - Vital Signs Vital signs: Vital Signs Temp 98.2 F 07/20/19 07:00 Pulse 75 07/20/19 07:00 Resp 16 07/20/19 07:00 BP 94/52 07/20/19 07:00 Pulse Ox 96 07/20/19 07:00 Intake & Output 07/19/19 07/20/19 07/20/19 18:59 06:59 18:59 Intake Total 1051 847.5 Output Total 75 275 Balance 976 572.5 Weight 58 kg 58 kg Intake: IV 1051 Intake, IV Titration 847.5 Amount Sodium Chloride 0.9% 1, 747.5 000 ml @ 65 mls/hr IV . [id number] [facility] Rx#:[id number] ceFAZolin 2 gm In Sodium 100 Chloride 0.9% 50 ml @ 100 mls/hr IVPB Q8H [facility] Rx#: [id number] Output: Urine 275 Straight 275 Estimated Blood Loss 75 - Exam Vital signs are stable. Patient is in no acute distress and is alert and oriented 3. Calf is soft and nontender to palpation. Dressing is clean, dry, and intact. Patient has full foot and ankle motion without pain or difficulty. Neurovascular status and circulatory status are intact. - Labs CBC & Chem 7: 07/20/19 06:41 07/20/19 06:41 Labs: Abnormal Lab Results - Last 24 Hours (Table) 07/19/19 07/19/19 07/20/19 Range/Units 13:23 20:17 01:45 WBC (3.8-10.6) k/uL RBC (4.30-5.90) m/uL Hgb (13.0-17.5) gm/dL Hct (39.0-53.0) % MCV (80.0-100.0) fL Neutrophils # (1.3-7.7) k/uL Monocytes # (0-1.0) k/uL Chloride (98-107) mmol/L BUN (9-20) mg/dL Glucose (74-99) mg/dL POC Glucose (mg/dL) 111 H 217 H (75-99) mg/dL Total Protein (6.3-8.2) g/dL Albumin (3.5-5.0) g/dL Urine Protein Trace H (Negative) Urine Ketones Trace H (Negative) 07/20/19 07/20/19 07/20/19 Range/Units 06:41 06:41 07:24 WBC 11.1 H (3.8-10.6) k/uL RBC 3.29 L (4.30-5.90) m/uL Hgb 11.2 L D (13.0-17.5) gm/dL Hct 33.6 L (39.0-53.0) % MCV 102.2 H (80.0-100.0) fL Neutrophils # 8.5 H (1.3-7.7) k/uL Monocytes # 1.1 H (0-1.0) k/uL Chloride 110 H (98-107) mmol/L BUN 27 H (9-20) mg/dL Glucose 126 H (74-99) mg/dL POC Glucose (mg/dL) 119 H (75-99) mg/dL Total Protein 5.6 L (6.3-8.2) g/dL Albumin 3.0 L (3.5-5.0) g/dL Urine Protein (Negative) Urine Ketones (Negative) Assessment and Plan (1) S/P total hip arthroplasty Current Visit: Yes Status: Acute Code(s): Z96.649 - PRESENCE OF UNSPECIFIED ARTIFICIAL HIP JOINT SNOMED Code(s): 086098792157 (2) Osteoarthritis of right hip Current Visit: Yes Status: Acute Code(s): M16.11 - UNILATERAL PRIMARY OSTEOARTHRITIS, RIGHT HIP SNOMED Code(s): 003251533045199 Plan: Continue routine postop care and pain control. Continue anticoagulation with Eliquis. Weightbearing as tolerated with a walker. Leave dressing in place for 10 days. Appreciate input from medicine. Anticipate discharge home with homecare tomorrow.
[2019-07-20] MEDS ORDERED: traMADol 50 MG TAB PO PRN ×2 (08:37)
[2019-07-20 12:15] LABS: Glucose,Whole Blood 119 mg/dL (75-99)
[2019-07-20 17:31] LABS: Glucose,Whole Blood 106 mg/dL (75-99)
[2019-07-20 20:09] VITALS: RESP 15
[2019-07-20 20:36] LABS: Glucose,Whole Blood 146 mg/dL (75-99)
[2019-07-20] MEDS: MELATONIN 5 MG TABLET PO SCH (21:19)
[2019-07-20] MEDS: LATANOPROST 0.005% OPHTH DROPS 2.5 ML BTL BOTH EYES SCH (21:19)
[2019-07-20] MEDS: SENNOSIDES-DOCUSATE SODIUM 1 EACH TAB PO SCH (21:19)
[2019-07-20] MEDS: INSULIN ASPART (NovoLOG) 100 UNIT/ML VIAL SQ SCH (21:20)
[2019-07-21] MEDS: LACTATED RINGERS 1,000 ML IV SCH (07:17)
[2019-07-21 07:32] LABS: Glucose,Whole Blood 111 mg/dL (75-99)
[2019-07-21] MEDS: INSULIN ASPART (NovoLOG) 100 UNIT/ML VIAL SQ SCH (07:40)
[2019-07-21] MEDS: ALPRAZolam 0.25 MG TAB PO SCH (08:10)
[2019-07-21] MEDS: MULTIVITAMINS, THERA 1 EACH TAB PO SCH (08:15)
[2019-07-21] MEDS: ASCORBIC ACID 500 MG TAB PO SCH (08:15)
[2019-07-21] MEDS: LACTOBACILLUS ACIDOPH & BULGAR 1 EACH PACKET PO SCH (08:15)
[2019-07-21] MEDS: FUROSEMIDE 20 MG TAB PO SCH (08:15)
[2019-07-21] MEDS: POTASSIUM CHLORIDE ER 10 MEQ TAB.ER.PRT PO SCH (08:15)
[2019-07-21] MEDS: APIXABAN 2.5 MG TABLET PO SCH (08:15)
[2019-07-21] MEDS: VALSARTAN 160 MG TAB PO SCH (08:16)
[2019-07-21] MEDS: FINASTERIDE 5 MG TAB PO SCH (08:16)
[2019-07-21] MEDS: VITAMIN E (DL,TOCOPHERYL ACET) 400 UNIT CAP PO SCH (08:16)
[2019-07-21] MEDS: CHOLECALCIFEROL 1,000 UNIT TAB PO SCH (08:16)
[2019-07-21] MEDS: ALBUTEROL NEBULIZED 2.5 MG/3 ML INHALATION SCH (08:32)
[2019-07-21] MEDS: BUDESONIDE 0.5 MG/2 ML NEBU INHALATION SCH (08:32)
[2019-07-21 09:01] VITALS: BP 128/61; PULSE 89; TEMP 98.3
--- NOTE | 2019-07-21 09:06 | P.DS ---
Providers Date of admission: 07/19/19 12:21 Expected date of discharge: 07/21/19 Attending physician: Chad Ralph Consults: 07/19/19 14:17 Consult Physician Routine Consulting Provider: Yue Loya Consult Reason/Comments: medical management Do you want consulting provider notified?: Yes Primary care physician: Yue Loya - Discharge Diagnosis(es) (1) S/P total hip arthroplasty Current Visit: Yes Status: Acute (2) Osteoarthritis of right hip Current Visit: Yes Status: Acute Hospital Course: This is a 88-year-old male with known history of degenerative arthritis of the right hip. The patient presents for evaluation. After discussion and consideration patient elects to proceed with total hip arthroplasty. The patient is seen preoperatively by Dr. Ralph and medically cleared for surgery by their primary care physician. Patient is admitted to [facility] on 07/19/2019 for total hip arthroplasty. The procedures performed without complication or sequelae. The patient is doing well postoperatively. Labs and vital signs are stable on day of discharge. On day of discharge patient's hip incision is healing well. There is minimal erythema. There is no drainage noted at this time. There is minimal soft tissue swelling to the hip and thigh. Patient has full foot and ankle motion without difficulty or pain. Calf is soft and nontender to palpation. Neurovascular status to the right lower extremity is intact. Patient is discharged home in good condition. Opioid start talking form is reviewed and signed at patient bedside. Patient will resume his normal dose of Eliquis for postoperative anticoagulation. Patient states that he has a prescription for this at home. Please see med rec for accurate list of home medications. Plan - Discharge Summary Discharge Rx Participant: No New Discharge Prescriptions: New Sennosides [Senokot] 2 tab PO DAILY PRN #60 tablet PRN Reason: Constipation traMADol HCl [Ultram] 1 - 2 tab PO Q6H PRN #56 tab PRN Reason: Pain No Action Latanoprost Ophth [Xalatan 0.005%] 1 drops BOTH EYES HS Vitamin E (Dl,Tocopheryl Acet) [Vitamin E] 800 unit PO DAILY L.acidoph,Paracasei, B.lactis [Probiotic] 1 cap PO DAILY Melatonin 10 mg PO HS Loratadine [Claritin] 10 mg PO DAILY PRN PRN Reason: allergies Acetaminophen [Tylenol] 1,000 mg PO Q6H PRN PRN Reason: Pain Multivitamin [Men's Multi-Vitamin] 1 tab PO DAILY Cholecalciferol [Vitamin D3 (25 Mcg = 1000 Iu)] 1,000 unit PO DAILY Ascorbic Acid [Vitamin C] 500 mg PO DAILY Finasteride [Proscar] 5 mg PO DAILY Budesonide [Pulmicort] 0.5 mg INHALATION RT-BID ALPRAZolam [Xanax] 0.25 mg PO TID Ibuprofen [Motrin] 600 mg PO Q8HR PRN PRN Reason: Pain Apixaban [Eliquis] 2.5 mg PO BID Telmisartan [Micardis] 80 mg PO DAILY Allergy Injections 1 injection INJ Q30D Albuterol Nebulized [Ventolin Nebulized] 2.5 mg INHALATION TID Ciprofloxacin HCl [Cipro] 250 mg PO Q12HR Clindamycin [Cleocin] 600 mg PO DIRECTED PRN PRN Reason: dental work Furosemide [Lasix] 20 mg PO DAILY Potassium Chloride [Klor-Con 10] 10 meq PO DAILY Valsartan [Diovan] 160 mg PO DAILY Discharge Medication List Latanoprost Ophth [Xalatan 0.005%] 1 drops BOTH EYES HS 11/04/15 [History] Acetaminophen [Tylenol] 1,000 mg PO Q6H PRN 11/30/15 [History] Cholecalciferol [Vitamin D3 (25 Mcg = 1000 Iu)] 1,000 unit PO DAILY 11/30/15 [History] L.acidoph,Paracasei, B.lactis [Probiotic] 1 cap PO DAILY 11/30/15 [History] Loratadine [Claritin] 10 mg PO DAILY PRN 11/30/15 [History] Melatonin 10 mg PO HS 11/30/15 [History] Multivitamin [Men's Multi-Vitamin] 1 tab PO DAILY 11/30/15 [History] Vitamin E (Dl,Tocopheryl Acet) [Vitamin E] 800 unit PO DAILY 11/30/15 [History] Ascorbic Acid [Vitamin C] 500 mg PO DAILY 10/08/17 [History] ALPRAZolam [Xanax] 0.25 mg PO TID 08/26/18 [History] Budesonide [Pulmicort] 0.5 mg INHALATION RT-BID 08/26/18 [History] Finasteride [Proscar] 5 mg PO DAILY 08/26/18 [History] Apixaban [Eliquis] 2.5 mg PO BID 04/27/19 [History] Ibuprofen [Motrin] 600 mg PO Q8HR PRN 04/27/19 [History] Telmisartan [Micardis] 80 mg PO DAILY 04/27/19 [History] Albuterol Nebulized [Ventolin Nebulized] 2.5 mg INHALATION TID 07/15/19 [History] Allergy Injections 1 injection INJ Q30D 07/15/19 [History] Ciprofloxacin HCl [Cipro] 250 mg PO Q12HR 07/15/19 [History] Clindamycin [Cleocin] 600 mg PO DIRECTED PRN 07/15/19 [History] Furosemide [Lasix] 20 mg PO DAILY 07/15/19 [History] Potassium Chloride [Klor-Con 10] 10 meq PO DAILY 07/15/19 [History] Valsartan [Diovan] 160 mg PO DAILY 07/15/19 [History] Sennosides [Senokot] 2 tab PO DAILY PRN #60 tablet 07/21/19 [Rx] traMADol HCl [Ultram] 1 - 2 tab PO Q6H PRN #56 tab 07/21/19 [Rx] Follow up Appointment(s)/Referral(s): [facility] Nurse, [NON-STAFF] - As Needed Chad Ralph DO [Doctor of Osteopathic Medicine] - 2 Weeks Activity/Diet/Wound Care/Special Instructions: Weightbearing as tolerated with walker. Leave dressing intact. Dressing may be removed by home care nurse or by patient in 10 days. May shower with dressing on. Recommend use of compression stockings daily for at least 2 weeks during the day to help prevent swelling and blood clots. May remove at night before sleeping. Please follow-up with [facility] in 2 weeks and call with any questions or concerns, . Discharge Disposition: HOME WITH HOME HEALTH SERVICES
[2019-07-21 09:56] LABS: Basophils # (A) 0.1 k/uL (0-0.2); Basophils % (A) 1 %; Eosinophils # (A) 0.1 k/uL (0-0.7); Eosinophils % (A) 1 %; HCT 33.8 % (39.0-53.0); HGB 10.8 gm/dL (13.0-17.5); Lymphocytes % (A) 19 %; MCH 32.9 pg (25.0-35.0); MCHC 31.9 g/dL (31.0-37.0); MCV 103.1 fL (80.0-100.0); Mean Platelet Volume 8.2; Monocytes # (A) 1.2 k/uL (0-1.0); Monocytes % (A) 11 %; Neutrophils % (A) 66 %; Platelet Count 155 k/uL (150-450); RBC 3.27 m/uL (4.30-5.90); RDW 11.7 % (11.5-15.5); WBC 10.5 k/uL (3.8-10.6)
[2019-07-21 10:18] LABS: ALT 7 U/L (21-72); AST 29 U/L (17-59); African American GFR (CKD) >90 (>60 ml/min/1.73 sqM); Albumin 2.7 g/dL (3.5-5.0); Alkaline Phosphatase 45 U/L (38-126); Anion Gap 6 mmol/L; Blood Urea Nitrogen 19 mg/dL (9-20); Calcium 8.6 mg/dL (8.4-10.2); Carbon Dioxide 23 mmol/L (22-30); Chloride 111 mmol/L (98-107); Glucose 150 mg/dL (74-99); Non-African American GFR(CKD) 80 (>60 ml/min/1.73 sqM); Potassium 4.2 mmol/L (3.5-5.1); Sodium 140 mmol/L (137-145); Total Bilirubin 0.5 mg/dL (0.2-1.3)
--- NOTE | 2019-07-21 11:18 | P.PN ---
Subjective Progress Note Date: 07/21/19 Jaxson Robb is an 88-year-old male well-known to my practice who was admitted by Dr. Chad Ralph to [facility] due to advanced osteoarthritis of the right hip, patient underwent right total hip arthroplasty yesterday, he was admitted to medical floor postoperatively, consultation was requested for medical management while hospitalized. Patient has a known history of hypertension, history of diabetes mellitus type 2 [id number]-muaucwmey , history of COPD , history of paroxysmal atrial fibrillation, history of urinary retention patient uses self cath 5 times daily, history of DVT and pulmonary embolism in 2016, maintained on Eliquis, and previous history of alcohol use. On review of systems: Patient is alert and oriented 3 he denies any symptoms at this time, there is no fever or chills no headache or dizziness no chest pain no shortness of breath no cough no nausea or vomiting no abdominal pain no burning with urination no frequency or urgency and no hematuria, patient uses self-catheterization 5 times daily. On 07/21/2019 patient is alert and oriented 3. Patient is eager to go home. PT recommending home with home health care. Patient reports that his daughter will be staying with them. UA completed showing no signs of infection. White blood cell did improve to 10.5. Patient has remained afebrile. At this time patient denies chest pain or shortness breath. Patient denies nausea vomiting or diarrhea. Patient denies any urinary burning or frequency Objective - Vital Signs Vital signs: Vital Signs Temp 98.3 F 07/21/19 07:17 Pulse 88 07/21/19 08:53 Resp 15 07/21/19 07:17 BP 128/61 07/21/19 07:17 Pulse Ox 95 07/21/19 08:34 Intake & Output 07/20/19 07/21/19 07/21/19 18:59 06:59 18:59 Intake Total 800 240 Output Total 400 250 Balance 400 -250 240 Intake: Oral 800 240 Output: Urine 400 250 Other: Voiding Method Self-Catheterization Self-Catheterization Self-Catheterization - Exam In general patient is alert and oriented 3 in no apparent distress answering questions appropriately HEENT head normocephalic and atraumatic Neck is supple no JVD no goiter no lymphadenopathy Chest exam reveals a few scattered rhonchi bilaterally no wheezing Cardiac exam reveals regular heart sounds S1 and S2 no gallops no murmurs Abdomen is soft nontender no organomegaly with normal bowel sounds Extremity exam reveals no edema no cyanosis or clubbing Neurological examination reveals no gross focal deficit - Labs CBC & Chem 7: 07/21/19 09:28 07/21/19 09:28 Labs: Abnormal Lab Results - Last 24 Hours (Table) 07/20/19 07/20/19 07/20/19 Range/Units 12:02 17:17 20:24 RBC (4.30-5.90) m/uL Hgb (13.0-17.5) gm/dL Hct (39.0-53.0) % MCV (80.0-100.0) fL Monocytes # (0-1.0) k/uL Chloride (98-107) mmol/L Glucose (74-99) mg/dL POC Glucose (mg/dL) 119 H 106 H 146 H (75-99) mg/dL ALT (21-72) U/L Total Protein (6.3-8.2) g/dL Albumin (3.5-5.0) g/dL 07/21/19 07/21/19 07/21/19 Range/Units 07:30 09:28 09:28 RBC 3.27 L (4.30-5.90) m/uL Hgb 10.8 L (13.0-17.5) gm/dL Hct 33.8 L (39.0-53.0) % MCV 103.1 H (80.0-100.0) fL Monocytes # 1.2 H (0-1.0) k/uL Chloride 111 H (98-107) mmol/L Glucose 150 H (74-99) mg/dL POC Glucose (mg/dL) 111 H (75-99) mg/dL ALT 7 L (21-72) U/L Total Protein 5.0 L (6.3-8.2) g/dL Albumin 2.7 L (3.5-5.0) g/dL Assessment and Plan Assessment: #1 advanced osteoarthritis status post right total hip arthroplasty yesterday. Patient postop day 1 #2 hypertension well-controlled on current medications continue #3 history of BPH with urinary retention patient uses self-catheterization 5 times daily. #4 underlying history of paroxysmal atrial fibrillation #5 history of pulmonary embolism in 2015, at this time Eliquis was resumed #6 underlying history of COPD, stable at this time continue nebulizer treatments as at home. #7 underlying history of diabetes mellitus type 2 Will cover with insulin to sliding scale Patient planned to be discharged home today per orthopedic services patient will be going home with home health care lives with daughter. I performed an examination of the patient and discussed their management with the Nurse Practitioner. I have reviewed the Nurse Practitioner's notes and agree with the documented findings and plan of care
== END 2019-07-21 12:27 | disposition home health service (06) | DRG 470 ==
LOC: 2ORMAIN 12:21 → 4SSUR 16:19
PROVIDERS: ADMIT Orthopaedic Surgery; ATTEND Orthopaedic Surgery
PROC: 0SR906A Replacement of Right Hip Joint with Oxidized Zirconium on Polyethylene Synthetic Substitute, Uncemented, Open Approach (ICD-10-PCS; principal; 2019-07-19 14:20)
DX: M16.11 Unilateral primary osteoarthritis, right hip (principal); E11.9 Type 2 diabetes mellitus without complications; H91.90 Unspecified hearing loss, unspecified ear; I10 Essential (primary) hypertension; I48.0 Paroxysmal atrial fibrillation; J44.9 Chronic obstructive pulmonary disease, unspecified; N40.1 Benign prostatic hyperplasia with lower urinary tract symptoms; Z79.01 Long term (current) use of anticoagulants; Z79.899 Other long term (current) drug therapy; Z85.46 Personal history of malignant neoplasm of prostate; Z86.711 Personal history of pulmonary embolism; Z86.718 Personal history of other venous thrombosis and embolism; Z87.440 Personal history of urinary (tract) infections; Z87.891 Personal history of nicotine dependence; Z96.1 Presence of intraocular lens; Z96.642 Presence of left artificial hip joint; Z96.652 Presence of left artificial knee joint; Z98.42 Cataract extraction status, left eye; Z98.41 Cataract extraction status, right eye
CPT/HCPCS: 73501; 80053; 81003; 85025; 86850; 86891; 86900; 86901; 88300; 94640; 94760

== ENCOUNTER 2019-10-20 15:20 | Inpatient (IN) | payer MEDICARE, BC ==
[2019-10-20 16:39] LABS: Glucose,Whole Blood 125 mg/dL (75-99)
[2019-10-20] MEDS: INSULIN ASPART (NovoLOG) 100 UNIT/ML VIAL SQ SCH ×2 (17:04→20:49)
[2019-10-20] MEDS: SODIUM CHLORIDE 0.9% 1,000 ML IV SCH (17:08)
[2019-10-20 17:48] LABS: Basophils # (A) 0.1 k/uL (0-0.2); Basophils % (A) 1 %; Eosinophils # (A) 0.3 k/uL (0-0.7); Eosinophils % (A) 5 %; HCT 41.8 % (39.0-53.0); HGB 13.2 gm/dL (13.0-17.5); Lymphocytes # (A) 1.3 k/uL (1.0-4.8); Lymphocytes % (A) 19 %; MCH 31.8 pg (25.0-35.0); MCHC 31.5 g/dL (31.0-37.0); MCV 100.9 fL (80.0-100.0); Mean Platelet Volume 7.6; Monocytes # (A) 0.6 k/uL (0-1.0); Monocytes % (A) 8 %; Neutrophils # (A) 4.3 k/uL (1.3-7.7); Neutrophils % (A) 63 %; Platelet Count 195 k/uL (150-450); RBC 4.15 m/uL (4.30-5.90); RDW 12.1 % (11.5-15.5); WBC 6.8 k/uL (3.8-10.6)
[2019-10-20] MEDS ORDERED: LOPERAMIDE 2 MG CAP PO PRN (18:05)
[2019-10-20] MEDS ORDERED: SENNOSIDES 8.6 MG TAB PO PRN (18:05)
[2019-10-20] MEDS ORDERED: traMADol 50 MG TAB PO PRN (18:05)
[2019-10-20 20:32] LABS: Glucose,Whole Blood 170 mg/dL (75-99)
[2019-10-20] MEDS: BUDESONIDE 0.5 MG/2 ML NEBU INHALATION SCH (20:49)
[2019-10-20] MEDS: ALBUTEROL NEBULIZED 2.5 MG/3 ML INHALATION SCH (20:49)
[2019-10-20] MEDS: ALPRAZolam 0.5 MG TAB PO SCH (20:50)
[2019-10-20] MEDS: MELATONIN 5 MG TABLET PO SCH (20:50)
[2019-10-20] MEDS: APIXABAN 2.5 MG TABLET PO SCH (20:50)
--- NOTE | 2019-10-20 21:02 | XR ---
EXAMINATION: XR chest 1V portable DATE AND TIME: 10/20/2019 5:23 PM CLINICAL INDICATION: PHH; cough TECHNIQUE: Departmental protocol COMPARISON: 04/28/2019 FINDINGS: The right lung is clear and well expanded in the right pleural space is negative. The left lung is clear and well expanded in its upper and mid zones, and most of the lower lung zone. However, the left diaphragm is elevated, as was seen on the prior study. This is consistent with par tial left lower lobe airlessness, consistent with atelectasis and/or pneumonia - clinical distinction necessary. Mildly enlarged cardiac silhouette redemonstrated. No definite acute skeletal or soft tissue findings. IMPRESSION: Minimal left lung base airlessness.
[2019-10-20 22:00] LABS: Appearance,Urine Clear (Clear); Bacteria,Urine Many /hpf; Bilirubin,Urine Negative (Negative); Blood,Urine Negative (Negative); Color,Urine Light Yellow; Glucose,Urine (UA) Negative (Negative); Ketones,Urine Negative (Negative); Leukocyte Esterase,Urine Moderate (Negative); Mucus,Urine Rare /hpf; Nitrite,Urine Positive (Negative); Protein,Urine Negative (Negative); RBC,Urine <1 /hpf (0-5); Specific Gravity,Urine 1.013 (1.001-1.035); Squamous Epithelial Cell,Urine <1 /hpf (0-4); Urobilinogen,Urine <2.0 mg/dL (<2.0); WBC,Urine 8 /hpf (0-5)
[2019-10-20] MEDS: LATANOPROST 0.005% OPHTH DROPS 2.5 ML BTL BOTH EYES SCH (22:19)
[2019-10-21] MEDS: SODIUM CHLORIDE 0.9% 1,000 ML IV SCH ×2 (05:27→20:24)
[2019-10-21 07:05] LABS: Glucose,Whole Blood 110 mg/dL (75-99)
[2019-10-21] MEDS: ALBUTEROL NEBULIZED 2.5 MG/3 ML INHALATION SCH ×3 (07:24→21:07)
[2019-10-21] MEDS: BUDESONIDE 0.5 MG/2 ML NEBU INHALATION SCH ×2 (07:24→21:07)
[2019-10-21] MEDS: INSULIN ASPART (NovoLOG) 100 UNIT/ML VIAL SQ SCH ×4 (07:39→20:28)
[2019-10-21] MEDS: VALSARTAN 80 MG TAB PO SCH (09:05)
[2019-10-21] MEDS: FUROSEMIDE 20 MG TAB PO SCH (09:05)
[2019-10-21] MEDS: MULTIVITAMINS, THERA 1 EACH TAB PO SCH (09:05)
[2019-10-21] MEDS: CHOLECALCIFEROL 1,000 UNIT TAB PO SCH (09:05)
[2019-10-21] MEDS: POTASSIUM CHLORIDE ER 10 MEQ TAB.ER.PRT PO SCH (09:05)
[2019-10-21] MEDS: FINASTERIDE 5 MG TAB PO SCH (09:05)
[2019-10-21] MEDS: ALPRAZolam 0.25 MG TAB PO SCH (09:06)
[2019-10-21] MEDS: ASCORBIC ACID 500 MG TAB PO SCH (09:06)
[2019-10-21] MEDS: APIXABAN 2.5 MG TABLET PO SCH ×2 (09:06→20:29)
[2019-10-21] MEDS: LACTOBACILLUS ACIDOPH & BULGAR 1 EACH PACKET PO SCH (09:06)
[2019-10-21 10:06] LABS: Basophils % (A) 0 %; Eosinophils # (A) 0.5 k/uL (0-0.7); Eosinophils % (A) 7 %; HCT 37.5 % (39.0-53.0); HGB 11.8 gm/dL (13.0-17.5); Lymphocytes # (A) 1.4 k/uL (1.0-4.8); Lymphocytes % (A) 20 %; MCHC 31.6 g/dL (31.0-37.0); MCV 101.1 fL (80.0-100.0); Mean Platelet Volume 7.7; Monocytes # (A) 0.7 k/uL (0-1.0); Monocytes % (A) 9 %; Neutrophils # (A) 4.4 k/uL (1.3-7.7); Neutrophils % (A) 61 %; Platelet Count 191 k/uL (150-450); RBC 3.71 m/uL (4.30-5.90); RDW 12.1 % (11.5-15.5); WBC 7.2 k/uL (3.8-10.6)
[2019-10-21 10:23] LABS: ALT 10 U/L (4-49); AST 20 U/L (17-59); African American GFR (CKD) >90 (>60 ml/min/1.73 sqM); Albumin 2.8 g/dL (3.5-5.0); Alkaline Phosphatase 56 U/L (38-126); Anion Gap 5 mmol/L; Blood Urea Nitrogen 39 mg/dL (9-20); Calcium 8.9 mg/dL (8.4-10.2); Carbon Dioxide 25 mmol/L (22-30); Chloride 111 mmol/L (98-107); Glucose 137 mg/dL (74-99); Non-African American GFR(CKD) 81 (>60 ml/min/1.73 sqM); Potassium 3.8 mmol/L (3.5-5.1); Sodium 141 mmol/L (137-145); Total Bilirubin 0.2 mg/dL (0.2-1.3); Total Protein 5.3 g/dL (6.3-8.2)
--- NOTE | 2019-10-21 10:39 | P.HPIM ---
History of Present Illness H&P Date: 10/21/19 Chief Complaint: generalized weakness This is a 89-year-old male patient who presented to his PCP with complaints of generalized weakness and not feeling well. Patient was sent to the hospital for urinary tract infection and dehydration. Patient has a known past medical hi story of asthma, diabetes mellitus, essential hypertension, osteoarthritis, pulmonary embolism, frequent straight cath at home, EtOH and anxiety. UA positive for moderate amount of leukocyte Estrace. Urine culture ordered. Patient started on Rocephin. Normal saline at 75. At this time patient reports he is feeling improved. Will consult PT OT. Patient denies chest pain or shortness of breath. Patient denies nausea vomiting or diarrhea. Patient denies any urinary burning or frequency. Review of Systems please refer to HPI otherwise unremarkable Past Medical History Past Medical History: Asthma, Diabetes Mellitus, Eye Disorder, Hearing Disorder / Deafness, Hypertension, Memory Impairment, Osteoarthritis (OA), Prostate Disorder, Pulmonary Embolus (PE) Additional Past Medical History / Comment(s): Severe environmental allergies, respiratory failure/intubated, ZUNI bilaterally, BPH, bilateral glaucoma. straight caths at home. History of Any Multi-Drug Resistant Organisms: None Reported Past Surgical History: Joint Replacement, Tonsillectomy Additional Past Surgical History / Comment(s): L total hip arthroplasty, L total knee arthroplasty, laser surgery bilateral eyes cataracts w/ lens implants, colonoscopy w/ benign polypectomy, cyst removed from back, vasectomy. Past Anesthesia/Blood Transfusion Reactions: No Reported Reaction Past Psychological History: Anxiety Additional Psychological History / Comment(s): Pt's daughter resides with him. He was driving up until recently. Daughter drives. He has recently been weak and falling so is now using a walker. He manages his own medication. Smoking Status: Former smoker Past Alcohol Use History: Daily, Heavy Additional Past Alcohol Use History / Comment(s): Pt started smoking in 1951 and quit in 1980. Drinks pint or more of vodka daily Past Drug Use History: None Reported - Past Family History Father Family Medical History: No Reported History Mother Additional Family Medical History / Comment(s): Pt states his mother had mental health issues and trigeminal nerve problem and had chronic pain from this. Medications and Allergies Home Medications Medication Instructions Recorded Confirmed Type Latanoprost Ophth [Xalatan 0.005%] 1 drops BOTH EYES HS 11/04/15 10/20/19 History Cholecalciferol [Vitamin D3 (25 1,000 unit PO DAILY 11/30/15 10/20/19 History Mcg = 1000 Iu)] L.acidoph,Paracasei, B.lactis 1 cap PO DAILY 11/30/15 10/20/19 History [Probiotic] Melatonin 10 mg PO HS 11/30/15 10/20/19 History Multivitamin [Men's Multi-Vitamin] 1 tab PO DAILY 11/30/15 10/20/19 History Ascorbic Acid [Vitamin C] 500 mg PO DAILY 10/08/17 10/20/19 History ALPRAZolam [Xanax] 0.25 mg PO DAILY 08/26/18 10/20/19 History Budesonide [Pulmicort] 0.5 mg INHALATION RT-BID 08/26/18 10/20/19 History Finasteride [Proscar] 5 mg PO DAILY 08/26/18 10/20/19 History Apixaban [Eliquis] 2.5 mg PO BID 04/27/19 10/20/19 History Albuterol Nebulized [Ventolin 2.5 mg INHALATION RT-TID 07/15/19 10/20/19 History Nebulized] Furosemide [Lasix] 20 mg PO DAILY 07/15/19 10/20/19 History Potassium Chloride [Klor-Con 10] 10 meq PO DAILY 07/15/19 10/20/19 History Sennosides [Senokot] 2 tab PO DAILY PRN #60 tablet 07/21/19 10/20/19 Rx traMADol HCl [Ultram] 1 - 2 tab PO Q6H PRN #56 tab 07/21/19 10/20/19 Rx ALPRAZolam [Xanax] 0.5 mg PO HS 10/20/19 10/20/19 History Loperamide [Imodium] 2 mg PO QID PRN 10/20/19 10/20/19 History Valsartan 80 mg PO DAILY 10/20/19 10/20/19 History Allergies Allergy/AdvReac Type Severity Reaction Status Date / Time Penicillins AdvReac Unknown Verified 10/20/19 17:50 tamsulosin HCl [From Flomax] AdvReac Unknown Verified 10/20/19 17:50 Physical Exam Vitals: Vital Signs Temp Pulse Pulse Resp BP Pulse Ox 10/21/19 07:43 64 10/21/19 07:40 98.0 F 65 16 124/69 94 L 10/21/19 07:24 64 10/21/19 00:48 97.5 F L 69 14 134/76 93 L 10/20/19 21:05 90 10/20/19 20:49 90 10/20/19 19:17 97.7 F 66 15 110/53 94 L 10/20/19 16:15 97.5 F L 65 16 105/64 95 Intake and Output 10/20/19 10/21/19 10/21/19 22:59 06:59 14:59 Intake Total 480 Output Total 250 200 Balance 230 -200 Intake: Oral 480 Output: Urine 250 200 Other: Voiding Method Self-Catheterization # Voids 1 1 Weight 53 kg Head normocephalic Neck supple Lungs clear to auscultation bilaterally no wheezing or crackles Heart regular rate and rhythm S1-S2, no rub or gallop Abdomen is soft nontender nondistended positive bowel sounds no hepatosplenomegaly Extremities no edema Neuro alert and orientated to 3 Results CBC & Chem 7: 10/21/19 09:16 10/21/19 09:16 Labs: Abnormal Lab Results - Last 24 Hours (Table) 10/20/19 10/20/19 10/20/19 Range/Units 16:36 17:12 20:31 RBC 4.15 L (4.30-5.90) m/uL Hgb (13.0-17.5) gm/dL Hct (39.0-53.0) % MCV 100.9 H (80.0-100.0) fL Chloride (98-107) mmol/L BUN (9-20) mg/dL Glucose (74-99) mg/dL POC Glucose (mg/dL) 125 H 170 H (75-99) mg/dL Total Protein (6.3-8.2) g/dL Albumin (3.5-5.0) g/dL Ur Leukocyte Esterase (Negative) Urine WBC (0-5) /hpf Urine Bacteria (None) /hpf Urine Mucus (None) /hpf 10/20/19 10/21/19 10/21/19 Range/Units 21:42 07:03 09:16 RBC 3.71 L (4.30-5.90) m/uL Hgb 11.8 L (13.0-17.5) gm/dL Hct 37.5 L (39.0-53.0) % MCV 101.1 H (80.0-100.0) fL Chloride (98-107) mmol/L BUN (9-20) mg/dL Glucose (74-99) mg/dL POC Glucose (mg/dL) 110 H (75-99) mg/dL Total Protein (6.3-8.2) g/dL Albumin (3.5-5.0) g/dL Ur Leukocyte Esterase Moderate H (Negative) Urine WBC 8 H (0-5) /hpf Urine Bacteria Many H (None) /hpf Urine Mucus Rare H (None) /hpf 10/21/19 Range/Units 09:16 RBC (4.30-5.90) m/uL Hgb (13.0-17.5) gm/dL Hct (39.0-53.0) % MCV (80.0-100.0) fL Chloride 111 H (98-107) mmol/L BUN 39 H (9-20) mg/dL Glucose 137 H (74-99) mg/dL POC Glucose (mg/dL) (75-99) mg/dL Total Protein 5.3 L (6.3-8.2) g/dL Albumin 2.8 L (3.5-5.0) g/dL Ur Leukocyte Esterase (Negative) Urine WBC (0-5) /hpf Urine Bacteria (None) /hpf Urine Mucus (None) /hpf Thrombosis Risk Factor Assmnt - Choose All That Apply Each Risk Factor Represents 3 Points: Age 75 years or older Thrombosis Risk Factor Assessment Total Risk Factor Score: 3 Thrombosis Risk Factor Assessment Level: Moderate Risk Assessment and Plan Assessment: 1. Generalized weakness secondary to urinary tract infection. Patient started on Rocephin and urine culture ordered. 2. Urinary retention requiring straight catheterizations 3. Dehydration. Continue with normal saline at 75 4. History of DVT and PE diagnosed in 2016 patient maintained on eliquis 5. Diabetes mellitus type 2 6. History of EtOH 7. Essential hypertension 8. Paroxysmal atrial fibrillation 9. History of hearing disorder and deafness 10. History of bilateral glaucoma DVT prophylaxis eliquis. GI prophylaxis Pepcid Time with Patient: Greater than 30 (Greater than 60% of the total time spent in counseling and coordination of care. I performed an examination of the patient and discussed their management with the Nurse Practitioner. I have reviewed the Nurse Practitioner's notes and agree with the documented findings and plan of care)
[2019-10-21 12:11] LABS: Glucose,Whole Blood 117 mg/dL (75-99)
[2019-10-21 17:27] LABS: Glucose,Whole Blood 108 mg/dL (75-99)
[2019-10-21 18:15] LABS: Hemoglobin A1C 5.7 % (4.0-6.0)
[2019-10-21 20:24] LABS: Glucose,Whole Blood 210 mg/dL (75-99)
[2019-10-21] MEDS: LATANOPROST 0.005% OPHTH DROPS 2.5 ML BTL BOTH EYES SCH (20:28)
[2019-10-21] MEDS: MELATONIN 5 MG TABLET PO SCH (20:29)
[2019-10-21] MEDS: ALPRAZolam 0.5 MG TAB PO SCH (20:29)
[2019-10-22 07:09] LABS: Glucose,Whole Blood 116 mg/dL (75-99)
[2019-10-22 07:37] LABS: Basophils # (A) 0.1 k/uL (0-0.2); Basophils % (A) 1 %; Eosinophils # (A) 0.6 k/uL (0-0.7); Eosinophils % (A) 9 %; HCT 36.5 % (39.0-53.0); HGB 11.8 gm/dL (13.0-17.5); Lymphocytes # (A) 1.4 k/uL (1.0-4.8); Lymphocytes % (A) 20 %; MCH 32.6 pg (25.0-35.0); MCHC 32.3 g/dL (31.0-37.0); MCV 101.1 fL (80.0-100.0); Mean Platelet Volume 7.7; Monocytes # (A) 0.8 k/uL (0-1.0); Monocytes % (A) 11 %; Neutrophils # (A) 3.9 k/uL (1.3-7.7); Neutrophils % (A) 56 %; Platelet Count 206 k/uL (150-450); RBC 3.61 m/uL (4.30-5.90); RDW 12.1 % (11.5-15.5); WBC 7.1 k/uL (3.8-10.6)
[2019-10-22 07:57] LABS: ALT 10 U/L (4-49); AST 20 U/L (17-59); African American GFR (CKD) >90 (>60 ml/min/1.73 sqM); Albumin 2.7 g/dL (3.5-5.0); Alkaline Phosphatase 60 U/L (38-126); Anion Gap 5 mmol/L; Blood Urea Nitrogen 25 mg/dL (9-20); Calcium 8.9 mg/dL (8.4-10.2); Carbon Dioxide 24 mmol/L (22-30); Chloride 112 mmol/L (98-107); Glucose 94 mg/dL (74-99); Non-African American GFR(CKD) 85 (>60 ml/min/1.73 sqM); Potassium 3.9 mmol/L (3.5-5.1); Sodium 141 mmol/L (137-145); Total Bilirubin 0.2 mg/dL (0.2-1.3); Total Protein 5.1 g/dL (6.3-8.2)
[2019-10-22] MEDS: INSULIN ASPART (NovoLOG) 100 UNIT/ML VIAL SQ SCH ×4 (07:59→21:01)
[2019-10-22] MEDS: ALBUTEROL NEBULIZED 2.5 MG/3 ML INHALATION SCH ×4 (08:28→21:18)
[2019-10-22] MEDS: BUDESONIDE 0.5 MG/2 ML NEBU INHALATION SCH ×3 (08:28→21:18)
[2019-10-22] MEDS: VALSARTAN 80 MG TAB PO SCH (08:35)
[2019-10-22] MEDS: ALPRAZolam 0.25 MG TAB PO SCH (08:36)
[2019-10-22] MEDS: FUROSEMIDE 20 MG TAB PO SCH (08:36)
[2019-10-22] MEDS: ASCORBIC ACID 500 MG TAB PO SCH (08:37)
[2019-10-22] MEDS: POTASSIUM CHLORIDE ER 10 MEQ TAB.ER.PRT PO SCH (08:37)
[2019-10-22] MEDS: FINASTERIDE 5 MG TAB PO SCH (08:37)
[2019-10-22] MEDS: APIXABAN 2.5 MG TABLET PO SCH ×2 (08:37→21:16)
[2019-10-22] MEDS: LACTOBACILLUS ACIDOPH & BULGAR 1 EACH PACKET PO SCH (08:37)
[2019-10-22] MEDS: FAMOTIDINE 20 MG TAB PO SCH (08:37)
[2019-10-22] MEDS: CHOLECALCIFEROL 1,000 UNIT TAB PO SCH (08:37)
[2019-10-22] MEDS: MULTIVITAMINS, THERA 1 EACH TAB PO SCH (08:38)
[2019-10-22] MEDS: SODIUM CHLORIDE 0.9% 1,000 ML IV SCH ×2 (08:38→22:26)
[2019-10-22 11:45] LABS: Glucose,Whole Blood 108 mg/dL (75-99)
--- NOTE | 2019-10-22 13:29 | P.PN ---
Subjective Progress Note Date: 10/22/19 This is a 89-year-old male patient who presented to his PCP with complaints of generalized weakness and not feeling well. Patient was sent to the hospital for urinary tract infection and dehydration. Patient has a known past medical history of asthma, diabetes mellitus, essential hypertension, osteoarthritis, pulmonary embolism, frequent straight cath at home, EtOH and anxiety. UA positive for moderate amount of leukocyte Estrace. Urine culture ordered. Patient started on Rocephin. Normal saline at 75. At this time patient reports he is feeling improved. Will consult PT OT. Patient denies chest pain or shortness of breath. Patient denies nausea vomiting or diarrhea. Patient denies any urinary burning or frequency. Objective - Vital Signs Vital signs: Vital Signs Temp 98.1 F 10/22/19 08:34 Pulse 68 10/22/19 12:11 Resp 16 10/22/19 08:34 BP 113/56 10/22/19 08:34 Pulse Ox 99 10/22/19 08:34 Intake & Output 10/21/19 10/22/19 10/22/19 18:59 06:59 18:59 Intake Total 600 Output Total 1800 250 Balance 600 -1800 -250 Intake: IV 600 Sodium Chloride 0.9% 1, 600 000 ml @ 75 mls/hr IV . [id number] [facility] Rx#:[id number] Output: Urine 1800 250 Straight 400 250 Other: Voiding Method Self-Catheterization Self-Catheterization Self-Catheterization # Voids 1 - Exam In general patient is alert and oriented 3 in no apparent distress, nurse report confusion earlier this morning. Head normocephalic and atraumatic Neck supple no JVD no goiter Lungs clear to auscultation bilaterally no wheezing or crackles Heart regular rate and rhythm S1-S2, no rub or gallop Abdomen is soft nontender nondistended positive bowel sounds no hepatosplenomegaly Extremities no edema no cyanosis or clubbing Neuro no gross focal neurological deficit - Labs CBC & Chem 7: 10/22/19 06:31 10/22/19 06:31 Labs: Abnormal Lab Results - Last 24 Hours (Table) 10/21/19 10/21/19 10/22/19 Range/Units 17:22 20:22 06:31 RBC 3.61 L (4.30-5.90) m/uL Hgb 11.8 L (13.0-17.5) gm/dL Hct 36.5 L (39.0-53.0) % MCV 101.1 H (80.0-100.0) fL Chloride (98-107) mmol/L BUN (9-20) mg/dL POC Glucose (mg/dL) 108 H 210 H (75-99) mg/dL Total Protein (6.3-8.2) g/dL Albumin (3.5-5.0) g/dL 10/22/19 10/22/19 10/22/19 Range/Units 06:31 07:08 11:42 RBC (4.30-5.90) m/uL Hgb (13.0-17.5) gm/dL Hct (39.0-53.0) % MCV (80.0-100.0) fL Chloride 112 H (98-107) mmol/L BUN 25 H (9-20) mg/dL POC Glucose (mg/dL) 116 H 108 H (75-99) mg/dL Total Protein 5.1 L (6.3-8.2) g/dL Albumin 2.7 L (3.5-5.0) g/dL Microbiology - Last 24 Hours (Table) 10/20/19 17:12 Blood Culture - Preliminary Blood No Growth after 24 hours Assessment and Plan Plan: 1. Generalized weakness secondary to urinary tract infection. Patient started on Rocephin and urine culture ordered. 2. Urinary retention requiring straight catheterizations 3. Dehydration. Continue with normal saline at 75 4. History of DVT and PE diagnosed in 2016 patient maintained on eliquis 5. Diabetes mellitus type 2 6. History of EtOH 7. Essential hypertension 8. Paroxysmal atrial fibrillation 9. History of hearing disorder and deafness 10. History of bilateral glaucoma DVT prophylaxis eliquis. GI prophylaxis Pepcid Continue IV Rocephin awaiting urine culture results Consult physical therapy and occupational therapy Recheck labs in a.m.
[2019-10-22 17:01] LABS: Glucose,Whole Blood 127 mg/dL (75-99)
[2019-10-22 20:13] LABS: Glucose,Whole Blood 160 mg/dL (75-99)
[2019-10-22] MEDS: ALPRAZolam 0.5 MG TAB PO SCH (21:16)
[2019-10-22] MEDS: MELATONIN 5 MG TABLET PO SCH (21:16)
[2019-10-22] MEDS: LATANOPROST 0.005% OPHTH DROPS 2.5 ML BTL BOTH EYES SCH (21:17)
[2019-10-23 06:46] LABS: Basophils % (A) 0 %; Eosinophils # (A) 0.6 k/uL (0-0.7); Eosinophils % (A) 7 %; HCT 38.1 % (39.0-53.0); Lymphocytes # (A) 1.8 k/uL (1.0-4.8); Lymphocytes % (A) 19 %; MCH 31.6 pg (25.0-35.0); MCHC 31.4 g/dL (31.0-37.0); MCV 100.5 fL (80.0-100.0); Mean Platelet Volume 7.5; Monocytes % (A) 11 %; Neutrophils # (A) 5.5 k/uL (1.3-7.7); Neutrophils % (A) 59 %; Platelet Count 204 k/uL (150-450); RBC 3.79 m/uL (4.30-5.90); RDW 12.1 % (11.5-15.5); WBC 9.2 k/uL (3.8-10.6)
[2019-10-23 06:59] LABS: ALT 11 U/L (4-49); AST 23 U/L (17-59); African American GFR (CKD) >90 (>60 ml/min/1.73 sqM); Albumin 2.8 g/dL (3.5-5.0); Alkaline Phosphatase 64 U/L (38-126); Anion Gap 5 mmol/L; Blood Urea Nitrogen 15 mg/dL (9-20); Calcium 9.2 mg/dL (8.4-10.2); Carbon Dioxide 23 mmol/L (22-30); Chloride 112 mmol/L (98-107); Glucose 78 mg/dL (74-99); Non-African American GFR(CKD) 89 (>60 ml/min/1.73 sqM); Potassium 3.6 mmol/L (3.5-5.1); Sodium 140 mmol/L (137-145); Total Bilirubin 0.3 mg/dL (0.2-1.3); Total Protein 5.3 g/dL (6.3-8.2)
[2019-10-23 07:04] LABS: Glucose,Whole Blood 96 mg/dL (75-99)
[2019-10-23] MEDS: INSULIN ASPART (NovoLOG) 100 UNIT/ML VIAL SQ SCH ×4 (07:26→20:57)
[2019-10-23] MEDS: ALBUTEROL NEBULIZED 2.5 MG/3 ML INHALATION SCH ×4 (08:25→20:32)
[2019-10-23] MEDS: BUDESONIDE 0.5 MG/2 ML NEBU INHALATION SCH ×2 (08:25→20:32)
[2019-10-23] MEDS: LACTOBACILLUS ACIDOPH & BULGAR 1 EACH PACKET PO SCH (08:46)
[2019-10-23] MEDS: VALSARTAN 80 MG TAB PO SCH (08:46)
[2019-10-23] MEDS: ALPRAZolam 0.25 MG TAB PO SCH (08:46)
[2019-10-23] MEDS: APIXABAN 2.5 MG TABLET PO SCH ×2 (08:46→21:22)
[2019-10-23] MEDS: FUROSEMIDE 20 MG TAB PO SCH (08:46)
[2019-10-23] MEDS: FAMOTIDINE 20 MG TAB PO SCH (08:46)
[2019-10-23] MEDS: CHOLECALCIFEROL 1,000 UNIT TAB PO SCH (08:46)
[2019-10-23] MEDS: FINASTERIDE 5 MG TAB PO SCH (08:47)
[2019-10-23] MEDS: ASCORBIC ACID 500 MG TAB PO SCH (08:47)
[2019-10-23] MEDS: MULTIVITAMINS, THERA 1 EACH TAB PO SCH (08:47)
[2019-10-23] MEDS: POTASSIUM CHLORIDE ER 10 MEQ TAB.ER.PRT PO SCH (08:47)
--- NOTE | 2019-10-23 10:23 | P.PN ---
Subjective Progress Note Date: 10/23/19 This is a 89-year-old male patient who presented to his PCP with complaints of generalized weakness and not feeling well. Patient was sent to the hospital for urinary tract infection and dehydration. Patient has a known past medical history of asthma, diabetes mellitus, essential hypertension, osteoarthritis, pulmonary embolism, frequent straight cath at home, EtOH and anxiety. UA positive for moderate amount of leukocyte Estrace. Urine culture ordered. Patient started on Rocephin. Normal saline at 75. At this time patient reports he is feeling improved. Will consult PT OT. Patient denies chest pain or shortness of breath. Patient denies nausea vomiting or diarrhea. Patient denies any urinary burning or frequency. On 10/23/2019 patient was seen and examined on the medical floor he is alert slightly confused in no apparent distress there is no fever or chills no headache or dizziness no chest pain no shortness of breath no cough no nausea or vomiting no abdominal pain no diarrhea no burning was urination no frequency or urgency no hematuria patient uses straight cath. Urine culture positive for Klebsiella pneumonia continue IV Rocephin at this time Objective - Vital Signs Vital signs: Vital Signs Temp 97.9 F 10/23/19 07:47 Pulse 74 10/23/19 08:39 Resp 16 10/23/19 07:47 BP 130/68 10/23/19 07:47 Pulse Ox 94 L 10/23/19 07:47 Intake & Output 10/22/19 10/23/19 10/23/19 18:59 06:59 18:59 Intake Total 600 1270 Output Total 750 500 Balance -150 770 Intake: IV 600 150 Sodium Chloride 0.9% 1, 600 150 000 ml @ 75 mls/hr IV . [id number] [facility] Rx#:[id number] Intake, IV Titration 50 Amount cefTRIAXone 1 gm In 50 Sodium Chloride 0.9% 50 ml @ 100 mls/hr IVPB Q24H [facility] Rx#:[id number] Oral 1070 Output: Urine 750 500 Straight 500 Other: Voiding Method Self-Catheterization - Exam In general patient is alert and oriented 3 in no apparent distress, nurse report confusion earlier this morning. Head normocephalic and atraumatic Neck supple no JVD no goiter Lungs clear to auscultation bilaterally no wheezing or crackles Heart regular rate and rhythm S1-S2, no rub or gallop Abdomen is soft nontender nondistended positive bowel sounds no hepatosplenomegaly Extremities no edema no cyanosis or clubbing Neuro no gross focal neurological deficit - Labs CBC & Chem 7: 10/23/19 05:53 10/23/19 05:53 Labs: Abnormal Lab Results - Last 24 Hours (Table) 10/22/19 10/22/19 10/22/19 Range/Units 11:42 16:59 20:11 RBC (4.30-5.90) m/uL Hgb (13.0-17.5) gm/dL Hct (39.0-53.0) % MCV (80.0-100.0) fL Chloride (98-107) mmol/L Creatinine (0.66-1.25) mg/dL POC Glucose (mg/dL) 108 H 127 H 160 H (75-99) mg/dL Total Protein (6.3-8.2) g/dL Albumin (3.5-5.0) g/dL 10/23/19 10/23/19 Range/Units 05:53 05:53 RBC 3.79 L (4.30-5.90) m/uL Hgb 12.0 L (13.0-17.5) gm/dL Hct 38.1 L (39.0-53.0) % MCV 100.5 H (80.0-100.0) fL Chloride 112 H (98-107) mmol/L Creatinine 0.61 L (0.66-1.25) mg/dL POC Glucose (mg/dL) (75-99) mg/dL Total Protein 5.3 L (6.3-8.2) g/dL Albumin 2.8 L (3.5-5.0) g/dL Microbiology - Last 24 Hours (Table) 10/20/19 17:12 Blood Culture - Preliminary Blood No Growth after 48 hours Assessment and Plan Plan: 1. Generalized weakness secondary to urinary tract infection. Patient started on Rocephin, urine culture positive for Klebsiella pneumonia continue Rocephin at this time 2. Urinary retention requiring straight catheterizations 3. Dehydration. Continue with normal saline at 75 4. History of DVT and PE diagnosed in 2016 patient maintained on eliquis 5. Diabetes mellitus type 2 6. History of EtOH 7. Essential hypertension 8. Paroxysmal atrial fibrillation 9. History of hearing disorder and deafness 10. History of bilateral glaucoma DVT prophylaxis eliquis. GI prophylaxis Pepcid Continue IV Rocephin awaiting urine culture results Consult physical therapy and occupational therapy Recheck labs in a.m. Possible discharge to home tomorrow
[2019-10-23 11:40] LABS: Glucose,Whole Blood 92 mg/dL (75-99)
[2019-10-23] MEDS: SODIUM CHLORIDE 0.9% 1,000 ML IV SCH (11:56)
[2019-10-23 16:41] LABS: Glucose,Whole Blood 124 mg/dL (75-99)
[2019-10-23 20:56] LABS: Glucose,Whole Blood 133 mg/dL (75-99)
[2019-10-23] MEDS: ALPRAZolam 0.5 MG TAB PO SCH ×2 (21:14→21:22)
[2019-10-23] MEDS: MELATONIN 5 MG TABLET PO SCH ×2 (21:14→21:22)
[2019-10-23] MEDS: LATANOPROST 0.005% OPHTH DROPS 2.5 ML BTL BOTH EYES SCH (21:22)
[2019-10-24] MEDS: SODIUM CHLORIDE 0.9% 1,000 ML IV SCH ×2 (05:35→16:04)
[2019-10-24] MEDS: ALBUTEROL NEBULIZED 2.5 MG/3 ML INHALATION PRN ×2 (06:01→16:22)
[2019-10-24 07:03] LABS: Glucose,Whole Blood 79 mg/dL (75-99)
[2019-10-24] MEDS: INSULIN ASPART (NovoLOG) 100 UNIT/ML VIAL SQ SCH ×3 (07:05→17:09)
[2019-10-24] MEDS: ALBUTEROL NEBULIZED 2.5 MG/3 ML INHALATION SCH ×2 (07:58→11:46)
[2019-10-24] MEDS: FAMOTIDINE 20 MG TAB PO SCH (08:17)
[2019-10-24] MEDS: LACTOBACILLUS ACIDOPH & BULGAR 1 EACH PACKET PO SCH (08:17)
[2019-10-24] MEDS: POTASSIUM CHLORIDE ER 10 MEQ TAB.ER.PRT PO SCH (08:17)
[2019-10-24] MEDS: ASCORBIC ACID 500 MG TAB PO SCH (08:17)
[2019-10-24] MEDS: FUROSEMIDE 20 MG TAB PO SCH (08:17)
[2019-10-24] MEDS: CHOLECALCIFEROL 1,000 UNIT TAB PO SCH (08:17)
[2019-10-24] MEDS: FINASTERIDE 5 MG TAB PO SCH (08:17)
[2019-10-24] MEDS: VALSARTAN 80 MG TAB PO SCH (08:17)
[2019-10-24] MEDS: MULTIVITAMINS, THERA 1 EACH TAB PO SCH (08:17)
[2019-10-24] MEDS: ALPRAZolam 0.25 MG TAB PO SCH (08:17)
[2019-10-24] MEDS: APIXABAN 2.5 MG TABLET PO SCH (08:17)
[2019-10-24 08:39] LABS: ALT 13 U/L (4-49); AST 32 U/L (17-59); African American GFR (CKD) >90 (>60 ml/min/1.73 sqM); Albumin 3.1 g/dL (3.5-5.0); Alkaline Phosphatase 71 U/L (38-126); Anion Gap 6 mmol/L; Blood Urea Nitrogen 11 mg/dL (9-20); Calcium 9.2 mg/dL (8.4-10.2); Carbon Dioxide 25 mmol/L (22-30); Chloride 110 mmol/L (98-107); Glucose 77 mg/dL (74-99); Non-African American GFR(CKD) >90 (>60 ml/min/1.73 sqM); Potassium 3.7 mmol/L (3.5-5.1); Sodium 141 mmol/L (137-145); Total Bilirubin 0.4 mg/dL (0.2-1.3); Total Protein 5.8 g/dL (6.3-8.2)
[2019-10-24 09:07] LABS: Basophils % (A) 0 %; Eosinophils # (A) 0.9 k/uL (0-0.7); Eosinophils % (A) 11 %; HCT 42.2 % (39.0-53.0); HGB 13.5 gm/dL (13.0-17.5); Lymphocytes # (A) 2.1 k/uL (1.0-4.8); Lymphocytes % (A) 25 %; MCHC 31.9 g/dL (31.0-37.0); MCV 100.2 fL (80.0-100.0); Monocytes # (A) 0.8 k/uL (0-1.0); Monocytes % (A) 10 %; Neutrophils # (A) 4.1 k/uL (1.3-7.7); Neutrophils % (A) 51 %; Platelet Count 244 k/uL (150-450); RBC 4.21 m/uL (4.30-5.90); RDW 12.1 % (11.5-15.5); WBC 8.1 k/uL (3.8-10.6)
[2019-10-24] MEDS: BUDESONIDE 0.5 MG/2 ML NEBU INHALATION SCH (11:46)
[2019-10-24 12:11] LABS: Glucose,Whole Blood 114 mg/dL (75-99)
--- NOTE | 2019-10-24 15:16 | P.DS ---
Providers Date of admission: 10/20/19 15:37 Expected date of discharge: 10/24/19 Attending physician: Yue Loya Primary care physician: Yue Loya [facility] Course: Discharge diagnosis 1. Generalized weakness secondary to urinary tract infection. Patient started on Rocephin, urine culture positive for Klebsiella pneumonia. Patient treated with Rocephin in the hospital. We will switch him over to Ceftin 500 mg twice a day for 3 more days for a total of 7 days of treatment 2. Urinary retention requiring straight catheterizations 3. Dehydration. Improved with IV fluids 4. History of DVT and PE diagnosed in 2016 patient maintained on eliquis 5. Diabetes mellitus type 2 6. History of EtOH 7. Essential hypertension 8. Paroxysmal atrial fibrillation 9. History of hearing disorder and deafness 10. History of bilateral glaucoma Hospital Course This is a 89-year-old male patient who presented to his PCP with complaints of generalized weakness and not feeling well. Patient was sent to the hospital for urinary tract infection and dehydration. Patient has a known past medical history of asthma, diabetes mellitus, essential hypertension, osteoarthritis, pulmonary embolism, frequent straight cath at home, EtOH and anxiety. UA positive for moderate amount of leukocyte Estrace. Urine culture ordered. Patient started on Rocephin. Normal saline at 75. At this time patient reports he is feeling improved. Will consult PT OT. Patient denies chest pain or shortness of breath. Patient denies nausea vomiting or diarrhea. Patient denies any urinary burning or frequency. On 10/23/2019 patient was seen and examined on the medical floor he is alert slightly confused in no apparent distress there is no fever or chills no headache or dizziness no chest pain no shortness of breath no cough no nausea or vomiting no abdominal pain no diarrhea no burning was urination no frequency or urgency no hematuria patient uses straight cath. Urine culture positive for Klebsiella pneumonia continue IV Rocephin at this time 10/24/2019 patient is medically stable for discharge. He is treated for UTI. Urine culture had grown Klebsiella pneumoniae. He was initially started on Rocephin and will be switched over to Ceftin at time of discharge for another 3 days of antibiotic treatment. Patient's generalized weakness was secondary to his UTI. He did work with physical therapy. He was able to ambulate with his walker. He will be discharged home. Patient felt with Dr. Loya in 1 week I performed an examination of the patient and discussed their management with the physician Tax Examining Technician. I have reviewed the Physician Tax Examining Technician's notes and agree with the documented findings and plan of care Patient Condition at Discharge: Stable Plan - Discharge Summary Discharge Rx Participant: Yes New Discharge Prescriptions: New Cefuroxime Axetil [Ceftin] 500 mg PO BID 3 Days #6 tab Continue Latanoprost Ophth [Xalatan 0.005%] 1 drops BOTH EYES HS L.acidoph,Paracasei, B.lactis [Probiotic] 1 cap PO DAILY Melatonin 10 mg PO HS Multivitamin [Men's Multi-Vitamin] 1 tab PO DAILY Cholecalciferol [Vitamin D3 (25 Mcg = 1000 Iu)] 1,000 unit PO DAILY Ascorbic Acid [Vitamin C] 500 mg PO DAILY Finasteride [Proscar] 5 mg PO DAILY Budesonide [Pulmicort] 0.5 mg INHALATION RT-BID ALPRAZolam [Xanax] 0.25 mg PO DAILY Apixaban [Eliquis] 2.5 mg PO BID Albuterol Nebulized [Ventolin Nebulized] 2.5 mg INHALATION RT-TID Furosemide [Lasix] 20 mg PO DAILY Potassium Chloride [Klor-Con 10] 10 meq PO DAILY Sennosides [Senokot] 2 tab PO DAILY PRN #60 tablet PRN Reason: Constipation traMADol HCl [Ultram] 1 - 2 tab PO Q6H PRN #56 tab PRN Reason: Pain Loperamide [Imodium] 2 mg PO QID PRN PRN Reason: Diarrhea ALPRAZolam [Xanax] 0.5 mg PO HS Valsartan 80 mg PO DAILY Discharge Medication List Latanoprost Ophth [Xalatan 0.005%] 1 drops BOTH EYES HS 11/04/15 [History] Cholecalciferol [Vitamin D3 (25 Mcg = 1000 Iu)] 1,000 unit PO DAILY 11/30/15 [History] L.acidoph,Paracasei, B.lactis [Probiotic] 1 cap PO DAILY 11/30/15 [History] Melatonin 10 mg PO HS 11/30/15 [History] Multivitamin [Men's Multi-Vitamin] 1 tab PO DAILY 11/30/15 [History] Ascorbic Acid [Vitamin C] 500 mg PO DAILY 10/08/17 [History] ALPRAZolam [Xanax] 0.25 mg PO DAILY 08/26/18 [History] Budesonide [Pulmicort] 0.5 mg INHALATION RT-BID 08/26/18 [History] Finasteride [Proscar] 5 mg PO DAILY 08/26/18 [History] Apixaban [Eliquis] 2.5 mg PO BID 04/27/19 [History] Albuterol Nebulized [Ventolin Nebulized] 2.5 mg INHALATION RT-TID 07/15/19 [History] Furosemide [Lasix] 20 mg PO DAILY 07/15/19 [History] Potassium Chloride [Klor-Con 10] 10 meq PO DAILY 07/15/19 [History] Sennosides [Senokot] 2 tab PO DAILY PRN #60 tablet 07/21/19 [Rx] traMADol HCl [Ultram] 1 - 2 tab PO Q6H PRN #56 tab 07/21/19 [Rx] ALPRAZolam [Xanax] 0.5 mg PO HS 10/20/19 [History] Loperamide [Imodium] 2 mg PO QID PRN 10/20/19 [History] Valsartan 80 mg PO DAILY 10/20/19 [History] Cefuroxime Axetil [Ceftin] 500 mg PO BID 3 Days #6 tab 10/24/19 [Rx] Discharge Disposition: HOME SELF-CARE
[2019-10-24 16:10] VITALS: BP 122/61; RESP 17; TEMP 98
[2019-10-24 16:35] VITALS: PULSE 80
[2019-10-24 16:55] LABS: Glucose,Whole Blood 137 mg/dL (75-99)
--- NOTE | 2019-10-27 15:31 | CDI ---
Documentation Clarification Form Date: 10/27/19 From: Alissa Carbajal CCS Phone: If you have a question about this query, please contact Helen Cortes, Pumper Hand at [phone] between 8am and 5pm. Admit Date: 10/20/19 Discharge Date:10/24/19 Patient Name: Jaxson Robb Visit Number: [id number] ATTENTION: The Clinical Documentation Specialists (CDI) and [facility] Coding Staff appreciate your assistance in clarifying documentation. Please respond to the clarification below the line at the bottom and electronically sign. The CDI & [facility] Coding staff will review the response and follow-up if needed. Please note: Queries are made part of the Legal Health Record. If you have any questions, please contact the author of this message via ITS. Dear Dr. Loya, Your patient has the documented diagnosis of UTI and voiding method self- catheterization due to urinary retention in H&P, PNs. A relationship between diagnoses cannot be assumed unless documented as such by the attending physician. In order to capture the severity of condition; please document the relationship, if any, between these diagnoses. History/Risk Factors: BPH w/ retention, DM Clinical Indicators: Urine culture Klebsiella Treatment: Rocephin 1 gm IVPB Please clarify and document your clinical opinion in the progress notes and discharge summary if any relationship (due to, caused by, secondary to) exists between these two diagnoses. Please include clinical findings supporting your diagnosis. UTI due to self-catheterization UTI not related to self-catheterizaton Other explanation of clinical findings (please specify) Unable to determine (no explanation for clinical findings) UTI due to self-cathterization MTDD
== END 2019-10-24 17:32 | disposition home or self-care (01) | DRG 699 ==
LOC: 4SSUR 15:37
PROVIDERS: ADMIT Internal Medicine; ATTEND Internal Medicine
DX: T83.518A Infection and inflammatory reaction due to other urinary catheter, initial encounter (principal); N39.0 Urinary tract infection, site not specified; E86.0 Dehydration; E11.9 Type 2 diabetes mellitus without complications; I10 Essential (primary) hypertension; I48.0 Paroxysmal atrial fibrillation; H91.90 Unspecified hearing loss, unspecified ear; H40.9 Unspecified glaucoma; J45.909 Unspecified asthma, uncomplicated; F41.9 Anxiety disorder, unspecified; B96.1 Klebsiella pneumoniae [K. pneumoniae] as the cause of diseases classified elsewhere; N40.1 Benign prostatic hyperplasia with lower urinary tract symptoms; G89.29 Other chronic pain; R33.8 Other retention of urine; M19.90 Unspecified osteoarthritis, unspecified site; Z79.01 Long term (current) use of anticoagulants; Z79.899 Other long term (current) drug therapy; Z96.652 Presence of left artificial knee joint; Z86.711 Personal history of pulmonary embolism; Z86.718 Personal history of other venous thrombosis and embolism; Z96.642 Presence of left artificial hip joint; Z96.1 Presence of intraocular lens; Z98.42 Cataract extraction status, left eye; Z98.41 Cataract extraction status, right eye; Z86.010 Personal history of colon polyps; Z98.890 Other specified postprocedural states; Z87.891 Personal history of nicotine dependence; Z88.0 Allergy status to penicillin; Z88.8 Allergy status to other drugs, medicaments and biological substances; Z81.8 Family history of other mental and behavioral disorders; Z82.0 Family history of epilepsy and other diseases of the nervous system
CPT/HCPCS: 71045; 80053; 81001; 83036; 83605; 85025; 87040; 94640

== ENCOUNTER 2020-03-24 00:12 | Emergency (ER) | payer MEDICARE, BC ==
[2020-03-24 00:20] VITALS: TEMP 97.6
[2020-03-24] MEDS ORDERED: SODIUM CHLORIDE 0.9% 500 ML 500 ML IV STA (00:38)
[2020-03-24 00:59] LABS: Basophils # (A) 0.1 k/uL (0-0.2); Basophils % (A) 1 %; Eosinophils # (A) 0.5 k/uL (0-0.7); Eosinophils % (A) 7 %; HCT 38.3 % (39.0-53.0); HGB 11.8 gm/dL (13.0-17.5); Lymphocytes # (A) 2.9 k/uL (1.0-4.8); Lymphocytes % (A) 37 %; MCH 32.4 pg (25.0-35.0); MCHC 30.9 g/dL (31.0-37.0); MCV 104.8 fL (80.0-100.0); Macrocytosis Slight; Mean Platelet Volume 7.4; Monocytes # (A) 0.7 k/uL (0-1.0); Monocytes % (A) 8 %; Neutrophils # (A) 3.4 k/uL (1.3-7.7); Neutrophils % (A) 42 %; Platelet Count 203 k/uL (150-450); RBC 3.66 m/uL (4.30-5.90); RDW 12.3 % (11.5-15.5); WBC 7.9 k/uL (3.8-10.6)
[2020-03-24 01:28] LABS: Partial Thromboplastin Time 22.3 sec (22.0-30.0); Prothrombin Time 10.4 sec (9.0-12.0)
[2020-03-24 01:31] LABS: Albumin 4.1 g/dL (3.5-5.0); Calcium 10.2 mg/dL (8.4-10.2); Magnesium 2.2 mg/dL (1.6-2.3); Potassium 5.3 mmol/L (3.5-5.1); Total Bilirubin 0.3 mg/dL (0.2-1.3); Total Protein 7.1 g/dL (6.3-8.2)
--- NOTE | 2020-03-24 01:34 | XR ---
EXAMINATION TYPE: XR chest 2V DATE OF EXAM: 03/24/2020 COMPARISON: 10/20/2019 HISTORY: Cough TECHNIQUE: 2 views FINDINGS: There is some linear density at the left lung base. Heart size is normal. Thoracic aorta is atheromatous. Bony thorax appears intact. There is slight anterior wedging one mid thoracic vertebra that appears old. There is no heart failure.. IMPRESSION: There is some mild scarring and atelectasis left lung base unchanged compared to old exam . No heart failure.
--- NOTE | 2020-03-24 01:47 | CT ---
EXAMINATION TYPE: CT brain paxtonine wo con DATE OF EXAM: 03/24/2020 COMPARISON: 08/26/2018 HISTORY: Fall Headache. Neck pain CT DLP: 1337.30 mGycm Automated exposure control for dose reduction was used. Exam performed without contrast. There is diffuse cerebral cortical atrophy. There is no mass effect nor midline shift. There is no si gn of intracranial hemorrhage. There is patchy hypodensity throughout the periventricular white matte r. The calvarium is intact. There is implant in the right temporal bone. Cervical vertebra show fairly normal alignment. There is a transverse fracture through the base of th e odontoid process with separation 5 mm of the fragments. This should be regarded an unstable fractur e. There appears to be fracture of the anterior arch of C1. Fragments are 4 mm on the axial images. The remaining cervical spine has fairly normal alignment. There is moderate narrowing of the C5-6 dis c space with spurring. There is multilevel cervical facet arthropathy. There is anterior subluxation of C7 in relation to T1 3 mm. This is probably related to degenerative phenomenon. 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 Unchanged. No acute intracranial abnorm ality. There is an acute odontoid fracture and anterior arch of C1 fracture compared to old exam. Separation of fragments up to 5 mm. Spondylotic changes in the lower cervical spine. Exam was discussed with Dr. Hankins at 1:45 AM.
--- NOTE | 2020-03-24 01:53 | ED ---
Fall HPI - General Chief Complaint: Syncope Stated Complaint: Head injury Time Seen by Provider: 03/24/20 00:26 Source: patient, family Mode of arrival: ambulatory Limitations: altered mental status (Underlying dementia) - History of Present Illness Initial Comments: This patient is an 89-year-old man who apparently had a fall at home. The patient's daughter states that the patient tends to drink alcohol and has had previous falls. She had gone out and then when she returned she found that he was lying on the floor. They did notice what appear to be a bruise to the right frontal. When I interview the patient, he is not having complaints. He does not recall the injury. The patient does have what appears be significant dementia MD Complaint: fall -: hour(s) Fall From: other (Unsure) When Fall Occurred: unsure Fall Witnessed: no Place Fall Occurred: home Loss of Consciousness: unsure Prolonged Down Time?: no Location: head - Related Data Home Medications Medication Instructions Recorded Confirmed Latanoprost Ophth [Xalatan 0.005%] 1 drops BOTH EYES HS 11/04/15 10/20/19 Cholecalciferol [Vitamin D3 (25 1,000 unit PO DAILY 11/30/15 10/20/19 Mcg = 1000 Iu)] L.acidoph,Paracasei, B.lactis 1 cap PO DAILY 11/30/15 10/20/19 [Probiotic] Melatonin 10 mg PO HS 11/30/15 10/20/19 Multivitamin [Men's Multi-Vitamin] 1 tab PO DAILY 11/30/15 10/20/19 Ascorbic Acid [Vitamin C] 500 mg PO DAILY 10/08/17 10/20/19 ALPRAZolam [Xanax] 0.25 mg PO DAILY 08/26/18 10/20/19 Budesonide [Pulmicort] 0.5 mg INHALATION RT-BID 08/26/18 10/20/19 Finasteride [Proscar] 5 mg PO DAILY 08/26/18 10/20/19 Apixaban [Eliquis] 2.5 mg PO BID 04/27/19 10/20/19 Albuterol Nebulized [Ventolin 2.5 mg INHALATION RT-TID 07/15/19 10/20/19 Nebulized] Furosemide [Lasix] 20 mg PO DAILY 07/15/19 10/20/19 Potassium Chloride [Klor-Con 10] 10 meq PO DAILY 07/15/19 10/20/19 ALPRAZolam [Xanax] 0.5 mg PO HS 10/20/19 10/20/19 Loperamide [Imodium] 2 mg PO QID PRN 10/20/19 10/20/19 Valsartan 80 mg PO DAILY 10/20/19 10/20/19 Previous Rx's Medication Instructions Recorded Sennosides [Senokot] 2 tab PO DAILY PRN #60 tablet 07/21/19 traMADol HCl [Ultram] 1 - 2 tab PO Q6H PRN #56 tab 07/21/19 Cefuroxime Axetil [Ceftin] 500 mg PO BID 3 Days #6 tab 10/24/19 Allergies Allergy/AdvReac Type Severity Reaction Status Date / Time Penicillins AdvReac Unknown Verified 03/24/20 00:20 tamsulosin HCl [From Flomax] AdvReac Unknown Verified 03/24/20 00:20 Review of Systems ROS Statement: Those systems with pertinent positive or pertinent negative responses have been documented in the HPI. ROS Other: All systems not noted in ROS Statement are negative. Limitations: ROS unobtainable due to patients medical condition (Underlying dementia) Respiratory: Denies: dyspnea Cardiovascular: Denies: chest pain Gastrointestinal: Denies: abdominal pain, vomiting Musculoskeletal: Denies: back pain Neurological: Denies: headache Past Medical History Past Medical History: Asthma, Diabetes Mellitus, Eye Disorder, Hearing Disorder / Deafness, Hypertension, Memory Impairment, Osteoarthritis (OA), Prostate Disorder, Pulmonary Embolus (PE) Additional Past Medical History / Comment(s): Severe environmental allergies, respiratory failure/intubated, [place] bilaterally, BPH, bilateral glaucoma. straight caths at home. History of Any Multi-Drug Resistant Organisms: None Reported Past Surgical History: Joint Replacement, Tonsillectomy Additional Past Surgical History / Comment(s): L total hip arthroplasty, L total knee arthroplasty, laser surgery bilateral eyes cataracts w/ lens implants, colonoscopy w/ benign polypectomy, cyst removed from back, vasectomy. Past Anesthesia/Blood Transfusion Reactions: No Reported Reaction Past Psychological History: Anxiety Smoking Status: Former smoker Past Alcohol Use History: Daily, Heavy Past Drug Use History: None Reported - Past Family History Father Family Medical History: No Reported History Mother Additional Family Medical History / Comment(s): Pt states his mother had mental health issues and trigeminal nerve problem and had chronic pain from this. General Exam Limitations: altered mental status (Significant dementia) General appearance: alert, in no apparent distress, cachectic Head exam: Present: normocephalic, other (Proximally 3 cm contusion right forehead with overlying abrasion. No palpable deformity. No tenderness.) Eye exam: Present: normal appearance, PERRL, EOMI. Absent: scleral icterus, conjunctival injection, nystagmus ENT exam: Present: normal oropharynx Neck exam: Present: normal inspection. Absent: tenderness Respiratory exam: Present: normal lung sounds bilaterally. Absent: respiratory distress, wheezes, rales, rhonchi, stridor, chest wall tenderness Cardiovascular Exam: Present: regular rate, normal rhythm, systolic murmur. Absent: diastolic murmur, rubs, gallop GI/Abdominal exam: Present: soft. Absent: distended, tenderness, guarding, rebound, rigid, mass Extremities exam: Present: normal inspection, normal capillary refill. Absent: pedal edema, calf tenderness Back exam: Present: normal inspection. Absent: CVA tenderness (R), CVA tenderness (L), vertebral tenderness Neurological exam: Present: alert. Absent: oriented X3 (Patient is oriented only to person), motor sensory deficit Skin exam: Present: warm, dry, intact, normal color. Absent: rash Course Vital Signs 03/24/20 03/24/20 00:17 01:54 Temperature 97.6 F Pulse Rate 62 68 Respiratory 18 16 Rate Blood Pressure 111/63 130/67 O2 Sat by Pulse 98 100 Oximetry Medical Decision Making - Medical Decision Making Patient is 89-year-old man brought for a fall at home. The patient's CT cervical spine does appear to show C2 fracture and possible C1 fracture as well. Cervical collar maintained. Discussed the findings with the patient's family and they are in agreement with transfer to facility with neurosurgery, and they request [facility] closest facility Case discussed with Dr. Rodriguez at [facility] and patient will be transferred there - Lab Data Result diagrams: 03/24/20 00:42 03/24/20 00:42 Lab Results 03/24/20 03/24/20 03/24/20 Range/Units 00:42 00:42 00:42 WBC 7.9 (3.8-10.6) k/uL RBC 3.66 L (4.30-5.90) m/uL Hgb 11.8 L (13.0-17.5) gm/dL Hct 38.3 L (39.0-53.0) % MCV 104.8 H (80.0-100.0) fL MCH 32.4 (25.0-35.0) pg MCHC 30.9 L (31.0-37.0) g/dL RDW 12.3 (11.5-15.5) % Plt Count 203 (150-450) k/uL Neutrophils % 42 % Lymphocytes % 37 % Monocytes % 8 % Eosinophils % 7 % Basophils % 1 % Neutrophils # 3.4 (1.3-7.7) k/uL Lymphocytes # 2.9 (1.0-4.8) k/uL Monocytes # 0.7 (0-1.0) k/uL Eosinophils # 0.5 (0-0.7) k/uL Basophils # 0.1 (0-0.2) k/uL Macrocytosis Slight PT 10.4 (9.0-12.0) sec INR 1.0 (<1.2) APTT 22.3 (22.0-30.0) sec Sodium (137-145) mmol/L Potassium (3.5-5.1) mmol/L Chloride (98-107) mmol/L Carbon Dioxide (22-30) mmol/L Anion Gap mmol/L BUN (9-20) mg/dL Creatinine (0.66-1.25) mg/dL Est GFR (CKD-EPI)AfAm (>60 ml/min/1.73 sqM) Est GFR (CKD-EPI)NonAf (>60 ml/min/1.73 sqM) Glucose (74-99) mg/dL Calcium (8.4-10.2) mg/dL Magnesium (1.6-2.3) mg/dL Total Bilirubin (0.2-1.3) mg/dL AST (17-59) U/L ALT (4-49) U/L Alkaline Phosphatase (38-126) U/L Troponin I (0.000-0.034) ng/mL Total Protein (6.3-8.2) g/dL Albumin (3.5-5.0) g/dL Urine Color Yellow Urine Appearance Clear (Clear) Urine pH 6.0 (5.0-8.0) Ur Specific [place] 1.005 (1.001-1.035) Urine Protein Negative (Negative) Urine Glucose (UA) Negative (Negative) Urine Ketones Negative (Negative) Urine Blood Negative (Negative) Urine Nitrite Negative (Negative) Urine Bilirubin Negative (Negative) Urine Urobilinogen <2.0 (<2.0) mg/dL Ur Leukocyte Esterase Small (Negative) Urine RBC <1 (0-5) /hpf Urine WBC 2 (0-5) /hpf Amorphous Sediment Rare H (None) /hpf Urine Bacteria Many H (None) /hpf Hyaline Casts 1 (0-2) /lpf Urine Mucus Rare H (None) /hpf Serum Alcohol mg/dL 03/24/20 03/24/20 Range/Units 00:42 00:42 WBC (3.8-10.6) k/uL RBC (4.30-5.90) m/uL Hgb (13.0-17.5) gm/dL Hct (39.0-53.0) % MCV (80.0-100.0) fL MCH (25.0-35.0) pg MCHC (31.0-37.0) g/dL RDW (11.5-15.5) % Plt Count (150-450) k/uL Neutrophils % % Lymphocytes % % Monocytes % % Eosinophils % % Basophils % % Neutrophils # (1.3-7.7) k/uL Lymphocytes # (1.0-4.8) k/uL Monocytes # (0-1.0) k/uL Eosinophils # (0-0.7) k/uL Basophils # (0-0.2) k/uL Macrocytosis PT (9.0-12.0) sec INR (<1.2) APTT (22.0-30.0) sec Sodium 135 L (137-145) mmol/L Potassium 5.3 H (3.5-5.1) mmol/L Chloride 106 (98-107) mmol/L Carbon Dioxide 17 L (22-30) mmol/L Anion Gap 12 mmol/L BUN 41 H (9-20) mg/dL Creatinine 1.14 (0.66-1.25) mg/dL Est GFR (CKD-EPI)AfAm 66 (>60 ml/min/1.73 sqM) Est GFR (CKD-EPI)NonAf 57 (>60 ml/min/1.73 sqM) Glucose 76 (74-99) mg/dL Calcium 10.2 (8.4-10.2) mg/dL Magnesium 2.2 (1.6-2.3) mg/dL Total Bilirubin 0.3 (0.2-1.3) mg/dL AST 31 (17-59) U/L ALT 15 (4-49) U/L Alkaline Phosphatase 69 (38-126) U/L Troponin I <0.012 (0.000-0.034) ng/mL Total Protein 7.1 (6.3-8.2) g/dL Albumin 4.1 (3.5-5.0) g/dL Urine Color Urine Appearance (Clear) Urine pH (5.0-8.0) Ur Specific [place] (1.001-1.035) Urine Protein (Negative) Urine Glucose (UA) (Negative) Urine Ketones (Negative) Urine Blood (Negative) Urine Nitrite (Negative) Urine Bilirubin (Negative) Urine Urobilinogen (<2.0) mg/dL Ur Leukocyte Esterase (Negative) Urine RBC (0-5) /hpf Urine WBC (0-5) /hpf Amorphous Sediment (None) /hpf Urine Bacteria (None) /hpf Hyaline Casts (0-2) /lpf Urine Mucus (None) /hpf Serum Alcohol 144 mg/dL - EKG Data -: EKG Interpreted by [facility] EKG shows normal: sinus rhythm (Rate 68 bpm), axis (Normal), intervals (Normal), QRS complexes (Normal) Rate: normal Critical Care Time Critical Care Time: Yes (30 minutes) Disposition Clinical Impression: C2 cervical fracture, Alcohol intoxication Disposition: OTHER INSTITUTION NOT DEFINED Condition: Serious Is patient prescribed a controlled substance at d/c from ED?: No Referrals: Yue Lyoa MD [Primary Care Provider] - 1-2 days - Out of Hospital Transfer - Req. Specs Out of Hospital Transfer - Requested Specifics: Other Emergency Center
[2020-03-24 01:54] VITALS: BP 130/67; PULSE 68; RESP 16
[2020-03-24 02:10] LABS: Appearance,Urine Clear (Clear); Color,Urine Yellow; Protein,Urine Negative (Negative); Specific Gravity,Urine 1.005 (1.001-1.035)
[2020-03-24 02:11] LABS: Bilirubin,Urine Negative (Negative); Blood,Urine Negative (Negative); Glucose,Urine (UA) Negative (Negative); Ketones,Urine Negative (Negative); Nitrite,Urine Negative (Negative); Urobilinogen,Urine <2.0 mg/dL (<2.0)
[2020-03-24 02:12] LABS: Leukocyte Esterase,Urine Small (Negative)
[2020-03-24 02:14] LABS: Amorphous Sediment,Urine Rare /hpf; Bacteria,Urine Many /hpf; Hyaline Casts,Urine 1 /lpf (0-2); Mucus,Urine Rare /hpf; RBC,Urine <1 /hpf (0-5); WBC,Urine 2 /hpf (0-5)
== END 2020-03-24 03:04 | disposition other institution (70) ==
LOC: EC 00:12
DX: F10.129 Alcohol abuse with intoxication, unspecified (principal); S12.190A Other displaced fracture of second cervical vertebra, initial encounter for closed fracture; E11.9 Type 2 diabetes mellitus without complications; I10 Essential (primary) hypertension; F03.90 Unspecified dementia, unspecified severity, without behavioral disturbance, psychotic disturbance, mood disturbance, and anxiety; H40.9 Unspecified glaucoma; F41.9 Anxiety disorder, unspecified; J45.909 Unspecified asthma, uncomplicated; M19.90 Unspecified osteoarthritis, unspecified site; N40.0 Benign prostatic hyperplasia without lower urinary tract symptoms; Z79.01 Long term (current) use of anticoagulants; Z79.51 Long term (current) use of inhaled steroids; Z79.899 Other long term (current) drug therapy; Z87.891 Personal history of nicotine dependence; Z88.0 Allergy status to penicillin; Z88.8 Allergy status to other drugs, medicaments and biological substances; Z86.711 Personal history of pulmonary embolism; Z96.652 Presence of left artificial knee joint; W19.XXXA Unspecified fall, initial encounter; Y92.009 Unspecified place in unspecified non-institutional (private) residence as the place of occurrence of the external cause
CPT/HCPCS: 36415; 93005; 80053; 83735; 84484; 85025; 85610; 85730; 81001; 71046; 72125; 70450; 99291; 96360; L0120; G0480; 80320